=== PATIENT | male | born 1965 | race Hispanic/Latino ===

== ENCOUNTER 2018-01-09 11:21 | Outpatient (CLI) | payer MEDICARE ==
--- NOTE | 2018-01-09 15:15 | RAD ---
3 VIEWS RIGHT SHOULDER: Date: 01/09/18 COMPARISON: None. HISTORY: Right anterior shoulder pain. FINDINGS: Three views of the right shoulder show no evidence of acute fracture or dislocation. No degenerative changes are seen. The visualized right thorax is unremarkable. IMPRESSION: Unremarkable exam. POS: CET
== END 2018-01-09 11:22 | disposition home or self-care (01) ==
LOC: BICRAD 11:21
PROVIDERS: ATTEND Internal Medicine
DX: M25.511 Pain in right shoulder (principal)

== ENCOUNTER 2018-01-28 23:58 | Inpatient (IN) | payer MEDICARE ==
[2018-01-29 01:11] LABS: Band 9 % (5-11); Hemoglobin 8.2 g/dL (14.0-18.0); Lymphocytes 10 % (21-51); MDiff Complete? YES; Mean Corpuscular HGB CONC 32.9 g/dL (32.0-36.0); Mean Corpuscular Hemoglobin 33.2 pg (27.0-31.0); Mean Platelet Volume 8.8 fL (7.4-10.4); Monocytes 10 % (0-10); Neutrophil 71 % (42-75); Nucleated RBC 7 % (0); Platelet Count 275 thou/uL (130-400); RBC Distribution Width 14.5 % (11.5-14.5); Red Blood Cell (RBC) Count 2.48 mill/uL (4.70-6.10); White Blood Cell (WBC) Count 10.7 thou/uL (4.8-10.8)
[2018-01-29 01:14] LABS: ALT (SGPT) 373 U/L (8-55); AST (SGOT) 422 U/L (5-34); Albumin 3.4 g/dL (3.5-5.0); Alkaline Phosphatase 78 U/L (40-150); Anion Gap 27 mmol/L (10-20); BUN (Urea Nitrogen) 64 mg/dL (8.4-25.7); Calc. Creatinine Clearance 0 mL/min (70-130); Carbon Dioxide 25 mmol/L (22-29); Chloride 93 mmol/L (98-107); Estimated GFR-MDRD 6; Glucose 227 mg/dL (70-105); Protein, Total 6.4 g/dL (6.0-8.3); Sodium 138 mmol/L (136-145)
[2018-01-29 01:16] LABS: CKMB 0.5 ng/mL (0-6.6); Troponin I 0.113 ng/mL (< 0.028)
[2018-01-29 01:18] LABS: Potassium 7.3 mmol/L (3.5-5.1)
[2018-01-29 02:25] LABS: HBSAB Concentration 2.78 mIU/mL; Hep B Core Total Ab Non-Reactive (NonReactive); Hep B Core Total Index 0.07 S/CO (0-0.79); Hep B Surf AB Non-Reactive (NonReactive); Hep B Surf Ag Non-Reactive S/CO (NonReactive); Hep C IgG Ab Non-Reactive (NonReactive); Hep C Index 0.08 S/CO (0-0.79)
[2018-01-29 04:33] LABS: Troponin I 0.128 ng/mL (< 0.028)
--- NOTE | 2018-01-29 07:59 | RAD ---
PORTABLE CHEST: DATE: 01/29/2018. PROVIDED CLINICAL HISTORY: Dyspnea. FINDINGS: Comparison 03/30/2015. The cardiac silhouette is enlarged. The lungs are hypoinflated. There is pro minence of the pulmonary vasculature and pulmonary interstitium. No definite focal consolidation, pl eural fluid, or pneumothorax with evaluation of the left lung base limited due to cardiomegaly. IMPRESSION: Hypoinflated exam with cardiomegaly and suggestion of pulmonary vascular congestion. Correlate with concerns for congestive failure. POS: OFF
[2018-01-29] MEDS ORDERED: Bisacodyl 10 MG SUPP PR PRN (08:01)
[2018-01-29] MEDS ORDERED: Acetaminophen 325 MG TAB PO PRN (08:01)
[2018-01-29] MEDS ORDERED: Zolpidem Tartrate 5 MG TAB PO PRN (08:01)
[2018-01-29] MEDS ORDERED: Bisacodyl 5 MG TAB PO PRN (08:01)
[2018-01-29] MEDS ORDERED: Loperamide HCl 2 MG CAP PO PRN (08:01)
[2018-01-29] MEDS ORDERED: HYDROcodone/Acetaminophen 5/325 mg Tablet PO PRN (08:01)
[2018-01-29] MEDS ORDERED: Ondansetron PF 4 MG/2 ML Vial IVP PRN (08:01)
[2018-01-29] MEDS ORDERED: Senokot S 8.6-50 MG TAB PO PRN (08:01)
[2018-01-29] MEDS ORDERED: Calcium Carbonate 500 MG ChewTAB PO PRN (08:01)
[2018-01-29] MEDS ORDERED: Ondansetron ODT 4 MG TAB PO PRN (08:01)
[2018-01-29] MEDS ORDERED: Dextrose 50% Abboject 50 ML SYRINGE SLOW IVP PRN (08:16)
[2018-01-29] MEDS ORDERED: Dextrose 5% in Water 1,000 ML IV PRN (08:16)
[2018-01-29 08:17] LABS: Troponin I 0.109 ng/mL (< 0.028)
--- NOTE | 2018-01-29 08:23 | ULT ---
PRELIMINARY REPORT/[facility]/EMERGENTY AFTER-HOURS PROCEDURE US Abdomen Limited, Right Upper Quadrant EXAM DATE/TIME: 01/29/2018 1:47 AM CLINICAL HISTORY: 52 years old, male; Pain and signs and symptoms; Nausea and vomiting; Abdominal pain; Localized; Righ t upper quadrant (ruq) TECHNIQUE: Real-time ultrasound of the abdomen with image documentation. Examination was focused on the right up per quadrant. COMPARISON: No relevant prior studies available. FINDINGS: Liver: Mildly enlarged liver. No mass. Gallbladder: Gallbladder is contracted and the gallbladder lumen is not very well visualized. However there appears to be gallstones with gallbladder wall thickening. Positive Bueno's sign. Common bile duct: Unremarkable. Pancreas: Limited visualization. Right kidney: No acute findings. No mass. No hydronephrosis. Other findings: Right pleural effusion. IMPRESSION: Contracted gallbladder. There appears to be gallstones with gallbladder wall thickening and positive Bueno's sign concerning for cholecystitis. Recommend further evaluation with CT. Right pleural effus ion. Mild hepatomegaly. Thank you for allowing us to participate in the care of your patient. Dictated and Authenticated by: Mandeep Campos MD 01/29/2018 2:45 AM Central Time ([place] & [place]) EMERGENT AFTER HOURS GALLBLADDER ULTRASOUND: History: Right upper quadrant pain. FINDINGS: Real-time imaging of the right upper quadrant shows a contracted gallbladder. Gallstones are noted. T here is gallbladder wall thickening present and technologist reports a positive ultrasound Bueno's s ign. Visualized liver parenchyma shows no focal abnormalities. The common bile duct is difficult to v isualized but does not appear dilated. Right kidney is normal in size and not obstructed. The pancrea s is obscured. There is reportedly no history of cholecystectomy, therefore, this appears to be relat ed to a contracted gallbladder with gallstones and what appears to be a markedly thickened gallbladde r wall. It would be less likely to be related to colon in the gallbladder fossa. Clinical correlation as to whether there has been a cholecystectomy, but I suspect that this is related to a contracted g allbladder. No ductal dilatation is visualized. IMPRESSION: The report is in agreement with the temporary report issued by [facility]. POS: [facility]
[2018-01-29] MEDS ORDERED: Famotidine/PF 20 mg/2ml Vial SLOW IVP SCH (09:00)
[2018-01-29] MEDS ORDERED: Piperacillin/Tazobactam 2.25 GM VIAL ONE (10:14)
--- NOTE | 2018-01-29 14:52 | HP ---
PRIMARY CARE PHYSICIAN: Joe Pacheco MD PRIMARY HAT AND CAP SEWER: Yanet Schaefer MD REASON FOR ADMISSION: Generalized weakness, hyperkalemia, abnormal LFT. HISTORY OF PRESENT ILLNESS: A 52-year-old male, who was brought to emergency room by family member for generalized weakness. The patient was requiring assistance to get around. He was having fever and cough. He was also feeling shortness of breath for last couple of days. One week ago, he visited [place]. He denies any muscle pain. He denies any urinary tract infection symptoms. He denies any vomiting, diarrhea. He denies any abdominal pain. He denies any dyspepsia. He denies any rash. He denies any flu-like symptoms, sore throat. He denies any pleuritic chest pain. He denies any body ache. He denies any sick exposure, other than he was in [place] one week ago. He denies any lower extremity edema, calf tenderness. He denies any dizziness or syncope. The patient is on hemodialysis Saturday, Saturday, Saturday. When he came to emergency room, his routine blood test showed hyperkalemia, elevated troponin, elevated BNP, and abnormal LFT. Ultrasound of the abdomen was done, which reported as contracted gallbladder. When I saw this patient, at that time, he was not having any upper abdominal pain. He was very weak enough to stand up from his bed. He was only having cough. He was afebrile and he was hemodynamically stable. His family member was present who provided most of the history and helped me to get history from the patient to interpret for me. REVIEW OF SYSTEMS: The following complete review of systems was negative, unless otherwise mentioned in the HPI or below: Constitutional: Weight loss or gain, ability to conduct usual activities. Skin: Rash, itching. Eyes: Double vision, pain. ENT/Mouth: Nose bleeding, neck stiffness, pain, tenderness. Cardiovascular: Palpitations, dyspnea on exertion, orthopnea. Respiratory: Shortness of breath, wheezing, cough, hemoptysis, fever or night sweats. Gastrointestinal: Poor appetite, abdominal pain, heartburn, nausea, vomiting, constipation, or diarrhea. Genitourinary: Urgency, frequency, dysuria, nocturia. Musculoskeletal: Pain, swelling. Neurologic/Psychiatric: Anxiety, depression. Allergy/Immunologic: Skin rash, bleeding tendency. All review of systems reviewed and negative except as mentioned in HPI. PAST MEDICAL HISTORY: ESRD, on hemodialysis Saturday, Saturday, Saturday, hypertension, secondary hyperparathyroidism of renal origin, dyslipidemia, diabetes type 2, gastroesophageal reflux disease. PAST SURGICAL HISTORY: Dialysis catheter placement in 2014. PAST PSYCHIATRIC HISTORY: Reviewed and negative. SOCIAL HISTORY: The patient is , lives at home with family. No history of tobacco, alcohol, or illicit drug abuse. FAMILY HISTORY: No strong family history of premature coronary artery disease, stroke, or cancer. ALLERGIES: NO KNOWN DRUG ALLERGIES. CURRENT HOME MEDICATIONS: Amlodipine 10 mg daily, coreg 25 mg twice daily, pravastatin 40 mg p.o. at bedtime, Renvela 800 mg t.i.d., Nexium 40 mg p.o. daily, Novolin insulin as per sliding scale. EMERGENCY ROOM COURSE: The patient is given Zosyn, aspirin. PHYSICAL EXAMINATION: VITAL SIGNS: On arrival, blood pressure 98/44, pulse 61, respiratory rate 20, temperature 98.4, saturation 98% on room air. Weight 78 kilogram. GENERAL: The patient is currently weak-appearing, chronically ill, no obvious acute distress. HEAD: Normocephalic, atraumatic. EYES: Pupils are round and reactive to light. Extraocular muscles are intact. No icterus. ENT: Oropharynx within normal limits. Moist mucous membranes. No oral lesions. NECK: Supple. No JVD. No thyromegaly. No lymphadenopathy. No meningeal signs of irritation. LUNGS: Clear to auscultation without any rhonchi or rales. CARDIAC: S1, S2 regular. No murmur elicited. No gallop. No rub. ABDOMEN: Soft. Bowel sounds present. Nontender, nondistended. No organomegaly, no mass. No Bueno's sign. No peritoneal sign. BACK: Unremarkable. No CVA tenderness. EXTREMITIES: Upper extremities, passive movement of all limbs are normal. Lower extremities, no edema. Good distal pulsation. No calf tenderness. SKIN: No skin rash. HEMATOLOGIC: No lymphadenopathy. PSYCHIATRIC: Normal affect. SIGNIFICANT LABORATORY DATA: EKG showing incomplete right bundle-branch block pattern, nonspecific ST-T changes, low voltage QRS complex. Abdominal ultrasound showing contracted gallbladder, gallbladder wall thickening present. CBC: WBC 10.7, hemoglobin 8.2, MCV 101, platelets 275. Sodium 138, potassium 7.3, chloride 93, carbon dioxide 25, anion gap 27, BUN 64, creatinine 9.62, glucose 227, calcium 9.0, phosphorus 3.0. LFT: AST 422, ALT 373, alkaline phosphatase 78, albumin 3.4, PTH 440, BNP 13,407.8, troponin 0.128, 0.109. Hepatitis profile negative. ASSESSMENT AND PLAN: 1. Generalized weakness, multifactorial etiology. The patient will need evaluation with PT. 2. Hyperkalemia. The patient had dialysis today and will repeat CMP tomorrow since right after dialysis, his hyperkalemia most likely resolved. 3. End-stage renal disease, on hemodialysis. Dr. Schaefer is consulted and he is going to do maintenance hemodialysis while in the hospital. He had dialysis today. 4. Abnormal liver function test. Etiology uncertain. He does not have any abdominal pain. I spoke with Dr. Armstrong, and he does not think that the patient has any cholecystitis. His alkaline phosphatase is normal. He does not have any jaundice. I am suspecting viral etiology versus passive congestion. We will repeat CMP tomorrow. 5. Suspected infection. Source of infection is not clear at this point, but based on his presentation, he might have underlying bronchitis. His chest x-ray showing pulmonary vascular congestion. He does have cough and shortness of breath. At this point, we will treat with Zosyn empirically. 6. Elevated troponin, likely due to renal disease and dialysis. We will do serial cardiac enzymes. 7. Elevated BNP, likely due to end-stage renal disease, but we will obtain echocardiography to assess EF and other structural abnormality. 8. Microcytic anemia. Continue Nephro-Jose tablet daily. 9. Secondary hyperparathyroidism of renal origin. Continue Renvela 800 mg p.o. t.i.d. 10. Hypertension. Continue amlodipine 5 mg p.o. daily, coreg 6.25 mg p.o. b.i.d. 11. Dyslipidemia. Continue Zocor 10 mg p.o. at bedtime. 12. Diabetes type 2. Continue insulin as per sliding scale protocol. 13. Deep vein thrombosis prophylaxis, heparin 5000 units subcu twice daily. 14. Gastrointestinal prophylaxis, Pepcid 20 mg IV daily. CODE STATUS: The patient is full code. The patient's daughter is surrogate decision maker. DISPOSITION PLAN: Based on clinical course. PLAN OF CARE: Discussed with the patient and family member at bedside in the emergency room. Job ID: [id number]
[2018-01-29] MEDS ORDERED: Amlodipine 5 MG TAB ONE (16:47)
[2018-01-29] MEDS ORDERED: Famotidine/PF 20 mg/2ml Vial ONE (16:48)
[2018-01-29] MEDS ORDERED: Sevelamer Carbonate 800 MG TAB PO SCH (17:15)
[2018-01-29 20:22] VITALS: BMI 26.4
[2018-01-29] MEDS: Heparin 5,000 UNITS/ML VIAL SC SCH ×2 (20:38→21:52)
[2018-01-29] MEDS: Albumin 25% 25 GM/100 ML BOT IVPB SCH (20:38)
[2018-01-29] MEDS: Amlodipine 5 MG TAB PO SCH (20:38)
[2018-01-29] MEDS: Folic Acid/Vit B Comp W-C PO SCH (20:38)
[2018-01-29] MEDS: Sevelamer Carbonate 800 MG TAB PO SCH (20:39)
[2018-01-29] MEDS: Saccharomyces boulardii 250 MG CAP PO SCH (20:39)
[2018-01-29] MEDS: Piperacillin/Tazobactam 2.25 GM in Sodium Chloride 0.9% 100 ML IVPB SCH ×2 (20:39→21:52)
[2018-01-29] MEDS: Carvedilol 6.25 MG TAB PO SCH (20:39)
[2018-01-29] MEDS: Simvastatin 5 MG TAB PO SCH (21:52)
--- NOTE | 2018-01-30 01:09 | CON ---
DATE OF CONSULTATION: 01/29/2018 REQUESTING PHYSICIAN: Abdias Graf MD. HISTORY OF PRESENT ILLNESS: Mr. Tellez is a 52-year-old man with history of end-stage renal disease, on hemodialysis. The patient was brought to the emergency department by his family reporting progressive generalized weakness. The patient recently travelled to [place]. He denies any abdominal pain. He, however, complains of progressive nonproductive cough over the last 1 week. He has had no fevers or chills. He has had no diarrhea or hematochezia. PAST MEDICAL HISTORY: Significant for hemodialysis-dependent end-stage renal disease, hyperlipidemia, type 2 diabetes mellitus, essential hypertension, and gastroesophageal reflux disease. PAST SURGICAL HISTORY: Pertinent for hemodialysis catheter placement 3 years ago. SOCIAL HISTORY: The patient is , lives at home with his . He denies any severe smoking, ethanol, or illicit drug abuse. FAMILY HISTORY: Significant for coronary artery disease; cancer, type unknown; and diabetes mellitus. MEDICATIONS: Patient's outpatient medications include 1. Coreg 25 mg p.o. b.i.d. 2. Pravastatin 40 mg p.o. at bedtime. 3. Amlodipine 10 mg p.o. daily. 4. Novolin insulin sliding scale. 5. Nexium 40 mg p.o. daily. 6. Renvela 800 mg p.o. t.i.d. ALLERGIES: THE PATIENT DENIES ANY KNOWN DRUG ALLERGIES. REVIEW OF SYSTEMS: A 10-point review of systems essentially unremarkable except as stated in the past medical history and chief complaint. PHYSICAL EXAMINATION: GENERAL: This reveals a 52-year-old normally developed man who is otherwise coherent, interactive, and appears stated age. The patient is alert and oriented x3, appears to be in no acute distress at the time of my evaluation. HEENT: Appears normocephalic and atraumatic. Pupils are equally round and reactive to light and accommodation. Extraocular movements are intact bilaterally. No scleral icterus present. HEART: Regular rate and rhythm. He has a 2/6 systolic murmur auscultated in the left sternal border. LUNGS: Scattered bibasilar rhonchi. Breathing is regular and nonlabored. ABDOMEN: Soft and obese but nontender to palpation. Liver is palpated 1 to 2 cm below the right costal margin. The spleen is non-palpable below the costal margin. Clearly, he has no peritoneal signs on examination. NEUROLOGICAL: No focal deficits present. LABORATORY DATA: Laboratory findings today include a CBC with 10,700 white blood cells. Hemoglobin and hematocrit of 8.2 and 25.0 respectively. Platelet count is 275,000. Differential count is as follows: 71 neutrophils, 9 bands, 10 lymphocytes, and 10 monocytes. Metabolic Profile: Sodium is 138, potassium is 7.3, chloride is 93, bicarb is 25, BUN is 64, creatinine is 9.62, glucose is 227, phosphorus is 3.0, total bilirubin is 1.0. AST and ALT are 422 and 373 respectively. BNP is markedly elevated at 13,407.8. I have personally reviewed the radiographic studies including a chest x-ray with significant cardiomegaly and increased perihilar markings. I have also reviewed the limited abdominal ultrasound which is pertinent for a contracted gallbladder with intraluminal gallstones and sludge. The common bile duct is normal in diameter for this patient's age at 3.7 mm in diameter. Incidentally, a right pleural effusion is noted. IMPRESSION: 1. Asymptomatic cholelithiasis. I suspect that the transaminitis is likely secondary to acute liver congestion from decompensated acute congestive cardiomyopathy. 2. Acute hyperkalemia, history of chronic renal failure, dialysis dependent. 3. Right pleural effusion secondary to acute congestive heart failure. RECOMMENDATIONS: 1. There is no acute surgical indication for this patient at this time for this asymptomatic cholelithiasis. 2. Recommend further evaluation with regards to patient's acute decompensated congestive cardiomyopathy. 3. Once the patient is hemodynamically stable from a cardiovascular standpoint, he may follow up with General Surgery in their clinic eventually for an elective cholecystectomy if warranted. 4. A cholecystectomy could be undertaken here in this hospitalization if he becomes symptomatic especially after hemodynamic stability has been achieved. 5. The above findings and recommendations were discussed with the patient and his daughter at the bedside through a card maker. The patient and his daughter indicated understanding of the information given. We answered their questions. Thank you again, Dr. Graf, for allowing me the opportunity to participate in the care of this patient. Job ID: [id number] MTDD
[2018-01-30] MEDS: Piperacillin/Tazobactam 2.25 GM in Sodium Chloride 0.9% 100 ML IVPB SCH ×3 (02:12→18:13)
[2018-01-30 06:41] LABS: ALT (SGPT) 589 U/L (8-55); AST (SGOT) 810 U/L (5-34); Albumin 3.3 g/dL (3.5-5.0); Alkaline Phosphatase 75 U/L (40-150); Anion Gap 25 mmol/L (10-20); BUN (Urea Nitrogen) 48 mg/dL (8.4-25.7); Bilirubin, Total 1.2 mg/dL (0.2-1.2); Calc. Creatinine Clearance 13 mL/min (70-130); Calcium 8.7 mg/dL (7.8-10.44); Carbon Dioxide 20 mmol/L (22-29); Chloride 95 mmol/L (98-107); Estimated GFR-MDRD 8; Globulin 3.4 g/dL (2.4-3.5); Glucose 297 mg/dL (70-105); Potassium 5.6 mmol/L (3.5-5.1); Protein, Total 6.7 g/dL (6.0-8.3); Sodium 134 mmol/L (136-145)
[2018-01-30 06:46] LABS: Band 1 % (5-11); Eosinophils 1 % (0-10); Hemoglobin 9.2 g/dL (14.0-18.0); Lymphocytes 18 % (21-51); MDiff Complete? YES; Mean Corpuscular HGB CONC 30.6 g/dL (32.0-36.0); Mean Corpuscular Hemoglobin 30.7 pg (27.0-31.0); Mean Platelet Volume 9.2 fL (7.4-10.4); Monocytes 6 % (0-10); Neutrophil 74 % (42-75); PLT Morphology Comment Appears Adequate; Platelet Count 215 thou/uL (130-400); RBC Distribution Width 14.4 % (11.5-14.5); Red Blood Cell (RBC) Count 2.99 mill/uL (4.70-6.10); White Blood Cell (WBC) Count 8.9 thou/uL (4.8-10.8)
[2018-01-30] MEDS ORDERED: Prevnar 13-Val Conj/PF 0.5 ML SYRINGE IM ONE ×2 (09:00→15:00)
--- NOTE | 2018-01-30 09:51 | PDOC.PN ---
- Subjective Encounter Start Date: 01/30/18 Encounter Start Time: 07:00 -: old records requested/rev Patient seen and examined. No new complaints. No overnight events pt seen in dialysis room, he denies chest pain, his breathing is OK, - Objective Resuscitation Status - Order Detail: 01/29/18 08:01 Resuscitation Status Routine Resuscitation Status: FULL: Full Resuscitation MAR Reviewed: Yes Vital Signs & Weight: Vital Signs (12 hours) Temp Pulse Resp BP Pulse Ox 01/30/18 08:00 99.5 F 75 18 122/60 95 01/30/18 04:00 98.8 F 65 18 112/54 L 94 L Weight Weight 163 lb 11.2 oz Result Diagrams: 01/30/18 05:51 01/30/18 05:51 Additional Labs: Accuchecks 01/30/18 01/29/18 05:34 21:01 POC Glucose 293 H 174 H Radiology Reviewed by me: Yes (echo noted for low EF) EKG Reviewed by me: Yes (nsr) Phys Exam - Physical Examination Constitutional: NAD HEENT: PERRLA, moist MMs, sclera anicteric Neck: no JVD, supple Respiratory: no wheezing, no rales, no rhonchi reduced air entry at base Cardiovascular: RRR, no significant murmur, no rub Gastrointestinal: soft, non-tender, no distention, positive bowel sounds Musculoskeletal: no edema, pulses present Neurological: non-focal, normal sensation Lymphatic: no nodes Psychiatric: normal affect, A&O x 3 Skin: no rash, normal turgor Dx/Plan (1) Acute on chronic combined systolic and diastolic ACC/AHA stage C congestive heart failure Code(s): I50.43 - ACUTE ON CHRONIC COMBINED SYSTOLIC AND DIASTOLIC HRT FAIL Status: Acute Comment: pt seems euvolemic, on HD, not on ACEI or ARB due to ESRD and hyperkalemia (2) Abnormal LFTs Code(s): R94.5 - ABNORMAL RESULTS OF LIVER FUNCTION STUDIES Status: Acute Comment: suspecting from passive congestion (3) Bandemia Code(s): D72.825 - BANDEMIA Status: Acute Comment: source unclear, on empiric zosyn (4) Hyperkalemia Code(s): E87.5 - HYPERKALEMIA Status: Acute (5) Weakness generalized Code(s): R53.1 - WEAKNESS Status: Acute (6) Anemia of renal disease Code(s): N18.9 - CHRONIC KIDNEY DISEASE, UNSPECIFIED; D63.1 - ANEMIA IN CHRONIC KIDNEY DISEASE Status: Chronic (7) Diabetes type 2, controlled Code(s): E11.9 - TYPE 2 DIABETES MELLITUS WITHOUT COMPLICATIONS Status: Chronic (8) Dyslipidemia Code(s): E78.5 - HYPERLIPIDEMIA, UNSPECIFIED Status: Chronic (9) ESRD on hemodialysis Code(s): N18.6 - END STAGE RENAL DISEASE; Z99.2 - DEPENDENCE ON RENAL DIALYSIS Status: Chronic (10) Elevated troponin Code(s): R74.8 - ABNORMAL LEVELS OF OTHER SERUM ENZYMES Status: Chronic (11) Hypertension Code(s): I10 - ESSENTIAL (PRIMARY) HYPERTENSION Status: Chronic (12) Secondary hyperparathyroidism of renal origin Code(s): N25.81 - SECONDARY HYPERPARATHYROIDISM OF RENAL ORIGIN Status: Chronic - Plan cont current plan of care, continue antibiotics, PT/OT, respiratory therapy * medication reviewed as below * symptomatic treatment. * will consult cardiology for his new low EF for further evaluation * continue zosyn empirically * continue PT * will monitor today on Tele, * further plan will decide based on cardiology recommendation Review of Systems - Review of Systems Constitutional: weakness. negative: fever, chills, sweats, malaise, other ENT: negative: Ear Pain, Ear Discharge, Nose Pain, Nose Discharge, Nose Congestion, Mouth Pain, Mouth Swelling, Throat Pain, Throat Swelling, Other Respiratory: negative: Cough, Dry, Shortness of Breath, Hemoptysis, SOB with Excertion, Pleuritic Pain, Sputum, Wheezing Cardiovascular: negative: chest pain, palpitations, orthopnea, paroxysmal nocturnal dyspnea, edema, light headedness, other Gastrointestinal: negative: Nausea, Vomiting, Abdominal Pain, Diarrhea, Constipation, Melena, Hematochezia, Other Genitourinary: negative: Dysuria, Frequency, Incontinence, Hematuria, Retention , Other Musculoskeletal: negative: Neck Pain, Shoulder Pain, Arm Pain, Back Pain, Hand Pain, Leg Pain, Foot Pain, Other Skin: negative: Rash, Lesions, Griffin, Bruising, Other - Medications/Allergies Allergies/Adverse Reactions: Allergies Allergy/AdvReac Type Severity Reaction Status Date / Time No Known Allergies Allergy Verified 01/30/18 06:46 Medications: Current Medications Acetaminophen (Tylenol) 650 mg PO Q4H PRN PRN Reason: Headache/Fever/Mild Pain (1-3) Hydrocodone Bitart/Acetaminophen (Rockwell 5/325) 1 tab PO Q4H PRN PRN Reason: Moderate Pain (4-6) Albuterol/Ipratropium (Duoneb) 3 ml NEB [id number] PRN PRN Reason: SOB &/or Wheezing Amlodipine Besylate (Norvasc) 5 mg PO DAILY [facility] Last Admin: 01/29/18 20:38 Dose: Not Given Bisacodyl (Dulcolax) 10 mg PO DAILYPRN PRN PRN Reason: Constipation Bisacodyl (Dulcolax) 10 mg AL DAILYPRN PRN PRN Reason: Constipation Calcium Carbonate (Tums) 1,000 mg PO Q4H PRN PRN Reason: Heartburn or Indigestion Carvedilol (Coreg) 6.25 mg PO BID-[facility] Last Admin: 01/29/18 20:39 Dose: Not Given Dextrose/Water (Dextrose 50%) 25 gm SLOW IVP PRN PRN PRN Reason: Hypoglycemia Epoetin Bruce (Procrit) 10,000 units IVP [id number]@[id number] [facility] Famotidine (Pepcid) 20 mg PO DAILY [facility] Glucagon (Glucagon) 1 mg IM PRN PRN PRN Reason: Hypoglycemia Heparin Sodium (Porcine) (Heparin) 5,000 units SC BID [facility] Last Admin: 01/29/18 21:52 Dose: 5,000 units Piperacillin Sod/Tazobactam (Sod 2.25 gm/ Sodium Chloride) 100 mls @ 200 mls/ hr IVPB 0200,1000,1800 [facility] Last Admin: 01/30/18 02:12 Dose: 100 mls Dextrose/Water (D5w) 1,000 mls @ 0 mls/hr IV .Q0M PRN PRN Reason: Hypoglycemia Insulin Human Lispro (Humalog) 0 units SC .MODERATE SLIDING SC PRN PRN Reason: Moderate Correctional Scale Insulin Human Lispro (Humalog) 0 units SC .BEDTIME SLIDING SC PRN PRN Reason: Bedtime Correctional Scale Loperamide HCl (Imodium) 2 mg PO PRN PRN PRN Reason: Diarrhea/Loose Stools Ondansetron HCl (Zofran Odt) 4 mg PO Q6H PRN PRN Reason: Nausea/Vomiting Ondansetron HCl (Zofran) 4 mg IVP Q6H PRN PRN Reason: Nausea/Vomiting Saccharomyces Boulardii (Florastor) 250 mg PO DAILY [facility] Last Admin: 01/29/18 20:39 Dose: Not Given Senna/Docusate Sodium (Senokot S) 2 tab PO BID PRN PRN Reason: Constipation Sevelamer Carbonate (Renvela) 800 mg PO TID-[facility] Last Admin: 01/29/18 20:39 Dose: Not Given Simvastatin (Zocor) 10 mg PO HS [facility] Last Admin: 01/29/18 21:52 Dose: 10 mg Vitamin B Complex/Vit C/Folic Acid (Nephro-Jose Tablet) 1 tab PO DAILY [facility] Last Admin: 01/29/18 20:38 Dose: Not Given Zolpidem Tartrate (Ambien) 5 mg PO HSPRN PRN PRN Reason: Insomnia
[2018-01-30] MEDS: Folic Acid/Vit B Comp W-C PO SCH (11:59)
[2018-01-30] MEDS: Carvedilol 6.25 MG TAB PO SCH ×2 (12:00→16:53)
[2018-01-30] MEDS: Amlodipine 5 MG TAB PO SCH (12:00)
[2018-01-30] MEDS: Saccharomyces boulardii 250 MG CAP PO SCH (12:00)
[2018-01-30] MEDS: Heparin 5,000 UNITS/ML VIAL SC SCH ×2 (12:00→20:55)
[2018-01-30] MEDS: Sevelamer Carbonate 800 MG TAB PO SCH ×3 (12:00→16:53)
[2018-01-30] MEDS: Famotidine 20 MG TAB PO SCH (12:07)
--- NOTE | 2018-01-30 12:55 | CON ---
DATE OF CONSULTATION: 01/29/2018 TYPE OF CONSULTATION: Nephrology CONSULTING PHYSICIAN: Dr. Graf. REASON FOR CONSULTATION: End-stage renal disease evaluation and care. REASON FOR ADMISSION: Weakness. HISTORY OF PRESENT ILLNESS: This 52-year-old male with history of end-stage renal disease, type 2 diabetes, hypertension, came to the hospital with weakness. He gets dialysis on Saturday, Saturday, and Saturday. Nephrology is consulted. No fevers or chills. No nausea or vomiting. No diarrhea reported. PAST MEDICAL HISTORY: Positive for end-stage renal disease, on hemodialysis on Saturday, Saturday, and Saturday; hypertension, hyperlipidemia, type 2 diabetes, and gastroesophageal reflux disease. PAST SURGICAL HISTORY: Dialysis access placement. HOME MEDICATIONS: 1. Amlodipine. 2. Coreg. 3. Pravastatin. 4. Renvela. 5. Nexium. 6. Novolin. ALLERGIES: NO KNOWN DRUG ALLERGIES SOCIAL HISTORY: No smoking, alcohol, or illicit drug abuse. FAMILY HISTORY: No history of kidney disease. REVIEW OF SYSTEMS: REVIEW OF SYSTEMS: The following complete review of systems was negative, unless otherwise mentioned in the HPI or below: Constitutional: Weight loss or gain, ability to conduct usual activities. Skin: Rash, itching. Eyes: Double vision, pain. ENT/Mouth: Nose bleeding, neck stiffness, pain, tenderness. Cardiovascular: Palpitations, dyspnea on exertion, orthopnea. Respiratory: Shortness of breath, wheezing, cough, hemoptysis,fever or night sweats. Gastrointestinal: Poor appetite, abdominal pain, heartburn, nausea, vomiting, constipation, or diarrhea. Genitourinary: Urgency, frequency, dysuria, nocturia. Musculoskeletal: Pain, swelling. Neurologic/Psychiatric: Anxiety, depression. Allergy/Immunologic: Skin rash, bleeding tendency. PHYSICAL EXAMINATION GENERAL: Reveals a well-built male, in no apparent distress. VITAL SIGNS: Temperature 98.4, pulse 61, respirations 20, blood pressure 98/44. HEENT: Atraumatic, normocephalic. Oral mucosa moist. NECK: Supple. CARDIOVASCULAR: S1 and S2. Heart rate and rhythm are regular. RESPIRATORY: Clear. GASTROINTESTINAL: Abdomen is soft. MUSCULOSKELETAL: 1+ edema. DERMATOLOGIC: No rash. NEUROLOGIC: Alert and awake. PSYCHIATRIC: Mood and affect normal. LABORATORY DATA: Potassium is 7.3, BUN is 64, creatinine is 9.6. ASSESSMENT AND PLAN: 1. End-stage renal disease, currently on hemodialysis. 2. Hyperkalemia, we will have him on urgent dialysis. 3. Anemia. Start on Epogen with dialysis. 4. . 5. Fluid overload. Remove fluid with dialysis as tolerated. 6. Continue dialysis Saturday, Saturday, Saturday. Job ID: [id number]
--- NOTE | 2018-01-30 13:11 | PRG ---
DATE OF SERVICE: 01/30/2018 SUBJECTIVE: The patient reports good rest overnight and reports that he continues to have no abdominal pain since last exam. The patient has no complaints for us at this time and at the time of exam. Denies fevers or chills. OBJECTIVE: VITAL SIGNS: Blood pressure 122/60, pulse 75, respirations 18, O2 sat 95% on room air, temperature 99.5. GENERAL: Alert and aware. HEENT: Normocephalic, atraumatic. EOMI. Moist mucosal membranes. HEART: Regular rate and rhythm. Pulses equal bilaterally. LUNGS: No apparent respiratory distress. Equal rise of chest. ABDOMEN: Soft and nontender. Normal bowel sounds. NEUROLOGIC: No focal deficits present. LABORATORY DATA: White blood cell count 8.9, hemoglobin 9.2, hematocrit 30, platelet count 215. Sodium 134, potassium 5.6, BUN 48, creatinine 6.92, glucose 297, ALT 589, and AST 810. IMPRESSION: 1. Asymptomatic cholelithiasis transaminitis secondary to hepatic congestion in the setting of congestive cardiomyopathy. 2. Hyperkalemia, in the setting of chronic renal failure, dialysis dependent. RECOMMENDATIONS: There continues to be no acute surgical indication for this patient's asymptomatic cholelithiasis. Recommend continued evaluation of congestive cardiomyopathy and treatment for other chronic health issues. Recommend this patient for outpatient followup for cholecystectomy. Please refer patient to our clinic on discharge for cholecystectomy. This patient was seen and evaluated by Dr. Cervantes on morning rounds. The patient verbalized understanding and was in agreement with plan. Job ID: [id number]
[2018-01-30] MEDS: HumaLOG 300 UNITS/3 ML VIAL SC PRN ×2 (18:13→21:02)
[2018-01-30] MEDS: Simvastatin 5 MG TAB PO SCH (20:55)
--- NOTE | 2018-01-30 23:43 | CON ---
DATE OF CONSULTATION: 01/30/2018 CARDIOLOGY CONSULTATION: REASON FOR CONSULTATION: Dilated cardiomyopathy. HISTORY OF PRESENT ILLNESS: Mr. Tellez is a pleasant 52-year-old gentleman who comes to the hospital for being weak and having epigastric pain. He was brought in, found to have elevated LFTs, but he only has cholelithiasis, not cholecystitis, so an echocardiogram was done that revealed a reduced ejection fraction probably about 30%. So it was thought that his epigastric pain is from passive congestion of liver due to his Afib. He also has end-stage renal disease and is on hemodialysis Saturday, Saturday, Saturday. Echocardiogram showed an EF which was 20%, which was thought to be new, so Cardiology was consulted for this. I talked with Mr. Tellez, he tells me that back in 2014 when he was first diagnosed with end-stage renal disease, he was also told that he had a weak heart. He tells me that he had a heart catheterization at that time and he was told there was an artery that was completely blocked and they could not do much about it. So this is unclear at this time, but this all happened at [facility]. PAST MEDICAL HISTORY: 1. End-stage renal disease, on hemodialysis Saturday, Saturday, Saturday with Dr. Schaefer. 2. Hypertension. 3. Hyperparathyroidism. 4. Hyperlipidemia. 5. Type 2 diabetes. 6. Gastroesophageal reflux disease. PAST SURGICAL HISTORY: 1. Dialysis catheter placement in 2014. 2. Possible heart catheterization per his review, but we do not have records of this. SOCIAL HISTORY: No alcohol, tobacco, or drugs. FAMILY HISTORY: Noncontributory. REVIEW OF SYSTEMS: A 12-point review of systems was negative unless stated in the history of present illness. OUTPATIENT MEDICATIONS: 1. Amlodipine 10 mg a day. 2. Coreg 25 mg twice a day. 3. Pravastatin 40 mg at bedtime. 4. Renvela 800 mg t.i.d. 5. Nexium 40 mg daily. 6. Novolin insulin per sliding scale. ALLERGIES: NO KNOWN DRUG ALLERGIES. PHYSICAL EXAMINATION: VITAL SIGNS: Temperature 98.3, pulse 68, respiratory rate 17, saturating 96% on room air, and blood pressure 116/56. GENERAL: Awake, alert, and oriented x3, in no distress. HEENT: Normocephalic, atraumatic. NECK: Supple. LUNGS: Clear. CARDIOVASCULAR: S1 and S2. No S3 or S4. No murmurs. ABDOMEN: Soft. Positive bowel sounds. EXTREMITIES: No edema. SKIN: Warm and dry. LABORATORY WORK: Reviewed. CBC with a white count of 10.7, hemoglobin of 8.2 up to 9.2, hematocrit of 30, and platelet count of 215. Chemistries with sodium of 134, potassium is 5.6, chloride anion gap of 25, BUN of 48, and creatinine 6.9. AST was 810 and ALT was 589. Troponin was 0.1 , then 0.1, and 0.1. BNP was 13,407. Albumin was 3.3. Hepatitis B and C were nonreactive. Echocardiogram was reviewed which showed an EF of about 20% to 30%; however, technically difficult study. Impaired relaxation with grade 1 diastolic dysfunction, [id number] TR, and mild AI. ASSESSMENT AND PLAN: 1. Cardiomyopathy: Thought to be new onset initially; however, he tells me he has been told this was very weak in the past. He does not have any automatic implantable cardioverter-defibrillator, so this has either been not followed or he was just confused with some other diagnoses. We will ask for records from the [facility]. Hopefully, this will have them from 2015, and we will see what has been done for him already, and we will decide if there is any further risk stratification that needs to be done. If this is all new, he will need a heart catheterization; otherwise, we may just need to make sure he is in optimal medical therapy. 2. End-stage renal disease, on hemodialysis per Dr. Schaefer. 3. Further recommendations per record reviews. 4. Currently stable. We will follow. Continue current meds. Job ID: [id number] [facility]
[2018-01-31] MEDS: Piperacillin/Tazobactam 2.25 GM in Sodium Chloride 0.9% 100 ML IVPB SCH ×3 (01:46→17:30)
[2018-01-31 07:25] LABS: ALT (SGPT) 466 U/L (8-55); AST (SGOT) 390 U/L (5-34); Albumin 3.4 g/dL (3.5-5.0); Alkaline Phosphatase 74 U/L (40-150); Anion Gap 19 mmol/L (10-20); BUN (Urea Nitrogen) 39 mg/dL (8.4-25.7); Bilirubin, Total 1.3 mg/dL (0.2-1.2); Calc. Creatinine Clearance 14 mL/min (70-130); Carbon Dioxide 23 mmol/L (22-29); Chloride 96 mmol/L (98-107); Estimated GFR-MDRD 10; Glucose 182 mg/dL (70-105); Potassium 4.4 mmol/L (3.5-5.1); Protein, Total 6.4 g/dL (6.0-8.3); Sodium 134 mmol/L (136-145)
[2018-01-31 07:26] LABS: #Eosinphils 0.5 thou/uL (0.0-0.7); #Lymphocytes 2.2 thou/uL (1.20-3.40); #Monocytes 1.2 thou/uL (0.11-0.59); #Neutrophils 6.6 thou/uL (1.40-6.50); Hemoglobin 8.6 g/dL (14.0-18.0); Mean Corpuscular HGB CONC 33.2 g/dL (32.0-36.0); Mean Corpuscular Hemoglobin 33.2 pg (27.0-31.0); Mean Platelet Volume 8.5 fL (7.4-10.4); Platelet Count 340 thou/uL (130-400); RBC Distribution Width 14.3 % (11.5-14.5); White Blood Cell (WBC) Count 10.5 thou/uL (4.8-10.8)
[2018-01-31] MEDS ORDERED: Epoetin (ESRD) 10,000 UNITS/ML VIAL IVP SCH (09:00)
--- NOTE | 2018-01-31 09:30 | PDOC.PN ---
- Subjective Encounter Start Date: 01/31/18 Encounter Start Time: 08:45 Patient seen and examined. No new complaints. No overnight events this morning pt has low grade fever, no abdominal pain, no cough - Objective Resuscitation Status - Order Detail: 01/29/18 08:01 Resuscitation Status Routine Resuscitation Status: FULL: Full Resuscitation MAR Reviewed: Yes Vital Signs & Weight: Vital Signs (12 hours) Temp Pulse Resp BP Pulse Ox 01/31/18 07:46 93 L 01/31/18 07:00 99.2 F 64 17 114/54 L 93 L 01/31/18 03:34 100.1 F H 67 14 117/57 L 100 Weight Weight 162 lb 3 oz I&O: 01/30/18 01/31/18 02/01/18 06:59 06:59 06:59 Intake Total 840 Output Total 1600 Balance -760 Result Diagrams: 01/31/18 06:54 01/31/18 06:54 Additional Labs: Accuchecks 01/31/18 01/30/18 01/30/18 05:38 20:55 17:40 POC Glucose 174 H 251 H 398 H EKG Reviewed by me: Yes (nsr) Phys Exam - Physical Examination Constitutional: NAD HEENT: PERRLA, moist MMs, sclera anicteric Neck: no JVD, supple Respiratory: no wheezing, no rales, no rhonchi Cardiovascular: RRR, no significant murmur, no rub Gastrointestinal: soft, non-tender, no distention, positive bowel sounds Musculoskeletal: no edema, pulses present Neurological: non-focal, normal sensation Lymphatic: no nodes Psychiatric: normal affect, A&O x 3 Skin: no rash, normal turgor Dx/Plan (1) Acute on chronic combined systolic and diastolic ACC/AHA stage C congestive heart failure Code(s): I50.43 - ACUTE ON CHRONIC COMBINED SYSTOLIC AND DIASTOLIC HRT FAIL Status: Acute Comment: pt seems euvolemic, on HD, not on ACEI or ARB due to ESRD and hyperkalemia (2) Abnormal LFTs Code(s): R94.5 - ABNORMAL RESULTS OF LIVER FUNCTION STUDIES Status: Acute Comment: suspecting from passive congestion (3) Bandemia Code(s): D72.825 - BANDEMIA Status: Acute Comment: source unclear, on empiric zosyn (4) Hyperkalemia Code(s): E87.5 - HYPERKALEMIA Status: Acute (5) Weakness generalized Code(s): R53.1 - WEAKNESS Status: Acute (6) Anemia of renal disease Code(s): N18.9 - CHRONIC KIDNEY DISEASE, UNSPECIFIED; D63.1 - ANEMIA IN CHRONIC KIDNEY DISEASE Status: Chronic (7) Diabetes type 2, controlled Code(s): E11.9 - TYPE 2 DIABETES MELLITUS WITHOUT COMPLICATIONS Status: Chronic (8) Dyslipidemia Code(s): E78.5 - HYPERLIPIDEMIA, UNSPECIFIED Status: Chronic (9) ESRD on hemodialysis Code(s): N18.6 - END STAGE RENAL DISEASE; Z99.2 - DEPENDENCE ON RENAL DIALYSIS Status: Chronic (10) Elevated troponin Code(s): R74.8 - ABNORMAL LEVELS OF OTHER SERUM ENZYMES Status: Chronic (11) Hypertension Code(s): I10 - ESSENTIAL (PRIMARY) HYPERTENSION Status: Chronic (12) Secondary hyperparathyroidism of renal origin Code(s): N25.81 - SECONDARY HYPERPARATHYROIDISM OF RENAL ORIGIN Status: Chronic - Plan cont current plan of care, plan discussed w/ family, continue antibiotics * LFT is now improving, suspected form passive congestion * will get medical record from [facility], to see if this low EF is new or old and if he had any investigation done or not, based on that will decide if he needs any more testing this admission * discussed with daughter and updated jordan * continue zosyn * repeat labs tomorrow * overall stable and improving * HD as per nephrology * medication reviewed as below * symptomatic treatment. Review of Systems - Review of Systems Constitutional: fever. negative: chills, sweats, weakness, malaise, other ENT: negative: Ear Pain, Ear Discharge, Nose Pain, Nose Discharge, Nose Congestion, Mouth Pain, Mouth Swelling, Throat Pain, Throat Swelling, Other Respiratory: negative: Cough, Dry, Shortness of Breath, Hemoptysis, SOB with Excertion, Pleuritic Pain, Sputum, Wheezing Cardiovascular: negative: chest pain, palpitations, orthopnea, paroxysmal nocturnal dyspnea, edema, light headedness, other Gastrointestinal: negative: Nausea, Vomiting, Abdominal Pain, Diarrhea, Constipation, Melena, Hematochezia, Other Genitourinary: negative: Dysuria, Frequency, Incontinence, Hematuria, Retention , Other Musculoskeletal: negative: Neck Pain, Shoulder Pain, Arm Pain, Back Pain, Hand Pain, Leg Pain, Foot Pain, Other Skin: negative: Rash, Lesions, Griffin, Bruising, Other - Medications/Allergies Allergies/Adverse Reactions: Allergies Allergy/AdvReac Type Severity Reaction Status Date / Time No Known Allergies Allergy Verified 01/30/18 06:46 Medications: Current Medications Acetaminophen (Tylenol) 650 mg PO Q4H PRN PRN Reason: Headache/Fever/Mild Pain (1-3) Hydrocodone Bitart/Acetaminophen (Salineno 5/325) 1 tab PO Q4H PRN PRN Reason: Moderate Pain (4-6) Albuterol/Ipratropium (Duoneb) 3 ml NEB [id number] PRN PRN Reason: SOB &/or Wheezing Amlodipine Besylate (Norvasc) 5 mg PO DAILY [facility] Last Admin: 01/30/18 12:00 Dose: 5 mg Bisacodyl (Dulcolax) 10 mg PO DAILYPRN PRN PRN Reason: Constipation Bisacodyl (Dulcolax) 10 mg MI DAILYPRN PRN PRN Reason: Constipation Calcium Carbonate (Tums) 1,000 mg PO Q4H PRN PRN Reason: Heartburn or Indigestion Carvedilol (Coreg) 6.25 mg PO BID-[facility] Last Admin: 01/30/18 16:53 Dose: 6.25 mg Dextrose/Water (Dextrose 50%) 25 gm SLOW IVP PRN PRN PRN Reason: Hypoglycemia Epoetin Bruce (Procrit) 10,000 units IVP MoWeFr@0900 [facility] Famotidine (Pepcid) 20 mg PO DAILY [facility] Last Admin: 01/30/18 12:07 Dose: 20 mg Glucagon (Glucagon) 1 mg IM PRN PRN PRN Reason: Hypoglycemia Heparin Sodium (Porcine) (Heparin) 5,000 units SC BID [facility] Last Admin: 01/30/18 20:55 Dose: 5,000 units Piperacillin Sod/Tazobactam (Sod 2.25 gm/ Sodium Chloride) 100 mls @ 200 mls/ hr IVPB 0200,1000,1800 [facility] Last Admin: 01/31/18 01:46 Dose: 100 mls Dextrose/Water (D5w) 1,000 mls @ 0 mls/hr IV .Q0M PRN PRN Reason: Hypoglycemia Insulin Human Lispro (Humalog) 0 units SC .MODERATE SLIDING SC PRN PRN Reason: Moderate Correctional Scale Last Admin: 01/30/18 18:13 Dose: 10 unit Insulin Human Lispro (Humalog) 0 units SC .BEDTIME SLIDING SC PRN PRN Reason: Bedtime Correctional Scale Last Admin: 01/30/18 21:02 Dose: 3 unit Loperamide HCl (Imodium) 2 mg PO PRN PRN PRN Reason: Diarrhea/Loose Stools Last Admin: 01/30/18 17:07 Dose: 2 mg Ondansetron HCl (Zofran Odt) 4 mg PO Q6H PRN PRN Reason: Nausea/Vomiting Ondansetron HCl (Zofran) 4 mg IVP Q6H PRN PRN Reason: Nausea/Vomiting Saccharomyces Boulardii (Florastor) 250 mg PO DAILY [facility] Last Admin: 01/30/18 12:00 Dose: 250 mg Senna/Docusate Sodium (Senokot S) 2 tab PO BID PRN PRN Reason: Constipation Sevelamer Carbonate (Renvela) 800 mg PO TID-WM [facility] Last Admin: 01/30/18 16:53 Dose: 800 mg Simvastatin (Zocor) 10 mg PO HS [facility] Last Admin: 01/30/18 20:55 Dose: 10 mg Vitamin B Complex/Vit C/Folic Acid (Nephro-Jose Tablet) 1 tab PO DAILY [facility] Last Admin: 01/30/18 11:59 Dose: 1 tab Zolpidem Tartrate (Ambien) 5 mg PO HSPRN PRN PRN Reason: Insomnia
--- NOTE | 2018-01-31 10:13 | PRG ---
DATE OF SERVICE: 01/30/2018 SUBJECTIVE: Patient was seen and examined at bedside and overnight events noted. Patient denies any shortness of breath or chest pain or palpitation. No history of nausea or vomiting or diarrhea or fever or chills or cramps. OBJECTIVE: GENERAL: This is a well-built man in no acute distress. VITAL SIGNS: Temperature 99.5. Heart rate 84. Respiratory rate . Blood pressure 122/60. HEENT: Atraumatic, normocephalic. Oral mucosa is moist NECK: Supple. CARDIOVASCULAR: S1, S2 heard. Rate and rhythm regular. RESPIRATORY: Clear to auscultation. GASTROINTESTINAL: Abdomen is soft. MUSCULOSKELETAL: No tenderness. No edema. DERMATOLOGIC: No skin rash. NEUROLOGIC: Alert and awake and oriented X3. No focal neurologic deficits. Moving all the extremities. PSYCHIATRIC: Mood and affect normal. LABORATORY DATA: Potassium is 5.6, BUN is 48, creatinine is 6.9. ASSESSMENT: 1. End-stage renal disease, on hemodialysis on Saturday, Saturday, and Saturday. We will have dialysis for two hours today. 2. Hyperkalemia. We will have dialysis for 2 hours. 3. Metabolic acidosis. 4. Edema, controlled. 5. Hypertension, stable. PLAN: Two hours of dialysis today, then continue dialysis on Saturday, Saturday, and Saturday. Job ID: [id number]
[2018-01-31] MEDS: Sevelamer Carbonate 800 MG TAB PO SCH ×3 (10:56→17:31)
[2018-01-31] MEDS: Amlodipine 5 MG TAB PO SCH (10:57)
[2018-01-31] MEDS: Famotidine 20 MG TAB PO SCH (11:57)
[2018-01-31] MEDS: Carvedilol 6.25 MG TAB PO SCH ×2 (11:57→17:31)
[2018-01-31] MEDS: Heparin 5,000 UNITS/ML VIAL SC SCH ×2 (11:58→20:56)
[2018-01-31] MEDS: Folic Acid/Vit B Comp W-C PO SCH (11:58)
[2018-01-31] MEDS: Saccharomyces boulardii 250 MG CAP PO SCH (11:58)
--- NOTE | 2018-01-31 16:10 | PDOC.CTH ---
Cardiology Progress Note - Subjective I reviewed his records from the [facility]. He has no new complaints. - Objective Vital Signs Temp Pulse Resp BP Pulse Ox 01/31/18 11:40 98.2 F 66 18 121/51 L 98 01/31/18 10:57 64 01/31/18 07:46 93 L 01/31/18 07:00 99.2 F 64 17 114/54 L 93 L Weight 162 lb 3 oz 01/30/18 01/31/18 02/01/18 06:59 06:59 06:59 Intake Total 840 Output Total 1600 Balance -760 - Physical Examination General/Neuro: alert & oriented x3, NAD Neck: no JVD present Lungs: CTA, unlabored respirations Heart: RRR Abdomen: NT/ND Extremities: other: (no edema.) - Labs Result Diagrams: 01/31/18 06:54 01/31/18 06:54 Troponin/CKMB CK-MB (CK-2) 0.5 ng/mL (0-6.6) 01/29/18 00:35 Troponin I 0.109 ng/mL (< 0.028) H 01/29/18 07:42 - Assessment/Plan 1. Ischemic CM. 2. Chronic systolic dysfunction. EF qat 25% since 2014 3. Multivessel CAD, s/p stent to LAD in 2014 4. Non compliance 5. ESRD 6. HTN 7. T2DM PLAN: - HD for fluid control - We spoke about possible ICD placement and he is not sure that he wants this at the moment. - He tells me he will talk it over with his family and will let up know on his follow up visit. - He tells me he will follow up with us as before he did not as he was not covered but he now has coverage so he will follow up. - Will stop amlodipine and will start low dose ACEI. - Continue coreg. - May discharge any time from cardiac perspective. - Follow up in the office in 1 month.
--- NOTE | 2018-01-31 16:32 | PRG ---
DATE OF SERVICE: 01/31/2018 SUBJECTIVE: Patient was seen and examined at bedside and overnight events noted. Patient denies any shortness of breath or chest pain or palpitation. No history of nausea or vomiting or diarrhea or fever or chills or cramps. OBJECTIVE: GENERAL: This is a well-built man, in no acute distress. VITAL SIGNS: Temperature 98.2, heart rate , respiratory rate 18, and blood pressure . HEENT: Atraumatic, normocephalic. Oral mucosa is moist NECK: Supple. CARDIOVASCULAR: S1, S2 heard. Rate and rhythm regular. RESPIRATORY: Clear to auscultation. GASTROINTESTINAL: Abdomen is soft. MUSCULOSKELETAL: No tenderness. No edema. DERMATOLOGIC: No skin rash. NEUROLOGIC: Alert and awake and oriented X3. No focal neurologic deficits. Moving all the extremities. PSYCHIATRIC: Mood and affect normal. LABORATORY DATA: Potassium is 4.4, BUN is 39, creatinine is 6.1. ASSESSMENT: 1. End-stage renal disease, continue. 2. hemodialysis on Saturday, Saturday, and Saturday. 3. Hyperkalemia, better. 4. Metabolic acidosis. 5. Edema. 6. Hypertension, stable. PLAN: Plan is to continue on dialysis Saturday, Saturday, and Saturday as tolerated. Job ID: [id number]
[2018-01-31] MEDS: HumaLOG 300 UNITS/3 ML VIAL SC PRN ×2 (17:31→20:56)
[2018-01-31] MEDS: Simvastatin 5 MG TAB PO SCH (20:56)
[2018-02-01] MEDS: Piperacillin/Tazobactam 2.25 GM in Sodium Chloride 0.9% 100 ML IVPB SCH ×2 (02:14→11:03)
[2018-02-01 06:31] LABS: ALT (SGPT) 342 U/L (8-55); AST (SGOT) 172 U/L (5-34); Albumin 3.5 g/dL (3.5-5.0); Alkaline Phosphatase 88 U/L (40-150); Anion Gap 20 mmol/L (10-20); BUN (Urea Nitrogen) 28 mg/dL (8.4-25.7); Bilirubin, Total 1.3 mg/dL (0.2-1.2); Calc. Creatinine Clearance 17 mL/min (70-130); Calcium 8.7 mg/dL (7.8-10.44); Carbon Dioxide 25 mmol/L (22-29); Chloride 96 mmol/L (98-107); Estimated GFR-MDRD 12; Globulin 2.5 g/dL (2.4-3.5); Glucose 200 mg/dL (70-105); Potassium 3.9 mmol/L (3.5-5.1); Sodium 137 mmol/L (136-145)
[2018-02-01 06:37] LABS: Eosinophils 7 % (0-10); Hemoglobin 9.6 g/dL (14.0-18.0); Lymphocytes 25 % (21-51); MDiff Complete? YES; Mean Corpuscular HGB CONC 32.1 g/dL (32.0-36.0); Mean Corpuscular Hemoglobin 32.2 pg (27.0-31.0); Mean Platelet Volume 8.1 fL (7.4-10.4); Metamyelocyte 2 % (0-0); Monocytes 8 % (0-10); Neutrophil 58 % (42-75); PLT Morphology Comment Appears Increased; Platelet Count 406 thou/uL (130-400); RBC Distribution Width 14.4 % (11.5-14.5); Red Blood Cell (RBC) Count 2.99 mill/uL (4.70-6.10); White Blood Cell (WBC) Count 10.3 thou/uL (4.8-10.8)
[2018-02-01] MEDS ORDERED: Lisinopril 2.5 MG TAB PO SCH (09:00)
[2018-02-01] MEDS: Carvedilol 6.25 MG TAB PO SCH (09:01)
[2018-02-01] MEDS: Folic Acid/Vit B Comp W-C PO SCH (09:02)
[2018-02-01] MEDS: Famotidine 20 MG TAB PO SCH (09:02)
[2018-02-01] MEDS: Sevelamer Carbonate 800 MG TAB PO SCH (09:02)
[2018-02-01] MEDS: Saccharomyces boulardii 250 MG CAP PO SCH (09:03)
[2018-02-01] MEDS: Heparin 5,000 UNITS/ML VIAL SC SCH (09:04)
--- NOTE | 2018-02-01 09:15 | PDOC.PN ---
- Subjective Encounter Start Date: 02/01/18 Encounter Start Time: 07:05 Patient seen and examined. No new complaints. No overnight events - Objective Resuscitation Status - Order Detail: 01/29/18 08:01 Resuscitation Status Routine Resuscitation Status: FULL: Full Resuscitation MAR Reviewed: Yes Vital Signs & Weight: Vital Signs (12 hours) Temp Pulse Resp BP BP Pulse Ox 02/01/18 09:02 74 02/01/18 09:01 128/60 02/01/18 08:54 74 18 128/60 98 02/01/18 04:00 98.2 F 72 18 126/67 93 L Weight Weight 160 lb 4 oz I&O: 01/31/18 02/01/18 02/02/18 06:59 06:59 06:59 Intake Total 840 1200 Output Total 1600 2000 Balance -760 -800 Result Diagrams: 02/01/18 05:43 02/01/18 05:43 Additional Labs: Accuchecks 02/01/18 01/31/18 01/31/18 05:48 20:08 16:50 POC Glucose 216 H 264 H 336 H Phys Exam - Physical Examination Constitutional: NAD HEENT: PERRLA, moist MMs, sclera anicteric Neck: no JVD, supple Respiratory: no wheezing, no rales, no rhonchi Cardiovascular: RRR, no significant murmur, no rub Gastrointestinal: soft, non-tender, no distention, positive bowel sounds Musculoskeletal: no edema, pulses present Neurological: non-focal, normal sensation, moves all 4 limbs Psychiatric: normal affect, A&O x 3 Skin: no rash, normal turgor Dx/Plan (1) Acute on chronic combined systolic and diastolic ACC/AHA stage C congestive heart failure Code(s): I50.43 - ACUTE ON CHRONIC COMBINED SYSTOLIC AND DIASTOLIC HRT FAIL Status: Acute Comment: pt seems euvolemic, on HD, not on ACEI or ARB due to ESRD and hyperkalemia (2) Abnormal LFTs Code(s): R94.5 - ABNORMAL RESULTS OF LIVER FUNCTION STUDIES Status: Acute Comment: suspecting from passive congestion (3) Bandemia Code(s): D72.825 - BANDEMIA Status: Acute Comment: source unclear, on empiric zosyn (4) Hyperkalemia Code(s): E87.5 - HYPERKALEMIA Status: Acute (5) Weakness generalized Code(s): R53.1 - WEAKNESS Status: Acute (6) Anemia of renal disease Code(s): N18.9 - CHRONIC KIDNEY DISEASE, UNSPECIFIED; D63.1 - ANEMIA IN CHRONIC KIDNEY DISEASE Status: Chronic (7) Diabetes type 2, controlled Code(s): E11.9 - TYPE 2 DIABETES MELLITUS WITHOUT COMPLICATIONS Status: Chronic (8) Dyslipidemia Code(s): E78.5 - HYPERLIPIDEMIA, UNSPECIFIED Status: Chronic (9) ESRD on hemodialysis Code(s): N18.6 - END STAGE RENAL DISEASE; Z99.2 - DEPENDENCE ON RENAL DIALYSIS Status: Chronic (10) Elevated troponin Code(s): R74.8 - ABNORMAL LEVELS OF OTHER SERUM ENZYMES Status: Chronic (11) Hypertension Code(s): I10 - ESSENTIAL (PRIMARY) HYPERTENSION Status: Chronic (12) Secondary hyperparathyroidism of renal origin Code(s): N25.81 - SECONDARY HYPERPARATHYROIDISM OF RENAL ORIGIN Status: Chronic - Plan cont current plan of care, plan discussed w/ family * medication reviewed as below * symptomatic treatment * see my discharge baldo. Review of Systems - Review of Systems ENT: negative: Ear Pain, Ear Discharge, Nose Pain, Nose Discharge, Nose Congestion, Mouth Pain, Mouth Swelling, Throat Pain, Throat Swelling, Other Respiratory: negative: Cough, Dry, Shortness of Breath, Hemoptysis, SOB with Excertion, Pleuritic Pain, Sputum, Wheezing Cardiovascular: negative: chest pain, palpitations, orthopnea, paroxysmal nocturnal dyspnea, edema, light headedness, other Gastrointestinal: negative: Nausea, Vomiting, Abdominal Pain, Diarrhea, Constipation, Melena, Hematochezia, Other Genitourinary: negative: Dysuria, Frequency, Incontinence, Hematuria, Retention , Other Musculoskeletal: negative: Neck Pain, Shoulder Pain, Arm Pain, Back Pain, Hand Pain, Leg Pain, Foot Pain, Other Skin: negative: Rash, Lesions, Griffin, Bruising, Other - Medications/Allergies Allergies/Adverse Reactions: Allergies Allergy/AdvReac Type Severity Reaction Status Date / Time No Known Allergies Allergy Verified 01/30/18 06:46 Medications: Current Medications Acetaminophen (Tylenol) 650 mg PO Q4H PRN PRN Reason: Headache/Fever/Mild Pain (1-3) Hydrocodone Bitart/Acetaminophen (Macfarlan 5/325) 1 tab PO Q4H PRN PRN Reason: Moderate Pain (4-6) Albuterol/Ipratropium (Duoneb) 3 ml NEB [id number] PRN PRN Reason: SOB &/or Wheezing Bisacodyl (Dulcolax) 10 mg PO DAILYPRN PRN PRN Reason: Constipation Bisacodyl (Dulcolax) 10 mg IA DAILYPRN PRN PRN Reason: Constipation Calcium Carbonate (Tums) 1,000 mg PO Q4H PRN PRN Reason: Heartburn or Indigestion Carvedilol (Coreg) 6.25 mg PO BID-[facility] Last Admin: 02/01/18 09:01 Dose: 6.25 mg Dextrose/Water (Dextrose 50%) 25 gm SLOW IVP PRN PRN PRN Reason: Hypoglycemia Epoetin Bruce (Procrit) 10,000 units IVP MoWeFr@0900 [facility] Last Admin: 01/31/18 09:58 Dose: 10,000 units Famotidine (Pepcid) 20 mg PO DAILY [facility] Last Admin: 02/01/18 09:02 Dose: 20 mg Glucagon (Glucagon) 1 mg IM PRN PRN PRN Reason: Hypoglycemia Heparin Sodium (Porcine) (Heparin) 5,000 units SC BID [facility] Last Admin: 02/01/18 09:04 Dose: 5,000 units Piperacillin Sod/Tazobactam (Sod 2.25 gm/ Sodium Chloride) 100 mls @ 200 mls/ hr IVPB 0200,1000,1800 [facility] Last Admin: 02/01/18 02:14 Dose: 100 mls Dextrose/Water (D5w) 1,000 mls @ 0 mls/hr IV .Q0M PRN PRN Reason: Hypoglycemia Insulin Human Lispro (Humalog) 0 units SC .MODERATE SLIDING SC PRN PRN Reason: Moderate Correctional Scale Last Admin: 01/31/18 17:31 Dose: 8 unit Insulin Human Lispro (Humalog) 0 units SC .BEDTIME SLIDING SC PRN PRN Reason: Bedtime Correctional Scale Last Admin: 01/31/18 20:56 Dose: 3 unit Lisinopril (Zestril) 2.5 mg PO DAILY [facility] Last Admin: 02/01/18 09:02 Dose: 2.5 mg Loperamide HCl (Imodium) 2 mg PO PRN PRN PRN Reason: Diarrhea/Loose Stools Last Admin: 01/30/18 17:07 Dose: 2 mg Ondansetron HCl (Zofran Odt) 4 mg PO Q6H PRN PRN Reason: Nausea/Vomiting Ondansetron HCl (Zofran) 4 mg IVP Q6H PRN PRN Reason: Nausea/Vomiting Saccharomyces Boulardii (Florastor) 250 mg PO DAILY [facility] Last Admin: 02/01/18 09:03 Dose: 250 mg Senna/Docusate Sodium (Senokot S) 2 tab PO BID PRN PRN Reason: Constipation Sevelamer Carbonate (Renvela) 800 mg PO TID-[facility] Last Admin: 02/01/18 09:02 Dose: 800 mg Simvastatin (Zocor) 10 mg PO HS [facility] Last Admin: 01/31/18 20:56 Dose: 10 mg Vitamin B Complex/Vit C/Folic Acid (Nephro-Jose Tablet) 1 tab PO DAILY [facility] Last Admin: 02/01/18 09:02 Dose: 1 tab Zolpidem Tartrate (Ambien) 5 mg PO HSPRN PRN PRN Reason: Insomnia
--- NOTE | 2018-02-01 09:41 | DIS ---
DATE OF ADMISSION: 01/29/2018 DATE OF DISCHARGE: 02/01/2018 PRIMARY CARE PHYSICIAN: Kameron Haynes. DISCHARGE DISPOSITION: Home. PRIMARY DISCHARGE DIAGNOSES: 1. Acute on chronic combined systolic and diastolic heart failure. 2. Abnormal LFT due to passive congestion. 3. Bandemia of unclear etiology, resolved. 4. Hyperkalemia, resolved. 5. Generalized weakness, resolved. SECONDARY DISCHARGE DIAGNOSES: 1. Chronic systolic and diastolic heart failure. 2. Secondary hyperparathyroidism of renal origin. 3. Hypertension. 4. End-stage renal disease, on hemodialysis. 5. Chronically elevated troponin. 6. Dyslipidemia. 7. Diabetes, type 2. 8. Anemia of renal disease. PRIMARY PROCEDURE/OPERATION: Maintenance hemodialysis while in the hospital. RADIOLOGIST INVESTIGATION: Chest x-ray showed congestion. Abdomen ultrasound was unremarkable. Echocardiography showed EF 20% to 30%. LABORATORY DATA: Significant labs; WBC 10.3, hemoglobin 9.6, and platelets 406. Sodium 137, potassium 3.9, BUN 28, and creatinine 5.03. AST 172, ALT 342, alkaline phosphatase 88, and albumin 3.5. Hepatitis profile negative. Stool for guaiac negative. DISCHARGE MEDICATION: 1. Nexium 40 mg daily. 2. Tricor 145 mg p.o. at bedtime. 3. NovoLog 9 units subcu at bedtime. 4. NovoLog 70/30 26 units subcu in the morning. 5. Pravastatin 40 mg p.o. at bedtime. 6. Renvela 800 mg p.o. t.i.d. 7. Aspirin 81 mg p.o. daily. 8. Coreg 6.25 mg p.o. b.i.d. 9. Nephro-Jose one tablet p.o. daily. 10. Lisinopril 2.5 mg p.o. daily. 11. Florastor 250 mg p.o. daily. 12. Levaquin 250 mg p.o. daily for 5 days. CONTRAINDICATION: None. CODE STATUS: Full code. INPATIENT FIRER LOCOMOTIVE CRANE: Dr. Rahman was consulted for new-onset cardiomyopathy. Dr. Schaefer was following for ESRD, on hemodialysis. Dr. Armstrong was consulted for abnormal LFT. TEST RESULTS PENDING ON DISCHARGE: None. ALLERGIES: NO KNOWN DRUG ALLERGIES. DISCHARGE PLAN: Post hospital, the patient will follow up with Dr. Rahman on 03/06/2018. The patient has an appointment with [facility] on 02/06/2018 at 10:15 a.m. The patient will follow up with Dr. Cervantes as instructed. HOSPITAL COURSE: This a 52-year-old male, who was admitted by me on 01/29/2018. Please see my HPI for further details. The patient was having subjective low-grade fever, and he was experiencing generalized weakness. On admission, we found him with hyperkalemia and significantly abnormal LFT. Ultrasound of right upper quadrant was done in the hospital, and initially, ER physician suspected gallbladder problem, but the patient was not having any right upper quadrant pain. Dr. Armstrong was not thinking that this patient needs any surgery. This patient was admitted to telemetry floor. We did echocardiography for his elevated BNP and found with systolic and diastolic heart failure. He had volume overload status and his abnormal LFT be suspected from passive congestion from cardiomyopathy, and after dialysis, his LFT is improving. While in the hospital, we treated him with Zosyn for his bandemia from unclear etiology. We changed to Levaquin upon discharge. Cardiology was consulted for new-onset cardiomyopathy and they recommended to do follow up as an outpatient basis for AICD evaluation. We started lisinopril this admission. His hyperkalemia resolved with dialysis. The patient will need a followup with primary care physician within a week. At that time, the patient's primary care physician should recheck his BMP to see any hyperkalemia. This patient was given necessary education about low-potassium diet, maintenance of dialysis, and medication compliance education. Plan of care discussed with the family member today. I have seen and examined the patient at bedside today. REVIEW OF SYSTEMS: Reviewed with him and negative. PHYSICAL EXAMINATION: His physical examination is completely essentially unremarkable and his vitals are stable. Job ID: [id number]
[2018-02-01] MEDS: HumaLOG 300 UNITS/3 ML VIAL SC PRN (11:06)
[2018-02-01 12:40] VITALS: BP 143/66; TEMP 98.9
--- NOTE | 2018-02-01 21:10 | PRG ---
DATE OF SERVICE: 02/01/2018 SUBJECTIVE: Patient was seen and examined at bedside and overnight events noted. Patient denies any shortness of breath or chest pain or palpitation. No history of nausea or vomiting or diarrhea or fever or chills or cramps. OBJECTIVE: GENERAL: This is a well-built male, in no apparent distress. VITAL SIGNS: Temperature 99, pulse 73, respirations 18, blood pressure 143/66. HEENT: Atraumatic, normocephalic. Oral mucosa is moist. NECK: Supple. CARDIOVASCULAR: S1, S2 heard. Rate and rhythm regular. RESPIRATORY: Clear to auscultation. GASTROINTESTINAL: Abdomen is soft. MUSCULOSKELETAL: No tenderness. No edema. DERMATOLOGIC: No skin rash. NEUROLOGIC: Alert and awake and oriented X3. No focal neurologic deficits. Moving all the extremities. PSYCHIATRIC: Mood and affect normal. LABORATORY DATA: Potassium is 3.9, BUN is 28, creatinine is 5.03. ASSESSMENT AND PLAN: 1. End-stage renal disease. Continue hemodialysis on Saturday, Saturday, and Saturday. 2. Hyperkalemia. Limit potassium. 3. Metabolic acidosis and edema. 4. Hypertension. Continue dialysis on Saturday, Saturday, and Saturday. Job ID: [id number]
== END 2018-02-01 13:06 | disposition home or self-care (01) | DRG 291 ==
LOC: ERS 23:58 → ERHOLD 01-29 02:00 → 2NO 01-29 19:43
PROVIDERS: ADMIT Internal Medicine; ATTEND Internal Medicine
PROC: 5A1D70Z Performance of Urinary Filtration, Intermittent, Less than 6 Hours Per Day (ICD-10-PCS; principal; 2018-01-29)
PROC: B246ZZZ Ultrasonography of Right and Left Heart (ICD-10-PCS; 2018-01-29)
PROC: 5A1D70Z Performance of Urinary Filtration, Intermittent, Less than 6 Hours Per Day (ICD-10-PCS; 2018-01-30)
PROC: 5A1D70Z Performance of Urinary Filtration, Intermittent, Less than 6 Hours Per Day (ICD-10-PCS; 2018-01-31)
DX: I13.2 Hypertensive heart and chronic kidney disease with heart failure and with stage 5 chronic kidney disease, or end stage renal disease (principal); I50.43 Acute on chronic combined systolic (congestive) and diastolic (congestive) heart failure; N18.6 End stage renal disease; N25.81 Secondary hyperparathyroidism of renal origin; E11.22 Type 2 diabetes mellitus with diabetic chronic kidney disease; Z99.2 Dependence on renal dialysis; Z79.4 Long term (current) use of insulin; D72.825 Bandemia; E87.5 Hyperkalemia; E78.5 Hyperlipidemia, unspecified; D63.1 Anemia in chronic kidney disease; K21.9 Gastro-esophageal reflux disease without esophagitis; Z79.01 Long term (current) use of anticoagulants; Z79.899 Other long term (current) drug therapy; I25.5 Ischemic cardiomyopathy; I25.10 Atherosclerotic heart disease of native coronary artery without angina pectoris; Z95.5 Presence of coronary angioplasty implant and graft; Z91.19 Patient's noncompliance with other medical treatment and regimen; K80.20 Calculus of gallbladder without cholecystitis without obstruction
CPT/HCPCS: 36415; 36416; 71045; 76705; 80053; 82274; 82553; 83880; 83970; 84100; 84484; 85025; 86704; 86706; 86803; 86850; 86900; 86901; 87340; 90471; 90670; 90935; 93005; 93306; 96365; 96375; G0009; G0257; G8978-GP-CJ; G8979-GP-CJ; G8980-GP-CJ; J1644; J2543; J7050; P9047; Q4081; S0028

== ENCOUNTER 2018-04-24 07:43 | Outpatient (CLI) | payer MEDICARE ==
--- NOTE | 2018-04-24 08:46 | CT ---
CT ARTERIOGRAM CHEST WITH IV CONTRAST AND 3D MIP IMAGING: Date: 04/24/18 HISTORY: Chest pain. FINDINGS: There is good contrast opacification of the pulmonary arteries and thoracic aorta with bovine origin of the great vessels at the aortic arch. Calcification is more prominent in the coronary arteries noelle n the aortic arch. No mediastinal adenopathy, pleural fluid, or pneumothorax. Calcified granulomata a re consistent with healed granulomatous disease. IMPRESSION: 1. No CT evidence of pulmonary embolus or other acute abnormalities. 2. Atherosclerosis. POS: CINTHYAH
== END 2018-04-24 07:44 | disposition home or self-care (01) ==
LOC: CT 07:43
PROVIDERS: ATTEND Internal Medicine Cardiovascular Disease
DX: I25.5 Ischemic cardiomyopathy (principal); I70.0 Atherosclerosis of aorta; I25.10 Atherosclerotic heart disease of native coronary artery without angina pectoris
CPT/HCPCS: 71275

== ENCOUNTER 2018-05-12 10:38 | Emergency (ER) | payer MEDICARE ==
[2018-05-12 11:31] LABS: #Basophils 0.1 thou/uL (0.0-0.2); #Eosinphils 0.2 thou/uL (0.0-0.7); #Lymphocytes 1.5 thou/uL (1.20-3.40); #Monocytes 0.7 thou/uL (0.11-0.59); #Neutrophils 10.5 thou/uL (1.40-6.50); %Basophils 0.4 % (0.0-1.0); %Eosinophils 1.5 % (0.0-10.0); %Lymphocytes 11.3 % (21.0-51.0); %Monocytes 5.7 % (0.0-10.0); %Neutrophils 81.1 % (42.0-75.0); Hemoglobin 11.8 g/dL (14.0-18.0); Mean Corpuscular HGB CONC 32.5 g/dL (32.0-36.0); Mean Corpuscular Hemoglobin 31.2 pg (27.0-31.0); Mean Corpuscular Volume 96.1 fL (78.0-98.0); Mean Platelet Volume 7.9 fL (7.4-10.4); Platelet Count 324 thou/uL (130-400); RBC Distribution Width 16.5 % (11.5-14.5); Red Blood Cell (RBC) Count 3.77 mill/uL (4.70-6.10); White Blood Cell (WBC) Count 12.9 thou/uL (4.8-10.8)
[2018-05-12 11:49] LABS: ALT (SGPT) 11 U/L (8-55); AST (SGOT) 18 U/L (5-34); Albumin 4.3 g/dL (3.5-5.0); Alkaline Phosphatase 99 U/L (40-150); Anion Gap 18 mmol/L (10-20); BUN (Urea Nitrogen) 36 mg/dL (8.4-25.7); Bilirubin, Total 0.7 mg/dL (0.2-1.2); Calc. Creatinine Clearance 0 mL/min (70-130); Calcium 9.9 mg/dL (7.8-10.44); Carbon Dioxide 29 mmol/L (22-29); Chloride 87 mmol/L (98-107); Estimated GFR-MDRD 10; Globulin 3.5 g/dL (2.4-3.5); Glucose 190 mg/dL (70-105); Potassium 4.3 mmol/L (3.5-5.1); Protein, Total 7.8 g/dL (6.0-8.3); Sodium 130 mmol/L (136-145)
--- NOTE | 2018-05-17 17:12 | EKG ---
Test Reason : Blood Pressure : / mmHG Vent. Rate : 069 BPM Atrial Rate : 069 BPM P-R Int : 152 ms QRS Dur : 092 ms QT Int : 424 ms P-R-T Axes : 034 -20 119 degrees QTc Int : 454 ms Normal sinus rhythm Possible Left atrial enlargement Cannot rule out Anterior infarct , age undetermined Abnormal ECG Confirmed by MADHAV ANDERSON, AZALEA ([id number]), content editor DANYA LEA ([id number]) on 05/17/2018 5:12:38 PM Referred By: Confirmed By:AZALEA COREY MD
== END 2018-05-12 11:50 | disposition home or self-care (01) ==
LOC: ERS 10:38
DX: E11.621 Type 2 diabetes mellitus with foot ulcer (principal); I12.0 Hypertensive chronic kidney disease with stage 5 chronic kidney disease or end stage renal disease; N18.6 End stage renal disease; E11.22 Type 2 diabetes mellitus with diabetic chronic kidney disease; Z99.2 Dependence on renal dialysis; Z79.899 Other long term (current) drug therapy; Z79.82 Long term (current) use of aspirin
CPT/HCPCS: 36415; 80053; 85025; 93005

== ENCOUNTER 2018-05-16 02:27 | Emergency (ER) | payer MEDICARE | END 2018-05-16 03:12 | disposition home or self-care (01) | LOC: ERS 02:27 | DX: G57.91 Unspecified mononeuropathy of right lower limb (principal); B35.3 Tinea pedis; I12.0 Hypertensive chronic kidney disease with stage 5 chronic kidney disease or end stage renal disease; N18.6 End stage renal disease; Z99.2 Dependence on renal dialysis; Z87.891 Personal history of nicotine dependence; Z79.899 Other long term (current) drug therapy; Z79.82 Long term (current) use of aspirin | CPT/HCPCS: 36416; 99283 ==

== ENCOUNTER 2018-05-23 09:27 | Inpatient (IN) | payer MEDICARE ==
--- NOTE | 2018-05-23 10:48 | RAD ---
RIGHT FOOT THREE VIEWS: HISTORY: Diabetic ulcer. COMPARISON: None. FINDINGS: There is moderate arterial medial sclerosis. Evidence of an old injury at the posterior malleolus of the tibia with some heterotopic bone formation and incomplete healing. No erosions or periostitis. Mild plantar soft tissue swelling of the forefoot. IMPRESSION: 1. No radiographic evidence for osteomyelitis. If there is clinical concern, MRI is recommended. 2. Likely an old fracture of the posterior malleolus with incomplete healing and heterotopic ossific ation. 3. Moderate arterial medial sclerosis. POS: CLAUS
[2018-05-23 11:55] LABS: #Basophils 0.1 thou/uL (0.0-0.2); #Eosinphils 0.2 thou/uL (0.0-0.7); #Lymphocytes 1.1 thou/uL (1.20-3.40); #Monocytes 0.9 thou/uL (0.11-0.59); #Neutrophils 13.8 thou/uL (1.40-6.50); %Basophils 0.4 % (0.0-1.0); %Monocytes 5.8 % (0.0-10.0); %Neutrophils 85.8 % (42.0-75.0); Mean Corpuscular HGB CONC 31.6 g/dL (32.0-36.0); Mean Corpuscular Hemoglobin 29.9 pg (27.0-31.0); Mean Corpuscular Volume 94.5 fL (78.0-98.0); Platelet Count 522 thou/uL (130-400); RBC Distribution Width 15.7 % (11.5-14.5); Red Blood Cell (RBC) Count 3.68 mill/uL (4.70-6.10); White Blood Cell (WBC) Count 16.1 thou/uL (4.8-10.8)
[2018-05-23 12:29] LABS: ALT (SGPT) 11 U/L (8-55); AST (SGOT) 17 U/L (5-34); Albumin 4.2 g/dL (3.5-5.0); Alkaline Phosphatase 104 U/L (40-150); Anion Gap 15 mmol/L (10-20); BUN (Urea Nitrogen) 25 mg/dL (8.4-25.7); Bilirubin, Total 0.7 mg/dL (0.2-1.2); Calc. Creatinine Clearance 0 mL/min (70-130); Calcium 10.2 mg/dL (7.8-10.44); Carbon Dioxide 32 mmol/L (22-29); Chloride 88 mmol/L (98-107); Estimated GFR-MDRD 13; Globulin 3.9 g/dL (2.4-3.5); Glucose 246 mg/dL (70-105); Potassium 3.7 mmol/L (3.5-5.1); Protein, Total 8.1 g/dL (6.0-8.3); Sodium 131 mmol/L (136-145)
[2018-05-23] MEDS ORDERED: Ondansetron ODT 4 MG TAB PO PRN (13:04)
[2018-05-23] MEDS ORDERED: Acetaminophen 325 MG TAB PO PRN ×2 (13:04)
[2018-05-23] MEDS ORDERED: HYDROcodone/Acetaminophen 5/325 mg Tablet PO PRN ×2 (13:04→13:05)
[2018-05-23] MEDS ORDERED: Ondansetron PF 4 MG/2 ML Vial IVP PRN (13:04)
[2018-05-23] MEDS ORDERED: Dextrose 5% in Water 1,000 ML IV PRN (13:23)
[2018-05-23] MEDS ORDERED: Dextrose 50% Abboject 50 ML SYRINGE SLOW IVP PRN (13:23)
[2018-05-23] MEDS: Piperacillin/Tazobactam 2.25 GM in Sodium Chloride 0.9% 100 ML IVPB SCH (13:25)
[2018-05-23] MEDS: Sodium Chloride 0.9% 1,000 ML IV SCH ×2 (13:25→22:41)
[2018-05-23 13:37] VITALS: BMI 29.2
[2018-05-23] MEDS ORDERED: ISOVUE-370 76%-LOCM 1 ML ONE (13:39)
--- NOTE | 2018-05-23 14:48 | HP ---
CHIEF COMPLAINT: Foot ulcers. HISTORY OF PRESENT ILLNESS: This patient is a 53-year-old male with end-stage renal disease, diabetes, hypertension, who presented via the emergency department. The patient was sent from dialysis. He was actually seen in the emergency department about a week ago with a concern for possible infection of his toes on his right foot. He was treated with Keflex and Augmentin and has had failed to have significant response. Therefore, when seen in dialysis today and appeared to have no improvement and possibly some progression, he was sent to the emergency department. The patient reports he has minimal pain associated with that foot. He has had some yellowish discharge. He has had no associated fevers or chills. The patient has some chronic pain in the foot. He uses a walker to ambulate and has some diminished sensation in the right foot as well. REVIEW OF SYSTEMS: All systems reviewed, all pertinent positives and negatives noted in the history of present illness. PAST MEDICAL HISTORY: Notable for end-stage renal disease on dialysis. He has a secondary hyperparathyroidism of renal origin, diabetes mellitus, dyslipidemia, gastroesophageal reflux. PAST SURGICAL HISTORY: Dialysis catheter placement in 2014. FAMILY HISTORY: No history of significant coronary artery disease, stroke, or cancer. SOCIAL HISTORY: The patient does not work. Lives with his and 3 kids. Denies alcohol, tobacco, or drugs. He is a full code. ALLERGIES: NONE. CURRENT MEDICATIONS: 1. Amlodipine 10 mg daily. 2. Coreg 12.5 p.o. b.i.d. 3. Pravastatin 40 mg daily. 4. Sevelamer 800 mg daily. 5. Tricor 145 mg daily. 6. Nexium 40 mg daily. 7. Lisinopril 5 mg daily. 8. Aspirin 81 mg daily. 9. Augmentin 875 one p.o. b.i.d. 10. Keflex 500 mg one p.o. q.i.d. 11. Clotrimazole foot cream. 12. Tramadol 50 mg q.6 hours p.r.n. pain. PHYSICAL EXAMINATION: VITAL SIGNS: BP 134/61, pulse 81, respirations 16, temperature 97.7, O2 saturation 95% on room air. GENERAL APPEARANCE: Age-appropriate male, in no distress. He is awake, alert, oriented, pleasant, cooperative. HEENT: PERRL, no acute lesions. NECK: Supple and symmetric. HEART: Regular rate and rhythm without murmurs, gallops, or rubs. LUNGS: Clear to auscultation bilaterally with good chest wall expansion and air exchange. ABDOMEN: Soft, nontender, and nondistended. Positive bowel sounds. No masses. No organ organomegaly. EXTREMITIES: Has no cyanosis, clubbing, or edema except within the right foot 3rd toe, which is essentially turning black. Left 2nd toe is similar, but not as bad, has some erythema of the 4th and 5th toes. The foot itself has some induration of the skin. No palpable pulses either dorsalis pedis or posterior tibial. He has decreased sensation, but does report some tenderness when I am examining the foot. LABORATORY DATA: White count 16.1, hemoglobin 11.0, platelets 522. Sodium 131, potassium 3.7, chloride 88, CO2 is 32, BUN 25, creatinine 4.80, glucose 246, lactic acid is 1.2. LFTs normal. IMAGING: Foot x-ray shows no evidence of osteo, likely old fracture in the posterior malleolus with incomplete healing and heterotrophic ossification, moderate arteriomedial sclerosis. IMPRESSION AND PLAN: 1. Ischemia of the right lower extremity primarily affecting the third toe and to some degree the 2nd toe. It may have some infectious component with some evidence of cellulitis with elevated white count and platelet count. He is covered with vancomycin and Zosyn. He has a CT angiogram pending. We will consult surgery. Pending the results, may need CV surgery intervention as well. 2. End-stage renal disease, on dialysis. We will consult Nephrology to continue his nephrology care. 3. Diabetes mellitus. Continue Accu-Cheks, sliding scale. 4. Chronic anemia associated with chronic renal disease. 5. Hyperlipidemia continue with pravastatin and Tricor. 6. History of gastroesophageal reflux disease, continue with proton pump inhibitor. 7. Deep venous thrombosis prophylaxis with heparin given the underlying renal disease. Job ID: [id number]
--- NOTE | 2018-05-23 14:57 | CT ---
CT ANGIOGRAM ABDOMEN AND PELVIS WITH RUNOFF TO THE FEET: HISTORY: Foot wound. COMPARISON: None. TECHNIQUE: CT angiogram of the abdomen and pelvis with run-off to the feet was performed after the intravenous a dministration of contrast, with 3D rendering provided. FINDINGS: Mild scarring in the lung bases. Increased pericardial fat. The liver is unremarkable. There is cholelithiasis. The spleen is unremarkable. The adrenal glands are unremarkable. Post surgical versus embolization changes of the left superior kidney, with cortical atrophy. The co rtices of both kidneys are atrophied. There is some mild left-sided perinephric stranding, which is asymmetric, to the right. Acuity is unknown. There are no dilated loops of large or small bowel. VESSELS: The celiac trunk is patent, as well as the splenic artery, hepatic artery, and gastroduoden al artery. The superior mesenteric artery is patent, although there is approximately 50% stenosis of the superior mesenteric artery, 5 cm from its origin, due to soft plaque. Branches to the right col on also have extensive plaque. There is occlusion of the inferior mesenteric artery for a length of 3 to 4 cm, before reconstituting . There is extensive atherosclerotic plaque of the aorta without dissection. There is 50% narrowing of the origin of the left renal artery. Both common iliac arteries are patent, although the left co mmon iliac artery, approximately 6 cm after its origin with the bifurcation, has a focal area of 30% to 40% plaque. There is complete occlusion of both internal iliac arteries with distal reconstitution. RIGHT SIDE: The common femoral artery is patent. The femoral artery is patent. The deep femoral ar alyssa is occluded. There is arterial medial sclerosis with approximately 3% narrowing of the poplitea l artery, at the level of the popliteal hiatus, for a length of 3 to 4 cm. There is occlusion of the distal popliteal artery, the anterior tibial artery, and the posterior tibial artery. There is some reconstitution of the posterior tibial artery due to collaterals from the geniculate vessels. LEFT SIDE: The common femoral artery is patent. The deep femoral artery is occluded. There is mult ifocal high-grade stenosis of the left femoral artery, greater than 50%, at multiple levels. High-gr lois narrowing of the popliteal artery at multiple levels. There is occlusion of the left anterior ti bial artery. IMPRESSION: 1. Severe lower extremity vascular disease with multifocal high-grade stenosis and occlusion. A con ventional angiogram may be beneficial in this patient. 2. Some stranding around the left kidney with what appears to be embolization of coils along the sup erior pole, left kidney. 3. Multifocal stenosis of the superior mesenteric artery and renal arteries. 4. Complete occlusion, inferior mesenteric artery, with distal reconstitution. POS: CINTHYA
[2018-05-23] MEDS: Heparin 5,000 UNITS/ML VIAL SC SCH ×2 (15:23→21:50)
[2018-05-23] MEDS: Carvedilol 6.25 MG TAB PO SCH (16:46)
[2018-05-23] MEDS: traMADol HCl 50 MG TAB PO PRN (17:47)
[2018-05-23] MEDS ORDERED: Piperacillin/Tazobactam 3.375 GM in Sodium Chloride 0.9% 100 ML IVPB SCH (18:00)
--- NOTE | 2018-05-23 20:22 | CON ---
DATE OF CONSULTATION: 05/23/2018 CONSULTING PHYSICIAN: Dr. Murillo. REASON FOR CONSULTATION: End-stage renal disease evaluation and care. REASON FOR ADMISSION: Foot ulcer. HISTORY OF PRESENT ILLNESS: A 53-year-old male with history of end-stage renal disease, type-2 diabetes, hypertension, came to the hospital with foot ulcer, that was getting worse and was found to have severe ischemia and is being admitted. Nephrology is consulted for maintenance hemodialysis. He got dialysis today Saturday, Saturday, Saturday. PAST MEDICAL HISTORY: Positive for; 1. End-stage renal disease. 2. Type-2 diabetes. 3. Hypertension. 4. Hyperlipidemia. PAST SURGICAL HISTORY: Dialysis catheter placement. HOME MEDICATIONS: Reviewed. ALLERGIES: NONE. SOCIAL HISTORY: No smoking, alcohol, or illicit drug use. FAMILY HISTORY: No history of any kidney disease. REVIEW OF SYSTEMS: CONSTITUTIONAL: Negative for weight loss or gain, ability to conduct usual activities. SKIN: Negative for rash, itching. EYES: Negative for double vision, pain. ENT/MOUTH: Negative for nose bleeding, neck stiffness, pain, tenderness. CARDIOVASCULAR: Negative for palpitations, dyspnea on exertion, orthopnea. RESPIRATORY: Negative for shortness of breath, wheezing, cough, hemoptysis, fever or night sweats. GASTROINTESTINAL: Negative for poor appetite, abdominal pain, heartburn, nausea, vomiting, constipation, or diarrhea. GENITOURINARY: Negative for urgency, frequency, dysuria, nocturia. MUSCULOSKELETAL: Negative for pain, swelling. NEUROLOGIC/PSYCHIATRIC: Negative for anxiety, depression. ALLERGY/IMMUNOLOGIC: Negative for skin rash, bleeding tendency. PHYSICAL EXAMINATION: GENERAL: This is a well-built male, in no apparent distress. VITAL SIGNS: Temperature 97.9, pulse 70, respiratory rate 18, blood pressure . HEENT: Atraumatic and normocephalic. Oral mucosa is moist. NECK: Supple. CVS: S1 and S2 heard. Regular rate and rhythm. RESPIRATORY: Clear. GI: Abdomen is soft. MUSCULOSKELETAL: 1+ edema. DERMATOLOGIC: No skin rash. NEUROLOGIC: Alert and awake. PSYCHIATRIC: Normal mood and affect. LABORATORY DATA: Hemoglobin is 11.0. Potassium is 3.7, BUN is 25, creatinine is 4.8. ASSESSMENT AND PLAN: 1. End-stage renal disease. Continue hemodialysis on Saturday, Saturday, and Saturday. 2. Edema, controlled. 3. Hypertension, stable. 4. Anemia. 5. Severe peripheral vascular disease, follow up with CT surgeon, we will follow. Job ID: [id number]
[2018-05-23] MEDS: Atorvastatin Calcium 10 MG TAB PO SCH (21:50)
[2018-05-24] MEDS: Piperacillin/Tazobactam 2.25 GM in Sodium Chloride 0.9% 100 ML IVPB SCH ×2 (02:21→13:52)
[2018-05-24 05:01] LABS: #Basophils 0.1 thou/uL (0.0-0.2); #Eosinphils 0.3 thou/uL (0.0-0.7); #Lymphocytes 1.9 thou/uL (1.20-3.40); #Monocytes 1.2 thou/uL (0.11-0.59); #Neutrophils 9.6 thou/uL (1.40-6.50); %Basophils 0.4 % (0.0-1.0); %Eosinophils 2.1 % (0.0-10.0); %Lymphocytes 14.5 % (21.0-51.0); %Monocytes 9.5 % (0.0-10.0); %Neutrophils 73.6 % (42.0-75.0); Hemoglobin 9.3 g/dL (14.0-18.0); Mean Corpuscular HGB CONC 32.4 g/dL (32.0-36.0); Mean Corpuscular Hemoglobin 30.8 pg (27.0-31.0); Mean Platelet Volume 7.1 fL (7.4-10.4); Platelet Count 457 thou/uL (130-400); RBC Distribution Width 15.5 % (11.5-14.5); White Blood Cell (WBC) Count 13.1 thou/uL (4.8-10.8)
[2018-05-24] MEDS: traMADol HCl 50 MG TAB PO PRN ×2 (05:04→21:06)
[2018-05-24] MEDS ORDERED: Ondansetron PF 4 MG/2 ML Vial IVP PRN (05:05)
[2018-05-24] MEDS ORDERED: cloNIDine 0.1 MG TAB PO PRN (05:06)
[2018-05-24 05:15] LABS: Anion Gap 21 mmol/L (10-20); BUN (Urea Nitrogen) 36 mg/dL (8.4-25.7); Calc. Creatinine Clearance 16 mL/min (70-130); Calcium 8.9 mg/dL (7.8-10.44); Carbon Dioxide 21 mmol/L (22-29); Chloride 93 mmol/L (98-107); Estimated GFR-MDRD 10; Glucose 68 mg/dL (70-105); Potassium 3.9 mmol/L (3.5-5.1); Sodium 131 mmol/L (136-145)
[2018-05-24] MEDS: HYDROcodone/Acetaminophen 5/325 mg Tablet PO PRN ×2 (06:21→13:51)
[2018-05-24] MEDS: Carvedilol 6.25 MG TAB PO SCH ×2 (06:25→16:43)
[2018-05-24] MEDS: Lisinopril 5 MG TAB PO SCH (09:45)
[2018-05-24] MEDS: Fenofibrate Nanocrystallized 145 MG TAB PO SCH (09:46)
[2018-05-24] MEDS: Sevelamer Carbonate 800 MG TAB PO SCH (09:46)
[2018-05-24] MEDS: Amlodipine 10 MG TAB PO SCH (09:46)
[2018-05-24] MEDS: Heparin 5,000 UNITS/ML VIAL SC SCH ×3 (09:47→21:10)
[2018-05-24] MEDS: Aspirin 81 mg Enteric Coated Tablet PO SCH ×2 (09:47→11:18)
[2018-05-24] MEDS: Midodrine HCl 5 MG TAB PO SCH ×4 (11:18→21:09)
--- NOTE | 2018-05-24 12:37 | CON ---
DATE OF CONSULTATION: HISTORY OF PRESENT ILLNESS: This is a 53-year-old gentleman who has chronic end-stage renal disease, on dialysis. He was transferred here from the dialysis center with his right 2nd and 3rd toes with gangrene. He was in the emergency room about a week ago, was treated with Keflex and Augmentin, which have not improved his situation. He does not have claudication or rest pain. According to the patient, he has no previous peripheral vascular history. He does ambulate at home with a walker. I initially asked about a history of heart disease, but he said he did not have any heart disease, but he also then told me that he sees Dr. Rahman and has had a catheterization of some sort in the past. None of these records are available here. PAST MEDICAL HISTORY: 1. End-stage renal disease, on hemodialysis. 2. Diabetes mellitus. 3. Dyslipidemia. 4. Secondary hyperparathyroidism. 5. End-stage renal disease. 6. GERD. PAST SURGICAL HISTORY: Dialysis catheter placement. SOCIAL HISTORY: He does not work. He is and has 3 children. He does not use alcohol, tobacco, or other drugs. ALLERGIES: NONE. CURRENT MEDICATIONS: 1. Aspirin 81 mg daily. 2. Lisinopril 5 mg daily. 3. Coreg 12.5 mg b.i.d. 4. Amlodipine 10 mg daily. 5. Tricor 145 mg daily. 6. Pravastatin 40 mg daily. 7. Sevelamer 800 mg daily. 8. Nexium 40 mg daily. REVIEW OF SYSTEMS: Was not performed due to language barrier. PHYSICAL EXAMINATION: GENERAL: This is a well-developed diminutive gentleman, resting comfortably in bed. VITAL SIGNS: Temperature is 97.9, pulse is 82 and regular, blood pressure is 115/68. HEENT: Sclerae nonicteric. Pupils are equal and round bilaterally. NECK: Supple. He has no carotid bruits. CHEST: Clear bilaterally. HEART: Rhythm is regular without murmur. ABDOMEN: Soft and nontender. EXTREMITIES: There is no edema in either extremity. On his right foot, the 2nd and 3rd toes have an area at the metatarsal phalangeal joint with a blister, which is popped. Both toes are dark in color. Temperature is equal bilaterally. VASCULAR: He has palpable carotid, radial and femoral pulses bilaterally. On Doppler examination on the left, dorsalis pedis is absent. Posterior tibial is triphasic with good flow. On the right, dorsalis pedis is absent. Posterior tibial is monophasic with poor flow. IMAGING: CT angiogram has been performed, there is bilateral peripheral vascular disease noted. On the right, the distal popliteal artery is occluded with collateral reconstitution of the posterior tibial artery on the left. There is multifocal disease of the superficial femoral artery and popliteal artery. The left anterior tibial was occluded with a patent posterior tibial. ASSESSMENT AND PLAN: Bilateral severe peripheral vascular disease. I have recommended arteriograms and we will get him on the schedule. Job ID: [id number]
--- NOTE | 2018-05-24 14:31 | PRG ---
DATE OF SERVICE: 05/24/2018 SUBJECTIVE: The patient still has a little bit of pain in his foot. He has no other specific complaints. PHYSICAL EXAMINATION: VITAL SIGNS: Temperature 97.9, pulse 87, respirations 18, O2 saturation 94% on room air, and blood pressure 116/68. GENERAL APPEARANCE: Age-appropriate male, in no distress. Awake, alert, oriented, pleasant, cooperative. HEART: Regular rate and rhythm without murmurs, gallops, or rubs LUNGS: Clear to auscultation bilaterally. ABDOMEN: Soft, nontender, and nondistended. Positive bowel sounds. EXTREMITIES: The pulses are not palpable on either lower extremity at the foot and ankle. Right foot has ischemic right 2nd and 3rd toes, coming back on the dorsum of the foot with some vesicular skin separation at the base of the toes. LABORATORY DATA: White count 13.1, hemoglobin 9.3. Sodium 131, potassium 3.9, chloride 93, CO2 is 21, BUN is 36, creatinine is 6.0, and glucose 68. IMPRESSION AND PLAN: 1. Ischemic necrosis of the right 2nd and 3rd toes, working up his vascular issues and continuing with antibiotics as he has leukocytosis. 2. Severe peripheral vascular disease. The patient's CTA showed multiple areas of significant stenosis. CV Surgery has been consulted. Anticipate an arteriogram tomorrow. 3. End-stage renal disease, on dialysis. Dr. Schaefer following. Continue dialysis as routine. 4. Diabetes mellitus. Blood sugars have been exceptionally well controlled. 5. Chronic anemia, associated with chronic renal disease, stable. 6. Hyperlipidemia, continue statin and Tricor. 7. History of gastroesophageal reflux disease. Continue PPI. Job ID: [id number] [facility]
--- NOTE | 2018-05-24 14:50 | PRG ---
DATE OF SERVICE: 05/24/2018 SUBJECTIVE: Patient was seen and examined at bedside and overnight events noted. Patient denies any shortness of breath or chest pain or palpitation. No history of nausea or vomiting or diarrhea or fever or chills or cramps. OBJECTIVE: GENERAL: This is a well-built male in no acute distress. VITAL SIGNS: Temperature 97.9. Heart rate 87. Respiratory rate . Blood pressure 169/60. HEENT: Atraumatic, normocephalic. Oral mucosa is moist NECK: Supple. CARDIOVASCULAR: S1, S2 heard. Rate and rhythm regular. RESPIRATORY: Clear to auscultation. GASTROINTESTINAL: Abdomen is soft. MUSCULOSKELETAL: No tenderness. No edema. DERMATOLOGIC: No skin rash. NEUROLOGIC: Alert and awake and oriented X3. No focal neurologic deficits. Moving all the extremities. PSYCHIATRIC: Mood and affect normal. LABORATORY DATA: Potassium is 3.9, BUN is 36, creatinine is 6.0. ASSESSMENT AND PLAN: 1. End-stage renal disease. We will continue on hemodialysis as tolerated. 2. Edema, controlled. 3. Hypertension. 4. Anemia. 5. Severe peripheral vascular disease. Follow up with Cardiology and Cardiovascular Surgery. Job ID: [id number]
[2018-05-24] MEDS: HumaLOG 300 UNITS/3 ML VIAL SC PRN ×2 (16:44→23:25)
[2018-05-24] MEDS: Atorvastatin Calcium 10 MG TAB PO SCH (21:06)
[2018-05-25] MEDS: Piperacillin/Tazobactam 2.25 GM in Sodium Chloride 0.9% 100 ML IVPB SCH ×2 (01:32→13:39)
[2018-05-25] MEDS: HumaLOG 300 UNITS/3 ML VIAL SC PRN ×3 (06:30→16:42)
[2018-05-25] MEDS: HYDROcodone/Acetaminophen 5/325 mg Tablet PO PRN ×2 (07:09→13:39)
[2018-05-25 08:22] LABS: #Basophils 0.1 thou/uL (0.0-0.2); #Eosinphils 0.2 thou/uL (0.0-0.7); #Lymphocytes 1.6 thou/uL (1.20-3.40); #Monocytes 1.2 thou/uL (0.11-0.59); %Basophils 0.6 % (0.0-1.0); %Eosinophils 1.9 % (0.0-10.0); %Lymphocytes 12.1 % (21.0-51.0); %Neutrophils 76.4 % (42.0-75.0); Mean Corpuscular HGB CONC 32.2 g/dL (32.0-36.0); Mean Corpuscular Hemoglobin 30.9 pg (27.0-31.0); Mean Corpuscular Volume 96.2 fL (78.0-98.0); Mean Platelet Volume 7.2 fL (7.4-10.4); Platelet Count 407 thou/uL (130-400); RBC Distribution Width 15.5 % (11.5-14.5)
[2018-05-25 08:40] LABS: Anion Gap 19 mmol/L (10-20); BUN (Urea Nitrogen) 59 mg/dL (8.4-25.7); Calc. Creatinine Clearance 11 mL/min (70-130); Carbon Dioxide 22 mmol/L (22-29); Chloride 93 mmol/L (98-107); Estimated GFR-MDRD 6; Glucose 170 mg/dL (70-105); Potassium 4.4 mmol/L (3.5-5.1); Sodium 130 mmol/L (136-145)
[2018-05-25] MEDS: Lisinopril 5 MG TAB PO SCH (09:02)
[2018-05-25] MEDS: Midodrine HCl 5 MG TAB PO SCH ×2 (09:02→14:32)
[2018-05-25] MEDS: Heparin 5,000 UNITS/ML VIAL SC SCH ×3 (09:02→21:55)
[2018-05-25] MEDS: Aspirin 81 mg Enteric Coated Tablet PO SCH (09:03)
[2018-05-25] MEDS: Sevelamer Carbonate 800 MG TAB PO SCH ×2 (09:03→17:16)
[2018-05-25] MEDS: Amlodipine 10 MG TAB PO SCH (09:03)
[2018-05-25] MEDS: Carvedilol 6.25 MG TAB PO SCH ×3 (09:03→17:17)
[2018-05-25] MEDS: Fenofibrate Nanocrystallized 145 MG TAB PO SCH (09:03)
[2018-05-25] MEDS: traMADol HCl 50 MG TAB PO PRN ×2 (09:10→22:04)
[2018-05-25] MEDS ORDERED: NPH, Human Insulin Isophane 300 UNIT/3 ML VIAL SC SCH (16:45)
--- NOTE | 2018-05-25 16:50 | PDOC.PN ---
- Subjective Encounter Start Date: 05/25/18 Encounter Start Time: 12:00 Patient seen and examined for gangrene of 2nd and 3rd toes of Rt foot. No new complaints. No overnight events - Objective Resuscitation Status - Order Detail: 05/23/18 13:04 Resuscitation Status Routine Resuscitation Status: FULL: Full Resuscitation Discussed with: patient MAR Reviewed: Yes Vital Signs & Weight: Vital Signs (12 hours) Temp Pulse Resp BP BP Pulse Ox 05/25/18 15:17 97.5 F L 70 18 105/63 94 L 05/25/18 11:08 97.5 F L 76 18 105/63 91 L 05/25/18 09:03 82 117/65 05/25/18 09:02 82 117/65 05/25/18 09:00 94 L 05/25/18 08:01 97.5 F L 82 18 117/65 94 L Weight Admit Weight 175 lb 14.862 oz Weight 175 lb 14.862 oz I&O: 05/24/18 05/25/18 05/26/18 06:59 06:59 06:59 Intake Total 1750 1090 Balance 1750 1090 Result Diagrams: 05/25/18 07:49 05/25/18 07:49 Additional Labs: Accuchecks 05/25/18 05/25/18 05/25/18 15:18 11:53 05:35 POC Glucose 291 H 323 H 215 H 05/24/18 21:21 POC Glucose 218 H Phys Exam - Physical Examination Constitutional: NAD Respiratory: no wheezing, no rhonchi Cardiovascular: RRR, no rub Gastrointestinal: soft, non-tender, positive bowel sounds Musculoskeletal: no edema no new toe discoloration Neurological: non-focal, moves all 4 limbs Dx/Plan - Plan DVT proph w/heparin 1. 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 Severe PAD 3. ESRD on HD 4. Anemia due to CKD 5. HTN 6. Other issues per previous notes PLAN: Reduce Coreg and Lisinopril dose DC Amlodipine (Patient does not take at home) DC Midodrine AM labs Angio in AM Cont other meds as below Review of Systems - Review of Systems Respiratory: negative: Cough, Dry, Shortness of Breath, Hemoptysis, SOB with Excertion, Pleuritic Pain, Sputum, Wheezing Cardiovascular: negative: chest pain, palpitations, orthopnea, paroxysmal nocturnal dyspnea, edema, light headedness, other Gastrointestinal: negative: Nausea, Vomiting, Abdominal Pain, Diarrhea, Constipation, Melena, Hematochezia, Other - Medications/Allergies Allergies/Adverse Reactions: Allergies Allergy/AdvReac Type Severity Reaction Status Date / Time No Known Allergies Allergy Verified 01/30/18 06:46 Medications: Current Medications Acetaminophen (Tylenol) 650 mg PO Q4H PRN PRN Reason: Headache/Fever/Mild Pain (1-3) Hydrocodone Bitart/Acetaminophen ([place] 5/325) 1 tab PO Q6H PRN PRN Reason: Pain Last Admin: 05/25/18 13:39 Dose: 1 tab Aspirin (Ecotrin) 81 mg PO DAILY [facility] Last Admin: 05/25/18 09:03 Dose: 81 mg Atorvastatin Calcium (Lipitor) 10 mg PO HS [facility] Last Admin: 05/24/18 21:06 Dose: 10 mg Carvedilol (Coreg) 6.25 mg PO BID-[facility] Clonidine (Catapres) 0.1 mg PO TIDPRN PRN PRN Reason: SBP Greater Than 170 Dextrose/Water (Dextrose 50%) 25 gm SLOW IVP PRN PRN PRN Reason: Hypoglycemia Fenofibrate (Tricor) 145 mg PO DAILY [facility] Last Admin: 05/25/18 09:03 Dose: 145 mg Glucagon (Glucagon) 1 mg IM PRN PRN PRN Reason: Hypoglycemia Heparin Sodium (Porcine) (Heparin) 5,000 units SC BID [facility] Piperacillin Sod/Tazobactam (Sod 2.25 gm/ Sodium Chloride) 100 mls @ 200 mls/ hr IVPB 0200,1400 [facility] Last Admin: 05/25/18 13:39 Dose: 100 mls Dextrose/Water (D5w) 1,000 mls @ 0 mls/hr IV .Q0M PRN PRN Reason: Hypoglycemia Insulin Human Lispro (Humalog) 0 units SC .MILD SLIDING SCALE PRN PRN Reason: Mild Correctional Scale Last Admin: 05/25/18 16:42 Dose: 4 unit Insulin Human Lispro (Humalog) 0 units SC .BEDTIME SLIDING SC PRN PRN Reason: Bedtime Correctional Scale Insulin Human NPH (Humulin N) 10 unit SC BID [facility] Insulin Human NPH (Humulin N) 10 unit SC ONE [facility] Lisinopril (Zestril) 2.5 mg PO DAILY [facility] Ondansetron HCl (Zofran) 4 mg IVP Q6H PRN PRN Reason: Nausea/Vomiting Pantoprazole Sodium (Protonix) 40 mg PO DAILY [facility] Last Admin: 05/25/18 09:03 Dose: 40 mg Saccharomyces Boulardii (Florastor) 250 mg PO DAILY [facility] Sevelamer Carbonate (Renvela) 800 mg PO DAILY [facility] Last Admin: 05/25/18 09:03 Dose: 800 mg Sevelamer Carbonate (Renvela) 800 mg PO TID-[facility] Sodium Chloride (Flush - Normal Saline) 10 ml IVF Q12HR [facility] Last Admin: 05/25/18 09:13 Dose: 10 ml Sodium Chloride (Flush - Normal Saline) 10 ml IVF PRN PRN PRN Reason: Saline Flush Last Admin: 05/24/18 13:52 Dose: 10 ml Tramadol HCl (Ultram) 50 mg PO Q6H PRN PRN Reason: Pain Last Admin: 05/25/18 09:10 Dose: 50 mg
[2018-05-25] MEDS ORDERED: Loperamide HCl 2 MG CAP PO PRN (18:23)
[2018-05-25] MEDS ORDERED: Saccharomyces boulardii 250 MG CAP PO SCH (19:30)
--- NOTE | 2018-05-25 20:41 | PRG ---
DATE OF SERVICE: 05/25/2018 SUBJECTIVE: The patient was seen and examined at bedside and overnight events noted. The patient denies any shortness of breath or chest pain or palpitation. No history of nausea or vomiting or diarrhea or fever or chills or cramps. OBJECTIVE: GENERAL: This is a well-built male, in no apparent distress. VITAL SIGNS: Temperature 97.5. Heart rate 70. Respiratory rate 18. Blood pressure 105/63. HEENT: Atraumatic, normocephalic. Oral mucosa is moist NECK: Supple. CARDIOVASCULAR: S1, S2 heard. Rate and rhythm regular. RESPIRATORY: Clear to auscultation. GASTROINTESTINAL: Abdomen is soft. MUSCULOSKELETAL: No tenderness. No edema. DERMATOLOGIC: No skin rash. NEUROLOGIC: Alert and awake and oriented X3. No focal neurologic deficits. Moving all the extremities. PSYCHIATRIC: Mood and affect normal. LABORATORY DATA: Potassium is 4.4, BUN is 59, creatinine is 8.8. ASSESSMENT AND PLAN: 1. End-stage renal disease. Continue on hemodialysis. 2. Edema, controlled. 3. Hypertension. 4. Anemia. 5. Severe peripheral vascular disease. Follow with Cardiology. Continue dialysis Saturday, Saturday, and Saturday. Job ID: [id number]
[2018-05-25] MEDS: Atorvastatin Calcium 10 MG TAB PO SCH (21:53)
[2018-05-26] MEDS: Piperacillin/Tazobactam 2.25 GM in Sodium Chloride 0.9% 100 ML IVPB SCH ×2 (02:13→17:02)
[2018-05-26] MEDS: Carvedilol 6.25 MG TAB PO SCH ×2 (05:52→17:02)
[2018-05-26] MEDS: traMADol HCl 50 MG TAB PO PRN (05:57)
[2018-05-26] MEDS: Heparin 5,000 UNITS/ML VIAL SC SCH ×2 (08:01→21:00)
[2018-05-26] MEDS: HYDROcodone/Acetaminophen 5/325 mg Tablet PO PRN ×2 (08:01→23:41)
[2018-05-26 09:16] LABS: #Basophils 0.1 thou/uL (0.0-0.2); #Eosinphils 0.3 thou/uL (0.0-0.7); #Lymphocytes 1.6 thou/uL (1.20-3.40); #Monocytes 1.2 thou/uL (0.11-0.59); #Neutrophils 8.5 thou/uL (1.40-6.50); %Basophils 0.7 % (0.0-1.0); %Eosinophils 2.3 % (0.0-10.0); %Monocytes 10.2 % (0.0-10.0); %Neutrophils 72.7 % (42.0-75.0); Hemoglobin 8.2 g/dL (14.0-18.0); Mean Corpuscular HGB CONC 31.5 g/dL (32.0-36.0); Mean Corpuscular Hemoglobin 30.8 pg (27.0-31.0); Mean Corpuscular Volume 97.9 fL (78.0-98.0); Mean Platelet Volume 7.6 fL (7.4-10.4); Platelet Count 412 thou/uL (130-400); RBC Distribution Width 15.7 % (11.5-14.5); Red Blood Cell (RBC) Count 2.66 mill/uL (4.70-6.10); White Blood Cell (WBC) Count 11.6 thou/uL (4.8-10.8)
[2018-05-26] MEDS ORDERED: Iopamidol 370 76% 50 ML VIAL FS ONE (09:23)
[2018-05-26 09:37] LABS: Anion Gap 30 mmol/L (10-20); BUN (Urea Nitrogen) 75 mg/dL (8.4-25.7); Calc. Creatinine Clearance 9 mL/min (70-130); Calcium 9.2 mg/dL (7.8-10.44); Carbon Dioxide 14 mmol/L (22-29); Chloride 94 mmol/L (98-107); Estimated GFR-MDRD 5; Glucose 114 mg/dL (70-105); Potassium 5.3 mmol/L (3.5-5.1); Sodium 133 mmol/L (136-145)
[2018-05-26 09:58] LABS: HBSAg Index 0.24 S/CO (0-0.99); Hep B Surf Ag Non-Reactive S/CO (NonReactive)
--- NOTE | 2018-05-26 11:48 | HP ---
HISTORY OF PRESENT ILLNESS: A 53-year-old male patient, dialyzes Saturday, Saturday, and Saturday at [facility]. He has a left arm Kajal fistula. He is referred by [facility] in [facility] for that fistula. He has been admitted for gangrenous right second and third toes. He has mild blistering on his foot. He had aortogram runoff CT scan revealing distal disease. He has been seen by Dr. Ferdinand Lazo, and arteriograms are planned today in hopes interventionally he can have some procedure to improve his circulation. Apparently, he is in the emergency room about a week prior, started on Keflex and Augmentin. He denies claudication. He denies rest pain. The patient has diabetes mellitus, end-stage renal disease, GERD. On exam, right second and third toes are gangrenous. There is blistering over the dorsum of the foot, but there is no evidence of cellulitis. He has palpable femoral pulses bilaterally. I cannot feel a right popliteal pulse even though on CT angio, both internal iliac arteries are occluded and there is occlusion of the HERNA[place]. Extensive arteriosclerotic plaque aorta, 50% left renal, 30% to 40% stenosis of the left distal external iliac artery. There is reported occlusion of the distal popliteal artery, right occlusion of the anterior tibial artery and the posterior tibial artery with some reconstitution of the posterior tibial from collaterals from geniculates. On the left side, the femoral artery is occluded. Superficial femoral multiple level high-grade stenosis, left popliteal artery at multiple levels, occlusion of the left anterior tibial artery. ALLERGIES: NONE. SOCIAL HISTORY: Tobacco none. Alcohol, none. The patient is not employed. PAST SURGICAL HISTORY: Left Kajal fistula placed in [place], referred by [facility]. PAST MEDICAL HISTORY: End-stage renal disease with dialysis Saturday, Saturday, and Saturday at [facility]; secondary hyperparathyroidism; diabetes mellitus; dyslipidemia; GERD. There is some history of coronary artery disease, followed by Dr. Rahman, where apparently he has had some tests performed at Dr. Rahman's office. The patient ambulates with a walker due to neuropathy. MEDICATIONS: Amlodipine, Coreg, pravastatin, sevelamer, TriCor, Nexium, lisinopril, aspirin, Augmentin, Keflex, clotrimazole, tramadol at home. In the hospital, vancomycin and Zosyn ordered. PHYSICAL EXAMINATION: VITAL SIGNS: Height 5 feet 5 inches, weight 175 pounds. HEAD, EYES, EARS, NOSE, AND THROAT: Unremarkable. LUNGS: Clear to auscultation. CARDIAC: Regular rate and rhythm without murmur or gallop. ABDOMEN: Soft and nontender. SKIN: Kajal fistula, left good thrill and bruit, antecubital IV removed. EXTREMITIES: Palpable femoral pulse right and popliteal pulse weak. Questionable left femoral pulse. ASSESSMENT AND PLAN: 1. End-stage renal disease, on maintenance dialysis for the past 3 years. 2. Peripheral arterial disease with dry gangrene, right second and third toes. This is dry gangrene. I do not think he needs any further antibiotics long-term. Dr. Ferdinand Lazo is performing interventional arteriography. At this point, I do not think surgical intervention is warranted. He can wash the foot daily with soap and water. Follow up in my office in 2 to 3 weeks. Antibiotics can be discontinued. 3. Diabetes mellitus. 4. Gastroesophageal reflux disease. 5. Seen by Dr. Rahman in the past without the knowledge of prior cardiac evaluation or workup. Job ID: [id number]
[2018-05-26] MEDS: Sevelamer Carbonate 800 MG TAB PO SCH ×2 (12:02→17:02)
[2018-05-26] MEDS: NPH, Human Insulin Isophane 300 UNIT/3 ML VIAL SC SCH ×2 (12:03→20:59)
--- NOTE | 2018-05-26 12:58 | PRG ---
DATE OF SERVICE: 05/26/2018 SUBJECTIVE: A 53-year-old gentleman, being seen for end-stage renal disease. The patient denies nausea, vomiting, or chest pain. OBJECTIVE: CONSTITUTIONAL: Awake, alert, in no acute distress. GENERAL APPEARANCE AND MENTAL STATUS: Fair. VITAL SIGNS: Pulse 80, breathing 16, blood pressure . HEAD/NECK: Normocephalic. Atraumatic. EYES: EOMI. No deformity. EARS: Clear. No ulcers. NOSE: Intact. No lesions. MOUTH: Clear. No discharge. THROAT: Clear. No exudate. LUNGS: Clear. No crackles. CARDIAC: S1, S2. No rub. ABDOMEN: Benign. Bowel sounds positive. GENITALIA/RECTUM: Saez absent. BACK/EXTREMITIES: Edema 0+. NEUROLOGICAL: Alert and motor intact. SKIN: LYMPHATICS: LABORATORY DATA: Reviewed. ASSESSMENT AND PLAN: 1. Stage 6 chronic kidney disease. Continue hemodialysis. 2. Hypertension, stable. 3. Anemia, stable. 4. Hyperkalemia, plan dialysis. Job ID: [id number]
[2018-05-26] MEDS ORDERED: Heparin 10,000 UNITS/1 ML VIAL ONE (13:51)
[2018-05-26] MEDS: Aspirin 81 mg Enteric Coated Tablet PO SCH (16:01)
[2018-05-26] MEDS: Fenofibrate Nanocrystallized 145 MG TAB PO SCH (16:01)
[2018-05-26] MEDS: Lisinopril 2.5 MG TAB PO SCH (16:01)
--- NOTE | 2018-05-26 16:58 | OP ---
DATE OF PROCEDURE: 05/26/2018 PREOPERATIVE DIAGNOSIS: Peripheral vascular disease with ischemic right 2nd and 3rd toe. POSTOPERATIVE DIAGNOSES: 1. Occluded popliteal artery at the level of knee joint. 2. Near occlusion of the posterior tibial artery at its bifurcation. 3. Near occlusion of the peroneal artery at its bifurcation. PROCEDURES PERFORMED: 1. Ultrasound-guided vascular access of the left common femoral artery. 2. Abdominal aortogram. 3. Right common femoral, superficial femoral, popliteal, and peroneal artery angiograms. 4. Percutaneous transluminal angioplasty of the right popliteal artery with a 4 x 80 Luton[place] balloon, taken to 6 mmHg for 3 minutes. 5. Percutaneous transluminal angioplasty of the right peroneal artery with a 3 x 100 [place] balloon, taken to 10 mmHg for 10 minutes. 6. Percutaneous transluminal angioplasty of the right posterior tibial artery with a 3 x 100 [place] balloon, taken to 10 mmHg for 10 minutes. TOTAL CONTRAST: 40 mL. TOTAL FLUORO TIME: 15.9 minutes. DESCRIPTION OF PROCEDURE: After consent was obtained, the patient was brought to the labor relations analyst, placed in supine position on labor relations analyst table. Appropriate central line was placed. Groins were prepped and draped in usual sterile fashion. Using ultrasound guidance, the left groin was anesthetized with 1% lidocaine. Percutaneous access to common femoral artery was obtained using ultrasound guidance and a micropuncture sheath. Micropuncture sheath was exchanged for a 5-Bengali sheath. A Contra catheter was passed in the abdominal aorta. Abdominal aortogram was performed with a hand-injected technique. The aorta was small in caliber. There was atherosclerosis throughout its length. There was no obstructive disease. Common iliac and external iliac arteries were patent bilaterally. A RIM catheter was used to cross the aortic bifurcation and this was positioned down in the common femoral artery. Digital angiography was used to rolo contrast from groin to the knee. The superficial femoral artery was widely patent. The deep femoral artery was occluded. At the level of the knee joint, the popliteal artery was occluded. The patient was given 5000 units of heparin. A 5-Bengali Destination sheath was placed with its tip in the superficial femoral artery. The angled glide catheter and angled Glidewire were used to cross the area of occlusion. Hand-injected arteriogram was performed. Tip of catheter in the distal popliteal artery, showing intraluminal location. The [place] catheter was used to guide the Glidewire down into the peroneal artery. A 0.035 [place] was used to pass down into the peroneal artery. Hand-injected arteriogram was performed, showing intraluminal location. The 0.014 guidewire was then placed into the peroneal artery. A 3 x 100 balloon was used to angioplasty the origin of the peroneal artery. This was held for 3 minutes at 10 mmHg. Followup angiogram showed an excellent result. The 0.014 [place] wire was then guided down into the posterior tibial artery and angioplasty performed in a similar fashion. Followup angiogram showed an excellent result. The popliteal artery was predilated with a 3 x 100 balloon. This was followed up with a 4 x 80 Lutonix balloon, held up for 3 minutes. Followup angiogram showed an excellent result. Following contrast down towards the foot, the posterior tibial artery ran all the way to the foot. The peroneal artery terminated at the ankle and had collateral flow into the anterior tibial artery. Attempted ProGlide closure was unsuccessful, and therefore, manual pressure was held for hemostasis. The patient tolerated the procedure well and was transferred to the recovery area inside. Job ID: [id number]
[2018-05-26] MEDS: Sodium Bicarbonate Tab 325 MG TAB PO SCH ×2 (17:02→20:59)
[2018-05-26] MEDS: Saccharomyces boulardii 250 MG CAP PO SCH (17:03)
[2018-05-26] MEDS: Fentanyl 100 MCG/2 ML VIAL SLOW IVP PRN (17:16)
[2018-05-26] MEDS: Vancomycin HCl 25 MG/ML Oral PO SCH ×2 (17:17→21:00)
--- NOTE | 2018-05-26 17:33 | PDOC.PN ---
- Subjective Encounter Start Date: 05/26/18 Encounter Start Time: 15:30 Patient seen and examined for foot ischemia. s/p Angio. No new episode of diarrhea today. No new complaints. No overnight events - Objective Resuscitation Status - Order Detail: 05/23/18 13:04 Resuscitation Status Routine Resuscitation Status: FULL: Full Resuscitation Discussed with: patient ELIN Reviewed: Yes Vital Signs & Weight: Vital Signs (12 hours) Temp Pulse Resp BP BP Pulse Ox 05/26/18 17:02 112/72 05/26/18 16:01 80 05/26/18 15:55 98.4 F 80 18 118/58 L 96 05/26/18 08:01 80 L 05/26/18 07:26 98.4 F 80 20 103/62 92 L 05/26/18 05:52 112/66 Weight Admit Weight 175 lb 14.862 oz Weight 175 lb 14.862 oz I&O: 05/25/18 05/26/18 05/27/18 06:59 06:59 06:59 Intake Total 1090 550 100 Balance 1090 550 100 Result Diagrams: 05/26/18 08:55 05/26/18 08:55 Additional Labs: Accuchecks 05/26/18 05/26/18 05/26/18 15:51 05:44 02:14 POC Glucose 158 H 134 H 139 H 05/25/18 20:46 POC Glucose 142 H Phys Exam - Physical Examination Constitutional: NAD Respiratory: no wheezing, no rhonchi Cardiovascular: RRR, no rub Gastrointestinal: soft, non-tender, positive bowel sounds Musculoskeletal: no edema gangrene of R 2nd and 3rd toe Neurological: non-focal, moves all 4 limbs Psychiatric: normal affect, A&O x 3 Dx/Plan - Plan DVT proph w/SCDs 1. 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 Severe PAD s/p Angio 3. C difficile infection 4. ESRD on HD 5. HTN 6. Anemia due to CKD/Hyperkalemia/Metabolic acidosis/Other issues per previous notes PLAN: Start PO Vancomycin with Probiotics DC IV Atbx per Dr Ojeda Cont ASA Cont NPH with sliding scale AM labs Cont other meds as below Review of Systems - Review of Systems Respiratory: negative: Cough, Dry, Shortness of Breath, Hemoptysis, SOB with Excertion, Pleuritic Pain, Sputum, Wheezing Cardiovascular: negative: chest pain, palpitations, orthopnea, paroxysmal nocturnal dyspnea, edema, light headedness, other Gastrointestinal: negative: Nausea, Vomiting, Abdominal Pain, Diarrhea, Constipation, Melena, Hematochezia, Other - Medications/Allergies Allergies/Adverse Reactions: Allergies Allergy/AdvReac Type Severity Reaction Status Date / Time No Known Allergies Allergy Verified 01/30/18 06:46 Medications: Current Medications Acetaminophen (Tylenol) 650 mg PO Q4H PRN PRN Reason: Headache/Fever/Mild Pain (1-3) Hydrocodone Bitart/Acetaminophen ([place] 5/325) 1 tab PO Q6H PRN PRN Reason: Pain Last Admin: 05/26/18 08:01 Dose: 1 tab Aspirin (Ecotrin) 81 mg PO DAILY [facility] Last Admin: 05/26/18 16:01 Dose: Not Given Atorvastatin Calcium (Lipitor) 10 mg PO HS [facility] Last Admin: 05/25/18 21:53 Dose: 10 mg Carvedilol (Coreg) 6.25 mg PO BID-WM [facility] Last Admin: 05/26/18 17:02 Dose: 6.25 mg Clonidine (Catapres) 0.1 mg PO TIDPRN PRN PRN Reason: SBP Greater Than 170 Dextrose/Water (Dextrose 50%) 25 gm SLOW IVP PRN PRN PRN Reason: Hypoglycemia Fenofibrate (Tricor) 145 mg PO DAILY [facility] Last Admin: 05/26/18 16:01 Dose: Not Given Fentanyl (Sublimaze) 25 mcg SLOW IVP Q2H PRN PRN Reason: Pain Last Admin: 05/26/18 17:16 Dose: 25 mcg Glucagon (Glucagon) 1 mg IM PRN PRN PRN Reason: Hypoglycemia Heparin Sodium (Porcine) (Heparin) 5,000 units SC BID [facility] Last Admin: 05/26/18 08:01 Dose: 5,000 units Piperacillin Sod/Tazobactam (Sod 2.25 gm/ Sodium Chloride) 100 mls @ 200 mls/ hr IVPB 0200,1400 [facility] Last Admin: 05/26/18 17:02 Dose: 100 mls Dextrose/Water (D5w) 1,000 mls @ 0 mls/hr IV .Q0M PRN PRN Reason: Hypoglycemia Insulin Human Lispro (Humalog) 0 units SC .MILD SLIDING SCALE PRN PRN Reason: Mild Correctional Scale Last Admin: 05/25/18 16:42 Dose: 4 unit Insulin Human Lispro (Humalog) 0 units SC .BEDTIME SLIDING SC PRN PRN Reason: Bedtime Correctional Scale Insulin Human NPH (Humulin N) 10 unit SC BID [facility] Last Admin: 05/26/18 12:03 Dose: Not Given Lisinopril (Zestril) 2.5 mg PO DAILY [facility] Last Admin: 05/26/18 16:01 Dose: Not Given Ondansetron HCl (Zofran) 4 mg IVP Q6H PRN PRN Reason: Nausea/Vomiting Pantoprazole Sodium (Protonix) 40 mg PO DAILY [facility] Last Admin: 05/26/18 16:02 Dose: Not Given Saccharomyces Boulardii (Florastor) 250 mg PO DAILY [facility] Last Admin: 05/26/18 17:03 Dose: 250 mg Sevelamer Carbonate (Renvela) 800 mg PO TID-[facility] Last Admin: 05/26/18 17:02 Dose: 800 mg Sodium Bicarbonate (Bicarbonate, Sodium) 650 mg PO TID [facility] Last Admin: 05/26/18 17:02 Dose: 650 mg Sodium Chloride (Flush - Normal Saline) 10 ml IVF Q12HR [facility] Last Admin: 05/26/18 12:03 Dose: Not Given Sodium Chloride (Flush - Normal Saline) 10 ml IVF PRN PRN PRN Reason: Saline Flush Last Admin: 05/24/18 13:52 Dose: 10 ml Tramadol HCl (Ultram) 50 mg PO Q6H PRN PRN Reason: Pain Last Admin: 05/26/18 05:57 Dose: 50 mg Vancomycin HCl (First Vancomycin) 125 mg PO QID [facility] Last Admin: 05/26/18 17:17 Dose: 125 mg
[2018-05-26] MEDS ORDERED: Loperamide HCl 2 MG CAP PO PRN (19:38)
[2018-05-26] MEDS: Atorvastatin Calcium 10 MG TAB PO SCH (20:59)
[2018-05-26] MEDS: HumaLOG 300 UNITS/3 ML VIAL SC PRN (21:05)
[2018-05-27] MEDS: traMADol HCl 50 MG TAB PO PRN (01:54)
[2018-05-27 05:21] LABS: #Basophils 0.1 thou/uL (0.0-0.2); #Eosinphils 0.2 thou/uL (0.0-0.7); #Lymphocytes 1.6 thou/uL (1.20-3.40); #Monocytes 1.3 thou/uL (0.11-0.59); #Neutrophils 8.8 thou/uL (1.40-6.50); %Basophils 0.6 % (0.0-1.0); %Eosinophils 1.9 % (0.0-10.0); %Lymphocytes 13.2 % (21.0-51.0); %Monocytes 10.7 % (0.0-10.0); %Neutrophils 73.7 % (42.0-75.0); Hemoglobin 7.5 g/dL (14.0-18.0); Mean Corpuscular Hemoglobin 31.2 pg (27.0-31.0); Mean Corpuscular Volume 94.6 fL (78.0-98.0); Mean Platelet Volume 7.3 fL (7.4-10.4); Platelet Count 388 thou/uL (130-400); RBC Distribution Width 15.8 % (11.5-14.5); Red Blood Cell (RBC) Count 2.39 mill/uL (4.70-6.10); White Blood Cell (WBC) Count 11.9 thou/uL (4.8-10.8)
[2018-05-27 05:40] LABS: Albumin 3.4 g/dL (3.5-5.0); Anion Gap 28 mmol/L (10-20); BUN (Urea Nitrogen) 93 mg/dL (8.4-25.7); BUN/Creatinine Ratio 7.11; Calc. Creatinine Clearance 7 mL/min (70-130); Calcium 9.2 mg/dL (7.8-10.44); Carbon Dioxide 19 mmol/L (22-29); Chloride 93 mmol/L (98-107); Estimated GFR-MDRD 4; Glucose 116 mg/dL (70-105); Potassium 5.6 mmol/L (3.5-5.1); Sodium 134 mmol/L (136-145)
[2018-05-27 05:44] LABS: Phosphorus 9.9 mg/dL (2.3-4.7)
[2018-05-27] MEDS: Heparin 5,000 UNITS/ML VIAL SC SCH (12:30)
[2018-05-27] MEDS: Lisinopril 2.5 MG TAB PO SCH (12:30)
[2018-05-27] MEDS: Sevelamer Carbonate 800 MG TAB PO SCH ×3 (12:30→16:43)
[2018-05-27] MEDS: Vancomycin HCl 25 MG/ML Oral PO SCH ×4 (12:30→20:41)
--- NOTE | 2018-05-27 12:49 | PRG ---
DATE OF SERVICE: 05/27/2018 SUBJECTIVE: A 53-year-old gentleman, being seen for end-stage renal disease. The patient denies nausea, vomiting, or chest pain. OBJECTIVE: See above. Awake, alert, in no acute distress. GENERAL APPEARANCE AND MENTAL STATUS: Fair. VITAL SIGNS: Afebrile, pulse 72, breathing is 16, blood pressure 113/74. HEAD/NECK: Normocephalic. Atraumatic. EYES: EOMI. No deformity. EARS: Clear. No ulcers. NOSE: Intact. No lesions. MOUTH: Clear. No discharge. THROAT: Clear. No exudate. LUNGS: Clear. No crackles. CARDIAC: S1, S2. No rub. ABDOMEN: Benign. Bowel sounds positive. GENITALIA/RECTUM: Saez absent. BACK/EXTREMITIES: Edema 0+. NEUROLOGICAL: Alert and motor intact. SKIN: LYMPHATICS: LABORATORY DATA: Reviewed. ASSESSMENT AND PLAN: 1. Stage 6 chronic kidney disease. Continue hemodialysis. 2. Hypertension, stable. 3. Anemia, stable. Would recommend transfusion. 4. Medications based on GFR appropriate. Job ID: [id number]
[2018-05-27] MEDS: Carvedilol 6.25 MG TAB PO SCH ×2 (13:14→16:43)
[2018-05-27] MEDS: Clopidogrel Bisulfate 75 MG TAB PO SCH (13:14)
[2018-05-27] MEDS: Fenofibrate Nanocrystallized 145 MG TAB PO SCH (13:14)
[2018-05-27] MEDS: Sodium Bicarbonate Tab 325 MG TAB PO SCH ×3 (13:14→20:41)
[2018-05-27] MEDS: Saccharomyces boulardii 250 MG CAP PO SCH (13:15)
[2018-05-27] MEDS: Aspirin 81 mg Enteric Coated Tablet PO SCH (13:15)
[2018-05-27] MEDS: Fentanyl 100 MCG/2 ML VIAL SLOW IVP PRN ×3 (13:15→20:51)
[2018-05-27] MEDS: NPH, Human Insulin Isophane 300 UNIT/3 ML VIAL SC SCH ×2 (15:48→20:43)
--- NOTE | 2018-05-27 16:11 | PRG ---
DATE OF SERVICE: 05/27/2018 SUBJECTIVE: Mr. Dow is doing well today. He has undergone interventional radiology by Dr. Ferdinand Lazo with reconstitution of his popliteal artery [employer]. He has 2-vessel runoff to the foot. The patient states his foot feels better. The patient has dry gangrene of toes, right foot. Antibiotics not indicated. There is no evidence of infection at this point. He should continue antiplatelets per Dr. Ferdinand Lazo. He should follow up with Dr. Ferdinand Lazo. He can see me in my office in 3 to 4 weeks. At this point, amputation surgery is not indicated, and I will see him as needed in this hospitalization. Please call if necessary. Antibiotics can be discontinued. The patient should watch his foot with soap and water every day and report of cellulitis evolves, but currently this is not present. Antibiotics are not necessary. Job ID: [id number]
[2018-05-27] MEDS: HumaLOG 300 UNITS/3 ML VIAL SC PRN (16:45)
--- NOTE | 2018-05-27 19:00 | PDOC.PN ---
- Subjective Encounter Start Date: 05/27/18 Encounter Start Time: 09:30 Patient seen and examined for gangrene and C diff colitis. Diarrhea improving. No new complaints. No overnight events - Objective Resuscitation Status - Order Detail: 05/23/18 13:04 Resuscitation Status Routine Resuscitation Status: FULL: Full Resuscitation Discussed with: patient MAR Reviewed: Yes Vital Signs & Weight: Vital Signs (12 hours) Temp Pulse Resp BP BP Pulse Ox 05/27/18 16:43 121/74 05/27/18 16:03 98.2 F 84 18 121/74 93 L 05/27/18 13:14 112/58 L 05/27/18 12:30 80 112/58 L 05/27/18 12:25 98 05/27/18 12:00 98.3 F 80 20 112/58 L 98 Weight Admit Weight 175 lb 14.862 oz Weight 175 lb 14.862 oz I&O: 05/26/18 05/27/18 05/28/18 06:59 06:59 06:59 Intake Total 550 1660 1450 Output Total 0 Balance 550 1660 1450 Result Diagrams: 05/27/18 04:58 05/27/18 04:58 Additional Labs: Accuchecks 05/27/18 05/27/18 05/27/18 16:07 12:52 05:33 POC Glucose 191 H 112 H 145 H 05/27/18 05/26/18 01:51 21:03 POC Glucose 213 H 324 H Phys Exam - Physical Examination Constitutional: NAD Respiratory: no wheezing, no rhonchi Cardiovascular: RRR, no rub Gastrointestinal: soft, non-tender, positive bowel sounds Musculoskeletal: no edema Dx/Plan - Plan 1. 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 Severe PAD s/p Angio 3. C difficile colitis 4. ESRD on HD 5. HTN 6. Anemia due to CKD/Hyperkalemia/Metabolic acidosis/Other issues per previous notes PLAN: Cont PO Vancomycin with Probiotics IV Atbx dced per Dr Ojeda Cont ASA DC SQ Heparing Type and screen in AM Cont NPH with sliding scale Cont other meds as below Review of Systems - Review of Systems Respiratory: negative: Cough, Dry, Shortness of Breath, Hemoptysis, SOB with Excertion, Pleuritic Pain, Sputum, Wheezing Cardiovascular: negative: chest pain, palpitations, orthopnea, paroxysmal nocturnal dyspnea, edema, light headedness, other - Medications/Allergies Allergies/Adverse Reactions: Allergies Allergy/AdvReac Type Severity Reaction Status Date / Time No Known Allergies Allergy Verified 01/30/18 06:46 Medications: Current Medications Acetaminophen (Tylenol) 650 mg PO Q4H PRN PRN Reason: Headache/Fever/Mild Pain (1-3) Hydrocodone Bitart/Acetaminophen ([place] 5/325) 1 tab PO Q6H PRN PRN Reason: Pain Last Admin: 05/26/18 23:41 Dose: 1 tab Aspirin (Ecotrin) 81 mg PO DAILY [facility] Last Admin: 05/27/18 13:15 Dose: 81 mg Atorvastatin Calcium (Lipitor) 10 mg PO HS [facility] Last Admin: 05/26/18 20:59 Dose: 10 mg Carvedilol (Coreg) 6.25 mg PO BID[facility] Last Admin: 05/27/18 16:43 Dose: 6.25 mg Clonidine (Catapres) 0.1 mg PO TIDPRN PRN PRN Reason: SBP Greater Than 170 Clopidogrel Bisulfate (Plavix) 75 mg PO DAILY [facility] Last Admin: 05/27/18 13:14 Dose: 75 mg Dextrose/Water (Dextrose 50%) 25 gm SLOW IVP PRN PRN PRN Reason: Hypoglycemia Epoetin Bruce (Procrit) 10,000 units IVP MoWeFr [facility] Fenofibrate (Tricor) 145 mg PO DAILY [facility] Last Admin: 05/27/18 13:14 Dose: 145 mg Fentanyl (Sublimaze) 25 mcg SLOW IVP Q2H PRN PRN Reason: Pain Last Admin: 05/27/18 16:52 Dose: 25 mcg Glucagon (Glucagon) 1 mg IM PRN PRN PRN Reason: Hypoglycemia Dextrose/Water (D5w) 1,000 mls @ 0 mls/hr IV .Q0M PRN PRN Reason: Hypoglycemia Insulin Human Lispro (Humalog) 0 units SC .MILD SLIDING SCALE PRN PRN Reason: Mild Correctional Scale Last Admin: 05/27/18 16:45 Dose: 2 unit Insulin Human Lispro (Humalog) 0 units SC .BEDTIME SLIDING SC PRN PRN Reason: Bedtime Correctional Scale Last Admin: 05/26/18 21:05 Dose: 4 unit Insulin Human NPH (Humulin N) 10 unit SC BID [facility] Last Admin: 05/27/18 15:48 Dose: Not Given Lisinopril (Zestril) 2.5 mg PO DAILY [facility] Last Admin: 05/27/18 12:30 Dose: Not Given Loperamide HCl (Imodium) 2 mg PO PRN PRN PRN Reason: Diarrhea/Loose Stools Last Admin: 05/26/18 20:59 Dose: 2 mg Ondansetron HCl (Zofran) 4 mg IVP Q6H PRN PRN Reason: Nausea/Vomiting Pantoprazole Sodium (Protonix) 40 mg PO DAILY [facility] Last Admin: 05/27/18 13:15 Dose: 40 mg Saccharomyces Boulardii (Florastor) 250 mg PO DAILY [facility] Last Admin: 05/27/18 13:15 Dose: 250 mg Sevelamer Carbonate (Renvela) 800 mg PO TID-[facility] Last Admin: 05/27/18 16:43 Dose: 800 mg Sodium Bicarbonate (Bicarbonate, Sodium) 650 mg PO TID [facility] Last Admin: 05/27/18 16:43 Dose: 650 mg Sodium Chloride (Flush - Normal Saline) 10 ml IVF Q12HR [facility] Last Admin: 05/27/18 13:16 Dose: 10 ml Sodium Chloride (Flush - Normal Saline) 10 ml IVF PRN PRN PRN Reason: Saline Flush Last Admin: 05/24/18 13:52 Dose: 10 ml Tramadol HCl (Ultram) 50 mg PO Q6H PRN PRN Reason: Pain Last Admin: 05/27/18 01:54 Dose: 50 mg Vancomycin HCl (First Vancomycin) 125 mg PO QID [facility] Last Admin: 05/27/18 16:44 Dose: 125 mg
[2018-05-27] MEDS: Atorvastatin Calcium 10 MG TAB PO SCH (20:41)
[2018-05-28] MEDS: HumaLOG 300 UNITS/3 ML VIAL SC PRN ×3 (03:05→17:41)
[2018-05-28 06:47] LABS: Hemoglobin 7.6 g/dL (14.0-18.0); Platelet Count 443 thou/uL (130-400)
[2018-05-28 07:06] LABS: Anion Gap 19 mmol/L (10-20); BUN (Urea Nitrogen) 43 mg/dL (8.4-25.7); Calc. Creatinine Clearance 12 mL/min (70-130); Calcium 9.4 mg/dL (7.8-10.44); Carbon Dioxide 29 mmol/L (22-29); Chloride 92 mmol/L (98-107); Estimated GFR-MDRD 7; Glucose 155 mg/dL (70-105); Phosphorus 5.5 mg/dL (2.3-4.7); Potassium 3.8 mmol/L (3.5-5.1); Sodium 136 mmol/L (136-145)
[2018-05-28] MEDS: Aspirin 81 mg Enteric Coated Tablet PO SCH (08:55)
[2018-05-28] MEDS: Fenofibrate Nanocrystallized 145 MG TAB PO SCH (08:55)
[2018-05-28] MEDS: Sodium Bicarbonate Tab 325 MG TAB PO SCH ×3 (08:55→20:00)
[2018-05-28] MEDS: Saccharomyces boulardii 250 MG CAP PO SCH (08:55)
[2018-05-28] MEDS: Clopidogrel Bisulfate 75 MG TAB PO SCH (08:55)
[2018-05-28] MEDS: Carvedilol 6.25 MG TAB PO SCH ×2 (08:56→17:42)
[2018-05-28] MEDS: Sevelamer Carbonate 800 MG TAB PO SCH ×3 (08:56→17:42)
[2018-05-28] MEDS: NPH, Human Insulin Isophane 300 UNIT/3 ML VIAL SC SCH ×2 (08:56→20:01)
[2018-05-28] MEDS: Lisinopril 2.5 MG TAB PO SCH (08:56)
[2018-05-28] MEDS: Vancomycin HCl 25 MG/ML Oral PO SCH ×4 (08:56→20:01)
[2018-05-28] MEDS: HYDROcodone/Acetaminophen 5/325 mg Tablet PO PRN ×2 (09:04→14:53)
--- NOTE | 2018-05-28 12:18 | PRG ---
DATE OF SERVICE: 05/28/2018 SUBJECTIVE: A 53-year-old gentleman being seen for end-stage kidney disease. The patient denied nausea, vomiting, or chest pain. OBJECTIVE: CONSTITUTIONAL: The patient is awake and alert. VITAL SIGNS: Afebrile. Pulse 75, breathing 16, blood pressure 104/56. GENERAL APPEARANCE AND MENTAL STATUS: Fair. HEAD/NECK: Normocephalic. Atraumatic. EYES: EOMI. No deformity. EARS: Clear. No ulcers. NOSE: Intact. No lesions. MOUTH: Clear. No discharge. THROAT: Clear. No exudate. LUNGS: Clear. No crackles. CARDIAC: S1, S2. No rub. ABDOMEN: Benign. Bowel sounds positive. GENITALIA/RECTUM: Saez absent. BACK/EXTREMITIES: Edema 0+. NEUROLOGICAL: Alert and motor intact. SKIN: LYMPHATICS: LABORATORY DATA: Reviewed. ASSESSMENT AND PLAN: 1. Stage 6 chronic kidney disease. Continue hemodialysis. 2. Anemia. Plan and recommend transfusion. 3. Hypertension, stable. 4. Medications based on GFR appropriate. Job ID: [id number]
[2018-05-28] MEDS ORDERED: Epoetin (ESRD) 10,000 UNITS/ML VIAL IVP SCH (14:19)
[2018-05-28] MEDS: traMADol HCl 50 MG TAB PO PRN (20:00)
[2018-05-28] MEDS: Atorvastatin Calcium 10 MG TAB PO SCH (20:00)
--- NOTE | 2018-05-28 21:21 | PDOC.PN ---
- Subjective Encounter Start Date: 05/28/18 Encounter Start Time: 10:45 Patient seen and examined for gangrene. Undergoing dialysis. No new complaints. Overnight events noted. - Objective Resuscitation Status - Order Detail: 05/23/18 13:04 Resuscitation Status Routine Resuscitation Status: FULL: Full Resuscitation Discussed with: patient ELIN Reviewed: Yes Vital Signs & Weight: Vital Signs (12 hours) Temp Pulse Resp BP BP Pulse Ox 05/28/18 20:27 98.0 F 79 18 102/67 93 L 05/28/18 17:42 129/76 05/28/18 15:00 98.9 F 81 18 117/73 95 05/28/18 12:30 98.3 F 05/28/18 11:49 98.4 F 05/28/18 11:31 97.7 F Weight Admit Weight 175 lb 14.862 oz Weight 175 lb 14.862 oz Most Recent Monitor Data Heart Rate from ECG 81 NIBP 115/58 Respiration from ECG 16 I&O: 05/27/18 05/28/18 05/29/18 06:59 06:59 06:59 Intake Total 1660 1750 1500 Output Total 0 0 Balance 1660 1750 1500 Result Diagrams: 05/28/18 06:20 05/28/18 06:19 Additional Labs: Accuchecks 05/28/18 05/28/18 05/28/18 20:00 16:08 06:05 POC Glucose 198 H 172 H 196 H 05/28/18 02:06 POC Glucose 265 H Phys Exam - Physical Examination Constitutional: NAD Respiratory: no wheezing, no rhonchi Cardiovascular: RRR, no rub Gastrointestinal: soft, non-tender, positive bowel sounds Musculoskeletal: no edema Neurological: moves all 4 limbs Dx/Plan - Plan DVT proph w/SCDs 1. 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 Severe PAD s/p Angio 3. C difficile colitis 4. ESRD on HD 5. HTN 6. Anemia due to CKD/Hyperkalemia/Metabolic acidosis/Other issues per previous notes PLAN: Receiving 1 unit PRBC Cont PO Vancomycin with Probiotics No need for Atbx per Dr Ojeda Cont ASA/Plavix for PVD Cont NPH with sliding scale Cont other meds as below Review of Systems - Review of Systems Respiratory: negative: Cough, Dry, Shortness of Breath, Hemoptysis, SOB with Excertion, Pleuritic Pain, Sputum, Wheezing Cardiovascular: negative: chest pain, palpitations, orthopnea, paroxysmal nocturnal dyspnea, edema, light headedness, other - Medications/Allergies Allergies/Adverse Reactions: Allergies Allergy/AdvReac Type Severity Reaction Status Date / Time No Known Allergies Allergy Verified 01/30/18 06:46 Medications: Current Medications Acetaminophen (Tylenol) 650 mg PO Q4H PRN PRN Reason: Headache/Fever/Mild Pain (1-3) Hydrocodone Bitart/Acetaminophen ([place] 5/325) 1 tab PO Q6H PRN PRN Reason: Pain Last Admin: 05/28/18 14:53 Dose: 1 tab Aspirin (Ecotrin) 81 mg PO DAILY [facility] Last Admin: 05/28/18 08:55 Dose: 81 mg Atorvastatin Calcium (Lipitor) 10 mg PO HS [facility] Last Admin: 05/28/18 20:00 Dose: 10 mg Carvedilol (Coreg) 6.25 mg PO BID-WM [facility] Last Admin: 05/28/18 17:42 Dose: 6.25 mg Clonidine (Catapres) 0.1 mg PO TIDPRN PRN PRN Reason: SBP Greater Than 170 Clopidogrel Bisulfate (Plavix) 75 mg PO DAILY [facility] Last Admin: 05/28/18 08:55 Dose: 75 mg Dextrose/Water (Dextrose 50%) 25 gm SLOW IVP PRN PRN PRN Reason: Hypoglycemia Epoetin Bruce (Procrit) 10,000 units IVP MoWeFr [facility] Last Admin: 05/28/18 15:03 Dose: 10,000 units Fenofibrate (Tricor) 145 mg PO DAILY [facility] Last Admin: 05/28/18 08:55 Dose: 145 mg Fentanyl (Sublimaze) 25 mcg SLOW IVP Q2H PRN PRN Reason: Pain Last Admin: 05/27/18 20:51 Dose: 25 mcg Glucagon (Glucagon) 1 mg IM PRN PRN PRN Reason: Hypoglycemia Dextrose/Water (D5w) 1,000 mls @ 0 mls/hr IV .Q0M PRN PRN Reason: Hypoglycemia Insulin Human Lispro (Humalog) 0 units SC .MILD SLIDING SCALE PRN PRN Reason: Mild Correctional Scale Last Admin: 05/28/18 17:41 Dose: 2 unit Insulin Human Lispro (Humalog) 0 units SC .BEDTIME SLIDING SC PRN PRN Reason: Bedtime Correctional Scale Last Admin: 05/28/18 03:05 Dose: 3 unit Insulin Human NPH (Humulin N) 10 unit SC BID [facility] Last Admin: 05/28/18 20:01 Dose: 10 unit Lisinopril (Zestril) 2.5 mg PO DAILY [facility] Last Admin: 05/28/18 08:56 Dose: Not Given Loperamide HCl (Imodium) 2 mg PO PRN PRN PRN Reason: Diarrhea/Loose Stools Last Admin: 05/26/18 20:59 Dose: 2 mg Ondansetron HCl (Zofran) 4 mg IVP Q6H PRN PRN Reason: Nausea/Vomiting Pantoprazole Sodium (Protonix) 40 mg PO DAILY [facility] Last Admin: 05/28/18 08:55 Dose: 40 mg Saccharomyces Boulardii (Florastor) 250 mg PO DAILY [facility] Last Admin: 05/28/18 08:55 Dose: 250 mg Sevelamer Carbonate (Renvela) 800 mg PO TID-[facility] Last Admin: 05/28/18 17:42 Dose: 800 mg Sodium Bicarbonate (Bicarbonate, Sodium) 650 mg PO TID [facility] Last Admin: 05/28/18 20:00 Dose: 650 mg Sodium Chloride (Flush - Normal Saline) 10 ml IVF Q12HR [facility] Last Admin: 05/28/18 20:15 Dose: 10 ml Sodium Chloride (Flush - Normal Saline) 10 ml IVF PRN PRN PRN Reason: Saline Flush Last Admin: 05/24/18 13:52 Dose: 10 ml Tramadol HCl (Ultram) 50 mg PO Q6H PRN PRN Reason: Pain Last Admin: 05/28/18 20:00 Dose: 50 mg Vancomycin HCl (First Vancomycin) 125 mg PO QID [facility] Last Admin: 05/28/18 20:01 Dose: 125 mg
[2018-05-29] MEDS: HumaLOG 300 UNITS/3 ML VIAL SC PRN ×2 (02:04→12:22)
[2018-05-29 05:34] LABS: Hemoglobin 8.5 g/dL (14.0-18.0); Platelet Count 444 thou/uL (130-400)
[2018-05-29] MEDS: Sodium Bicarbonate Tab 325 MG TAB PO SCH (08:09)
[2018-05-29] MEDS: Lisinopril 2.5 MG TAB PO SCH (08:09)
[2018-05-29] MEDS: Saccharomyces boulardii 250 MG CAP PO SCH (08:09)
[2018-05-29] MEDS: Sevelamer Carbonate 800 MG TAB PO SCH ×2 (08:09→12:22)
[2018-05-29] MEDS: Carvedilol 6.25 MG TAB PO SCH (08:10)
[2018-05-29] MEDS: Vancomycin HCl 25 MG/ML Oral PO SCH ×2 (08:10→12:22)
[2018-05-29] MEDS: Aspirin 81 mg Enteric Coated Tablet PO SCH (08:10)
[2018-05-29] MEDS: Clopidogrel Bisulfate 75 MG TAB PO SCH (08:10)
[2018-05-29] MEDS: Fenofibrate Nanocrystallized 145 MG TAB PO SCH (08:10)
[2018-05-29] MEDS: NPH, Human Insulin Isophane 300 UNIT/3 ML VIAL SC SCH (08:10)
--- NOTE | 2018-05-29 10:56 | PRG ---
DATE OF SERVICE: 05/29/2018 SUBJECTIVE: A 53-year-old gentleman being seen for end-stage renal disease. The patient denies any nausea, vomiting, or chest pain. OBJECTIVE: CONSTITUTIONAL: The patient is awake and alert. VITAL SIGNS: Pulse 89, breathing 16, and blood pressure 122/77. GENERAL APPEARANCE AND MENTAL STATUS: Fair. HEAD/NECK: Normocephalic. Atraumatic. EYES: EOMI. No deformity. EARS: Clear. No ulcers. NOSE: Intact. No lesions. MOUTH: Clear. No discharge. THROAT: Clear. No exudate. LUNGS: Clear. No crackles. CARDIAC: S1, S2. No rub. ABDOMEN: Benign. Bowel sounds positive. GENITALIA/RECTUM: Saez absent. BACK/EXTREMITIES: Edema 0+. NEUROLOGICAL: Alert and motor intact. LABORATORY DATA: Labs reviewed. ASSESSMENT AND PLAN: 1. Chronic kidney disease stage 6, stable. 2. Hypertension, stable. 3. Anemia, stable. 4. Medications based on GFR appropriate. Job ID: [id number]
[2018-05-29 11:51] VITALS: BP 110/68; TEMP 98.5
--- NOTE | 2018-05-29 18:02 | DIS ---
DATE OF ADMISSION: 05/23/2018 DATE OF DISCHARGE: 05/29/2018 DISCHARGE DISPOSITION: Home. FOLLOWUP: 1. Follow up with primary care physician, Dr. Pacheco in 1 week. 2. Follow up with Dr. Ferdinand Lazo next week. 3. Follow up with Dr. Ojeda in 2 to 3 weeks. 4. Follow up with Nephrology as scheduled for maintenance hemodialysis. 5. CBC after 1 week is recommended. Primary care physician advised to follow. 6. The patient was advised to seek medical attention if he notices further worsening of lower extremity lesion. ALLERGIES: NO KNOWN DRUG ALLERGIES. DISCHARGE MEDICATION: 1. Vancomycin 125 mg 4 times daily for next 10 days. 2. Florastor one tablet daily. 3. Plavix 75 mg daily. All other home medications were left unchanged. BRIEF HOSPITAL COURSE: The patient is a 53-year-old male with diabetes mellitus type 2, end-stage renal disease on hemodialysis, presented to the hospital with right 2nd and 3rd toe discoloration. Please refer to the history and physical for further details. The patient was admitted to the hospital with a diagnosis of ischemic necrosis of the right 2nd and 3rd toe/diabetic foot infection. He was placed on broad-spectrum antibiotic. The patient was evaluated by General Surgery as well as Cardiovascular. He underwent CTA of the aorta with runoff that showed severe lower extremity vascular disease with multifocal high-grade stenosis and occlusion. On 26 May 2018, the patient underwent lower extremity angiogram that showed occluded popliteal artery at the level of the knee joint along with near occlusion of the posterior tibial artery at its bifurcation and near occlusion of the perineal artery at its bifurcation. Plavix has been initiated. On the second day of the hospitalization, he started developing diarrhea. The stool workup was positive for C diff. Please note that the patient was recently on Keflex as outpatient prior to this hospitalization. He showed good response to oral vancomycin. He received 1 unit of PRBC during this hospital stay due to hemoglobin of 7.5. At discharge, his hemoglobin is 8.5. Repeat CBC after 1 week is recommended, primary care physician advised to follow up. He has been cleared by consultants for discharge. FINAL DIAGNOSES: 1. Ischemic necrosis of the right 2nd and 3rd toe of the right foot/diabetic foot infection. 2. Severe peripheral arterial disease requiring intervention. 3. Clostridium difficile colitis. 4. End-stage renal disease on hemodialysis with hyperkalemia and metabolic acidosis. 5. Anemia secondary to chronic kidney disease. 6. Hypertension. 7. Secondary hyperparathyroidism. 8. Hyponatremia. 9. Gastroesophageal reflux disease. PLAN: Plan of care was discussed with the patient in detail and he stated understanding. Job ID: [id number]
== END 2018-05-29 13:20 | disposition home or self-care (01) | DRG 299 ==
LOC: ERS 09:27 → SURG A 12:58
PROVIDERS: ADMIT Internal Medicine; ATTEND Internal Medicine
PROC: B41G1ZZ Fluoroscopy of Left Lower Extremity Arteries using Low Osmolar Contrast (ICD-10-PCS; principal; 2018-05-26)
PROC: B4161ZZ Fluoroscopy of Right Renal Artery using Low Osmolar Contrast (ICD-10-PCS; 2018-05-26)
PROC: B41F1ZZ Fluoroscopy of Right Lower Extremity Arteries using Low Osmolar Contrast (ICD-10-PCS; 2018-05-26)
PROC: B4101ZZ Fluoroscopy of Abdominal Aorta using Low Osmolar Contrast (ICD-10-PCS; 2018-05-26)
DX: E11.52 Type 2 diabetes mellitus with diabetic peripheral angiopathy with gangrene (principal); N18.6 End stage renal disease; I96 Gangrene, not elsewhere classified; I12.0 Hypertensive chronic kidney disease with stage 5 chronic kidney disease or end stage renal disease; N25.81 Secondary hyperparathyroidism of renal origin; A04.72 Enterocolitis due to Clostridium difficile, not specified as recurrent; E87.2 Acidosis; E11.22 Type 2 diabetes mellitus with diabetic chronic kidney disease; Z99.2 Dependence on renal dialysis; E78.5 Hyperlipidemia, unspecified; D63.1 Anemia in chronic kidney disease; K21.9 Gastro-esophageal reflux disease without esophagitis; I25.10 Atherosclerotic heart disease of native coronary artery without angina pectoris; E11.40 Type 2 diabetes mellitus with diabetic neuropathy, unspecified; E87.5 Hyperkalemia
CPT/HCPCS: 36415; 36416; 36430; 37224; 37228; 75635; 76942; 80048; 80053; 80069; 82947; 83605; 84100; 85014; 85018; 85025; 85049; 85347; 86850; 86900; 86901; 87040; 87324; 87340; 87449; 87493; 96365; C1725; C1760; C1769; C1887; J1644; J1815; J2543; J3010; J3370; J7050; P9016; Q4081; Q9966; Q9967

== ENCOUNTER 2018-05-31 11:07 | Emergency (ER) | payer MEDICARE ==
[2018-05-31 12:14] LABS: #Basophils 0.1 thou/uL (0.0-0.2); #Eosinphils 0.4 thou/uL (0.0-0.7); #Lymphocytes 1.7 thou/uL (1.20-3.40); #Monocytes 1.1 thou/uL (0.11-0.59); #Neutrophils 9.4 thou/uL (1.40-6.50); %Basophils 0.7 % (0.0-1.0); %Eosinophils 3.4 % (0.0-10.0); %Lymphocytes 13.2 % (21.0-51.0); %Neutrophils 73.7 % (42.0-75.0); Hemoglobin 9.3 g/dL (14.0-18.0); Mean Corpuscular HGB CONC 32.2 g/dL (32.0-36.0); Mean Corpuscular Hemoglobin 31.2 pg (27.0-31.0); Mean Corpuscular Volume 96.8 fL (78.0-98.0); Mean Platelet Volume 7.3 fL (7.4-10.4); Platelet Count 495 thou/uL (130-400); Red Blood Cell (RBC) Count 2.97 mill/uL (4.70-6.10); White Blood Cell (WBC) Count 12.8 thou/uL (4.8-10.8)
--- NOTE | 2018-05-31 12:37 | RAD ---
RIGHT FOOT 3 VIEWS: Date: 05/31/18 HISTORY: Bleeding from toes following surgery 2 days ago. COMPARISON: 05/23/18. FINDINGS: Vascular calcifications are noted. There are no signs of fracture. Calcaneal spurs are noted. IMPRESSION: No acute findings. POS: CINTHYA
[2018-05-31 12:40] LABS: ALT (SGPT) 50 U/L (8-55); AST (SGOT) 31 U/L (5-34); Albumin 3.7 g/dL (3.5-5.0); Alkaline Phosphatase 96 U/L (40-150); Anion Gap 20 mmol/L (10-20); BUN (Urea Nitrogen) 45 mg/dL (8.4-25.7); Bilirubin, Total 0.9 mg/dL (0.2-1.2); CRP (Inflammatory) 20.46 mg/dL (= or < 0.5); Calc. Creatinine Clearance 0 mL/min (70-130); Calcium 9.7 mg/dL (7.8-10.44); Carbon Dioxide 27 mmol/L (22-29); Chloride 91 mmol/L (98-107); Estimated GFR-MDRD 8; Globulin 3.6 g/dL (2.4-3.5); Glucose 255 mg/dL (70-105); Potassium 4.2 mmol/L (3.5-5.1); Protein, Total 7.3 g/dL (6.0-8.3); Sodium 134 mmol/L (136-145)
== END 2018-05-31 13:05 | disposition home or self-care (01) ==
LOC: ERS 11:07
DX: I96 Gangrene, not elsewhere classified (principal); I12.0 Hypertensive chronic kidney disease with stage 5 chronic kidney disease or end stage renal disease; N18.6 End stage renal disease; Z99.2 Dependence on renal dialysis; E11.22 Type 2 diabetes mellitus with diabetic chronic kidney disease; Z87.891 Personal history of nicotine dependence; Z79.899 Other long term (current) drug therapy
CPT/HCPCS: 80053; 85025; 85652; 86140

== ENCOUNTER 2018-06-08 21:58 | Inpatient (IN) | payer MEDICARE ==
[2018-06-08 23:48] LABS: #Basophils 0.1 thou/uL (0.0-0.2); #Eosinphils 0.4 thou/uL (0.0-0.7); #Lymphocytes 1.5 thou/uL (1.20-3.40); #Monocytes 0.8 thou/uL (0.11-0.59); #Neutrophils 6.7 thou/uL (1.40-6.50); %Basophils 1.2 % (0.0-1.0); %Eosinophils 4.5 % (0.0-10.0); %Lymphocytes 15.8 % (21.0-51.0); %Monocytes 8.2 % (0.0-10.0); %Neutrophils 70.3 % (42.0-75.0); Mean Corpuscular HGB CONC 31.6 g/dL (32.0-36.0); Mean Corpuscular Hemoglobin 30.4 pg (27.0-31.0); Mean Corpuscular Volume 96.2 fL (78.0-98.0); Mean Platelet Volume 7.6 fL (7.4-10.4); Platelet Count 500 thou/uL (130-400); RBC Distribution Width 15.1 % (11.5-14.5); White Blood Cell (WBC) Count 9.6 thou/uL (4.8-10.8)
[2018-06-09 00:10] LABS: ALT (SGPT) 14 U/L (8-55); AST (SGOT) 17 U/L (5-34); Albumin 3.9 g/dL (3.5-5.0); Alkaline Phosphatase 91 U/L (40-150); Anion Gap 23 mmol/L (10-20); BUN (Urea Nitrogen) 69 mg/dL (8.4-25.7); Bilirubin, Total 0.8 mg/dL (0.2-1.2); Calc. Creatinine Clearance 0 mL/min (70-130); Calcium 9.6 mg/dL (7.8-10.44); Carbon Dioxide 27 mmol/L (22-29); Chloride 91 mmol/L (98-107); Estimated GFR-MDRD 6; Globulin 3.8 g/dL (2.4-3.5); Glucose 115 mg/dL (70-105); Potassium 5.5 mmol/L (3.5-5.1); Protein, Total 7.7 g/dL (6.0-8.3); Sodium 135 mmol/L (136-145)
[2018-06-09] MEDS ORDERED: Vancomycin HCl 1.5 GM in Sodium Chloride 0.9% 250 ML 300 ML IVPB SCH (02:15)
[2018-06-09] MEDS ORDERED: Piperacillin/Tazobactam 4.5 GM VIAL ONE (02:41)
[2018-06-09] MEDS ORDERED: Sodium Chloride 0.9% 100 ML ONE (02:41)
[2018-06-09] MEDS ORDERED: Calcium Gluc 4.6 MEQ/10 ML (100 MG/ML) ONE (02:41)
--- NOTE | 2018-06-09 07:16 | RAD ---
3 VIEWS RIGHT FOOT: Date: 06/08/18 Reference made to 05/31/18 exam. INDICATION: Infection, pain, edema. FINDINGS: There is soft tissue prominence and vascular calcification. Enthesophytes of the calcaneus are presen t. No fracture or focal osseous destruction is confirmed. IMPRESSION: Soft tissue prominence of the right foot. No destructive osseous lesion is identified. If there is pe rsistent concern or high level of clinical suspicion, follow-up may be obtained with three phase bone scan or MRI. POS: GAGANDEEP
[2018-06-09] MEDS ORDERED: Vancomycin HCl 25 MG/ML Oral PO SCH (09:00)
--- NOTE | 2018-06-09 09:35 | HP ---
HISTORY OF PRESENT ILLNESS: A 53-year-old male patient dialyzes Saturday, Saturday, and Saturday [address] 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 The patient was just discharged from the hospital recently, hospitalized 05/23 to 05/29/2018. During that hospitalization, I saw him and Dr. Ferdinand Lazo saw him as well as Dr. Schaefer saw him for his dialysis needs. He had dry gangrene of his right second and third toes. He underwent CT angiogram and arteriography by Dr. Ferdinand Lazo. The patient's aortoiliac vessels were patent. Internal iliacs occluded, HERNAN occluded. He underwent STABLEHAND of the right popliteal artery and right peroneal artery and the posterior tibial artery with fairly good results. The patient was discharged home on Plavix and aspirin. He reports to the emergency room today because of progressive gangrenous changes in his right great toe. He has not been able to ambulate in the last 2 months, although does transfer and ambulate short distance with a walker, but he does not have any feeling in the foot. The patient has never smoked tobacco. He worked at [employer] prior, but has not worked in 6 to 7 years. His hemoglobin is 10. MEDICATIONS: 1. Vancocin 125 q.i.d. 2. Renvela 800 t.i.d. 3. Florastor 250 daily. 4. Pravachol 40 at bedtime. 5. Zestril 2.5 daily. 6. Insulin 90 units subcu at bedtime, 26 units a.m. 7. Folic acid. 8. Tricor 145 mg at bedtime. 9. Nexium daily. 10. Plavix 75 daily. 11. Carvedilol 6.25 mg b.i.d. 12. Aspirin 81 mg p.o. daily. PAST MEDICAL HISTORY: End-stage renal disease on maintenance dialysis utilizing left Kajal fistula placed in [place], referred there for that. On 05/25/2018, antigen positive, toxin positive, and treated with Vancocin. SOCIAL HISTORY: Tobacco, none. Alcohol none. PAST SURGICAL HISTORY: PAD; STABLEHAND right leg; end-stage renal disease, on maintenance dialysis Saturday, Saturday, and Saturday, followed by Dr. Schaefer, dialyzes at 5 a.m.; insulin-dependent diabetes mellitus; GERD; ambulates with a walker; non-independent last 2 months due to right foot problems with long-standing neuropathy, both feet. PHYSICAL EXAMINATION: VITAL SIGNS: Blood pressure 140/74, heart rate 80, respiratory rate 18. HEAD, EYES, EARS, NOSE, AND THROAT: Unremarkable. LUNGS: Clear to auscultation. CARDIAC: Regular rate and rhythm. No murmur or gallop. ABDOMEN: Soft and nontender. EXTREMITIES: Palpable femoral pulses bilaterally. I cannot palpate a popliteal pulse, although I can Doppler one on the right. He has a dopplerable right posterior tibial. He has a nondopplerable right dorsalis pedis. He has gangrenous right second and third toes with gangrenous dry process extending over the proximal dorsum foot to the midportion of the foot. He has early gangrenous changes on the plantar medial aspect of the right great toe. There is no evidence of cellulitis. No evidence of infection. He has dark in coloration to his right foot to the ankle indicative of severe PAD. LABORATORY DATA: Sodium 135, potassium 5.5, chloride 91, BUN 69, and creatinine 9.1, GFR 6. Basic metabolic profile normal. ASSESSMENT AND PLAN: 1. History of Clostridium diff positive, on Vancocin p.o. Avoid IV antibiotics. He does not need IV antibiotics for the current situation. 2. Peripheral arterial disease with severe dry gangrene right foot, progressive next into the right great toe. I have recommended right below-knee amputation with postoperative recovery and eventual transfer to rehab and eventual progression to a right BKA prosthesis. He understands risks and benefits and consents and currently talking to his family about this. 3. Insulin-dependent diabetes mellitus. 4. Hypertension. 5. End-stage renal disease, on maintenance dialysis. 6. Clostridium difficile colitis history, on Vancocin p.o. Avoid IV antibiotics, except for Vancocin IV. Job ID: [id number]
[2018-06-09] MEDS ORDERED: Ondansetron ODT 4 MG TAB SL PRN (10:37)
[2018-06-09] MEDS ORDERED: hydrALAZINE 20 MG/ML VIAL SLOW IVP PRN (10:37)
[2018-06-09] MEDS ORDERED: HumaLOG 300 UNITS/3 ML VIAL SC PRN (10:37)
[2018-06-09] MEDS ORDERED: Ondansetron PF 4 MG/2 ML Vial IVP PRN (10:37)
[2018-06-09] MEDS ORDERED: Dextrose 50% Abboject 50 ML SYRINGE SLOW IVP PRN (10:37)
[2018-06-09] MEDS ORDERED: HYDROcodone/Acetaminophen 5/325 mg Tablet PO PRN (10:37)
[2018-06-09] MEDS ORDERED: Dextrose 5% in Water 1,000 ML IV PRN (10:37)
[2018-06-09 10:42] LABS: #Basophils 0.1 thou/uL (0.0-0.2); #Eosinphils 0.4 thou/uL (0.0-0.7); #Lymphocytes 1.1 thou/uL (1.20-3.40); #Monocytes 0.7 thou/uL (0.11-0.59); #Neutrophils 6.3 thou/uL (1.40-6.50); %Basophils 0.9 % (0.0-1.0); %Eosinophils 4.6 % (0.0-10.0); %Monocytes 8.6 % (0.0-10.0); Hemoglobin 9.5 g/dL (14.0-18.0); Mean Corpuscular HGB CONC 31.8 g/dL (32.0-36.0); Mean Corpuscular Hemoglobin 30.4 pg (27.0-31.0); Mean Corpuscular Volume 95.7 fL (78.0-98.0); Mean Platelet Volume 7.9 fL (7.4-10.4); Platelet Count 438 thou/uL (130-400); RBC Distribution Width 15.3 % (11.5-14.5); Red Blood Cell (RBC) Count 3.13 mill/uL (4.70-6.10); White Blood Cell (WBC) Count 8.7 thou/uL (4.8-10.8)
[2018-06-09 11:09] LABS: Anion Gap 24 mmol/L (10-20); BUN (Urea Nitrogen) 75 mg/dL (8.4-25.7); Calc. Creatinine Clearance 0 mL/min (70-130); Calcium 9.5 mg/dL (7.8-10.44); Carbon Dioxide 22 mmol/L (22-29); Chloride 93 mmol/L (98-107); Estimated GFR-MDRD 6; Glucose 197 mg/dL (70-105); Potassium 5.1 mmol/L (3.5-5.1); Sodium 134 mmol/L (136-145)
[2018-06-09] MEDS ORDERED: HYDROcodone/Acetaminophen 5/325 mg Tablet ONE (14:02)
[2018-06-09] MEDS: HYDROcodone/Acetaminophen 5/325 mg Tablet PO PRN (14:06)
[2018-06-09] MEDS: Vancomycin HCl 25 MG/ML Oral PO SCH ×3 (14:07→20:56)
[2018-06-09] MEDS ORDERED: Insulin Regular 300 UNITS/3 ML VIAL ONE (17:14)
[2018-06-09] MEDS: Carvedilol 6.25 MG TAB PO SCH (17:17)
[2018-06-09] MEDS: HumaLOG 300 UNITS/3 ML VIAL SC PRN (17:18)
[2018-06-09] MEDS: Sevelamer Carbonate 800 MG TAB PO SCH ×2 (17:52→18:20)
[2018-06-09] MEDS: Heparin 5,000 UNITS/ML VIAL SC SCH (20:57)
[2018-06-09] MEDS: Atorvastatin Calcium 10 MG TAB PO SCH (20:57)
[2018-06-09] MEDS: Fenofibrate Nanocrystallized 145 MG TAB PO SCH (20:57)
[2018-06-09] MEDS: Famotidine 20 MG TAB PO SCH (20:57)
[2018-06-09] MEDS ORDERED: Pravastatin Sodium 40 MG TAB PO SCH (21:00)
[2018-06-09 23:13] VITALS: BMI 26.9
--- NOTE | 2018-06-10 00:39 | HP ---
PRIMARY CARE PROVIDER: Joe Pacheco MD. PRIMARY GASATERIA ATTENDANT: Dr. Brady. CHIEF COMPLAINT: Right foot pain. HISTORY OF PRESENT ILLNESS: This is a 53-year-old male, who presents to [facility] Emergency Department complaining of drainage from the right foot wound in conjunction with increasing pain of the right foot. The patient's history is significant for severe peripheral vascular disease with ischemic necrosis of the right foot with early gangrene. The patient was recently admitted and evaluated, undergoing angioplasty to the right lower extremity on 05/26/2018, in attempts to salvage the right lower extremity and the ischemia of the right second and third toes. The patient has noted increasing pain of the right foot with blackened areas of the right second and third toe. The patient is also noted increased drainage from his foot in the last 24 to 48 hours. The patient was treated initially with antibiotic therapy, completing the course of antibiotics. The patient has taken tramadol for mild relief of his symptoms. The patient was evaluated by General Surgery Service in the emergency room with recommendations to proceed with right [id number] amputation. However, the patient has been contemplating with this course of action. In the emergency room, the patient underwent plain radiographic imaging of the right foot without destructive osseous lesions noted. The patient received IV vancomycin and Zosyn and referred to the hospitalist service for admission. PAST MEDICAL HISTORY: 1. Severe peripheral vascular disease of the right lower extremity. 2. Ischemic necrosis of the right second and third toe with gangrene. 3. Diabetic foot ulceration. 4. Clostridium difficile colitis, resolving. 5. End-stage renal disease, on current hemodialysis. 6. Anemia of chronic kidney disease. 7. Hypertension. 8. Secondary hyperparathyroidism. 9. Gastroesophageal reflux disease. 10. Diabetes mellitus, type 2. PAST SURGICAL HISTORY: Status post hemodialysis catheter placement in 2014. CURRENT MEDICATIONS: 1. Nexium 40 mg p.o. daily. 2. Fenofibrate 145 mg p.o. at bedtime. 3. NovoLog 9 units subcutaneously at bedtime. 4. NovoLog 70/30, 26 units subcutaneously q.a.m. 5. Pravachol 40 mg p.o. at bedtime. 6. Renvela 800 mg p.o. t.i.d. with meals. 7. Enteric-coated aspirin 81 mg p.o. daily. 8. Coreg 6.25 mg p.o. b.i.d. 9. Plavix 75 mg p.o. daily. 10. Folic acid with vitamin B one tablet p.o. daily. 11. Lisinopril 2.5 mg p.o. daily. 12. Florastor 250 mg p.o. daily. 13. Vancomycin 125 mg p.o. q.i.d. ALLERGIES: NO KNOWN DRUG ALLERGIES. FAMILY HISTORY: Positive for diabetes and hypertension. SOCIAL HISTORY: Resides in the [facility]. Accompanied by his . No alcohol, tobacco, or illicit drug use. REVIEW OF SYSTEMS: CONSTITUTIONAL: Negative for weight loss or gain, ability to conduct usual activities. SKIN: Negative for rash, itching. EYES: Negative for double vision, pain. ENT/MOUTH: Negative for nose bleeding, neck stiffness, pain, tenderness. CARDIOVASCULAR: Negative for palpitations, dyspnea on exertion, orthopnea. RESPIRATORY: Negative for shortness of breath, wheezing, cough, hemoptysis, fever or night sweats. GASTROINTESTINAL: Negative for poor appetite, abdominal pain, heartburn, nausea, vomiting, constipation, or diarrhea. GENITOURINARY: Negative for urgency, frequency, dysuria, nocturia. MUSCULOSKELETAL: Negative for pain, swelling. NEUROLOGIC/PSYCHIATRIC: Negative for anxiety, depression. ALLERGY/IMMUNOLOGIC: Negative for skin rash, bleeding tendency. Otherwise negative except as stated per HPI. PHYSICAL EXAMINATION: VITAL SIGNS: On admission, blood pressure 95/60, pulse 71, respiratory rate 18, temperature 98.7 degrees Fahrenheit, and O2 saturation 97% on room air. GENERAL APPEARANCE: This is a 53-year-old male, alert and oriented x3, pleasant, conversant, responsive, in no acute distress. HEENT: Pupils are equal, round, and reactive to light and accommodation. Extraocular muscles are intact. No scleral icterus. No conjunctival injection. Nares patent. OP is clear. Teeth in fair repair. NECK: Supple. No cervical adenopathy. No thyromegaly. No carotid bruits. No JVD appreciated. SPINE: Cervical spine with full active and passive range of motion. No meningeal signs noted. CHEST: Lungs are clear to auscultation bilaterally. CARDIOVASCULAR: S1 and S2 without noted murmur, rub, or gallop. ABDOMEN: Rounded, soft, nontender, and nondistended. Bowel sounds are positive in all 4 quadrants. There is no hepatosplenomegaly. No abdominal bruits. No rebound or guarding appreciated. EXTREMITIES: Right lower extremity with a right second and third toe dry gangrene extending to the mid foot. Dusky appearance of the foot diffusely. Pulses not palpated at the dorsalis pedis or posterior tibial arteries. SKIN: Warm to touch. The patient moves all toes on command. Left foot without lesions or ulceration present but diminished pulses at the dorsalis pedis and posterior tibial arteries. No asymmetric edema appreciated. NEUROLOGIC: Cranial nerves 2 through 12 are grossly intact. No focal or lateralizing signs appreciated. PERTINENT LAB AND X-RAY FINDINGS: Sodium 135, potassium 5.5, chloride 91, CO2 of 27, BUN 69, creatinine 9.11, estimated GFR of 6, lactic acid level 1.0, and calcium 9.6. LFTs within normal limits. CBC showed a white blood cell count of 9.6, hemoglobin 10, hematocrit 32, and platelet count 500, with 70% neutrophils. Three views of the right foot dated 06/08/2018, showed soft tissue prominence of the right foot without osseous destructive lesions. EKG dated 06/09/2018, by my interpretation shows sinus mechanism with heart rates in the 60s to 70s. Normal R-wave progression noted in the precordial leads. Questionable lateral T-wave flattening. ASSESSMENT AND PLAN: 1. Right foot ischemic necrosis and gangrene in the context of diabetes mellitus and severe peripheral vascular disease. The patient will be admitted to the surgical mir. Consult General Surgery for evaluation and likely [id number] amputation. The patient is status post angioplasty to the right lower extremity in May 2018 without successful healing. Discussed risks and benefits without pursuing surgical intervention including progression of the gangrene and likely infectious process. 2. Severe peripheral vascular disease, status post angioplasty of right lower extremity. See above. Continue aspirin 81 mg daily with additional Plavix 75 mg daily. 3. End-stage renal disease with hemodialysis. Maintenance hemodialysis completed today. Consult Nephrology Service for timing of next session. No current evidence to suggest acute volume overload. 4. Hyperkalemia, mild. Status post hemodialysis. Serial potassium monitoring. 5. Diabetes mellitus, type 2, insulin requiring. Resume home insulin regimen. Insulin sliding scale for reflexive coverage. Accu-Cheks a.c. and at bedtime. ADA diet. 6. Prophylaxis. Heparin 5000 units subcutaneously b.i.d. Protonix 40 mg p.o. daily. CODE STATUS: Full. Surrogate medical decision maker is the patient's . Job ID: [id number]
[2018-06-10] MEDS: HYDROcodone/Acetaminophen 5/325 mg Tablet PO PRN ×2 (01:34→08:11)
[2018-06-10] MEDS ORDERED: Non-Formulary Item 1 EACH (Esomeprazole Magnesium [Nexium] 40 MG) PO SCH (08:00)
[2018-06-10] MEDS: Sevelamer Carbonate 800 MG TAB PO SCH ×3 (08:12→17:10)
[2018-06-10] MEDS: Carvedilol 6.25 MG TAB PO SCH ×2 (08:12→17:10)
--- NOTE | 2018-06-10 08:49 | CON ---
DATE OF CONSULTATION: 06/09/2018 CONSULTING PHYSICIAN: Dr. Ojeda. REASON FOR CONSULTATION: End-stage renal disease evaluation. REASON FOR ADMISSION: Leg pain. HISTORY OF PRESENT ILLNESS: A 53-year-old male with a history of end-stage renal disease, peripheral vascular disease, type 2 diabetes, came to the hospital with above complaints. Nephrology was consulted for maintenance of hemodialysis. He gets dialysis on Saturday, Saturday and Saturday, and is due for dialysis today. The patient denies any pain, nausea, or vomiting. No chest pain or palpitation. PAST MEDICAL HISTORY: Positive for end-stage renal disease, peripheral vascular disease, hypertension, hyperlipidemia, and type 2 diabetes. PAST SURGICAL HISTORY: Dialysis catheter and access placement. HOME MEDICATIONS: 1. Amlodipine. 2. Coreg. 3. Pravastatin. 4. Sevelamer. 5. TriCor. 6. Nexium. 7. Lisinopril. 8. Aspirin. 9. Augmentin. 10. Keflex. 11. Clotrimazole. 12. Tramadol. ALLERGIES: NO KNOWN DRUG ALLERGIES. SOCIAL HISTORY: No smoking, alcohol, or illicit drug use. FAMILY HISTORY: No history of any kidney disease. REVIEW OF SYSTEMS: CONSTITUTIONAL: Negative for weight loss or gain, ability to conduct usual activities. SKIN: Negative for rash, itching. EYES: Negative for double vision, pain. ENT/MOUTH: Negative for nose bleeding, neck stiffness, pain, tenderness. CARDIOVASCULAR: Negative for palpitations, dyspnea on exertion, orthopnea. RESPIRATORY: Negative for shortness of breath, wheezing, cough, hemoptysis, fever or night sweats. GASTROINTESTINAL: Negative for poor appetite, abdominal pain, heartburn, nausea, vomiting, constipation, or diarrhea. GENITOURINARY: Negative for urgency, frequency, dysuria, nocturia. MUSCULOSKELETAL: Negative for pain, swelling. NEUROLOGIC/PSYCHIATRIC: Negative for anxiety, depression. ALLERGY/IMMUNOLOGIC: Negative for skin rash, bleeding tendency. PHYSICAL EXAMINATION: GENERAL: This is a well-built male, in no apparent distress. VITAL SIGNS: Temperature 98.5, 95/60. HEENT: Atraumatic and normocephalic. Oral mucosa is moist. NECK: Supple. CVS: S1 and S2 heard. Regular rate and rhythm. RESPIRATORY: Clear. GI: Abdomen is soft. MUSCULOSKELETAL: 1+ edema. DERMATOLOGIC: No skin rash. NEUROLOGIC: Alert and awake. PSYCHIATRIC: Mood and affect normal. LABORATORY DATA: Potassium is 5.1, BUN is 75, creatinine is 9.7. ASSESSMENT AND PLAN: 1. End-stage renal disease, continue on hemodialysis as tolerated. 2. Edema. Remove fluid. 3. Hypertension. 4. Anemia . 5. Hyperkalemia, limit potassium. 6. Hyponatremia, limit fluid intake. Plan is to continue on dialysis as tolerated. Job ID: [id number]
[2018-06-10] MEDS ORDERED: Prevnar 13-Val Conj/PF 0.5 ML SYRINGE IM ONE (09:00)
[2018-06-10] MEDS: Vancomycin HCl 25 MG/ML Oral PO SCH ×4 (09:41→21:01)
[2018-06-10] MEDS ORDERED: PROPOFOL 200 MG/20 ML VIAL ONE (12:20)
[2018-06-10] MEDS ORDERED: ePHEDrine 50 MG/ML VIAL ONE (12:20)
[2018-06-10] MEDS ORDERED: Lidocaine 1% PF 5 ML VIAL ONE (12:20)
[2018-06-10] MEDS ORDERED: Ondansetron PF 4 MG/2 ML Vial ONE (12:20)
[2018-06-10] MEDS ORDERED: PHENYLEPHRINE-NS 100 MCG/ML 10 ML SYRINGE ONE (12:20)
[2018-06-10] MEDS ORDERED: Fentanyl 250 MCG/5 ML VIAL ONE (13:28)
[2018-06-10] MEDS ORDERED: Fentanyl 100 MCG/2 ML VIAL ONE ×2 (13:37→15:01)
[2018-06-10] MEDS ORDERED: traMADol HCl 50 MG TAB PO PRN (13:42)
[2018-06-10] MEDS ORDERED: Promethazine HCl 25 MG/ML VIAL SLOW IVP PRN (14:40)
[2018-06-10] MEDS ORDERED: Ondansetron HCl/PF 4 MG/2 ML Vial IVP PRN (14:40)
[2018-06-10] MEDS ORDERED: Promethazine HCl 25 MG/ML VIAL IM PRN ×2 (14:40→14:54)
[2018-06-10] MEDS ORDERED: Naloxone HCl 0.4 mg/ml Vial IV PRN (14:54)
[2018-06-10] MEDS ORDERED: diphenhydrAMINE 50 MG/ML VIAL IVP PRN (14:54)
[2018-06-10] MEDS ORDERED: Ondansetron PF 4 MG/2 ML Vial IVP PRN (14:54)
[2018-06-10] MEDS ORDERED: diphenhydrAMINE 50 MG/ML VIAL IM PRN (14:54)
[2018-06-10] MEDS ORDERED: Zolpidem Tartrate 5 MG TAB PO PRN (14:54)
[2018-06-10] MEDS ORDERED: diphenhydrAMINE 25 MG CAP PO PRN (14:54)
[2018-06-10] MEDS: Heparin 5,000 UNITS/ML VIAL SC SCH ×2 (14:59→21:01)
[2018-06-10] MEDS ORDERED: Communication Order-Pharmacy FS SCH (15:00)
[2018-06-10] MEDS: Aspirin 81 mg Enteric Coated Tablet PO SCH (15:01)
--- NOTE | 2018-06-10 15:41 | PDOC.PN ---
- Subjective Encounter Start Date: 06/10/18 Encounter Start Time: 15:39 Subjective: feels better. stil on and off pain in R foot -: care discussed w family at bedside. all Qs answered - Objective Resuscitation Status - Order Detail: 06/09/18 10:26 Resuscitation Status Routine Resuscitation Status: FULL: Full Resuscitation MAR Reviewed: Yes Vital Signs & Weight: Vital Signs (12 hours) Temp Pulse Resp BP BP Pulse Ox 06/10/18 11:11 98.1 F 78 16 118/70 95 06/10/18 08:12 118/74 06/10/18 08:11 95 06/10/18 07:56 97.8 F 86 16 118/74 95 06/10/18 04:00 98.9 F 78 18 127/74 92 L Weight Admit Weight 166 lb 8 oz Weight 166 lb 8 oz I&O: 06/09/18 06/10/18 06/11/18 06:59 06:59 06:59 Intake Total 100 Output Total 0 Balance 100 Result Diagrams: 06/09/18 09:54 06/09/18 09:54 Additional Labs: Accuchecks 06/10/18 06/10/18 06/09/18 11:15 06:11 21:18 POC Glucose 137 H 143 H 180 H 06/09/18 17:13 POC Glucose 224 H Microbiology 06/09/18 00:00 Venous blood - Right Arm Blood Culture - Preliminary Specimen has been received and culture in progress. No Growth to date. 06/08/18 23:39 Venous blood - Right Arm Blood Culture - Preliminary Specimen has been received and culture in progress. No Growth to date. Phys Exam - Physical Examination Constitutional: NAD HEENT: PERRLA, moist MMs, sclera anicteric, oral pharynx no lesions Neck: no nodes, no JVD, supple, full ROM Respiratory: no wheezing, no rales, no rhonchi, clear to auscultation bilateral Cardiovascular: RRR, no significant murmur Gastrointestinal: soft, non-tender, no distention, positive bowel sounds Musculoskeletal: no edema, pulses present Extensive dry gangrene R foot w 2&3rd toe extending to dorsum of foot Neurological: non-focal, normal sensation, moves all 4 limbs Psychiatric: normal affect, A&O x 3 Skin: no rash Dx/Plan (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, NOT ELSEWHERE CLASSIFIED Status: Acute (2) C. difficile colitis Status: Acute (3) Chronic combined systolic and diastolic CHF, NYHA class 2 Code(s): I50.42 - CHRONIC COMBINED SYSTOLIC AND DIASTOLIC HRT FAIL Status: Chronic (4) Anemia of renal disease Code(s): N18.9 - CHRONIC KIDNEY DISEASE, UNSPECIFIED; D63.1 - ANEMIA IN CHRONIC KIDNEY DISEASE Status: Chronic (5) Diabetes type 2, controlled Code(s): E11.9 - TYPE 2 DIABETES MELLITUS WITHOUT COMPLICATIONS Status: Chronic (6) Dyslipidemia Code(s): E78.5 - HYPERLIPIDEMIA, UNSPECIFIED Status: Chronic (7) ESRD on hemodialysis Code(s): N18.6 - END STAGE RENAL DISEASE; Z99.2 - DEPENDENCE ON RENAL DIALYSIS Status: Chronic (8) Hypertension Code(s): I10 - ESSENTIAL (PRIMARY) HYPERTENSION Status: Chronic (9) Secondary hyperparathyroidism of renal origin Code(s): N25.81 - SECONDARY HYPERPARATHYROIDISM OF RENAL ORIGIN Status: Chronic (10) PAD (peripheral artery disease) Code(s): I73.9 - PERIPHERAL VASCULAR DISEASE, UNSPECIFIED Status: Chronic Comment: Severe.Bilateral Lower extremity as well as 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 -: may need STUNNER AND SHACKLER ;eft leg also.small spot of gangrene oin 2nd toe.monitor -: home meds as belowl -: rehab assesment post amputation * .on PO vancomycin for recent C.Diff 05/25/2018 Review of Systems - Review of Systems Constitutional: negative: fever, chills, sweats, weakness, malaise, other Respiratory: negative: Cough, Dry, Shortness of Breath, Hemoptysis, SOB with Excertion, Pleuritic Pain, Sputum, Wheezing Cardiovascular: negative: chest pain, palpitations, orthopnea, paroxysmal nocturnal dyspnea, edema, light headedness, other Gastrointestinal: negative: Nausea, Vomiting, Abdominal Pain, Diarrhea, Constipation, Melena, Hematochezia, Other Genitourinary: negative: Dysuria, Frequency, Incontinence, Hematuria, Retention , Other Musculoskeletal: Foot Pain. negative: Neck Pain, Shoulder Pain, Arm Pain, Back Pain, Hand Pain, Leg Pain, Other Skin: negative: Rash, Lesions, Griffin, Bruising, Other - Medications/Allergies Allergies/Adverse Reactions: Allergies Allergy/AdvReac Type Severity Reaction Status Date / Time No Known Allergies Allergy Verified 01/30/18 06:46 Medications: Current Medications Acetaminophen (Tylenol) 1,000 mg PO Q6H PRN PRN Reason: Mild Pain (1-3) Aspirin (Ecotrin) 81 mg PO DAILY [facility] Last Admin: 06/10/18 15:01 Dose: Not Given Atorvastatin Calcium (Lipitor) 10 mg PO [facility] Last Admin: 06/09/18 20:57 Dose: 10 mg Carvedilol (Coreg) 6.25 mg PO BID-[facility] Last Admin: 06/10/18 08:12 Dose: 6.25 mg Clopidogrel Bisulfate (Plavix) 75 mg PO DAILY [facility] Dextrose/Water (Dextrose 50%) 25 gm SLOW IVP PRN PRN PRN Reason: Hypoglycemia Diphenhydramine HCl (Benadryl) 25 mg IVP Q3H PRN PRN Reason: Itching Diphenhydramine HCl (Benadryl) 25 mg PO Q3H PRN PRN Reason: Itching Diphenhydramine HCl (Benadryl) 25 mg IM Q3H PRN PRN Reason: Itching Famotidine (Pepcid) 20 mg PO Q24HR [facility] Last Admin: 06/09/18 20:57 Dose: 20 mg Fenofibrate (Tricor) 145 mg PO [facility] Last Admin: 06/09/18 20:57 Dose: 145 mg Fentanyl (Pacu-Sublimaze) 50 mcg SLOW IVP Q10MIN PRN PRN Reason: Moderate to Severe Pain (6-10) Stop: 06/10/18 17:40 Glucagon (Glucagon) 1 mg IM PRN PRN PRN Reason: Hypoglycemia Heparin Sodium (Porcine) (Heparin) 5,000 units SC BID [facility] Last Admin: 06/10/18 14:59 Dose: Not Given Hydralazine HCl (Apresoline) 10 mg SLOW IVP Q4H PRN PRN Reason: SBP > 180 and HR < 70 Dextrose/Water (D5w) 1,000 mls @ 0 mls/hr IV .Q0M PRN PRN Reason: Hypoglycemia Sodium Chloride (Normal Saline 0.9%) 1,000 mls @ 25 mls/hr IV .Q24H [facility] Fentanyl Citrate 2,000 mcg/ (Sodium Chloride) 100 mls @ 0 mls/hr IV INF PRN PRN Reason: Pain Insulin Human Lispro (Humalog) 0 units SC .MILD SLIDING SCALE PRN PRN Reason: Mild Correctional Scale Last Admin: 06/09/18 17:18 Dose: 3 unit Insulin Human Lispro (Humalog) 0 units SC .BEDTIME SLIDING SC PRN PRN Reason: Bedtime Correctional Scale Lisinopril (Zestril) 2.5 mg PO DAILY [facility] Naloxone HCl (Narcan) 0.2 mg IV Q5MIN PRN PRN Reason: Opiate Reversal Ondansetron HCl (Zofran Odt) 4 mg SL Q6H PRN PRN Reason: Nausea/Vomiting Ondansetron HCl (Zofran) 4 mg IVP Q6H PRN PRN Reason: Nausea/Vomiting Ondansetron HCl (Pacu-Zofran) 4 mg IVP ONE PRN PRN Reason: Nausea/Vomiting Stop: 06/10/18 17:40 Ondansetron HCl (Zofran) 4 mg IVP Q6H PRN PRN Reason: Nausea/Vomiting Pantoprazole Sodium (Protonix) 40 mg PO QAM-WM [facility] Promethazine HCl (Pacu-Phenergan) 6.25 mg SLOW IVP ONE PRN PRN Reason: Nausea/Vomiting Stop: 06/10/18 17:40 Promethazine HCl (Pacu-Phenergan) 6.25 mg IM ONE PRN PRN Reason: Nausea/Vomiting Stop: 06/10/18 17:40 Promethazine HCl (Phenergan) 12.5 mg IM Q4H PRN PRN Reason: Nausea/Vomiting Saccharomyces Boulardii (Florastor) 250 mg PO DAILY [facility] Sevelamer Carbonate (Renvela) 800 mg PO TID-WM [facility] Last Admin: 06/10/18 14:59 Dose: Not Given Sodium Chloride (Flush - Normal Saline) 10 ml IVF Q12HR [facility] Sodium Chloride (Flush - Normal Saline) 10 ml IVF PRN PRN PRN Reason: Saline Flush Vancomycin HCl (First Vancomycin) 125 mg PO QID [facility] Last Admin: 06/10/18 14:59 Dose: Not Given Vitamin B Complex/Vit C/Folic Acid (Nephro-Jose Tablet) 1 tab PO DAILY [facility] Zolpidem Tartrate (Ambien) 5 mg PO HSPRN PRN PRN Reason: Insomnia
[2018-06-10] MEDS: Clopidogrel Bisulfate 75 MG TAB PO SCH (16:44)
[2018-06-10] MEDS: Lisinopril 2.5 MG TAB PO SCH (16:44)
[2018-06-10] MEDS: Folic Acid/Vit B Comp W-C PO SCH (16:44)
[2018-06-10] MEDS: Saccharomyces boulardii 250 MG CAP PO SCH (16:44)
--- NOTE | 2018-06-10 18:19 | PRG ---
DATE OF SERVICE: 06/10/2018 SUBJECTIVE: Patient was seen and examined at bedside and overnight events noted. Patient denies any shortness of breath or chest pain or palpitation. No history of nausea or vomiting or diarrhea or fever or chills or cramps. OBJECTIVE: GENERAL: This is a well-built male, in no apparent distress. VITAL SIGNS: Temperature 98.5. Heart rate 83. Respiratory rate 16. Blood pressure 120/72. HEENT: Atraumatic, normocephalic. Oral mucosa is moist NECK: Supple. CARDIOVASCULAR: S1, S2 heard. Rate and rhythm regular. RESPIRATORY: Clear to auscultation. GASTROINTESTINAL: Abdomen is soft. MUSCULOSKELETAL: No tenderness. No edema. DERMATOLOGIC: No skin rash. NEUROLOGIC: Alert and awake and oriented X3. No focal neurologic deficits. Moving all the extremities. PSYCHIATRIC: Mood and affect normal. LABORATORY DATA: Not done today. ASSESSMENT AND PLAN: 1. End-stage renal disease. Continue on hemodialysis as tolerated. 2. Edema. Remove fluid with dialysis. 3. Hypertension. 4. Anemia. 5. Hyperkalemia, better. Plan is to continue on dialysis as tolerated. Job ID: [id number]
--- NOTE | 2018-06-10 20:39 | OP ---
DATE OF PROCEDURE: 06/10/2018 PREOPERATIVE DIAGNOSES: End-stage renal disease, PAD status post MOLD FILLER AND DRAINER popliteal artery right and tibial arteries with progressive gangrene in the right foot, diabetic. POSTOPERATIVE DIAGNOSES: End-stage renal disease, PAD status post MOLD FILLER AND DRAINER popliteal artery right and tibial arteries with progressive gangrene in the right foot, diabetic. PROCEDURE PERFORMED: Right below-knee amputation. ANESTHESIA: General, DESCRIPTION OF PROCEDURE: The patient was taken to the operating room, where under general anesthesia, right lower extremity was prepared with ChloraPrep and draped in routine fashion. Incision was made for a long posterior flap, carried down to skin and subcutaneous tissue. Periosteum raised proximally. Tibia transected with a Gigli saw, beveling the anterior edge cephalad, smoothened the edges with a rasp. The vascular pedicles were divided between clamps. Muscular layers were divided with cautery. Fibula cut 1 inch above the cut edge of the tibia. Hemostasis gained with cautery and 2-0 silk ties. Wound was irrigated. Fascia was approximated with 2-0 silk [id number] and skin with jonnathan. Sterile dressing applied. Job ID: [id number]
[2018-06-10] MEDS: Atorvastatin Calcium 10 MG TAB PO SCH (21:01)
[2018-06-10] MEDS: Fenofibrate Nanocrystallized 145 MG TAB PO SCH (21:01)
[2018-06-10] MEDS: Famotidine 20 MG TAB PO SCH (21:01)
[2018-06-10] MEDS: Acetaminophen 500 MG TAB PO PRN (21:06)
[2018-06-10] MEDS: Sodium Chloride 0.9% 1,000 ML IV SCH (21:37)
[2018-06-11] MEDS: Acetaminophen 500 MG TAB PO PRN ×2 (03:50→21:04)
[2018-06-11 05:24] LABS: #Basophils 0.1 thou/uL (0.0-0.2); #Eosinphils 0.2 thou/uL (0.0-0.7); #Lymphocytes 1.1 thou/uL (1.20-3.40); #Monocytes 1.1 thou/uL (0.11-0.59); #Neutrophils 9.4 thou/uL (1.40-6.50); %Basophils 0.6 % (0.0-1.0); %Eosinophils 1.9 % (0.0-10.0); %Lymphocytes 9.1 % (21.0-51.0); %Neutrophils 79.3 % (42.0-75.0); Hemoglobin 9.2 g/dL (14.0-18.0); Mean Corpuscular HGB CONC 31.7 g/dL (32.0-36.0); Mean Corpuscular Hemoglobin 30.7 pg (27.0-31.0); Mean Corpuscular Volume 96.8 fL (78.0-98.0); Mean Platelet Volume 7.6 fL (7.4-10.4); Platelet Count 455 thou/uL (130-400); Red Blood Cell (RBC) Count 2.98 mill/uL (4.70-6.10); White Blood Cell (WBC) Count 11.8 thou/uL (4.8-10.8)
[2018-06-11] MEDS: HumaLOG 300 UNITS/3 ML VIAL SC PRN (05:28)
[2018-06-11] MEDS: fentaNYL Citrate/PF 2,000 MCG in Sodium Chloride 0.9% 60 ML IV PRN (05:37)
[2018-06-11] MEDS: Carvedilol 6.25 MG TAB PO SCH ×2 (09:46→17:42)
[2018-06-11] MEDS: Saccharomyces boulardii 250 MG CAP PO SCH (09:47)
[2018-06-11] MEDS: Vancomycin HCl 25 MG/ML Oral PO SCH ×4 (09:47→21:05)
[2018-06-11] MEDS: Heparin 5,000 UNITS/ML VIAL SC SCH ×2 (09:47→21:01)
[2018-06-11] MEDS: Aspirin 81 mg Enteric Coated Tablet PO SCH (09:47)
[2018-06-11] MEDS: Folic Acid/Vit B Comp W-C PO SCH (09:47)
[2018-06-11] MEDS: Sevelamer Carbonate 800 MG TAB PO SCH ×3 (09:47→17:42)
[2018-06-11] MEDS: Clopidogrel Bisulfate 75 MG TAB PO SCH (09:47)
[2018-06-11] MEDS: Lisinopril 2.5 MG TAB PO SCH (10:00)
--- NOTE | 2018-06-11 12:03 | PRG ---
DATE OF SERVICE: 06/11/2018 SUBJECTIVE: He is doing well today. He underwent BKA yesterday. His dressings are dry. His blood counts are normal. At this point, [facility] would be consulted to provide the stump international specialist tomorrow. We will remove his dressing tomorrow. We will begin washing the stump with soap and water in the bath or shower daily and apply antibiotic ointment, Telfa, and the stump international specialist. Wellington will be removed in my office in 2 to 3 weeks. At this point, I will view his wound tomorrow. The patient can be transferred to rehab tomorrow. Job ID: [id number]
[2018-06-11] MEDS: Sodium Chloride 0.9% 1,000 ML IV SCH (13:44)
--- NOTE | 2018-06-11 16:06 | PDOC.PN ---
- Subjective Encounter Start Date: 06/11/18 Encounter Start Time: 16:04 Subjective: feels OK. some pain at operated leg stump -: seen and examined in dialysis. -: denies any CP/SOB/N/V/abd pain - Objective Resuscitation Status - Order Detail: 06/09/18 10:26 Resuscitation Status Routine Resuscitation Status: FULL: Full Resuscitation MAR Reviewed: Yes Vital Signs & Weight: Vital Signs (12 hours) Temp Pulse Resp BP Pulse Ox 06/11/18 07:45 97.7 F 81 18 126/73 97 Weight Admit Weight 166 lb 8 oz Weight 166 lb 8 oz I&O: 06/10/18 06/11/18 06/12/18 06:59 06:59 06:59 Intake Total 875 Output Total 0 Balance 875 Result Diagrams: 06/11/18 04:53 06/09/18 09:54 Additional Labs: Accuchecks 06/11/18 06/10/18 06/10/18 05:27 21:00 16:37 POC Glucose 160 H 157 H 154 H 06/10/18 15:48 POC Glucose 156 H Phys Exam - Physical Examination Constitutional: NAD HEENT: PERRLA, moist MMs, sclera anicteric, oral pharynx no lesions Neck: no nodes, no JVD, supple, full ROM Respiratory: no wheezing, no rales, no rhonchi, clear to auscultation bilateral Cardiovascular: RRR, no significant murmur Gastrointestinal: soft, non-tender, no distention, positive bowel sounds Musculoskeletal: no edema, pulses present Neurological: non-focal, normal sensation, moves all 4 limbs Psychiatric: normal affect, A&O x 3 Skin: no rash Dx/Plan (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, NOT ELSEWHERE CLASSIFIED Status: Acute Comment: 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 difficile colitis Status: Acute Comment: on PO Vanco (3) Chronic combined systolic and diastolic CHF, NYHA class 2 Code(s): I50.42 - CHRONIC COMBINED SYSTOLIC AND DIASTOLIC HRT FAIL Status: Chronic Comment: compensated (4) Anemia of renal disease Code(s): N18.9 - CHRONIC KIDNEY DISEASE, UNSPECIFIED; D63.1 - ANEMIA IN CHRONIC KIDNEY DISEASE Status: Chronic (5) Diabetes type 2, controlled Code(s): E11.9 - TYPE 2 DIABETES MELLITUS WITHOUT COMPLICATIONS Status: Chronic (6) Dyslipidemia Code(s): E78.5 - HYPERLIPIDEMIA, UNSPECIFIED Status: Chronic (7) ESRD on hemodialysis Code(s): N18.6 - END STAGE RENAL DISEASE; Z99.2 - DEPENDENCE ON RENAL DIALYSIS Status: Chronic (8) Hypertension Code(s): I10 - ESSENTIAL (PRIMARY) HYPERTENSION Status: Chronic (9) Secondary hyperparathyroidism of renal origin Code(s): N25.81 - SECONDARY HYPERPARATHYROIDISM OF RENAL ORIGIN Status: Chronic (10) PAD (peripheral artery disease) Code(s): I73.9 - PERIPHERAL VASCULAR DISEASE, UNSPECIFIED Status: Chronic Comment: Severe.Bilateral Lower extremity as well as celiac and SMA/HERNAN in colon per CTA 05/2018 - Plan continue antibiotics, PT/OT, out of bed/ambulate, DVT proph w/SCDs DC planning. -: will need angioplasty for left leg eventually as has severe PAD there -: Hd stable -: Hemodialysis per schedule.AM labs -: Rehab Vs HH -will defer to GS. * . Review of Systems - Review of Systems Constitutional: weakness, malaise. negative: fever, chills, sweats, other ENT: negative: Ear Pain, Ear Discharge, Nose Pain, Nose Discharge, Nose Congestion, Mouth Pain, Mouth Swelling, Throat Pain, Throat Swelling, Other Respiratory: negative: Cough, Dry, Shortness of Breath, Hemoptysis, SOB with Excertion, Pleuritic Pain, Sputum, Wheezing Cardiovascular: negative: chest pain, palpitations, orthopnea, paroxysmal nocturnal dyspnea, edema, light headedness, other Gastrointestinal: negative: Nausea, Vomiting, Abdominal Pain, Diarrhea, Constipation, Melena, Hematochezia, Other Genitourinary: negative: Dysuria, Frequency, Incontinence, Hematuria, Retention , Other Musculoskeletal: negative: Neck Pain, Shoulder Pain, Arm Pain, Back Pain, Hand Pain, Leg Pain, Foot Pain, Other Neurological: negative: Weakness, Numbness, Incoordination, Change in Speech, Confusion, Seizures, Other - Medications/Allergies Allergies/Adverse Reactions: Allergies Allergy/AdvReac Type Severity Reaction Status Date / Time No Known Allergies Allergy Verified 01/30/18 06:46 Medications: Current Medications Acetaminophen (Tylenol) 1,000 mg PO Q6H PRN PRN Reason: Mild Pain (1-3) Last Admin: 06/11/18 03:50 Dose: 1,000 mg Aspirin (Ecotrin) 81 mg PO DAILY [facility] Last Admin: 06/11/18 09:47 Dose: 81 mg Atorvastatin Calcium (Lipitor) 10 mg PO HS [facility] Last Admin: 06/10/18 21:01 Dose: 10 mg Carvedilol (Coreg) 6.25 mg PO BID-[facility] Last Admin: 06/11/18 09:46 Dose: Not Given Clopidogrel Bisulfate (Plavix) 75 mg PO DAILY [facility] Last Admin: 06/11/18 09:47 Dose: 75 mg Dextrose/Water (Dextrose 50%) 25 gm SLOW IVP PRN PRN PRN Reason: Hypoglycemia Diphenhydramine HCl (Benadryl) 25 mg IVP Q3H PRN PRN Reason: Itching Diphenhydramine HCl (Benadryl) 25 mg PO Q3H PRN PRN Reason: Itching Diphenhydramine HCl (Benadryl) 25 mg IM Q3H PRN PRN Reason: Itching Famotidine (Pepcid) 20 mg PO Q24HR [facility] Last Admin: 06/10/18 21:01 Dose: 20 mg Fenofibrate (Tricor) 145 mg PO HS [facility] Last Admin: 06/10/18 21:01 Dose: 145 mg Glucagon (Glucagon) 1 mg IM PRN PRN PRN Reason: Hypoglycemia Heparin Sodium (Porcine) (Heparin) 5,000 units SC BID [facility] Last Admin: 06/11/18 09:47 Dose: 5,000 units Hydralazine HCl (Apresoline) 10 mg SLOW IVP Q4H PRN PRN Reason: SBP > 180 and HR < 70 Dextrose/Water (D5w) 1,000 mls @ 0 mls/hr IV .Q0M PRN PRN Reason: Hypoglycemia Sodium Chloride (Normal Saline 0.9%) 1,000 mls @ 25 mls/hr IV .Q24H [facility] Last Admin: 06/11/18 13:44 Dose: Not Given Fentanyl Citrate 2,000 mcg/ (Sodium Chloride) 100 mls @ 0 mls/hr IV INF PRN PRN Reason: Pain Last Admin: 06/11/18 05:37 Dose: 100 mls Insulin Human Lispro (Humalog) 0 units SC .MILD SLIDING SCALE PRN PRN Reason: Mild Correctional Scale Last Admin: 06/11/18 05:28 Dose: 2 unit Insulin Human Lispro (Humalog) 0 units SC .BEDTIME SLIDING SC PRN PRN Reason: Bedtime Correctional Scale Lisinopril (Zestril) 2.5 mg PO DAILY [facility] Last Admin: 06/11/18 10:00 Dose: Not Given Naloxone HCl (Narcan) 0.2 mg IV Q5MIN PRN PRN Reason: Opiate Reversal Ondansetron HCl (Zofran Odt) 4 mg SL Q6H PRN PRN Reason: Nausea/Vomiting Ondansetron HCl (Zofran) 4 mg IVP Q6H PRN PRN Reason: Nausea/Vomiting Last Admin: 06/10/18 18:30 Dose: 4 mg Ondansetron HCl (Zofran) 4 mg IVP Q6H PRN PRN Reason: Nausea/Vomiting Pantoprazole Sodium (Protonix) 40 mg PO QAM-[facility] Last Admin: 06/11/18 09:47 Dose: 40 mg Promethazine HCl (Phenergan) 12.5 mg IM Q4H PRN PRN Reason: Nausea/Vomiting Saccharomyces Boulardii (Florastor) 250 mg PO DAILY [facility] Last Admin: 06/11/18 09:47 Dose: 250 mg Sevelamer Carbonate (Renvela) 800 mg PO TID-[facility] Last Admin: 06/11/18 11:53 Dose: Not Given Sodium Chloride (Flush - Normal Saline) 10 ml IVF Q12HR [facility] Last Admin: 06/11/18 10:00 Dose: Not Given Sodium Chloride (Flush - Normal Saline) 10 ml IVF PRN PRN PRN Reason: Saline Flush Vancomycin HCl (First Vancomycin) 125 mg PO QID [facility] Last Admin: 06/11/18 12:23 Dose: Not Given Vitamin B Complex/Vit C/Folic Acid (Nephro-Jose Tablet) 1 tab PO DAILY [facility] Last Admin: 06/11/18 09:47 Dose: 1 tab Zolpidem Tartrate (Ambien) 5 mg PO HSPRN PRN PRN Reason: Insomnia
--- NOTE | 2018-06-11 17:43 | PRG ---
DATE OF SERVICE: 06/11/2018 SUBJECTIVE: Patient was seen and examined at bedside and overnight events noted. Patient denies any shortness of breath or chest pain or palpitation. No history of nausea or vomiting or diarrhea or fever or chills or cramps. OBJECTIVE: GENERAL: This is a well-built male, in no apparent distress. VITAL SIGNS: Temperature 98.9. Heart rate 80. Respiratory rate 16. Blood pressure 126/70. HEENT: Atraumatic, normocephalic. Oral mucosa is moist NECK: Supple. CARDIOVASCULAR: S1, S2 heard. Rate and rhythm regular. RESPIRATORY: Clear to auscultation. GASTROINTESTINAL: Abdomen is soft. MUSCULOSKELETAL: No tenderness. No edema. DERMATOLOGIC: No skin rash. NEUROLOGIC: Alert and awake and oriented X3. No focal neurologic deficits. Moving all the extremities. PSYCHIATRIC: Mood and affect normal. LABORATORY DATA: Not done today. ASSESSMENT AND PLAN: 1. End-stage renal disease. Continue on hemodialysis as tolerated. 2. Edema. 3. Hypertension. 4. Anemia. 5. Hyperkalemia. Plan is to continue dialysis as tolerated. Job ID: [id number]
[2018-06-11] MEDS: Atorvastatin Calcium 10 MG TAB PO SCH (20:59)
[2018-06-11] MEDS: Fenofibrate Nanocrystallized 145 MG TAB PO SCH (21:00)
[2018-06-11] MEDS: Famotidine 20 MG TAB PO SCH (21:00)
[2018-06-12] MEDS: fentaNYL Citrate/PF 2,000 MCG in Sodium Chloride 0.9% 60 ML IV PRN (03:31)
[2018-06-12 06:02] LABS: Anion Gap 19 mmol/L (10-20); BUN (Urea Nitrogen) 26 mg/dL (8.4-25.7); Calc. Creatinine Clearance 15 mL/min (70-130); Calcium 9.2 mg/dL (7.8-10.44); Carbon Dioxide 26 mmol/L (22-29); Chloride 97 mmol/L (98-107); Estimated GFR-MDRD 10; Glucose 186 mg/dL (70-105); Potassium 4.3 mmol/L (3.5-5.1); Sodium 138 mmol/L (136-145)
[2018-06-12] MEDS: HumaLOG 300 UNITS/3 ML VIAL SC PRN ×2 (06:04→12:51)
[2018-06-12] MEDS ORDERED: Triple Antibiotic Ointment 30 GM TUBE TOP SCH (09:00)
[2018-06-12] MEDS: Vancomycin HCl 25 MG/ML Oral PO SCH ×4 (10:40→20:04)
[2018-06-12] MEDS: Sevelamer Carbonate 800 MG TAB PO SCH ×3 (10:41→16:52)
[2018-06-12] MEDS: Aspirin 81 mg Enteric Coated Tablet PO SCH (10:41)
[2018-06-12] MEDS: Saccharomyces boulardii 250 MG CAP PO SCH (10:41)
[2018-06-12] MEDS: Lisinopril 2.5 MG TAB PO SCH (10:41)
[2018-06-12] MEDS: Carvedilol 6.25 MG TAB PO SCH ×2 (10:41→16:52)
[2018-06-12] MEDS: Clopidogrel Bisulfate 75 MG TAB PO SCH (10:41)
[2018-06-12] MEDS: Folic Acid/Vit B Comp W-C PO SCH (10:41)
[2018-06-12] MEDS: Heparin 5,000 UNITS/ML VIAL SC SCH ×2 (10:44→20:04)
[2018-06-12] MEDS: Sodium Chloride 0.9% 1,000 ML IV SCH (12:51)
--- NOTE | 2018-06-12 14:54 | PRG ---
DATE OF SERVICE: 06/12/2018 SUBJECTIVE: Patient was seen and examined at bedside and overnight events noted. Patient denies any shortness of breath or chest pain or palpitation. No history of nausea or vomiting or diarrhea or fever or chills or cramps. OBJECTIVE: GENERAL: This is a well-built male, in no apparent distress. VITAL SIGNS: Temperature 98. Heart rate 87. Respiratory rate 18. Blood pressure 131/76. HEENT: Atraumatic, normocephalic. Oral mucosa is moist NECK: Supple. CARDIOVASCULAR: S1, S2 heard. Rate and rhythm regular. RESPIRATORY: Clear to auscultation. GASTROINTESTINAL: Abdomen is soft. MUSCULOSKELETAL: No tenderness. No edema. DERMATOLOGIC: No skin rash. NEUROLOGIC: Alert and awake and oriented X3. No focal neurologic deficits. Moving all the extremities. PSYCHIATRIC: Mood and affect normal. LABORATORY DATA: Potassium is 4.3, BUN is 26, creatinine is 5.9. ASSESSMENT AND PLAN: 1. End-stage renal disease, continue on hemodialysis as tolerated. 2. Edema, controlled. 3. Hypertension. 4. Anemia. 5. Hyperkalemia. Plan is to continue hemodialysis as tolerated. Job ID: [id number]
--- NOTE | 2018-06-12 15:05 | PDOC.PN ---
- Subjective Encounter Start Date: 06/12/18 Encounter Start Time: 15:03 Subjective: feels well. no new complaints -: pain well controlled -: daughter at bedside - Objective Resuscitation Status - Order Detail: 06/09/18 10:26 Resuscitation Status Routine Resuscitation Status: FULL: Full Resuscitation MAR Reviewed: Yes Vital Signs & Weight: Vital Signs (12 hours) Temp Pulse Resp BP Pulse Ox Pulse Ox Pulse Ox 06/12/18 12:00 98.8 F 87 18 131/76 97 06/12/18 10:41 80 06/12/18 09:13 97 99 06/12/18 08:00 98.2 F 83 18 124/72 98 06/12/18 04:17 98.6 F 80 20 131/74 97 Weight Admit Weight 166 lb 8 oz Weight 166 lb 8 oz I&O: 06/11/18 06/12/18 06/13/18 06:59 06:59 06:59 Intake Total 875 700 980 Output Total 0 Balance 875 700 980 Result Diagrams: 06/11/18 04:53 06/12/18 05:00 Additional Labs: Accuchecks 06/12/18 06/12/18 06/11/18 11:34 05:51 21:15 POC Glucose 262 H 186 H 197 H 06/11/18 18:11 POC Glucose 157 H Phys Exam - Physical Examination Constitutional: NAD HEENT: PERRLA, moist MMs, sclera anicteric, TM's clear, oral pharynx no lesions , 2+ tonsils Neck: no nodes, no JVD, supple, full ROM Respiratory: no wheezing, no rales, no rhonchi, clear to auscultation bilateral Cardiovascular: RRR, no significant murmur Gastrointestinal: soft, non-tender, no distention, positive bowel sounds Musculoskeletal: no edema, pulses present Neurological: non-focal, normal sensation, moves all 4 limbs Psychiatric: normal affect, A&O x 3 Skin: no rash Dx/Plan (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, NOT ELSEWHERE CLASSIFIED Status: Acute Comment: 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 difficile colitis Status: Acute Comment: on PO Vanco (3) Chronic combined systolic and diastolic CHF, NYHA class 2 Code(s): I50.42 - CHRONIC COMBINED SYSTOLIC AND DIASTOLIC HRT FAIL Status: Chronic Comment: compensated (4) Anemia of renal disease Code(s): N18.9 - CHRONIC KIDNEY DISEASE, UNSPECIFIED; D63.1 - ANEMIA IN CHRONIC KIDNEY DISEASE Status: Chronic (5) Diabetes type 2, controlled Code(s): E11.9 - TYPE 2 DIABETES MELLITUS WITHOUT COMPLICATIONS Status: Chronic (6) Dyslipidemia Code(s): E78.5 - HYPERLIPIDEMIA, UNSPECIFIED Status: Chronic (7) ESRD on hemodialysis Code(s): N18.6 - END STAGE RENAL DISEASE; Z99.2 - DEPENDENCE ON RENAL DIALYSIS Status: Chronic (8) Hypertension Code(s): I10 - ESSENTIAL (PRIMARY) HYPERTENSION Status: Chronic (9) Secondary hyperparathyroidism of renal origin Code(s): N25.81 - SECONDARY HYPERPARATHYROIDISM OF RENAL ORIGIN Status: Chronic (10) PAD (peripheral artery disease) Code(s): I73.9 - PERIPHERAL VASCULAR DISEASE, UNSPECIFIED Status: Chronic Comment: Severe.Bilateral Lower extremity as well as celiac and SMA/HERNAN in colon per CTA 05/2018 - Plan plan discussed w/ family, PT/OT, DVT proph w/SCDs OK to DC when rehab accpeted -: Orthotics team to meet w Pt today for prosthesis -: HD stable -: dialysis per schedule. monitor renal Fx,lytes etc * . Review of Systems - Review of Systems Constitutional: negative: fever, chills, sweats, weakness, malaise, other ENT: negative: Ear Pain, Ear Discharge, Nose Pain, Nose Discharge, Nose Congestion, Mouth Pain, Mouth Swelling, Throat Pain, Throat Swelling, Other Respiratory: negative: Cough, Dry, Shortness of Breath, Hemoptysis, SOB with Excertion, Pleuritic Pain, Sputum, Wheezing Cardiovascular: negative: chest pain, palpitations, orthopnea, paroxysmal nocturnal dyspnea, edema, light headedness, other Gastrointestinal: negative: Nausea, Vomiting, Abdominal Pain, Diarrhea, Constipation, Melena, Hematochezia, Other Genitourinary: negative: Dysuria, Frequency, Incontinence, Hematuria, Retention , Other Musculoskeletal: negative: Neck Pain, Shoulder Pain, Arm Pain, Back Pain, Hand Pain, Leg Pain, Foot Pain, Other Skin: negative: Rash, Lesions, Griffin, Bruising, Other Neurological: negative: Weakness, Numbness, Incoordination, Change in Speech, Confusion, Seizures, Other - Medications/Allergies Allergies/Adverse Reactions: Allergies Allergy/AdvReac Type Severity Reaction Status Date / Time No Known Allergies Allergy Verified 01/30/18 06:46 Medications: Current Medications Acetaminophen (Tylenol) 1,000 mg PO Q6H PRN PRN Reason: Mild Pain (1-3) Last Admin: 06/11/18 21:04 Dose: 1,000 mg Aspirin (Ecotrin) 81 mg PO DAILY [facility] Last Admin: 06/12/18 10:41 Dose: 81 mg Atorvastatin Calcium (Lipitor) 10 mg PO HS [facility] Last Admin: 06/11/18 20:59 Dose: 10 mg Carvedilol (Coreg) 6.25 mg PO BID-[facility] Last Admin: 06/12/18 10:41 Dose: 6.25 mg Clopidogrel Bisulfate (Plavix) 75 mg PO DAILY [facility] Last Admin: 06/12/18 10:41 Dose: 75 mg Dextrose/Water (Dextrose 50%) 25 gm SLOW IVP PRN PRN PRN Reason: Hypoglycemia Diphenhydramine HCl (Benadryl) 25 mg IVP Q3H PRN PRN Reason: Itching Diphenhydramine HCl (Benadryl) 25 mg PO Q3H PRN PRN Reason: Itching Diphenhydramine HCl (Benadryl) 25 mg IM Q3H PRN PRN Reason: Itching Famotidine (Pepcid) 20 mg PO Q24HR [facility] Last Admin: 06/11/18 21:00 Dose: 20 mg Fenofibrate (Tricor) 145 mg PO [facility] Last Admin: 06/11/18 21:00 Dose: 145 mg Glucagon (Glucagon) 1 mg IM PRN PRN PRN Reason: Hypoglycemia Heparin Sodium (Porcine) (Heparin) 5,000 units SC BID [facility] Last Admin: 06/12/18 10:44 Dose: 5,000 units Hydralazine HCl (Apresoline) 10 mg SLOW IVP Q4H PRN PRN Reason: SBP > 180 and HR < 70 Dextrose/Water (D5w) 1,000 mls @ 0 mls/hr IV .Q0M PRN PRN Reason: Hypoglycemia Sodium Chloride (Normal Saline 0.9%) 1,000 mls @ 25 mls/hr IV .Q24H [facility] Last Admin: 06/12/18 12:51 Dose: 1,000 mls Fentanyl Citrate 2,000 mcg/ (Sodium Chloride) 100 mls @ 0 mls/hr IV INF PRN PRN Reason: Pain Last Admin: 06/12/18 03:31 Dose: 100 mls Insulin Human Lispro (Humalog) 0 units SC .MILD SLIDING SCALE PRN PRN Reason: Mild Correctional Scale Last Admin: 06/12/18 12:51 Dose: 4 unit Insulin Human Lispro (Humalog) 0 units SC .BEDTIME SLIDING SC PRN PRN Reason: Bedtime Correctional Scale Lisinopril (Zestril) 2.5 mg PO DAILY [facility] Last Admin: 06/12/18 10:41 Dose: 2.5 mg Naloxone HCl (Narcan) 0.2 mg IV Q5MIN PRN PRN Reason: Opiate Reversal Neomycin/Polymyxin/Bacitracin (Triple Antibiotic Ointment) 0 gm TOP DAILY [facility] Ondansetron HCl (Zofran Odt) 4 mg SL Q6H PRN PRN Reason: Nausea/Vomiting Ondansetron HCl (Zofran) 4 mg IVP Q6H PRN PRN Reason: Nausea/Vomiting Last Admin: 06/10/18 18:30 Dose: 4 mg Ondansetron HCl (Zofran) 4 mg IVP Q6H PRN PRN Reason: Nausea/Vomiting Pantoprazole Sodium (Protonix) 40 mg PO QAM-[facility] Last Admin: 06/12/18 10:41 Dose: 40 mg Promethazine HCl (Phenergan) 12.5 mg IM Q4H PRN PRN Reason: Nausea/Vomiting Saccharomyces Boulardii (Florastor) 250 mg PO DAILY [facility] Last Admin: 06/12/18 10:41 Dose: 250 mg Sevelamer Carbonate (Renvela) 800 mg PO TID-[facility] Last Admin: 06/12/18 10:42 Dose: Not Given Sodium Chloride (Flush - Normal Saline) 10 ml IVF Q12HR [facility] Last Admin: 06/12/18 10:43 Dose: Not Given Sodium Chloride (Flush - Normal Saline) 10 ml IVF PRN PRN PRN Reason: Saline Flush Vancomycin HCl (First Vancomycin) 125 mg PO QID [facility] Last Admin: 06/12/18 12:50 Dose: 125 mg Vitamin B Complex/Vit C/Folic Acid (Nephro-Jose Tablet) 1 tab PO DAILY [facility] Last Admin: 06/12/18 10:41 Dose: 1 tab Zolpidem Tartrate (Ambien) 5 mg PO HSPRN PRN PRN Reason: Insomnia
[2018-06-12] MEDS ORDERED: traMADol HCl 50 MG TAB PO PRN (17:10)
--- NOTE | 2018-06-12 17:36 | PRG ---
DATE OF SERVICE: 06/12/2018 The patient is doing well after right BKA. His wound looks good. Wound is healthy. He was instructed to keep his right knee extended by placing pillows or blankets beneath his BKA stump below his knee to prevent contracture. The patient is due for dialysis tomorrow. The patient should follow up in my office in 2 to 3 weeks for staple removal. He will be transferred to rehab. Job ID: [id number]
[2018-06-12 18:10] VITALS: BP 112/67; TEMP 98.1
[2018-06-12] MEDS: Acetaminophen 500 MG TAB PO PRN (20:03)
[2018-06-12] MEDS: Famotidine 20 MG TAB PO SCH (20:04)
[2018-06-12] MEDS: Fenofibrate Nanocrystallized 145 MG TAB PO SCH (20:04)
[2018-06-12] MEDS: Atorvastatin Calcium 10 MG TAB PO SCH (20:04)
[2018-06-12] MEDS ORDERED: Gabapentin 300 MG CAP PO SCH (21:00)
--- NOTE | 2018-06-13 11:12 | DIS ---
DATE OF ADMISSION: 06/09/2018 DATE OF DISCHARGE: 06/12/2018 DISCHARGE DISPOSITION: Inpatient rehab at [facility]. PRIMARY CARE PHYSICIAN: Joe Pacheco M.D. IN-HOUSE CONSULTATION: 1. General Surgery, Dr. Indio Ojeda. 2. Nephrology, Dr. Yanet Schaefer. PROCEDURES DONE IN THE HOSPITAL: 1. X-ray of the right foot which showed soft tissue prominence without any osseous lesion. 2. Right BKA by Dr. Ojeda on 06/10/2018. His pathology specimen showed gangrene and viable skin soft tissue and bone margin. 3. Maintenance hemodialysis. HISTORY OF PRESENTING ILLNESS: Mr. Tellez is a 53-year-old male with known history of severe peripheral vascular disease as well as end-stage renal disease, on dialysis, who presented to the hospital with complaints of worsening gangrene of his right foot. He was recently admitted to the facility under Vascular Surgery, Dr. Lazo, and underwent angioplasty of the right popliteal, peroneal and posterior tibial artery with fairly good results. He was discharged home on aspirin and Plavix, but came back to the ER when the gangrenous changes in the right foot extended dorsally from the toe. He was admitted for further evaluation and General Surgery was consulted. He was recently diagnosed with C. diff during last hospitalization and was continued on oral vancomycin as well. Nephrology was consulted for maintenance hemodialysis. Please see admission history and physical dictated by Dr. Moran on 06/09/2018, for full details. HOSPITAL COURSE: Mr. Tellez was evaluated by Dr. Ojeda and underwent a right BKA for worsening gangrene. It was an uncomplicated surgery and he was doing fairly well after the surgery and was referred to rehab. He was accepted and discharged by Dr. Ojeda yesterday. Please see hospitalist progress note from the date of discharge for full detail including [id number] interaction. I have discussed the discharge plan with the patient and his family, and they verbalized understanding. I have alerted them that he also has significant amount of peripheral arterial disease in his left leg. He has a very tiny spot of gangrene developing in his third toe on the left leg. The family is aware and will follow up with Dr. Lazo in the outpatient setting. Otherwise, he was hemodynamically stable and was discharged when cleared by Surgery. DISCHARGE MEDICATIONS: Resume home medications. No changes were made. Please see H and P dictated by Dr. Moran on 06/10/2018, for full list of home medications. TIME SPENT: Total time spent in the discharge, 35 minutes. Job ID: [id number]
== END 2018-06-12 20:41 | DRG 239 ==
LOC: ERS 21:58 → ERHOLD 06-09 02:27 → OBSVTOIN 06-09 10:37 → SURG A 06-09 19:18
PROVIDERS: ADMIT Internal Medicine; ATTEND Internal Medicine
PROC: 0Y6H0Z1 Detachment at Right Lower Leg, High, Open Approach (ICD-10-PCS; principal; 2018-06-10)
DX: E11.52 Type 2 diabetes mellitus with diabetic peripheral angiopathy with gangrene (principal); N18.6 End stage renal disease; N25.81 Secondary hyperparathyroidism of renal origin; E87.1 Hypo-osmolality and hyponatremia; I13.2 Hypertensive heart and chronic kidney disease with heart failure and with stage 5 chronic kidney disease, or end stage renal disease; I50.42 Chronic combined systolic (congestive) and diastolic (congestive) heart failure; A04.72 Enterocolitis due to Clostridium difficile, not specified as recurrent; I96 Gangrene, not elsewhere classified; E11.22 Type 2 diabetes mellitus with diabetic chronic kidney disease; D63.1 Anemia in chronic kidney disease; K21.9 Gastro-esophageal reflux disease without esophagitis; E87.5 Hyperkalemia; E78.5 Hyperlipidemia, unspecified; Z99.2 Dependence on renal dialysis; Z79.899 Other long term (current) drug therapy; Z79.4 Long term (current) use of insulin; Z79.82 Long term (current) use of aspirin; Z79.02 Long term (current) use of antithrombotics/antiplatelets; E11.40 Type 2 diabetes mellitus with diabetic neuropathy, unspecified
CPT/HCPCS: 36415; 36416; 80048; 80053; 83605; 85025; 86850; 86900; 86901; 87040; 88307; 88311; 90935; 93005; 94760; 96365; 96366; 96367; 96375; G0257; J0131; J1644; J1815; J2001; J2405; J2543; J2704; J3010; J3370; J3490; J7050

== ENCOUNTER 2018-07-08 16:22 | Inpatient (IN) | payer MEDICARE ==
[~2018-07-08 16:22] MED LIST: ISOVUE-370 76%-LOCM 1 ML ONE
[2018-07-08 17:18] LABS: #Eosinphils 0.1 thou/uL (0.0-0.7); #Lymphocytes 1.4 thou/uL (1.20-3.40); #Monocytes 0.9 thou/uL (0.11-0.59); #Neutrophils 8.8 thou/uL (1.40-6.50); %Basophils 0.4 % (0.0-1.0); %Eosinophils 0.9 % (0.0-10.0); %Lymphocytes 12.8 % (21.0-51.0); %Monocytes 8.2 % (0.0-10.0); %Neutrophils 77.8 % (42.0-75.0); Mean Corpuscular HGB CONC 30.5 g/dL (32.0-36.0); Mean Corpuscular Hemoglobin 30.2 pg (27.0-31.0); Mean Platelet Volume 7.7 fL (7.4-10.4); Platelet Count 494 thou/uL (130-400); RBC Distribution Width 17.9 % (11.5-14.5); Red Blood Cell (RBC) Count 3.64 mill/uL (4.70-6.10); White Blood Cell (WBC) Count 11.3 thou/uL (4.8-10.8)
--- NOTE | 2018-07-08 17:36 | RAD ---
XR Chest 1 View Portable History: [Chest pain] Comparison: Radiograph 2018 Findings: Heart size is enlarged. Moderate layering right pleural effusion. Small left pleural effusi on. No pneumothorax. No acute osseous abnormality. Impression: Cardiomegaly with enlarging bilateral pleural effusions and mild pulmonary venous congest ion.
[2018-07-08 18:00] LABS: CKMB 1.3 ng/mL (0-6.6)
[2018-07-08 18:44] LABS: Albumin 3.9 g/dL (3.5-5.0)
[2018-07-08 18:46] LABS: Calcium 9.7 mg/dL (7.8-10.44); Chloride 94 mmol/L (98-107); Potassium 5.2 mmol/L (3.5-5.1); Sodium 133 mmol/L (136-145)
[2018-07-08 18:47] LABS: Globulin 3.5 g/dL (2.4-3.5); Glucose 130 mg/dL (70-105); Protein, Total 7.4 g/dL (6.0-8.3)
[2018-07-08 18:48] LABS: Anion Gap 24 mmol/L (10-20); Carbon Dioxide 20 mmol/L (22-29)
[2018-07-08 18:49] LABS: Bilirubin, Total 1.1 mg/dL (0.2-1.2)
[2018-07-08 18:50] LABS: Alkaline Phosphatase 94 U/L (40-150); Calc. Creatinine Clearance 0 mL/min (70-130); Estimated GFR-MDRD 8
[2018-07-08 18:51] LABS: BUN (Urea Nitrogen) 47 mg/dL (8.4-25.7)
[2018-07-08 18:52] LABS: AST (SGOT) 32 U/L (5-34)
[2018-07-08 18:53] LABS: ALT (SGPT) 11 U/L (8-55); CK (CPK) 28 U/L (30-200); Lipase 14 U/L (8-78)
--- NOTE | 2018-07-08 19:31 | CT ---
CTA Angio Chest W WO Con History: [Intermittent chest pain. Shortness of breath.] Comparison: Chest radiograph same day. CT angiogram of the chest April 24, 2018 Findings: CT angiogram of the chest performed after the intravenous ministration of contrast. 3-D angélica dering provided. Pulmonary trunk is dilated. Heart size is enlarged. There is reflux contrast into the hepatic veins a nd suprahepatic IVC. No proximal segmental pulmonary arterial filling defect. Mild aortic valve calcifications and mitral annular calcifications. Large right and small left pleura l effusion. Small prevascular lymph nodes. Moderate pulmonary edema. No pneumothorax. No thoracic spine compression fracture. No displaced rib f racture. Impression: 1. Congestive heart failure with cardiomegaly, bilateral effusions, larger on the right, and moderate pulmonary edema. 2. Dilated pulmonary trunk suggesting pulmonary arterial hypertension. 3. Reflux of contrast within the suprahepatic IVC and hepatic veins from diastolic dysfunction. 4. No pulmonary arterial intraluminal filling defect.
[2018-07-08] MEDS ORDERED: Aspirin Chewable 81 MG TAB ONE (20:38)
[2018-07-08 20:46] LABS: Troponin I 0.095 ng/mL (< 0.028)
[2018-07-08] MEDS ORDERED: Ondansetron PF 4 MG/2 ML Vial IVP PRN (21:57)
[2018-07-08] MEDS ORDERED: Ondansetron ODT 4 MG TAB SL PRN (21:57)
[2018-07-08] MEDS: traMADol HCl 50 MG TAB PO PRN (23:30)
[2018-07-08] MEDS: Acetaminophen 500 MG TAB PO PRN (23:30)
[2018-07-09] MEDS ORDERED: Nitroglycerin 0.4 MG TAB (25 Tab Bottle) PO PRN (00:52)
[2018-07-09 02:28] LABS: Anion Gap 28 mmol/L (10-20); BUN (Urea Nitrogen) 54 mg/dL (8.4-25.7); Calc. Creatinine Clearance 12 mL/min (70-130); Calcium 9.6 mg/dL (7.8-10.44); Carbon Dioxide 19 mmol/L (22-29); Chloride 92 mmol/L (98-107); Estimated GFR-MDRD 8; Glucose 148 mg/dL (70-105); Potassium 4.7 mmol/L (3.5-5.1); Sodium 134 mmol/L (136-145); Troponin I 0.103 ng/mL (< 0.028)
[2018-07-09] MEDS ORDERED: Dextrose 5% in Water 1,000 ML IV PRN (02:28)
[2018-07-09] MEDS ORDERED: Dextrose 50% Abboject 50 ML SYRINGE SLOW IVP PRN (02:28)
--- NOTE | 2018-07-09 03:03 | HP ---
CHIEF COMPLAINT: Chest pain. HISTORY OF PRESENT ILLNESS: The patient is a pleasant [place] speaking only male with past medical history significant for known coronary artery disease status post stent to the LAD in 2014, ischemic cardiomyopathy with last EF estimated at 25% to 30% per echocardiogram in January 2018; end-stage renal disease, on dialysis, followed by Dr. Schaefer, and severe peripheral vascular disease resulting in right [id number] amputation recently on 06/09/2018. He was discharged from this facility on 06/13/2018. His daughter is at the bedside and provides history as well as interpretive service. The patient was apparently doing quite well post discharge, and was participating in outpatient rehab without any difficulties. He denies any fevers or chills. Has been compliant with dialysis as scheduled. Over the past 4 days, however, the patient has developed some intermittent chest discomfort which he describes as pressure. It is nonradiating. Associated symptoms include shortness of breath. He denies any associated nausea, diaphoresis, dizziness, or palpitations. Today, the chest pain intensified to a level of 9/ 10, and so the patient presented to the ER for further workup and treatment. Upon arrival, the patient's EKG does show some inferolateral ischemia, however, this is consistent with prior EKG from his last hospitalization. His troponin has been indeterminate, which is also a chronic finding for him. He is currently chest pain free at this time. Prior cardiac workup has included an echocardiogram performed in January 2018 which showed an EF 25% to 30%. The patient is followed by Dr. Rahman. Per review of records, he has had a left heart catheterization in 2014, performed over at [facility] where he had a stent to the LAD placed. Records are currently unobtainable. Defibrillator has also been mentioned to the patient in the past, which he has apparently declined. It appears that cardiac linn, the patient has been fairly stable up until the past 4 days. The patient believes that he has not had any recent stress test, and the daughter believes this to be true as well. ALLERGIES: NO KNOWN DRUG ALLERGIES. REVIEW OF SYSTEMS: A 12-point review of systems performed and is largely negative except that stated above. The patient does continue to have some postoperative pain secondary to his right [id number] amputation, but this has been well controlled with tramadol. He denies any recent illnesses, fever, chills, nausea, or vomiting. HOME MEDICATIONS: 1. Esomeprazole 40 mg capsule one tablet daily. 2. Fenofibrate 145 mg tablet one tablet p.o. at bedtime. 3. Insulin subcu at bedtime. 4. Pravastatin 40 mg at bedtime. 5. Aspirin 81 mg daily. 6. Carvedilol 6.25 mg tablet one tablet p.o. b.i.d. 7. Plavix 75 mg one tablet daily. 8. Vitamin B supplement one tablet daily. 9. Florastor supplement one tablet daily. 10. Tramadol 50 mg tablet one tablet p.o. q.6h p.r.n. PAST MEDICAL HISTORY: Significant for end-stage renal disease, on dialysis for the past 3 years. Coronary artery disease, status post stenting in the past. Ischemic cardiomyopathy, severe peripheral vascular disease as outlined above. Type 2 diabetes mellitus. PAST SURGICAL HISTORY: Tunneled dialysis catheter and subsequent AV fistula placement, status post right BKA as described previously. FAMILY HISTORY: Noncontributory. SOCIAL HISTORY: No history of alcohol, tobacco, or illicit drug use. PHYSICAL EXAMINATION: VITAL SIGNS: Blood pressure 143/68, pulse is 92, O2 saturation is 96% on room air, temperature 97.8. GENERAL: The patient is a male, who appears his stated age. Resting comfortably in bed, in no acute distress. HEENT: Head is atraumatic and normocephalic. Mucous membranes are moist. Extraocular movements intact. NECK: Supple. Trachea is midline. No JVD. CV: S1 and S2. Regular rate and rhythm. No appreciable murmurs, rubs, or gallops. LUNGS: Regular respiratory rate and pattern. Clear to auscultation bilaterally. ABDOMEN: Soft. Positive bowel sounds. Nontender. EXTREMITIES: The patient is status post right BKA. Does have some known gangrenous changes to left lower extremity, which are chronic and being treated in outpatient setting. LABORATORY DATA: White blood cell count 11.3, hemoglobin 11, hematocrit 36, platelets 494. D-dimer was 0.9. Sodium is 133, potassium 5.2, anion gap 24, creatinine 7.01. AST, ALT, and alkaline phosphatase all within normal limits. Troponin 0.095 and 0.080. Lipase is 14. IMAGING STUDIES: EKG shows sinus rhythm. There is inferolateral ischemia noted , which is consistent when compared to previous EKG. CTA was negative for pulmonary embolism, but did show evidence of CHF and moderate pulmonary edema. ASSESSMENT: 1. Chest pain, questionable angina in a patient with known disease. 2. Ischemic cardiomyopathy with last EF estimated at 20% to 30%. 3. End-stage renal disease, on dialysis, scheduled for dialysis session tomorrow , followed by Dr. Schaefer. 4. Indeterminate troponin, chronic and consistent with previous visits in a patient with known end-stage renal disease and cardiomyopathy. 5. Severe peripheral vascular disease, status post recent right BKA. 6. Mild hyperkalemia. 7. Type 2 diabetes mellitus. PLAN: Given the patient's presenting complaints, we will move forward with Cardiolite stress test tomorrow. Dr. Schaefer has been consulted as well as the patient will need dialysis session tomorrow, especially given his mild hyperkalemia and pulmonary edema on CT; however, the patient has no crackles or orthopnea or other evidence of overt heart failure at this time. We will continue the patient's home medications of aspirin, Plavix, and beta victor manuel. We will add sliding scale insulin. Further recommendations will be based on findings of stress test, we will consider consulting Dr. Rahman depending on the results. This patient has been discussed with Dr. Swanson who agrees with the above. Job ID: [id number] [facility]
[2018-07-09] MEDS: traMADol HCl 50 MG TAB PO PRN ×2 (03:51→19:13)
[2018-07-09] MEDS: Acetaminophen 500 MG TAB PO PRN ×2 (03:51→21:16)
--- NOTE | 2018-07-09 11:23 | NM ---
REST ONLY MYOCARDIAL PERFUSION EVALUATION: INDICATION: Chest pain with history of coronary artery disease. COMPARISON: None. RADIOPHARMACEUTICAL: 9 mCi of technetium 99m sestamibi IV with rest only. FINDINGS: There is a prominent region of prominent reduced activity involving the basal to apical anterior wall and lateral wall suspicious for either infarct or prominent ischemia. The stress portion of the examination was canceled by Dr. Severino. IMPRESSION: Abnormal rest only myocardial perfusion evaluation. Prominent region of reduced radiotracer accumulat ion involving the anterior wall, apex and lateral wall suspicious for infarct or prominent ischemia. Transcribed Date/Time: 07/09/2018 11:28 AM
[2018-07-09] MEDS: Carvedilol 6.25 MG TAB PO SCH ×2 (12:10→19:13)
--- NOTE | 2018-07-09 12:10 | PDOC.PN ---
- Subjective Encounter Start Date: 07/09/18 Encounter Start Time: 11:45 Subjective: patient examined today -: Has returned from stress lab after test was cancelled -: Reports feeling more tired than normal, no other complaints - Objective Vital Signs & Weight: Vital Signs (12 hours) Temp Pulse Resp BP Pulse Ox 07/09/18 07:30 97.9 F 82 16 153/71 H 92 L 07/09/18 03:42 98.0 F 87 16 157/73 H 91 L 07/09/18 00:53 96 Weight Weight 73.663 kg Result Diagrams: 07/08/18 17:09 07/09/18 01:58 Additional Labs: Accuchecks 07/09/18 04:07 POC Glucose 139 H Phys Exam - Physical Examination HEENT: PERRLA, moist MMs Respiratory: clear to auscultation bilateral Cardiovascular: RRR Gastrointestinal: soft Right BKA, left gangrenous changes to foot Neurological: non-focal Lymphatic: no nodes Psychiatric: normal affect, A&O x 3 Skin: cap refill <2 seconds Dx/Plan (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, NOT ELSEWHERE CLASSIFIED Status: Chronic Comment: s /p R BKA 06/10/2018 (2) Weakness generalized Code(s): R53.1 - WEAKNESS Status: Acute (3) Chronic combined systolic and diastolic CHF, NYHA class 2 Code(s): I50.42 - CHRONIC COMBINED SYSTOLIC AND DIASTOLIC HRT FAIL Status: Chronic Comment: compensated (4) Diabetes type 2, controlled Code(s): E11.9 - TYPE 2 DIABETES MELLITUS WITHOUT COMPLICATIONS Status: Chronic (5) Dyslipidemia Code(s): E78.5 - HYPERLIPIDEMIA, UNSPECIFIED Status: Chronic (6) ESRD on hemodialysis Code(s): N18.6 - END STAGE RENAL DISEASE; Z99.2 - DEPENDENCE ON RENAL DIALYSIS Status: Chronic (7) PAD (peripheral artery disease) Code(s): I73.9 - PERIPHERAL VASCULAR DISEASE, UNSPECIFIED Status: Chronic Comment: Severe.Bilateral Lower extremity as well as celiac and SMA/HERNAN in colon per CTA 05/2018 - Plan cont current plan of care Stress test cancelled due to trending trops, EKG changes -: Dr. Rahman will see patient -: Dr. Schaefer will arrange hemodialysis -: Will continue to monitor * .
[2018-07-09] MEDS: Aspirin 81 mg Enteric Coated Tablet PO SCH (12:11)
[2018-07-09] MEDS: Saccharomyces boulardii 250 MG CAP PO SCH (12:11)
[2018-07-09] MEDS: Clopidogrel Bisulfate 75 MG TAB PO SCH (12:11)
[2018-07-09] MEDS: Folic Acid/Vit B Comp W-C PO SCH (12:11)
--- NOTE | 2018-07-09 13:47 | CON ---
DATE OF CONSULTATION: REASON FOR CONSULTATION: Stage chronic kidney disease, for maintenance hemodialysis. HISTORY: A 53-year-old gentleman on dialysis Saturday, Saturday, and Saturday, presented to the hospital yesterday with chest pain. The patient had no EKG changes. The patient denied any nausea, vomiting, or chest pain. PAST MEDICAL HISTORY: Significant for end-stage renal disease, hypertension, coronary artery disease, history of low ejection fraction, cardiomyopathy, severe peripheral vascular disease, diabetes mellitus, history of tunneled dialysis catheter, AV fistula, right BKA. SOCIAL HISTORY: No alcohol or drug use. FAMILY HISTORY: Negative for ESRD. ALLERGIES: REVIEWED. HOME MEDICATION: List reviewed. REVIEW OF SYSTEMS: A 15-point review of systems was performed and was negative except for positives noted above. GENERAL: HEAD: NECK: No swelling or lumps. NOSE: No epistaxis or discharge. EYES: No diplopia or pain. RESPIRATORY: CARDIOVASCULAR: GASTROINTESTINAL: /CIVIL TRANSPORTATION ENGINEER: MUSCULOSKELETAL: No joint pain. NEUROPSYCHIATRIC SYSTEMS: No suicidal ideation. No ideation. SKIN: Denies any rash or ulcer. CONSTITUTIONAL: No fever or chills. PHYSICAL EXAMINATION: See above. CONSTITUTIONAL: Awake, alert, in no acute distress. VITAL SIGNS: Afebrile. Pulse 82, breathing 16, blood pressure 153/71. GENERAL APPEARANCE AND MENTAL STATUS: Fair. HEAD/NECK: Normocephalic. Atraumatic. EYES: EOMI. No deformity. EARS: Clear. No ulcers. NOSE: Intact. No lesions. MOUTH: Clear. No discharge. THROAT: Clear. No exudate. LUNGS: Clear. No crackles. CARDIAC: S1, S2. No rub. ABDOMEN: Benign. Bowel sounds positive. GENITALIA/RECTUM: Saez absent. BACK/EXTREMITIES: Edema 0+. NEUROLOGICAL: Alert and motor intact. SKIN: LYMPHATICS: LABORATORY DATA: Labs reviewed. ASSESSMENT AND PLAN: 1. Stage chronic kidney disease, plan dialysis. 2. Hypertension, stable. 3. Anemia, stable. 4. Medication based on GFR appropriate. Job ID: [id number]
[2018-07-09] MEDS ORDERED: Diazepam 5 MG TAB PO SCH (14:00)
[2018-07-09] MEDS ORDERED: Communication Order-Pharmacy FS SCH (14:00)
[2018-07-09] MEDS ORDERED: Nitroglycerin 2% Ointment 1 INCH/1 GM Packet TOP SCH (14:30)
[2018-07-09] MEDS: Atorvastatin Calcium 10 MG TAB PO SCH (19:13)
[2018-07-09] MEDS: Nitroglycerin 2% Ointment 1 INCH/1 GM Packet TOP SCH (21:19)
--- NOTE | 2018-07-09 21:20 | CON ---
DATE OF CONSULTATION: 07/09/2018 PRIMARY ASPARAGUS BUNCHER: Dr. Reji Rahman. REASON FOR CONSULTATION: Chest pain, abnormal EKG. HISTORY OF PRESENT ILLNESS: Mr. Geoff Reid is a very pleasant 53-year- old gentleman with history of end-stage renal disease and coronary artery disease, who has been having increasing amounts of anginal chest pain recently. The patient recently underwent surgery for peripheral vascular disease resulting in right below-knee amputation on 06/09/2018 and was discharged on 06/13/2018. The patient was doing well up until the last few days. He has been having increasing amounts of pressure in his chest, which comes on with a very low level of activity. He can only walk short distances due to the below-knee amputation and pressure in the middle of his chest, nonradiating. Short of breath when it occurs, it happens some at rest. He has had up to 9/10. The patient has an abnormal EKG at rest, this will be outlined below. On previous cardiac evaluation, ejection fraction is known to be 25%. The patient was seen at this institution by Dr. Rahman. He apparently had a left heart catheterization in 2014. The note indicates there was a stent in his LAD, but it is not clear to me that the results were ever obtained. ALLERGIES: NONE KNOWN. REVIEW OF SYSTEMS: CONSTITUTIONAL: No significant weight gain or loss. VISION: No changes. HEARING: No changes. PULMONARY: No cough or wheezing. CARDIAC: As outlined above. GASTROINTESTINAL: No nausea, vomiting, or diarrhea. SKIN: No rashes. HOME MEDICATIONS: 1. Aspirin. 2. Plavix. 3. Pravastatin. 4. Carvedilol. 5. Vitamin D. 6. Tramadol. PAST MEDICAL HISTORY: 1. Coronary artery disease. 2. End-stage renal disease, on dialysis for 3 years. 3. Peripheral vascular disease, previous below-knee amputation. PAST SURGICAL HISTORY: 1. Previous dialysis catheter. 2. Subsequent AV fistula. 3. Status post right BKA. FAMILY HISTORY: Noncontributory. SOCIAL HISTORY: No alcohol or tobacco. PHYSICAL EXAMINATION: GENERAL: This is a pleasant middle-aged man, resting comfortably, in no distress. VITAL SIGNS: Blood pressure 148/68, pulse 80 and it is regular. LUNGS: Clear. CARDIAC: Normal S1 and normal S2. ABDOMEN: Soft and nontender. EXTREMITIES: No clubbing or cyanosis. There is no edema. He has good femoral pulses on both sides. There is a right below-knee amputation on the right. On the left side, the femoral pulse is strong. The pedal pulses are palpable, but somewhat diminished. PERTINENT LABORATORY DATA: Creatinine 7.48, sodium 134. Troponin indeterminate at 0.1 definitely in the indeterminate age for dialysis patient. EKG, however, was abnormal. Previously had some resting ST depression, but the EKG at the time of stress test showed really severe ST depression in leads 2, 3, aVF, V4, V5, and V6. EKG changes are mild yesterday early afternoon, but worse later in the day. ASSESSMENT: 1. Coronary artery disease in addition to the above. The other information is that the resting nuclear medicine stress test revealed decreased perfusion in the anterior wall, apex, and lateral wall. 2. End-stage renal disease. 3. Peripheral vascular disease. PLAN: 1. Stress test was initially ordered, then canceled after they found to have this resting EKG changes. 2. Would recommend he proceed to cardiac catheterization. Discussed risk of stroke, heart attack, iodine allergy, loss of blood supply to leg or kidney, stent thrombosis, stent restenosis. He understands and wished to proceed. 3. Dr. Rahman will proceed tomorrow. Job ID: [id number] [facility]
[2018-07-10] MEDS ORDERED: Sodium Chloride 0.9% 1,000 ML IV SCH (06:00)
[2018-07-10] MEDS: Nitroglycerin 2% Ointment 1 INCH/1 GM Packet TOP SCH ×3 (06:04→20:56)
[2018-07-10] MEDS: Carvedilol 6.25 MG TAB PO SCH ×2 (06:04→17:51)
[2018-07-10] MEDS: Clopidogrel Bisulfate 75 MG TAB PO SCH (06:06)
[2018-07-10] MEDS: Aspirin 81 mg Enteric Coated Tablet PO SCH (06:06)
[2018-07-10] MEDS: Saccharomyces boulardii 250 MG CAP PO SCH (06:06)
[2018-07-10] MEDS: Folic Acid/Vit B Comp W-C PO SCH (06:07)
[2018-07-10 09:33] LABS: Hemoglobin 9.4 g/dL (14.0-18.0); Mean Corpuscular HGB CONC 29.8 g/dL (32.0-36.0); Mean Platelet Volume 7.4 fL (7.4-10.4); Platelet Count 376 thou/uL (130-400); RBC Distribution Width 17.5 % (11.5-14.5); Red Blood Cell (RBC) Count 3.12 mill/uL (4.70-6.10); White Blood Cell (WBC) Count 6.3 thou/uL (4.8-10.8)
[2018-07-10 09:43] LABS: ALT (SGPT) 8 U/L (8-55); AST (SGOT) 19 U/L (5-34); Albumin 3.4 g/dL (3.5-5.0); Alkaline Phosphatase 83 U/L (40-150); Anion Gap 25 mmol/L (10-20); BUN (Urea Nitrogen) 35 mg/dL (8.4-25.7); Bilirubin, Total 0.9 mg/dL (0.2-1.2); Calc. Creatinine Clearance 15 mL/min (70-130); Calcium 9.3 mg/dL (7.8-10.44); Carbon Dioxide 18 mmol/L (22-29); Chloride 96 mmol/L (98-107); Estimated GFR-MDRD 10; Globulin 2.9 g/dL (2.4-3.5); Glucose 151 mg/dL (70-105); Potassium 3.9 mmol/L (3.5-5.1); Protein, Total 6.3 g/dL (6.0-8.3); Sodium 135 mmol/L (136-145)
--- NOTE | 2018-07-10 10:14 | PDOC.PN ---
- Subjective Encounter Start Date: 07/10/18 Encounter Start Time: 09:00 Subjective: Mild epigastric pain this am, is currently NPO -: Plan for heart cath today -: Examined, family at bedside - Objective Vital Signs & Weight: Vital Signs (12 hours) Temp Pulse Resp BP BP Pulse Ox 07/10/18 07:41 97.5 F L 85 18 135/66 92 L 07/10/18 06:04 132/64 07/10/18 03:31 98.1 F 82 24 H 131/62 92 L 07/09/18 23:17 98.1 F 83 16 121/57 L 92 L Weight Weight 70.9 kg I&O: 07/09/18 07/10/18 07/11/18 06:59 06:59 06:59 Intake Total 240 Output Total 1999 Balance -1760 Result Diagrams: 07/10/18 09:07 07/10/18 09:07 Additional Labs: Accuchecks 07/10/18 07/09/18 07/09/18 05:20 21:07 16:36 POC Glucose 173 H 135 H 102 07/09/18 12:05 POC Glucose 141 H Phys Exam - Physical Examination Constitutional: NAD HEENT: PERRLA, moist MMs Neck: no JVD, supple Respiratory: clear to auscultation bilateral Cardiovascular: RRR Gastrointestinal: soft Neurological: non-focal Psychiatric: normal affect, A&O x 3 Skin: cap refill <2 seconds Deviation from normal: right BKA, left foot gangrenous changes Dx/Plan (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, NOT ELSEWHERE CLASSIFIED Status: Chronic Comment: s /p R BKA 06/10/2018 (2) Weakness generalized Code(s): R53.1 - WEAKNESS Status: Acute (3) Chronic combined systolic and diastolic CHF, NYHA class 2 Code(s): I50.42 - CHRONIC COMBINED SYSTOLIC AND DIASTOLIC HRT FAIL Status: Chronic Comment: compensated (4) Diabetes type 2, controlled Code(s): E11.9 - TYPE 2 DIABETES MELLITUS WITHOUT COMPLICATIONS Status: Chronic (5) Dyslipidemia Code(s): E78.5 - HYPERLIPIDEMIA, UNSPECIFIED Status: Chronic (6) ESRD on hemodialysis Code(s): N18.6 - END STAGE RENAL DISEASE; Z99.2 - DEPENDENCE ON RENAL DIALYSIS Status: Chronic (7) PAD (peripheral artery disease) Code(s): I73.9 - PERIPHERAL VASCULAR DISEASE, UNSPECIFIED Status: Chronic Comment: Severe.Bilateral Lower extremity as well as celiac and SMA/HERNAN in colon per CTA 05/2018 - Plan * .
[2018-07-10 11:03] LABS: Band 3 % (5-11); Eosinophils 2 % (0-10); Hypochromia SLIGHT = 6-15 cells (100X) (0-5/hpf); Lymphocytes 23 % (21-51); MDiff Complete? YES; Monocytes 8 % (0-10); Neutrophil 64 % (42-75); Platelet Morphology Comment Appears Adequate; Polychromasia SLIGHT = 2-3 cells (100X) (0-2/hpf)
[2018-07-10] MEDS ORDERED: Iopamidol 370 76% 100 ML VIAL ONE (11:28)
--- NOTE | 2018-07-10 12:16 | PRG ---
DATE OF SERVICE: 07/10/2018 SUBJECTIVE: A 53-year-old gentleman being seen for end-stage renal disease. The patient denied any nausea, vomiting, or chest pain. OBJECTIVE: See above. CONSTITUTIONAL: Awake, alert, in no acute distress. VITAL SIGNS: Afebrile. Pulse 75, breathing 16, and blood pressure was 135/66. GENERAL APPEARANCE AND MENTAL STATUS: Fair. HEAD/NECK: Normocephalic. Atraumatic. EYES: EOMI. No deformity. EARS: Clear. No ulcers. NOSE: Intact. No lesions. MOUTH: Clear. No discharge. THROAT: Clear. No exudate. LUNGS: Clear. No crackles. CARDIAC: S1, S2. No rub. ABDOMEN: Benign. Bowel sounds positive. GENITALIA/RECTUM: Saez absent. BACK/EXTREMITIES: Edema 0+. NEUROLOGICAL: Alert and motor intact. SKIN: LYMPHATICS: LABORATORY DATA: Reviewed. ASSESSMENT AND PLAN: 1. Stage chronic, plan dialysis tomorrow. 2. Hypertension, stable. 3. Anemia, stable. 4. Medication based on GFR, appropriate. Job ID: [id number]
[2018-07-10] MEDS ORDERED: Midazolam HCl 2 mg/2 ml Vial ONE (12:32)
[2018-07-10] MEDS ORDERED: Fentanyl 100 MCG/2 ML VIAL ONE (12:32)
[2018-07-10] MEDS ORDERED: Acetaminophen/Codeine 30-300mg Tablet PO PRN (13:00)
[2018-07-10] MEDS ORDERED: Sodium Chloride 0.9% 200 ML IV PRN (13:00)
[2018-07-10] MEDS: HumaLOG 300 UNITS/3 ML VIAL SC PRN (18:10)
[2018-07-10] MEDS: Atorvastatin Calcium 10 MG TAB PO SCH (20:41)
[2018-07-10] MEDS: traMADol HCl 50 MG TAB PO PRN (20:43)
[2018-07-11] MEDS: Nitroglycerin 2% Ointment 1 INCH/1 GM Packet TOP SCH ×3 (05:30→21:17)
[2018-07-11 06:00] LABS: ALT (SGPT) 9 U/L (8-55); AST (SGOT) 20 U/L (5-34); Albumin 3.4 g/dL (3.5-5.0); Alkaline Phosphatase 85 U/L (40-150); Anion Gap 22 mmol/L (10-20); BUN (Urea Nitrogen) 50 mg/dL (8.4-25.7); Bilirubin, Total 0.8 mg/dL (0.2-1.2); Calc. Creatinine Clearance 12 mL/min (70-130); Calcium 9.1 mg/dL (7.8-10.44); Carbon Dioxide 21 mmol/L (22-29); Chloride 96 mmol/L (98-107); Estimated GFR-MDRD 8; Globulin 2.7 g/dL (2.4-3.5); Glucose 222 mg/dL (70-105); Potassium 4.2 mmol/L (3.5-5.1); Protein, Total 6.1 g/dL (6.0-8.3); Sodium 135 mmol/L (136-145)
[2018-07-11] MEDS: HumaLOG 300 UNITS/3 ML VIAL SC PRN (06:09)
[2018-07-11] MEDS: traMADol HCl 50 MG TAB PO PRN (06:11)
[2018-07-11 09:20] LABS: #Eosinphils 0.1 thou/uL (0.0-0.7); #Monocytes 0.2 thou/uL (0.11-0.59); #Neutrophils 1.2 thou/uL (1.40-6.50); %Basophils 1.4 % (0.0-1.0); %Eosinophils 5.2 % (0.0-10.0); %Lymphocytes 40.9 % (21.0-51.0); %Monocytes 6.3 % (0.0-10.0); %Neutrophils 46.2 % (42.0-75.0); Hemoglobin 8.8 g/dL (14.0-18.0); Mean Corpuscular HGB CONC 31.5 g/dL (32.0-36.0); Mean Corpuscular Hemoglobin 30.3 pg (27.0-31.0); Mean Corpuscular Volume 96.4 fL (78.0-98.0); Mean Platelet Volume 7.2 fL (7.4-10.4); Platelet Count 328 thou/uL (130-400); RBC Distribution Width 17.3 % (11.5-14.5); Red Blood Cell (RBC) Count 2.89 mill/uL (4.70-6.10); White Blood Cell (WBC) Count 2.6 thou/uL (4.8-10.8)
[2018-07-11 09:41] LABS: Anion Gap 19 mmol/L (10-20); BUN (Urea Nitrogen) 43 mg/dL (8.4-25.7); Calc. Creatinine Clearance 14 mL/min (70-130); Calcium 9.2 mg/dL (7.8-10.44); Carbon Dioxide 24 mmol/L (22-29); Chloride 99 mmol/L (98-107); Estimated GFR-MDRD 10; Glucose 176 mg/dL (70-105); Potassium 3.7 mmol/L (3.5-5.1); Sodium 138 mmol/L (136-145)
--- NOTE | 2018-07-11 10:16 | PRG ---
DATE OF SERVICE: 07/11/2018 SUBJECTIVE: This is a 53-year-old gentleman, being seen for end-stage kidney disease . The patient denies any nausea, vomiting, or chest pain. OBJECTIVE: GENERAL: The patient is awake and alert. VITAL SIGNS: Afebrile, pulse 69, breathing 16, blood pressure 125/59. GENERAL APPEARANCE AND MENTAL STATUS: Fair. HEAD/NECK: Normocephalic. Atraumatic. EYES: EOMI. No deformity. EARS: Clear. No ulcers. NOSE: Intact. No lesions. MOUTH: Clear. No discharge. THROAT: Clear. No exudate. LUNGS: Clear. No crackles. CARDIAC: S1, S2. No rub. ABDOMEN: Benign. Bowel sounds positive. GENITALIA/RECTUM: Saez absent. BACK/EXTREMITIES: Edema 0+. NEUROLOGICAL: Alert and motor intact. SKIN: LYMPHATICS: LABORATORY DATA: Reviewed. ASSESSMENT AND RECOMMENDATIONS: 1. Stage 6 chronic kidney disease, stable. 2. Hypertension, stable. 3. Anemia, stable. 4. Medications based on GFR, appropriate. Job ID: [id number]
[2018-07-11 10:47] LABS: Hypochromia SLIGHT = 6-15 cells (100X) (0-5/hpf); MDiff Complete? YES; Platelet Morphology Comment Appears Adequate; Polychromasia MODERATE = 3-4 cells (100X) (0-2/hpf)
[2018-07-11] MEDS: Carvedilol 6.25 MG TAB PO SCH ×3 (13:35→21:29)
[2018-07-11] MEDS: Clopidogrel Bisulfate 75 MG TAB PO SCH (13:35)
[2018-07-11] MEDS: Aspirin 81 mg Enteric Coated Tablet PO SCH (13:35)
[2018-07-11] MEDS: Folic Acid/Vit B Comp W-C PO SCH (13:35)
[2018-07-11] MEDS: Saccharomyces boulardii 250 MG CAP PO SCH (13:36)
[2018-07-11 14:10] VITALS: BMI 25.9
--- NOTE | 2018-07-11 16:11 | PDOC.CTH ---
Cardiology Progress Note - Subjective He is doing well. No chest pain. - Objective Vital Signs Temp Pulse Resp BP BP Pulse Ox 07/11/18 15:20 98.3 F 78 20 142/65 H 90 L 07/11/18 13:53 140/67 07/11/18 13:35 140/67 07/11/18 13:34 97.7 F 84 16 170/73 H 92 L 07/11/18 07:30 97.4 F L 69 20 125/59 L 93 L 07/11/18 04:30 97.6 F 71 20 132/63 93 L Admit Weight 162 lb 6.4 oz Weight 160 lb 11.2 oz 07/10/18 07/11/18 07/12/18 06:59 06:59 06:59 Intake Total 240 630 360 Output Total 2000 3000 Balance -1760 630 -2640 - Physical Examination General/Neuro: alert & oriented x3, NAD Neck: no JVD present Lungs: CTA, unlabored respirations Heart: RRR Abdomen: NT/ND Extremities: + edema B (1+) - Telemetry Telemetry Rhythm: NSR - Labs Result Diagrams: 07/11/18 08:45 07/11/18 08:45 Troponin/CKMB CK-MB (CK-2) 1.3 ng/mL (0-6.6) 07/08/18 17:09 Troponin I 0.103 ng/mL (< 0.028) H 07/09/18 01:58 - Assessment/Plan 1. Multivessel CAD. 2. ESRD on HD 3. Ischemic CM EF at 20-25% 4. PVD s/p recent BKA. PLAN: - Continue medical management. - May discharge home from cardiac perspective. - Will have him follow up with Dr Garcia for an AICD as outpatient. - Will sign off. Please call with any questions.
--- NOTE | 2018-07-11 17:09 | PRG ---
DATE OF SERVICE: 07/11/2018 SUBJECTIVE: Fazal Reid is a 53-year-old male admitted to the hospital for chest pain. He has had a stent in his LAD, Dr. Carlo Zhang placed several years ago. He has diffuse disease beyond this, they cannot be bypassed or stented. Ejection fraction cardiac 15% to 20%. Dr. Rahman was following him. I have been asked to see him regarding his below-knee amputation stump, right. I had seen in my office and jonnathan removed. He does have some necrotic skin edges, but overall today, view of the wound revealed there is no infection. There is no sinuses or drainage. I would recommend nurses daily wash this with soap and water and apply antibiotic ointment, Telfa, and a stump direct service professional. I will see in my office in approximately 2 weeks. I will see him as needed this hospitalization please call if necessary. Currently, there is no indication for surgical intervention. He can work with physical therapy as far as mobility transfers and ambulation. Job ID: [id number]
--- NOTE | 2018-07-11 17:26 | PDOC.PN ---
- Subjective Encounter Start Date: 07/11/18 Encounter Start Time: 16:00 Subjective: Denies c/o today, no overnight events -: Wound care consulted for right BKA stump concerns - Objective Vital Signs & Weight: Vital Signs (12 hours) Temp Pulse Resp BP BP Pulse Ox 07/11/18 15:20 98.3 F 78 20 142/65 H 90 L 07/11/18 13:53 140/67 07/11/18 13:35 140/67 07/11/18 13:34 97.7 F 84 16 170/73 H 92 L 07/11/18 07:30 97.4 F L 69 20 125/59 L 93 L Weight Admit Weight 73.663 kg Weight 72.892 kg I&O: 07/10/18 07/11/18 07/12/18 06:59 06:59 06:59 Intake Total 240 630 360 Output Total 2000 3000 Balance -0634 302 -1487 Result Diagrams: 07/11/18 08:45 07/11/18 08:45 Additional Labs: Accuchecks 07/11/18 07/11/18 07/10/18 16:36 06:08 20:37 POC Glucose 192 H 229 H 232 H 07/10/18 17:01 POC Glucose 281 H Phys Exam - Physical Examination HEENT: PERRLA, moist MMs Neck: no nodes Respiratory: clear to auscultation bilateral Cardiovascular: RRR Gastrointestinal: soft right BKA, left foot gangrenous changes Neurological: non-focal, normal sensation Psychiatric: normal affect Deviation from normal: skin changes around right BKA stump, draining serous fluid Dx/Plan (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, NOT ELSEWHERE CLASSIFIED Status: Chronic Comment: s /p R BKA 06/10/2018 (2) Weakness generalized Code(s): R53.1 - WEAKNESS Status: Acute (3) Chronic combined systolic and diastolic CHF, NYHA class 2 Code(s): I50.42 - CHRONIC COMBINED SYSTOLIC AND DIASTOLIC HRT FAIL Status: Chronic Comment: compensated (4) Diabetes type 2, controlled Code(s): E11.9 - TYPE 2 DIABETES MELLITUS WITHOUT COMPLICATIONS Status: Chronic (5) Dyslipidemia Code(s): E78.5 - HYPERLIPIDEMIA, UNSPECIFIED Status: Chronic (6) ESRD on hemodialysis Code(s): N18.6 - END STAGE RENAL DISEASE; Z99.2 - DEPENDENCE ON RENAL DIALYSIS Status: Chronic (7) PAD (peripheral artery disease) Code(s): I73.9 - PERIPHERAL VASCULAR DISEASE, UNSPECIFIED Status: Chronic Comment: Severe.Bilateral Lower extremity as well as celiac and SMA/HERNAN in colon per CTA 05/2018 - Plan Wound care of BLE by nursing, wound care and Dr. Ojeda consulted -: Dr. Rahman and Dr. Brady have been following -: Will continue to monitor, check labs, if ageeable to Dr. Brady, cristhian dc in AM -: Patient will need to follow with cardiology as outpt. * .
[2018-07-11] MEDS: Atorvastatin Calcium 10 MG TAB PO SCH (21:17)
[2018-07-11] MEDS: Acetaminophen 500 MG TAB PO PRN (21:19)
[2018-07-12 05:44] LABS: #Eosinphils 0.2 thou/uL (0.0-0.7); #Lymphocytes 1.2 thou/uL (1.20-3.40); #Monocytes 0.8 thou/uL (0.11-0.59); #Neutrophils 3.7 thou/uL (1.40-6.50); %Basophils 0.7 % (0.0-1.0); %Lymphocytes 20.8 % (21.0-51.0); %Monocytes 13.5 % (0.0-10.0); Hemoglobin 9.6 g/dL (14.0-18.0); Mean Corpuscular HGB CONC 31.8 g/dL (32.0-36.0); Mean Corpuscular Hemoglobin 30.8 pg (27.0-31.0); Mean Corpuscular Volume 97.1 fL (78.0-98.0); Mean Platelet Volume 7.3 fL (7.4-10.4); Platelet Count 350 thou/uL (130-400); RBC Distribution Width 17.5 % (11.5-14.5); Red Blood Cell (RBC) Count 3.12 mill/uL (4.70-6.10); White Blood Cell (WBC) Count 5.9 thou/uL (4.8-10.8)
[2018-07-12 06:11] LABS: ALT (SGPT) Less than 7 U/L (8-55); AST (SGOT) 21 U/L (5-34); Albumin 3.6 g/dL (3.5-5.0); Alkaline Phosphatase 92 U/L (40-150); Anion Gap 21 mmol/L (10-20); BUN (Urea Nitrogen) 32 mg/dL (8.4-25.7); Calc. Creatinine Clearance 16 mL/min (70-130); Calcium 9.5 mg/dL (7.8-10.44); Carbon Dioxide 24 mmol/L (22-29); Chloride 97 mmol/L (98-107); Estimated GFR-MDRD 12; Glucose 170 mg/dL (70-105); Potassium 3.7 mmol/L (3.5-5.1); Protein, Total 6.6 g/dL (6.0-8.3); Sodium 138 mmol/L (136-145)
[2018-07-12] MEDS: HumaLOG 300 UNITS/3 ML VIAL SC PRN (06:30)
[2018-07-12] MEDS: Nitroglycerin 2% Ointment 1 INCH/1 GM Packet TOP SCH ×2 (06:32→14:25)
[2018-07-12] MEDS ORDERED: Triple Antibiotic Ointment 30 GM TUBE TOP SCH (09:00)
[2018-07-12] MEDS: Folic Acid/Vit B Comp W-C PO SCH (10:12)
[2018-07-12] MEDS: Aspirin 81 mg Enteric Coated Tablet PO SCH (10:12)
[2018-07-12] MEDS: Clopidogrel Bisulfate 75 MG TAB PO SCH (10:12)
[2018-07-12] MEDS: Carvedilol 6.25 MG TAB PO SCH (10:12)
[2018-07-12] MEDS: Saccharomyces boulardii 250 MG CAP PO SCH (10:13)
--- NOTE | 2018-07-12 11:24 | PRG ---
DATE OF SERVICE: 07/12/2018 SUBJECTIVE: Patient was seen and examined at bedside and overnight events noted. Patient denies any shortness of breath or chest pain or palpitation. No history of nausea or vomiting or diarrhea or fever or chills or cramps. OBJECTIVE: GENERAL: This is a well built male, in no apparent distress. VITAL SIGNS: Temperature 97.9. Heart rate 73. Respiratory rate . Blood pressure 141/58. HEENT: Atraumatic, normocephalic. Oral mucosa is moist NECK: Supple. CARDIOVASCULAR: S1, S2 heard. Rate and rhythm regular. RESPIRATORY: Clear to auscultation. GASTROINTESTINAL: Abdomen is soft. MUSCULOSKELETAL: No tenderness. No edema. DERMATOLOGIC: No skin rash. NEUROLOGIC: Alert and awake and oriented X3. No focal neurologic deficits. Moving all the extremities. PSYCHIATRIC: Mood and affect normal. LABORATORY DATA: Potassium 3.7, BUN is 36, creatinine is 5.1. ASSESSMENT AND PLAN: 1. End-stage renal disease, continue on dialysis as tolerated. plan to continue dialysis as tolerated. Job ID: [id number]
[2018-07-12 12:49] VITALS: TEMP 97.6
[2018-07-12 13:28] VITALS: BP 148/65
--- NOTE | 2018-07-12 19:39 | EKG ---
Test Reason : ER INDICATION Blood Pressure : / mmHG Vent. Rate : 086 BPM Atrial Rate : 086 BPM P-R Int : 184 ms QRS Dur : 100 ms QT Int : 408 ms P-R-T Axes : 063 104 -39 degrees QTc Int : 488 ms Normal sinus rhythm Rightward axis Incomplete right bundle branch block Possible Inferior infarct , age undetermined Abnormal ECG Confirmed by CHAZ WARREN DO ([id number]), editor magazine CHERRI TREVINO ([id number]) on 07/12/2018 7:37:24 PM Referred By: Confirmed By:CHAZ WARREN DO
== END 2018-07-12 15:20 | disposition home or self-care (01) | DRG 286 ==
LOC: ERS 16:22 → 2SW 21:47 → OBSVTOIN 07-09 14:12
PROVIDERS: ADMIT Hospitalist; ATTEND Hospitalist
PROC: 5A1D70Z Performance of Urinary Filtration, Intermittent, Less than 6 Hours Per Day (ICD-10-PCS; 2018-07-09)
PROC: 4A023N7 Measurement of Cardiac Sampling and Pressure, Left Heart, Percutaneous Approach (ICD-10-PCS; principal; 2018-07-10)
PROC: B2151ZZ Fluoroscopy of Left Heart using Low Osmolar Contrast (ICD-10-PCS; 2018-07-10)
PROC: B2111ZZ Fluoroscopy of Multiple Coronary Arteries using Low Osmolar Contrast (ICD-10-PCS; 2018-07-10)
DX: R07.9 Chest pain, unspecified (principal); N18.6 End stage renal disease; E11.52 Type 2 diabetes mellitus with diabetic peripheral angiopathy with gangrene; I96 Gangrene, not elsewhere classified; I13.2 Hypertensive heart and chronic kidney disease with heart failure and with stage 5 chronic kidney disease, or end stage renal disease; I50.42 Chronic combined systolic (congestive) and diastolic (congestive) heart failure; I25.10 Atherosclerotic heart disease of native coronary artery without angina pectoris; E11.22 Type 2 diabetes mellitus with diabetic chronic kidney disease; I25.5 Ischemic cardiomyopathy; E78.5 Hyperlipidemia, unspecified; D63.1 Anemia in chronic kidney disease; E87.5 Hyperkalemia; Z99.2 Dependence on renal dialysis; Z89.511 Acquired absence of right leg below knee; Z95.5 Presence of coronary angioplasty implant and graft; Z79.4 Long term (current) use of insulin; Z79.82 Long term (current) use of aspirin; Z79.899 Other long term (current) drug therapy; Z87.891 Personal history of nicotine dependence
CPT/HCPCS: 36415; 36416; 71045; 71275; 78451; 80048; 80053; 82550; 82553; 83690; 84484; 85025; 85379; 93005; 93458; 94760; 99152; A9500; C1769; J1644; J2250; J3010; Q9966; Q9967

== ENCOUNTER 2018-07-14 09:50 | Emergency (ER) | payer MEDICARE ==
--- NOTE | 2018-07-14 10:45 | RAD ---
XR Tib Fib Rt Leg 2 View History: [Injury.] Comparison: None. Findings: There is subcutaneous emphysema of the soft tissues stump coverage site. Prior right below the knee amputation. Some heterotopic ossification along the distal medial femur. Impression: Cutaneous emphysema of the soft tissue stump may be sequelae of laceration given history.
[2018-07-14 11:13] LABS: #Basophils 0.1 thou/uL (0.0-0.2); #Eosinphils 0.2 thou/uL (0.0-0.7); #Lymphocytes 1.3 thou/uL (1.20-3.40); #Monocytes 0.5 thou/uL (0.11-0.59); #Neutrophils 4.1 thou/uL (1.40-6.50); %Basophils 1.1 % (0.0-1.0); %Eosinophils 3.2 % (0.0-10.0); %Lymphocytes 20.4 % (21.0-51.0); %Monocytes 8.9 % (0.0-10.0); %Neutrophils 66.5 % (42.0-75.0); Hemoglobin 9.9 g/dL (14.0-18.0); Mean Corpuscular HGB CONC 30.9 g/dL (32.0-36.0); Mean Corpuscular Volume 97.3 fL (78.0-98.0); Mean Platelet Volume 7.1 fL (7.4-10.4); Platelet Count 362 thou/uL (130-400); RBC Distribution Width 18.1 % (11.5-14.5); Red Blood Cell (RBC) Count 3.29 mill/uL (4.70-6.10); White Blood Cell (WBC) Count 6.1 thou/uL (4.8-10.8)
[2018-07-14 11:19] LABS: INR-International Normal Ratio 1.5; PTT 49.9 SEC (22.9-36.1); Prothrombin Time 17.8 SEC (12.0-14.7)
[2018-07-14 11:35] LABS: ALT (SGPT) 10 U/L (8-55); AST (SGOT) 21 U/L (5-34); Alkaline Phosphatase 88 U/L (40-150); Anion Gap 16 mmol/L (10-20); BUN (Urea Nitrogen) 23 mg/dL (8.4-25.7); Bilirubin, Total 1.3 mg/dL (0.2-1.2); Calc. Creatinine Clearance 0 mL/min (70-130); Calcium 9.5 mg/dL (7.8-10.44); Carbon Dioxide 32 mmol/L (22-29); Chloride 91 mmol/L (98-107); Estimated GFR-MDRD 15; Globulin 3.1 g/dL (2.4-3.5); Glucose 87 mg/dL (70-105); Potassium 3.7 mmol/L (3.5-5.1); Protein, Total 7.1 g/dL (6.0-8.3); Sodium 135 mmol/L (136-145)
== END 2018-07-14 13:41 | disposition home or self-care (01) ==
LOC: ERS 09:50
DX: T87.81 Dehiscence of amputation stump (principal); I12.0 Hypertensive chronic kidney disease with stage 5 chronic kidney disease or end stage renal disease; E11.22 Type 2 diabetes mellitus with diabetic chronic kidney disease; N18.6 End stage renal disease; Z89.512 Acquired absence of left leg below knee; Z99.2 Dependence on renal dialysis; Z87.891 Personal history of nicotine dependence; Z79.899 Other long term (current) drug therapy; Z79.82 Long term (current) use of aspirin; W19.XXXA Unspecified fall, initial encounter
CPT/HCPCS: 36415; 80053; 85025; 85610; 85730

== ENCOUNTER 2018-07-20 16:05 | Emergency (ER) | payer MEDICARE | END 2018-07-20 17:25 | disposition home or self-care (01) | LOC: ERS 16:05 | DX: T87.81 Dehiscence of amputation stump (principal); E11.9 Type 2 diabetes mellitus without complications; I10 Essential (primary) hypertension; Z87.891 Personal history of nicotine dependence; Z79.82 Long term (current) use of aspirin; Z79.891 Long term (current) use of opiate analgesic; Z79.899 Other long term (current) drug therapy | CPT/HCPCS: 99282 ==

== ENCOUNTER 2018-07-24 15:28 | Inpatient (IN) | payer MEDICARE ==
--- NOTE | 2018-07-24 18:33 | RAD ---
RADIOGRAPH CHEST 1 VIEW: DATE: 07/24/2018 TIME: 6:15 PM HISTORY: 53-year-old male with dyspnea COMPARISON: 07/08/2018 FINDINGS: Cardiomegaly. Bilateral pleural effusions, right greater than left have not significantly changed. Mi ld hazy region in the left midlung zone seen previously, has resolved. No other interval change. No pneumothorax. Pulmonary venous engorgement. IMPRESSION: 1. No major interval change in congestive heart failure, with cardiomegaly, bilateral pleural effusio ns, and pulmonary venous congestion.
[2018-07-24 18:55] LABS: #Basophils 0.1 thou/uL (0.0-0.2); #Eosinphils 0.1 thou/uL (0.0-0.7); #Lymphocytes 1.4 thou/uL (1.20-3.40); #Monocytes 1.1 thou/uL (0.11-0.59); #Neutrophils 7.5 thou/uL (1.40-6.50); %Basophils 0.5 % (0.0-1.0); %Eosinophils 0.8 % (0.0-10.0); %Lymphocytes 13.4 % (21.0-51.0); %Monocytes 11.3 % (0.0-10.0); Hemoglobin 10.8 g/dL (14.0-18.0); Mean Corpuscular HGB CONC 30.9 g/dL (32.0-36.0); Mean Corpuscular Volume 96.9 fL (78.0-98.0); Mean Platelet Volume 7.2 fL (7.4-10.4); Platelet Count 388 thou/uL (130-400); RBC Distribution Width 18.6 % (11.5-14.5); Red Blood Cell (RBC) Count 3.61 mill/uL (4.70-6.10); White Blood Cell (WBC) Count 10.1 thou/uL (4.8-10.8)
[2018-07-24 19:22] LABS: ALT (SGPT) 13 U/L (8-55); AST (SGOT) 21 U/L (5-34); Albumin 4.3 g/dL (3.5-5.0); Alkaline Phosphatase 98 U/L (40-150); Anion Gap 22 mmol/L (10-20); BUN (Urea Nitrogen) 51 mg/dL (8.4-25.7); Bilirubin, Total 1.8 mg/dL (0.2-1.2); Calc. Creatinine Clearance 0 mL/min (70-130); Calcium 9.7 mg/dL (7.8-10.44); Carbon Dioxide 28 mmol/L (22-29); Chloride 92 mmol/L (98-107); Estimated GFR-MDRD 10; Globulin 2.8 g/dL (2.4-3.5); Glucose 217 mg/dL (70-105); Potassium 5.6 mmol/L (3.5-5.1); Protein, Total 7.1 g/dL (6.0-8.3); Sodium 136 mmol/L (136-145)
[2018-07-24 19:38] LABS: CKMB 0.9 ng/mL (0-6.6)
[2018-07-24] MEDS ORDERED: Gentamicin 80 MG/2 ML VIAL ONE ×2 (19:53→20:05)
[2018-07-24] MEDS ORDERED: Vancomycin HCl 1 GM in Premix Bag 1 BAG IVPB SCH (21:15)
[2018-07-24] MEDS ORDERED: Ondansetron ODT 4 MG TAB PO PRN (21:29)
[2018-07-24] MEDS ORDERED: Ondansetron PF 4 MG/2 ML Vial IVP PRN (21:29)
[2018-07-24] MEDS ORDERED: Acetaminophen 650 MG Suppository PR PRN (21:29)
[2018-07-24] MEDS ORDERED: Dextrose 5% in Water 1,000 ML IV PRN (21:31)
[2018-07-24] MEDS ORDERED: Dextrose 50% Abboject 50 ML SYRINGE SLOW IVP PRN (21:31)
[2018-07-24 21:58] LABS: Troponin I 0.073 ng/mL (< 0.028)
[2018-07-24] MEDS ORDERED: Vancomycin HCl 1.25 GM in Sodium Chloride 0.9% 250 ML 250 ML IVPB SCH (22:15)
[2018-07-24] MEDS ORDERED: Vancomycin HCl 750 MG in Sodium Chloride 0.9% 250 ML 250 ML IVPB SCH (22:15)
[2018-07-24] MEDS ORDERED: [UNRECOGNIZED DRUG - REMARK] FS SCH (22:15)
[2018-07-24] MEDS ORDERED: Vancomycin HCl 500 MG in Sodium Chloride 0.9% 100 ML IVPB SCH (22:15)
[2018-07-24] MEDS ORDERED: Vancomycin HCl 1.5 GM in Sodium Chloride 0.9% 250 ML 300 ML IVPB SCH (22:15)
[2018-07-25] MEDS ORDERED: Gentamicin Sulfate 80 MG in Premix Bag 1 BAG IVPB SCH (00:30)
[2018-07-25 01:00] LABS: Troponin I 0.064 ng/mL (< 0.028)
--- NOTE | 2018-07-25 03:50 | HP ---
PRIMARY CARE PHYSICIAN: Dr. Joe Pacheco. CODE STATUS: Full code. TIME OF EVALUATION: 08:40 p.m. CHIEF COMPLAINT: Bleeding from the wound. HISTORY OF PRESENT ILLNESS: This is a 53-year-old male patient with past medical history of diabetes; hypertension; end-stage renal disease, on hemodialysis Saturday, Saturday, and Saturday. The patient had recently right rbifq-god-bkws amputation. He said it looks like he has a fall a couple of days ago and then damaged his wound, went to see Dr. Ojeda today and then had wound checked and after he went home, he developed some bleeding, called Dr. Mckeon and was requested to come to the ER. The patient has been seen at bedside. He is stable. Dr. Mckeon being consulted by the ER doctor and the patient has been started on antibiotics. He will see the patient in the morning. We will follow recommendation from his side. No clear triggers for symptoms. No alleviating factors. Patient also had associated shortness of breath and he presented. A CAT scan was done and pulmonary embolism was ruled out. The patient does have significant right-sided pleural effusion. REVIEW OF SYSTEMS: CONSTITUTIONAL: No fever, chills, or generalized weakness. RESPIRATORY: The patient has no cough. No sputum production. The patient does have shortness of breath. CARDIOVASCULAR: No chest pain or palpitation. GASTROINTESTINAL: No nausea. No vomiting, diarrhea, or abdominal pain. CENTRAL NERVOUS SYSTEM: No dizziness, headache, or feeling lightheaded. GENITOURINARY: No burning on urination. EXTREMITIES: The patient has right surjj-oim-pwnm amputation that has been bleeding after revision today. All other systems were reviewed and negative except for the findings mentioned above. PAST MEDICAL HISTORY: Positive for diabetes; hypertension; end-stage renal disease, on hemodialysis. PAST SURGICAL HISTORY: Right pbits-ioy-hktq amputation, dialysis fistula in the left lower arm, abdominal surgery. PSYCHIATRIC HISTORY: No previous psych history. SOCIAL HISTORY: The patient had no alcohol, no drugs. Lives at home with family. FAMILY HISTORY: Reviewed and noncontributory for current presentation. KNOWN ALLERGIES: No known drug allergies. REPORTED MEDICATIONS: 1. Amlodipine. 2. Carvedilol. 3. Pravastatin. 4. Sevelamer. 5. TriCor. 6. Nexium. 7. Aspirin 81. PHYSICAL EXAMINATION: VITAL SIGNS: On presentation, blood pressure 115/59 with heart rate 87, respiratory rate was 18, temperature 98.2. Pain 0/10. Oxygen saturation was 94% on room air. GENERAL APPEARANCE: The patient is alert, oriented, not in acute distress. HEENT: Eyes, normal conjunctivae. Moist oral mucosa. Anicteric. NECK: No JVD. RESPIRATORY: Bilateral air entry is decreased. The patient has rales in the left side. No wheezes. Symmetric expansion. CARDIOVASCULAR: Normal rate. Regular rhythm. No murmurs. No gallop. No edema. ABDOMEN: Soft, normal bowel sounds. MUSCULOSKELETAL: Baseline range of motion and strength. No tenderness. To the right knee, has lxjem-dsc-hfnw amputation. Has had some bleeding from the stump. Peripheral pulses are present. Capillary refill seems to be intact. NEUROLOGIC: No evidence of any new focal weakness. Baseline speech. Cranial nerves seem to be intact. PSYCHIATRIC: Patient is in good mood. No anxiety. Optimal judgment. IMAGING STUDIES: EKG was reviewed. The patient has sinus rhythm with first-degree AV block with a rate of 86 with incomplete RBBB, QRS 118, NE 236. Chest x-ray was reviewed. The patient had no major interval change in congestive heart failure, cardiomegaly, bilateral pleural effusion, and pulmonary venous congestion. Labs were reviewed. The patient has white count 10.1, hemoglobin 10.8, MCV 96.9, platelet count 388. Sodium 136, potassium 5.6, chloride 92, carbon dioxide 28, anion gap 22, BUN 51, creatinine 5.88, GFR 10, glucose 217, calcium 9.7, total bilirubin 1.8. LFTs were negative. Troponin; the first one 0.078, seconds one 0.073, third one 0.064. Beta natriuretic peptide 22,644. ASSESSMENT AND PLAN: The patient will be placed in the hospital with following medical problems: 1. Bleeding from the right gsqbh-vzy-xhuu surgical wound. Dr. Mckeon has been consulted and he will see the patient in the morning. We will follow recommendations. 2. End-stage renal disease. The patient will need hemodialysis as inpatient. Dr. Schaefer knows the patient, has been consulted. 3. Bilateral pleural effusion secondary to end-stage renal disease and fluid overload. The patient will have hemodialysis in the morning. Pulmonary could be consulted to do the therapeutic tap from the right pleural effusion. 4. Hyperkalemia. Potassium 5.6. This is mild, we will monitor the patient to go for dialysis in the morning. 5. Uncontrolled diabetes. We will place the patient on sliding scale for optimal control. 6. Glf-RZ-fyquhczlh myocardial infarction type 2. This is likely secondary to increase in troponin of 0.078 and 0.073. We will treat underlying condition. 7. Controlled hypertension, reconcile home medications. We will monitor. 8. Deep venous thrombosis prophylaxis. Job ID: [id number]
[2018-07-25 06:17] LABS: #Lymphocytes 1.6 thou/uL (1.20-3.40); #Monocytes 1.1 thou/uL (0.11-0.59); #Neutrophils 7.6 thou/uL (1.40-6.50); %Basophils 0.1 % (0.0-1.0); %Eosinophils 0.4 % (0.0-10.0); %Lymphocytes 15.1 % (21.0-51.0); %Neutrophils 73.3 % (42.0-75.0); Hemoglobin 9.9 g/dL (14.0-18.0); Mean Corpuscular HGB CONC 31.1 g/dL (32.0-36.0); Mean Corpuscular Hemoglobin 30.4 pg (27.0-31.0); Mean Corpuscular Volume 97.8 fL (78.0-98.0); Mean Platelet Volume 7.3 fL (7.4-10.4); Platelet Count 339 thou/uL (130-400); Red Blood Cell (RBC) Count 3.25 mill/uL (4.70-6.10); White Blood Cell (WBC) Count 10.4 thou/uL (4.8-10.8)
[2018-07-25 07:03] LABS: Anion Gap 21 mmol/L (10-20); BUN (Urea Nitrogen) 57 mg/dL (8.4-25.7); Calc. Creatinine Clearance 14 mL/min (70-130); Calcium 9.7 mg/dL (7.8-10.44); Carbon Dioxide 24 mmol/L (22-29); Chloride 94 mmol/L (98-107); Estimated GFR-MDRD 9; Glucose 202 mg/dL (70-105); Potassium 5.5 mmol/L (3.5-5.1); Sodium 133 mmol/L (136-145)
[2018-07-25] MEDS: Acetaminophen 325 MG TAB PO PRN (08:24)
--- NOTE | 2018-07-25 08:44 | CT ---
PRELIMINARY REPORT/[facility]/EMERGENCY AFTER HOURS PROCEDURE: EXAM: CT Angiography Chest With Contrast EXAM DATE/TIME: 07/25/2018 12:06 AM CLINICAL HISTORY: 53 years old, male; Signs and symptoms; Dyspnea; Patient HX: R/O pe. SOB. TECHNIQUE: Imaging protocol: Axial computed tomographic angiography images of the chest with intravenous contras t using CT angiography protocol. Coronal and sagittal reformatted images were created and reviewed. 3D rendering: MIP reconstructed images were created and reviewed. COMPARISON: No relevant prior studies available. FINDINGS: Pulmonary arteries: No pulmonary emboli. Aorta: Mild atherosclerosis of the aorta without aneurysm. Lungs: Bilateral septal thickening and groundglass opacities. Bibasilar atelectasis. Pleural space: Large right and small left pleural effusions. Heart: Cardiomegaly. Trace pericardial effusion. Lymph nodes: No lymphadenopathy. Bones/joints: No suspicious bone lesions or fracture. Soft tissues: No acute finding. IMPRESSION: 1. No evidence of a pulmonary embolism. 2. Cardiomegaly, pulmonary edema, large right and small left pleural effusions consistent with conges tive heart failure/fluid overload. Thank you for allowing us to participate in the care of your patient. Dictated and Authenticated by: Dulce Maria Garza MD 07/25/2018 12:49 AM Central Time ([place] & [place]) FINAL REPORT CT ANGIO OF CHEST PERFORMED WITH INTRAVENOUS CONTRAST ENHANCEMENT WITH 3D RECONSTRUCTIONS: HISTORY: Shortness of breath. COMPARISON: 07/08/2018 study. FINDINGS: There is a large right and a small left pleural effusion present. There are moderate bibasilar atele ctatic lung changes. There is no confluent infiltrative process or pulmonary nodules. The thoracic aorta is normal in caliber. There is good pulmonary artery opacification, no CT evidence for pulmonary embolus. Visualized liver parenchyma shows no focal findings. IMPRESSION: 1. Large right pleural effusion and small left pleural effusion with bibasilar atelectasis. 2. No CT evidence for a pulmonary embolus. This report is in agreement with the temporary report issued by [facility]. POS: [facility]
[2018-07-25] MEDS ORDERED: Enoxaparin Sodium 30 MG/0.3 ML SYRINGE SC SCH (09:00)
[2018-07-25 14:00] LABS: Vancomycin, Random 33.3 ug/mL (See Comment)
--- NOTE | 2018-07-25 15:07 | PRG ---
DATE OF SERVICE: 07/25/2018 SUBJECTIVE: The patient seen and examined during dialysis. Shortness of breath is gradually improving. He is currently on 4 L nasal cannula. Denies any chest pain or palpitations. Right stump bleeding is controlled at this time. REVIEW OF SYSTEMS: The patient denies any nausea, vomiting, or fever. All other review of systems was reviewed and was found negative. CURRENT MEDICATIONS: Reviewed. PHYSICAL EXAMINATION: VITAL SIGNS: Temperature 98, pulse 82, blood pressure 137/75, respirations of 20 to 24, and O2 saturation 94% on 4 L nasal cannula. GENERAL: A 53-year-old male, in no apparent distress. Mild accessory muscle use. NECK: Supple. No JVD appreciated. No carotid bruit. LUNGS: Showed diminished air entry over the left lower half of the lung. There was scattered rhonchi. No significant wheezing noted. Mild accessory muscle use. HEART: S1 and S2 present. Regular rate and rhythm. No heaves or pulsation. ABDOMEN: Soft. Bowel sounds present. EXTREMITIES: No edema or calf tenderness in left lower extremity. There is dressing over the stump in the right lower extremity. LABORATORY FINDINGS: WBC 10.4 with hemoglobin 9.9. Sodium 133, potassium 5.5, chloride 94, bicarb 24, BUN 57, creatinine 6.21. Troponin of 0.073. Chest x-ray by my review showed volume overload with bilateral pleural effusion. CT angiogram of the chest showed large right-sided pleural effusion. Telemetry monitoring by my review showed sinus rhythm. IMPRESSION: 1. Acute hypoxic respiratory failure secondary to large right-sided pleural effusion/Volume overload. 2. Bleeding from the right below-knee amputation site. Bleeding is controlled at this time. He is currently on vancomycin and gentamicin for 2 weeks starting yesterday per Dr. Ojeda. 3. End-stage renal disease, on hemodialysis Saturday, Saturday, and Saturday. The patient is currently undergoing hemodialysis. 4. Diabetes mellitus, type 2. 5. Severe peripheral vascular disease. 6. Chronic systolic HF EF 20-25% due to ischemic CM. Not on ACEI/ARB/Aldactone due to renal insufficiency. 7. Hyperkalemia. 8. Hyponatremia. 9. Type 2 myocardial infarction/demand ischemia from volume overload. 10. Hyperlipidemia. 11. Secondary hyperparathyroidism. 12. Hypertension. 13. Anemia secondary to chronic kidney disease. 14. GERD. PLAN: Home medications will be resumed. We will continue vancomycin and gentamicin per General surgery recommendation. We will consult Pulmonary for large right- sided pleural effusion. Dialysis per Nephrology. We will monitor vancomycin and gentamicin level. Recheck electrolytes in a.m. We will add fluid restriction. Resume NPH. Plan of care was discussed with the patient. He stated understanding. Job ID: [id number] MTDD
--- NOTE | 2018-07-25 16:24 | CON ---
DATE OF CONSULTATION: 07/25/2018 CONSULTING PHYSICIAN: Dr. Butler. REASON FOR CONSULT: End-stage renal disease evaluation and care. REASON FOR ADMISSION: Bleeding from the amputation wound. HISTORY OF PRESENT ILLNESS: This is a 53-year-old male with history of type 2 diabetes, hypertension, and end-stage renal disease, who came to the hospital with above complaints. Nephrology consulted for maintenance hemodialysis. The patient gets dialysis, Saturday, Saturday, and Saturday, due for dialysis today. The patient is short of breath. No nausea or vomiting. No chest pain or palpitation. No fever or chills. PAST MEDICAL HISTORY: Positive for diabetes, hypertension, end-stage renal disease. PAST SURGICAL HISTORY: Right below-knee amputation and dialysis abdominal surgery. HOME MEDICATIONS: 1. Amlodipine. 2. Carvedilol. 3. Pravastatin. 4. Sevelamer. 5. TriCor. 6. Nexium. 7. Aspirin. ALLERGIES: NO KNOWN DRUG ALLERGIES. SOCIAL HISTORY: No smoking, alcohol, or illicit drug abuse. FAMILY HISTORY: No history of kidney disease. REVIEW OF SYSTEMS: CONSTITUTIONAL: Negative for weight loss or gain, ability to conduct usual activities. SKIN: Negative for rash, itching. EYES: Negative for double vision, pain. ENT/MOUTH: Negative for nose bleeding, neck stiffness, pain, tenderness. CARDIOVASCULAR: Negative for palpitations, dyspnea on exertion, orthopnea. RESPIRATORY: Negative for shortness of breath, wheezing, cough, hemoptysis, fever or night sweats. GASTROINTESTINAL: Negative for poor appetite, abdominal pain, heartburn, nausea, vomiting, constipation, or diarrhea. GENITOURINARY: Negative for urgency, frequency, dysuria, nocturia. MUSCULOSKELETAL: Negative for pain, swelling. NEUROLOGIC/PSYCHIATRIC: Negative for anxiety, depression. ALLERGY/IMMUNOLOGIC: Negative for skin rash, bleeding tendency. PHYSICAL EXAMINATION: GENERAL: This is a well-built male, in no apparent distress. VITAL SIGNS: Temperature pulse 88, respiratory rate 18, blood pressure 134/72. HEENT: Head is atraumatic, normocephalic. Oral mucosa moist. NECK: Supple. CV: S1 and S2 heard. Rate and rhythm regular. RESPIRATORY: Clear. GI: Abdomen is soft. MUSCULOSKELETAL: 1+ edema. DERMATOLOGIC: No skin rash. NEUROLOGIC: Alert and awake. PSYCHIATRIC: Normal mood and affect. LABORATORY DATA: Hemoglobin is 9.9. Potassium is 5.5, BUN is 57, creatinine is 6.2. ASSESSMENT AND PLAN: 1. End-stage renal disease. Continue on dialysis. 2. Hyperkalemia. . 3. Metabolic acidosis. 4. Anemia, chronic. 5. Hypertension, stable. Plan is to have dialysis today, and Saturday, Saturday, Saturday as tolerated. Job ID: [id number]
[2018-07-25] MEDS: Sevelamer Carbonate 800 MG TAB PO SCH (17:49)
[2018-07-25] MEDS: Carvedilol 6.25 MG TAB PO SCH (17:49)
[2018-07-25] MEDS ORDERED: Gentamicin Sulfate 100 MG in Premix Bag 1 BAG IVPB SCH (18:00)
--- NOTE | 2018-07-25 20:07 | HP ---
Fazal Reid is a 53-year-old male patient, who underwent right below-knee amputation on 06/10/2018. After Dr. Ferdinand Lazo on 05/26/2018 performed intervention with aortogram runoff and CLINICAL EDUCATION ACADEMIC COORDINATOR of right popliteal artery, peroneal artery, and posterior tibial artery, the patient's pain continued and the wound was not healed. Thus, he required a BKA. The patient was discharged home. He at home had a fall, reported to the emergency room, was evaluated, and sent home. He was seen in my office periodically and I saw him in the office in fact yesterday. I debrided the wound off eschar. He had deep penetration to the fascia. [facility] was seeing him and they were contacted and wound VAC recommended, but we were informed that this has to be initiated through the hospital [facility]. Appointments were made. The patient reported to the emergency room with what they described as a bloody drainage. His hemoglobin was 10.8 and white count was 10. He last dialyzed the day before. The patient was admitted for wound care, receiving vancomycin and gentamicin. After discussed with Dr. Rouse, Wound Care team will place the wound VAC. The patient can be discharged home with wound VAC management as an outpatient, jail or home. He can receive intravenous antibiotics during dialysis. Vancomycin per sliding scale per Dr. Rouse at the Dialysis Center, and gentamicin with each dialysis for 2 to 3 weeks. I will need to see him in 2 to 3 weeks. I expect this wound will heal and hopefully we can salvage his kllul-iqa-asqh amputation and I will have to perform the amputation more proximal. Wound Care was seen in this hospitalization. The patient will be discharged to home or transferred to jail whenever arrangements were made. I will see him periodically in this hospitalization. No evidence of bleeding and no evidence of infection, but with exposed tibia with the open wound that has dehisced secondary to his fall, we should cover him with antibiotics until there is adequate granulation tissue and healing. Job ID: [id number]
[2018-07-25] MEDS: Atorvastatin Calcium 10 MG TAB PO SCH (22:37)
[2018-07-25] MEDS: Fenofibrate Nanocrystallized 145 MG TAB PO SCH (22:37)
[2018-07-25] MEDS: Amlodipine 5 MG TAB PO SCH (22:38)
[2018-07-26 05:03] LABS: #Basophils 0.1 thou/uL (0.0-0.2); #Eosinphils 0.2 thou/uL (0.0-0.7); #Lymphocytes 1.4 thou/uL (1.20-3.40); #Neutrophils 3.9 thou/uL (1.40-6.50); %Basophils 0.9 % (0.0-1.0); %Eosinophils 2.6 % (0.0-10.0); %Lymphocytes 21.2 % (21.0-51.0); %Monocytes 14.7 % (0.0-10.0); %Neutrophils 60.7 % (42.0-75.0); Mean Corpuscular HGB CONC 32.2 g/dL (32.0-36.0); Mean Corpuscular Hemoglobin 31.3 pg (27.0-31.0); Mean Corpuscular Volume 97.1 fL (78.0-98.0); Mean Platelet Volume 7.7 fL (7.4-10.4); Platelet Count 304 thou/uL (130-400); RBC Distribution Width 19.1 % (11.5-14.5); Red Blood Cell (RBC) Count 2.86 mill/uL (4.70-6.10); White Blood Cell (WBC) Count 6.5 thou/uL (4.8-10.8)
[2018-07-26 05:17] LABS: Anion Gap 14 mmol/L (10-20); BUN (Urea Nitrogen) 40 mg/dL (8.4-25.7); Calc. Creatinine Clearance 18 mL/min (70-130); Calcium 9.3 mg/dL (7.8-10.44); Carbon Dioxide 28 mmol/L (22-29); Chloride 95 mmol/L (98-107); Estimated GFR-MDRD 13; Glucose 244 mg/dL (70-105); Potassium 4.2 mmol/L (3.5-5.1); Sodium 133 mmol/L (136-145)
[2018-07-26] MEDS: Acetaminophen 325 MG TAB PO PRN (08:33)
[2018-07-26] MEDS: Heparin 5,000 UNITS/ML VIAL SC SCH ×2 (08:34→19:54)
[2018-07-26] MEDS: traMADol HCl 50 MG TAB PO PRN (09:12)
[2018-07-26] MEDS: Sevelamer Carbonate 800 MG TAB PO SCH ×3 (09:15→16:41)
[2018-07-26] MEDS: Saccharomyces boulardii 250 MG CAP PO SCH (09:15)
[2018-07-26] MEDS: Aspirin 81 mg Enteric Coated Tablet PO SCH (09:16)
[2018-07-26] MEDS: Clopidogrel Bisulfate 75 MG TAB PO SCH (09:16)
[2018-07-26] MEDS: Amlodipine 5 MG TAB PO SCH ×2 (09:16→19:52)
[2018-07-26] MEDS: Carvedilol 6.25 MG TAB PO SCH ×2 (09:16→19:53)
[2018-07-26] MEDS: NPH, Human Insulin Isophane 300 UNIT/3 ML VIAL SC SCH ×2 (09:17→20:28)
[2018-07-26] MEDS: HumaLOG 300 UNITS/3 ML VIAL SC PRN (12:04)
--- NOTE | 2018-07-26 13:16 | PRG ---
DATE OF SERVICE: 07/26/2018 SUBJECTIVE: Patient was seen and examined at bedside and overnight events noted. Patient denies any shortness of breath or chest pain or palpitation. No history of nausea or vomiting or diarrhea or fever or chills or cramps. OBJECTIVE: GENERAL: This is a well-built male, in no apparent distress. VITAL SIGNS: Temperature 98.2. Heart rate 80. Respiratory rate . Blood pressure 127/58. HEENT: Atraumatic, normocephalic. Oral mucosa is moist NECK: Supple. CARDIOVASCULAR: S1, S2 heard. Rate and rhythm regular. RESPIRATORY: Clear to auscultation. GASTROINTESTINAL: Abdomen is soft. MUSCULOSKELETAL: No tenderness. No edema. DERMATOLOGIC: No skin rash. NEUROLOGIC: Alert and awake and oriented X3. No focal neurologic deficits. Moving all the extremities. PSYCHIATRIC: Mood and affect normal. LABORATORY DATA: Potassium 4.2, BUN is 40, and creatinine 4.0. ASSESSMENT AND PLAN: 1. End-stage renal disease. Continue on dialysis as tolerated. 2. Hyperkalemia. 3. Metabolic acidosis. 4. Anemia. 5. Hypertension, stable. The patient is breathing better. Continue on dialysis as tolerated. Job ID: [id number] [facility]
[2018-07-26] MEDS ORDERED: Gentamicin Sulfate 100 MG in Premix Bag 1 BAG IVPB SCH (15:00)
--- NOTE | 2018-07-26 15:00 | PDOC.PN ---
- Subjective Encounter Start Date: 07/26/18 Encounter Start Time: 09:30 Patient seen and examined for Volume overload. SOB improving. No CP. No new complaints. No overnight events - Objective Resuscitation Status - Order Detail: 07/24/18 21:29 Resuscitation Status Routine Resuscitation Status: FULL: Full Resuscitation MAR Reviewed: Yes Vital Signs & Weight: Vital Signs (12 hours) Temp Pulse Resp BP BP Pulse Ox 07/26/18 12:00 97.5 F L 71 19 109/59 L 99 07/26/18 09:16 83 134/63 07/26/18 07:40 92 L 07/26/18 07:13 98.2 F 83 20 126/58 L 92 L 07/26/18 03:20 97.9 F 80 20 113/56 L 97 Weight Admit Weight 158 lb 4 oz Weight 154 lb I&O: 07/25/18 07/26/18 07/27/18 06:59 06:59 06:59 Intake Total 550 540 Output Total 3000 Balance 550 -2460 Result Diagrams: 07/26/18 04:11 07/26/18 04:11 Additional Labs: Accuchecks 07/26/18 07/26/18 07/25/18 10:56 05:13 20:13 POC Glucose 275 H 226 H 211 H 07/25/18 17:08 POC Glucose 186 H EKG Reviewed by me: Yes (Tele SR) Phys Exam - Physical Examination Constitutional: NAD Respiratory: no wheezing, no rhonchi Cardiovascular: RRR, no rub Gastrointestinal: soft, non-tender, positive bowel sounds Musculoskeletal: no edema Neurological: non-focal, moves all 4 limbs Dx/Plan - Plan IMPRESSION: 1. Acute hypoxic respiratory failure secondary to large right-sided pleural effusion/Volume overload. 2. Bleeding from the right below-knee amputation site -on Vancomycin and gentamicin for [address] Ojeda. 3. End-stage renal disease, on hemodialysis Saturday, Saturday, and Saturday. 4. Diabetes mellitus, type 2. 5. Severe peripheral vascular disease. 6. Chronic systolic HF EF 20-25% due to ischemic CM. Not on ACEI/ARB/Aldactone due to renal insufficiency. 7. Hyperkalemia. 8. Hyponatremia. 9. CAD with type 2 myocardial infarction/demand ischemia from volume overload. 10. Hyperlipidemia. 11. Secondary hyperparathyroidism. 12. Hypertension. 13. Anemia secondary to chronic kidney disease. 14. GERD. PLAN: Wean O2 Cont wound care Await home wound vac setup Cont Atbx per Dr Ojeda Increase NPH to BID Cont other meds as below Review of Systems - Review of Systems Respiratory: negative: Cough, Dry, Shortness of Breath, Hemoptysis, SOB with Excertion, Pleuritic Pain, Sputum, Wheezing Cardiovascular: negative: chest pain, palpitations, orthopnea, paroxysmal nocturnal dyspnea, edema, light headedness, other - Medications/Allergies Allergies/Adverse Reactions: Allergies Allergy/AdvReac Type Severity Reaction Status Date / Time No Known Allergies Allergy Verified 07/08/18 21:59 Medications: Current Medications Acetaminophen (Tylenol) 650 mg PO Q4H PRN PRN Reason: Headache/Fever/Mild Pain (1-3) Last Admin: 07/26/18 08:33 Dose: 650 mg Acetaminophen (Tylenol) 650 mg DE Q4H PRN PRN Reason: Headache/Fever/Mild Pain (1-3) Amlodipine Besylate (Norvasc) 5 mg PO BID [facility] Last Admin: 07/26/18 09:16 Dose: 5 mg Aspirin (Ecotrin) 81 mg PO DAILY [facility] Last Admin: 07/26/18 09:16 Dose: 81 mg Atorvastatin Calcium (Lipitor) 10 mg PO [facility] Last Admin: 07/25/18 22:37 Dose: 10 mg Carvedilol (Coreg) 12.5 mg PO BID-[facility] Last Admin: 07/26/18 09:16 Dose: 12.5 mg Clopidogrel Bisulfate (Plavix) 75 mg PO DAILY [facility] Last Admin: 07/26/18 09:16 Dose: 75 mg Dextrose/Water (Dextrose 50%) 25 gm SLOW IVP PRN PRN PRN Reason: Hypoglycemia Fenofibrate (Tricor) 145 mg PO [facility] Last Admin: 07/25/18 22:37 Dose: 145 mg Glucagon (Glucagon) 1 mg IM PRN PRN PRN Reason: Hypoglycemia Heparin Sodium (Porcine) (Heparin) 5,000 units SC BID [facility] Last Admin: 07/26/18 08:34 Dose: 5,000 units Dextrose/Water (D5w) 1,000 mls @ 0 mls/hr IV .Q0M PRN PRN Reason: Hypoglycemia Vancomycin HCl 1.25 gm/ Sodium (Chloride) 250 mls @ 166.667 mls/hr IVPB [facility] Vancomycin HCl 1 gm/ Device 200 mls @ 200 mls[facility] Vancomycin HCl 750 mg/ Sodium (Chloride) 250 mls @ 250 mls/hr IVPB [facility] Vancomycin HCl 500 mg/ Sodium (Chloride) 100 mls @ 100 mls/hr IVPB [facility] Gentamicin Sulfate 100 mg/ (Device) 100 mls @ 100 mls/hr IVPB [id number] [facility] Insulin Human Lispro (Humalog) 0 units SC .MILD SLIDING SCALE PRN PRN Reason: Mild Correctional Scale Last Admin: 07/26/18 12:04 Dose: 4 units Insulin Human Lispro (Humalog) 0 units SC .BEDTIME SLIDING SC PRN PRN Reason: Bedtime Correctional Scale Insulin Human NPH (Humulin N) 10 unit SC DAILY [facility] Last Admin: 07/26/18 09:17 Dose: 10 unit Miscellaneous Medication (Pharmacy To Dose) 1 each IVPB PRN PRN PRN Reason: SSSI Hold Vancomycin For (Level >20) 0 each FS .AT DIALYSIS [facility] Ondansetron HCl (Zofran Odt) 4 mg PO Q6H PRN PRN Reason: Nausea/Vomiting Ondansetron HCl (Zofran) 4 mg IVP Q6H PRN PRN Reason: Nausea/Vomiting Pantoprazole Sodium (Protonix) 40 mg PO QAM[facility] Last Admin: 07/26/18 09:16 Dose: 40 mg Ranolazine (Ranexa) 500 mg PO BID [facility] Last Admin: 07/26/18 09:16 Dose: 500 mg Saccharomyces Boulardii (Florastor) 250 mg PO DAILY [facility] Last Admin: 07/26/18 09:15 Dose: 250 mg Sevelamer Carbonate (Renvela) 1,600 mg PO TID-[facility] Last Admin: 07/26/18 12:03 Dose: 1,600 mg Tramadol HCl (Ultram) 50 mg PO Q6H PRN PRN Reason: Pain>4 Last Admin: 07/26/18 09:12 Dose: 50 mg
[2018-07-26] MEDS: Atorvastatin Calcium 10 MG TAB PO SCH (19:53)
[2018-07-26] MEDS: Fenofibrate Nanocrystallized 145 MG TAB PO SCH (19:54)
--- NOTE | 2018-07-26 22:08 | CON ---
DATE OF CONSULTATION: 07/26/2018 SERVICE: Pulmonary Medicine. REASON FOR CONSULTATION: Pleural effusion. HISTORY OF PRESENT ILLNESS: The patient is a 53-year-old male with past medical history significant for end-stage renal disease. He presented to the hospital, because he sustained a fall. His right leg stump closure dehisced. He was bleeding from that wound. During the course of the hospital stay, chest x- ray was performed demonstrating an effusion. This prompted a CT of the chest. I was called for the results of that. He denies having any shortness of breath. He has very little cough, but is not bringing up much sputum. He denies any fevers or chills, nausea, vomiting, or diarrhea. He underwent dialysis yesterday and a significant volume of fluid was removed. He typically dialyzes Mondays, Wednesdays, and Fridays. PAST MEDICAL HISTORY: 1. End-stage renal disease. 2. Hypertension. 3. Diabetes. 4. Peripheral vascular disease. PAST SURGICAL HISTORY: 1. Right below-knee amputation. 2. Left arm fistula. 3. Abdominal surgery. SOCIAL HISTORY: Negative for alcohol, tobacco, or illicit drug use. He lives with some family members. He has no exposure to chemicals, dust, or asbestos. FAMILY HISTORY: Noncontributory. ALLERGIES: NO KNOWN DRUG ALLERGIES. MEDICATIONS: List of his inpatient medications was reviewed. No specific updates were made at this time. REVIEW OF SYSTEMS: General, head, ears, eyes, nose, throat, cardiovascular, respiratory, GI, , musculoskeletal, neurologic, and skin are negative except as mentioned in HPI. PHYSICAL EXAMINATION: VITAL SIGNS: Afebrile, pulse 71, blood pressure 109/59, respirations 19, saturation 99% on 2 L nasal cannula. GENERAL: The patient is awake and alert, in no apparent distress. LUNGS: There is a right-sided pleural effusion. Adjacent to that, there is some atelectasis. It does not appear that there is any infiltrating disease. There is a significant amount of contrast refluxing into the inferior vena cava. The left atrium is massively dilated as his left ventricle, right ventricle, and right atrium. Interstitial edema is present. He also has subtle ground-glass changes that tend to layer consistent with volume overload. There is a left-sided pleural effusion as well, but it is much smaller than the right. LABORATORY DATA: WBC 6.5, hemoglobin 9.0, platelets 304,000. Creatinine 4.69 and downtrending, BUN 40. Basic metabolic profile is otherwise unremarkable. Troponin 0.064, BNP is elevated at 22,000, which is a historic high. Liver function studies are unremarkable except for a bilirubin of 1.8. ASSESSMENT: 1. Anasarca state secondary to end-stage renal disease. 2. End-stage renal disease. 3. Abnormal CT, including bilateral pleural effusions (right greater than left) and interstitial edema with subtle ground-glass changes. 4. [id number] systolic and diastolic heart failure. 5. Acute hypoxic respiratory failure, mild. DISCUSSION AND PLAN: At this point, the patient needs to be returned to euvolemia with aggressive dialysis. Once he is clearly euvolemic, we can repeat a chest x -ray to determine whether or not the fluid collection persists or is getting smaller. If it is getting smaller, we will simply repeat an x-ray in the outpatient setting. If it persists, a thoracentesis can be considered at that time. That being said, I have very low suspicion that we are dealing with a malignant process given the patient came in with an anasarca state, has end-stage renal disease, heart failure, and historically elevated BNP. Certainly, if we have increasing evidence of infection, empiric antibiotics can be considered for lung issues. Any antibiotics directed at lung pathology can be discontinued as there is no acute infectious process here. 70 minutes have been devoted to this patient in various activities. I personally reviewed all imaging studies and laboratory data noted within this document. For fifty percent of this time, I was interacting with the patient at the bedside or coordinating care with the care team. For the remainder of the time I was immediately available to the patient in the hospital unit. Job ID: [id number] MTDD
--- NOTE | 2018-07-26 22:53 | PDOC.PN ---
- Subjective Encounter Start Date: 07/26/18 Encounter Start Time: 09:30 Patient seen and examined for. No new complaints. No overnight events - Objective Resuscitation Status - Order Detail: 07/24/18 21:29 Resuscitation Status Routine Resuscitation Status: FULL: Full Resuscitation MAR Reviewed: Yes Vital Signs & Weight: Vital Signs (12 hours) Temp Pulse Resp BP BP Pulse Ox 07/26/18 20:00 97.5 F L 67 16 108/55 L 96 07/26/18 19:53 108/55 L 07/26/18 19:52 67 108/55 L 07/26/18 16:11 97.9 F 66 18 94/53 L 95 07/26/18 12:00 97.5 F L 71 19 109/59 L 99 Weight Admit Weight 158 lb 4 oz Weight 154 lb I&O: 07/25/18 07/26/18 07/27/18 06:59 06:59 06:59 Intake Total 550 540 700 Output Total 3000 0 Balance 550 -2460 700 Result Diagrams: 07/26/18 04:11 07/26/18 04:11 Additional Labs: Accuchecks 07/26/18 07/26/18 07/26/18 20:02 16:39 10:56 POC Glucose 197 H 169 H 275 H 07/26/18 05:13 POC Glucose 226 H EKG Reviewed by me: Yes (Tele SR) Dx/Plan - Plan * . Review of Systems - Review of Systems Respiratory: negative: Cough, Dry, Shortness of Breath, Hemoptysis, SOB with Excertion, Pleuritic Pain, Sputum, Wheezing Cardiovascular: negative: chest pain, palpitations, orthopnea, paroxysmal nocturnal dyspnea, edema, light headedness, other - Medications/Allergies Allergies/Adverse Reactions: Allergies Allergy/AdvReac Type Severity Reaction Status Date / Time No Known Allergies Allergy Verified 07/08/18 21:59 Medications: Current Medications Acetaminophen (Tylenol) 650 mg PO Q4H PRN PRN Reason: Headache/Fever/Mild Pain (1-3) Last Admin: 07/26/18 08:33 Dose: 650 mg Acetaminophen (Tylenol) 650 mg [place] Q4H PRN PRN Reason: Headache/Fever/Mild Pain (1-3) Amlodipine Besylate (Norvasc) 5 mg PO BID [facility] Last Admin: 05/25/19 19:52 Dose: Not Given Aspirin (Ecotrin) 81 mg PO DAILY [facility] Last Admin: 07/26/18 09:16 Dose: 81 mg Atorvastatin Calcium (Lipitor) 10 mg PO HS [facility] Last Admin: 07/26/18 19:53 Dose: 10 mg Carvedilol (Coreg) 6.25 mg PO BID [facility] Last Admin: 07/26/18 19:53 Dose: Not Given Clopidogrel Bisulfate (Plavix) 75 mg PO DAILY [facility] Last Admin: 07/26/18 09:16 Dose: 75 mg Dextrose/Water (Dextrose 50%) 25 gm SLOW IVP PRN PRN PRN Reason: Hypoglycemia Fenofibrate (Tricor) 145 mg PO HS [facility] Last Admin: 07/26/18 19:54 Dose: 145 mg Glucagon (Glucagon) 1 mg IM PRN PRN PRN Reason: Hypoglycemia Heparin Sodium (Porcine) (Heparin) 5,000 units SC BID [facility] Last Admin: 07/26/18 19:54 Dose: 5,000 units Dextrose/Water (D5w) 1,000 mls @ 0 mls/hr IV .Q0M PRN PRN Reason: Hypoglycemia Vancomycin HCl 1.25 gm/ Sodium (Chloride) 250 mls @ 166.667 mls/hr [facility] Vancomycin HCl 1 gm/ Device 200 mls @ 200 mls/hr [facility] Vancomycin HCl 750 mg/ Sodium (Chloride) 250 mls @ 250 mls/hr IVPB [facility] Vancomycin HCl 500 mg/ Sodium (Chloride) 100 mls @ 100 mls/hr IVPB [facility] Gentamicin Sulfate 100 mg/ (Device) 100 mls @ 100 mls/hr IVPB MWF@1800 [facility] Insulin Human Lispro (Humalog) 0 units SC .MILD SLIDING SCALE PRN PRN Reason: Mild Correctional Scale Last Admin: 07/26/18 12:04 Dose: 4 units Insulin Human Lispro (Humalog) 0 units SC .BEDTIME SLIDING SC PRN PRN Reason: Bedtime Correctional Scale Insulin Human NPH (Humulin N) 10 unit SC DAILY [facility] Last Admin: 07/26/18 09:17 Dose: 10 unit Insulin Human NPH (Humulin N) 10 unit SC QPM [facility] Last Admin: 07/26/18 20:28 Dose: 10 unit Miscellaneous Medication (Pharmacy To Dose) 1 each IVPB PRN PRN PRN Reason: SSSI Hold Vancomycin For (Level >20) 0 each FS .AT DIALYSIS [facility] Ondansetron HCl (Zofran Odt) 4 mg PO Q6H PRN PRN Reason: Nausea/Vomiting Ondansetron HCl (Zofran) 4 mg IVP Q6H PRN PRN Reason: Nausea/Vomiting Pantoprazole Sodium (Protonix) 40 mg PO QAM-[facility] Last Admin: 07/26/18 09:16 Dose: 40 mg Ranolazine (Ranexa) 500 mg PO BID [facility] Last Admin: 07/26/18 19:54 Dose: 500 mg Saccharomyces Boulardii (Florastor) 250 mg PO DAILY [facility] Last Admin: 07/26/18 09:15 Dose: 250 mg Sevelamer Carbonate (Renvela) 1,600 mg PO TID-[facility] Last Admin: 07/26/18 16:41 Dose: 1,600 mg Tramadol HCl (Ultram) 50 mg PO Q6H PRN PRN Reason: Pain>4 Last Admin: 07/26/18 09:12 Dose: 50 mg
[2018-07-27] MEDS: Amlodipine 5 MG TAB PO SCH ×2 (08:15→21:18)
[2018-07-27] MEDS: Carvedilol 6.25 MG TAB PO SCH ×2 (08:15→21:18)
[2018-07-27] MEDS: Clopidogrel Bisulfate 75 MG TAB PO SCH (08:54)
[2018-07-27] MEDS: Saccharomyces boulardii 250 MG CAP PO SCH (08:54)
[2018-07-27] MEDS: NPH, Human Insulin Isophane 300 UNIT/3 ML VIAL SC SCH ×2 (08:54→21:25)
[2018-07-27] MEDS: Sevelamer Carbonate 800 MG TAB PO SCH ×3 (08:54→17:55)
[2018-07-27] MEDS: Heparin 5,000 UNITS/ML VIAL SC SCH ×2 (08:54→21:19)
[2018-07-27] MEDS: Aspirin 81 mg Enteric Coated Tablet PO SCH (08:54)
--- NOTE | 2018-07-27 12:58 | PRG ---
DATE OF SERVICE: 07/27/2018 SUBJECTIVE: Patient was seen and examined at bedside and overnight events noted. Patient denies any shortness of breath or chest pain or palpitation. No history of nausea or vomiting or diarrhea or fever or chills or cramps. OBJECTIVE: GENERAL: This is a well-built male, in no apparent distress. VITAL SIGNS: Temperature 97.7. Heart rate 67. Respiratory rate 17. Blood pressure 106/53. HEENT: Atraumatic, normocephalic. Oral mucosa is moist NECK: Supple. CARDIOVASCULAR: S1, S2 heard. Rate and rhythm regular. RESPIRATORY: Clear to auscultation. GASTROINTESTINAL: Abdomen is soft. MUSCULOSKELETAL: No tenderness. No edema. DERMATOLOGIC: No skin rash. NEUROLOGIC: Alert and awake and oriented X3. No focal neurologic deficits. Moving all the extremities. PSYCHIATRIC: Mood and affect normal. LABORATORY DATA: No labs done today. ASSESSMENT AND PLAN: 1. End-stage renal disease. Continue on dialysis. 2. Fluid overload. We will have extra 2-hour session of dialysis with ultrafiltration. 3. Hyperkalemia, better. 4. Metabolic acidosis. 5. Hypertension. 6. Anemia of chronic disease. PLAN: To continue on dialysis as tolerated. We will have 2-hours of dialysis and will have ultrafiltration. Job ID: [id number]
--- NOTE | 2018-07-27 13:56 | PDOC.PN ---
- Subjective Encounter Start Date: 07/27/18 Encounter Start Time: 07:20 Pt seen for followup re: acute hypoxic respiratory failure. Feels better. - Objective Resuscitation Status - Order Detail: 07/24/18 21:29 Resuscitation Status Routine Resuscitation Status: FULL: Full Resuscitation MAR Reviewed: Yes Vital Signs & Weight: Vital Signs (12 hours) Temp Pulse Resp BP Pulse Ox 07/27/18 11:33 97.7 F 67 17 106/53 L 96 07/27/18 07:45 96 07/27/18 07:24 97.9 F 65 18 98/55 L 97 07/27/18 03:46 97.4 F L 64 18 108/57 L 92 L Weight Admit Weight 158 lb 4 oz Weight 154 lb I&O: 07/26/18 07/27/18 07/28/18 06:59 06:59 06:59 Intake Total 540 910 Output Total 3000 0 Balance -2460 910 Result Diagrams: 07/26/18 04:11 07/26/18 04:11 Additional Labs: Accuchecks 07/27/18 07/27/18 07/26/18 10:55 05:19 20:02 POC Glucose 148 H 145 H 197 H 07/26/18 16:39 POC Glucose 169 H EKG Reviewed by me: Yes (Tele: NSR) Phys Exam - Physical Examination Constitutional: NAD HEENT: moist MMs Neck: supple Respiratory: clear to auscultation bilateral Cardiovascular: RRR Gastrointestinal: soft RLE wound vac Neurological: moves all 4 limbs Psychiatric: normal affect Dx/Plan (1) Acute on chronic combined systolic and diastolic ACC/AHA stage C congestive heart failure Code(s): I50.43 - ACUTE ON CHRONIC COMBINED SYSTOLIC AND DIASTOLIC HRT FAIL Status: Acute Comment: Pt improving with dialysis (2) Diabetes type 2, controlled Code(s): E11.9 - TYPE 2 DIABETES MELLITUS WITHOUT COMPLICATIONS Status: Chronic Comment: continue accuchecks, insulin sliding scale (3) Dyslipidemia Code(s): E78.5 - HYPERLIPIDEMIA, UNSPECIFIED Status: Chronic Comment: continue statin (4) ESRD on hemodialysis Code(s): N18.6 - END STAGE RENAL DISEASE; Z99.2 - DEPENDENCE ON RENAL DIALYSIS Status: Chronic Comment: nephrology following (5) Hypertension Code(s): I10 - ESSENTIAL (PRIMARY) HYPERTENSION Status: Chronic Comment: controlled - Plan * . Review of Systems - Review of Systems Respiratory: negative: Cough, Shortness of Breath, SOB with Excertion, Pleuritic Pain, Wheezing Cardiovascular: negative: chest pain, palpitations, orthopnea, paroxysmal nocturnal dyspnea, edema, light headedness - Medications/Allergies Allergies/Adverse Reactions: Allergies Allergy/AdvReac Type Severity Reaction Status Date / Time No Known Allergies Allergy Verified 07/08/18 21:59 Medications: Current Medications Acetaminophen (Tylenol) 650 mg PO Q4H PRN PRN Reason: Headache/Fever/Mild Pain (1-3) Last Admin: 07/26/18 08:33 Dose: 650 mg Acetaminophen (Tylenol) 650 mg NV Q4H PRN PRN Reason: Headache/Fever/Mild Pain (1-3) Amlodipine Besylate (Norvasc) 5 mg PO BID [facility] Last Admin: 07/27/18 08:15 Dose: Not Given Aspirin (Ecotrin) 81 mg PO DAILY [facility] Last Admin: 07/27/18 08:54 Dose: 81 mg Atorvastatin Calcium (Lipitor) 10 mg PO [facility] Last Admin: 07/26/18 19:53 Dose: 10 mg Carvedilol (Coreg) 6.25 mg PO BID [facility] Last Admin: 07/27/18 08:15 Dose: Not Given Clopidogrel Bisulfate (Plavix) 75 mg PO DAILY [facility] Last Admin: 07/27/18 08:54 Dose: 75 mg Dextrose/Water (Dextrose 50%) 25 gm SLOW IVP PRN PRN PRN Reason: Hypoglycemia Fenofibrate (Tricor) 145 mg PO [facility] Last Admin: 07/26/18 19:54 Dose: 145 mg Glucagon (Glucagon) 1 mg IM PRN PRN PRN Reason: Hypoglycemia Heparin Sodium (Porcine) (Heparin) 5,000 units SC BID [facility] Last Admin: 07/27/18 08:54 Dose: 5,000 units Dextrose/Water (D5w) 1,000 mls @ 0 mls/hr IV .Q0M PRN PRN Reason: Hypoglycemia Vancomycin HCl 1.25 gm/ Sodium (Chloride) 250 mls @ 166.667 mls/hr IVPB [facility] Vancomycin HCl 1 gm/ Device 200 mls @ 200 mls/hr IVPB [facility] Vancomycin HCl 750 mg/ Sodium (Chloride) 250 mls @ 250 mls/hr IVPB [facility] Vancomycin HCl 500 mg/ Sodium (Chloride) 100 mls @ 100 mls/hr IVPB [facility] Gentamicin Sulfate 100 mg/ (Device) 100 mls @ 100 mls/hr IVPB MWF@1800 [facility] Insulin Human Lispro (Humalog) 0 units SC .MILD SLIDING SCALE PRN PRN Reason: Mild Correctional Scale Last Admin: 07/26/18 12:04 Dose: 4 units Insulin Human Lispro (Humalog) 0 units SC .BEDTIME SLIDING SC PRN PRN Reason: Bedtime Correctional Scale Insulin Human NPH (Humulin N) 10 unit SC DAILY [facility] Last Admin: 07/27/18 08:54 Dose: 10 unit Insulin Human NPH (Humulin N) 10 unit SC QPM [facility] Last Admin: 07/26/18 20:28 Dose: 10 unit Miscellaneous Medication (Pharmacy To Dose) 1 each IVPB PRN PRN PRN Reason: SSSI Hold Vancomycin For (Level >20) 0 each FS .AT DIALYSIS [facility] Ondansetron HCl (Zofran Odt) 4 mg PO Q6H PRN PRN Reason: Nausea/Vomiting Ondansetron HCl (Zofran) 4 mg IVP Q6H PRN PRN Reason: Nausea/Vomiting Pantoprazole Sodium (Protonix) 40 mg PO QAM[facility] Last Admin: 07/27/18 08:54 Dose: 40 mg Ranolazine (Ranexa) 500 mg PO BID [facility] Last Admin: 07/27/18 08:54 Dose: 500 mg Saccharomyces Boulardii (Florastor) 250 mg PO DAILY [facility] Last Admin: 07/27/18 08:54 Dose: 250 mg Sevelamer Carbonate (Renvela) 1,600 mg PO TID-[facility] Last Admin: 07/27/18 13:40 Dose: Not Given Tramadol HCl (Ultram) 50 mg PO Q6H PRN PRN Reason: Pain>4 Last Admin: 07/26/18 09:12 Dose: 50 mg
--- NOTE | 2018-07-27 15:46 | PRG ---
DATE OF SERVICE: 07/27/2018 SERVICE: Pulmonary Medicine. INTERVAL HISTORY: The patient continues to breathe comfortably. He denies any current shortness of breath or chest discomfort. He is on room air. Otherwise, there has been no interval change to his condition. PHYSICAL EXAMINATION: VITAL SIGNS: Afebrile. Pulse 67, blood pressure 106/53, respirations 17, saturation 96% on 2 L nasal cannula. GENERAL: The patient is awake and alert, in no apparent distress. LUNGS: Decent air entry on the left. There is slightly decreased air entry at the right base. Dependent crackles are minimal. No rhonchi or wheezing appreciated. HEART: Normal rate and regular. ABDOMEN: Soft, nontender, nondistended. Bowel sounds are positive. MUSCULOSKELETAL: No pitting in the bilateral lower extremities. NEUROLOGIC: Grossly nonfocal. LABORATORY DATA: WBC 6.5, hemoglobin 9.0, platelets 304,000. Blood sugar ranges from 145 to 275. ASSESSMENT: 1. Anasarca state secondary to end-stage renal disease. 2. End-stage renal disease. 3. Abnormal CT, including bilateral pleural effusions (right greater than left), interstitial edema, with subtle ground-glass changes. 4. Acute on chronic systolic and diastolic heart failure. DISCUSSION AND PLAN: I would like for the patient to be returned to euvolemia with more aggressive dialytic intervention. Once he is at euvolemia, we can repeat a chest x-ray. If the effusion persists, a thoracentesis will be considered. Currently, the patient is asymptomatic to his volume overload state. If the patient is ready for discharge, a chest x-ray can be pursued in the outpatient setting. Job ID: [id number]
[2018-07-27] MEDS: Atorvastatin Calcium 10 MG TAB PO SCH (21:18)
[2018-07-27] MEDS: Fenofibrate Nanocrystallized 145 MG TAB PO SCH (21:19)
[2018-07-27] MEDS: traMADol HCl 50 MG TAB PO PRN (21:22)
[2018-07-28] MEDS: Heparin 5,000 UNITS/ML VIAL SC SCH ×2 (09:11→20:12)
[2018-07-28] MEDS: NPH, Human Insulin Isophane 300 UNIT/3 ML VIAL SC SCH ×2 (09:11→20:15)
[2018-07-28] MEDS: Sevelamer Carbonate 800 MG TAB PO SCH ×3 (09:12→17:42)
[2018-07-28] MEDS: Saccharomyces boulardii 250 MG CAP PO SCH (09:12)
[2018-07-28] MEDS: Aspirin 81 mg Enteric Coated Tablet PO SCH (09:12)
[2018-07-28] MEDS: Clopidogrel Bisulfate 75 MG TAB PO SCH (09:12)
[2018-07-28] MEDS: Carvedilol 6.25 MG TAB PO SCH ×2 (09:12→20:10)
[2018-07-28] MEDS: Amlodipine 5 MG TAB PO SCH ×2 (09:12→20:11)
[2018-07-28] MEDS: traMADol HCl 50 MG TAB PO PRN (09:22)
--- NOTE | 2018-07-28 10:44 | PRG ---
DATE OF SERVICE: 07/28/2018 SUBJECTIVE: Patient was seen and examined at bedside and overnight events noted. Patient denies any shortness of breath or chest pain or palpitation. No history of nausea or vomiting or diarrhea or fever or chills or cramps. OBJECTIVE: GENERAL: This is a well built male in no acute distress. VITAL SIGNS: Temperature 97.7. Pulse 72. Respiratory rate 16. Blood pressure 199/68. HEENT: Atraumatic, normocephalic. Oral mucosa is moist NECK: Supple. CARDIOVASCULAR: S1, S2 heard. Rate and rhythm regular. RESPIRATORY: Clear to auscultation. GASTROINTESTINAL: Abdomen is soft. MUSCULOSKELETAL: No tenderness. No edema. DERMATOLOGIC: No skin rash. NEUROLOGIC: Alert and awake and oriented X3. No focal neurologic deficits. Moving all the extremities. PSYCHIATRIC: Mood and affect normal. LABORATORY DATA: None done today. ASSESSMENT AND PLAN: 1. End-stage renal disease. Continue on dialysis, Saturday, Saturday, and Saturday. 2. Edema, better. 3. Hyperkalemia, stable. 4. Hypertension. 5. Anemia of chronic disease. 6. Continue dialysis, Saturday, Saturday, Saturday as tolerated. Job ID: [id number]
--- NOTE | 2018-07-28 11:55 | PRG ---
DATE OF SERVICE: 07/28/2018 SUBJECTIVE: Mr. Geoff Reid is being dialyzed. Denies any difficulty breathing. OBJECTIVE: VITAL SIGNS: Sats are 94% on 2 L, blood pressure 140/63, pulse 73, temperature 97, and respiratory rate 18. CHEST: Decreased breath sounds. No wheezing. CARDIAC: Normal S1 and S2. No gallops. ABDOMEN: No masses. IMPRESSION: Acute on chronic renal failure, anasarca, pleural effusion, asymptomatic. PLAN: Continue dialysis, supportive care, PT. Job ID: [id number]
[2018-07-28 13:31] LABS: Vancomycin, Random 5.7 ug/mL (See Comment)
--- NOTE | 2018-07-28 14:03 | PDOC.PN ---
- Subjective Encounter Start Date: 07/28/18 Encounter Start Time: 07:20 Pt seen for followup re: acute hypoxic respiratory failure. Feels well, no complaints. - Objective Resuscitation Status - Order Detail: 07/24/18 21:29 Resuscitation Status Routine Resuscitation Status: FULL: Full Resuscitation MAR Reviewed: Yes Vital Signs & Weight: Vital Signs (12 hours) Temp Pulse Resp BP BP Pulse Ox 07/28/18 09:12 73 140/63 07/28/18 08:00 97.7 F 73 16 119/58 L 94 L 07/28/18 03:24 97.9 F 72 16 101/53 L Weight Admit Weight 158 lb 4 oz Weight 154 lb I&O: 07/27/18 07/28/18 07/29/18 06:59 06:59 06:59 Intake Total 910 980 240 Output Total 0 Balance 910 980 240 Result Diagrams: 07/26/18 04:11 07/26/18 04:11 Additional Labs: Accuchecks 07/28/18 07/28/18 07/27/18 11:31 05:23 20:22 POC Glucose 229 H 105 96 07/27/18 17:18 POC Glucose 103 EKG Reviewed by me: Yes (Tele; NSR) Phys Exam - Physical Examination Constitutional: NAD HEENT: moist MMs Neck: no JVD Respiratory: clear to auscultation bilateral Cardiovascular: RRR Gastrointestinal: soft s/p R BKA Neurological: moves all 4 limbs Psychiatric: normal affect Dx/Plan (1) Acute on chronic combined systolic and diastolic ACC/AHA stage C congestive heart failure Code(s): I50.43 - ACUTE ON CHRONIC COMBINED SYSTOLIC AND DIASTOLIC HRT FAIL Status: Acute Comment: Pt improving, for dialysis today. Pt continues to need supplemental oxygen. (2) Diabetes type 2, controlled Code(s): E11.9 - TYPE 2 DIABETES MELLITUS WITHOUT COMPLICATIONS Status: Chronic Comment: reasonable control (3) Dyslipidemia Code(s): E78.5 - HYPERLIPIDEMIA, UNSPECIFIED Status: Chronic Comment: on statin (4) ESRD on hemodialysis Code(s): N18.6 - END STAGE RENAL DISEASE; Z99.2 - DEPENDENCE ON RENAL DIALYSIS Status: Chronic Comment: nephrology following (5) Hypertension Code(s): I10 - ESSENTIAL (PRIMARY) HYPERTENSION Status: Chronic Comment: controlled - Plan * . Review of Systems - Review of Systems Respiratory: negative: Cough, Shortness of Breath, SOB with Excertion, Pleuritic Pain, Wheezing Cardiovascular: negative: chest pain, palpitations, orthopnea, paroxysmal nocturnal dyspnea, edema, light headedness, other - Medications/Allergies Allergies/Adverse Reactions: Allergies Allergy/AdvReac Type Severity Reaction Status Date / Time No Known Allergies Allergy Verified 07/08/18 21:59 Medications: Current Medications Acetaminophen (Tylenol) 650 mg PO Q4H PRN PRN Reason: Headache/Fever/Mild Pain (1-3) Last Admin: 07/26/18 08:33 Dose: 650 mg Acetaminophen (Tylenol) 650 mg NE Q4H PRN PRN Reason: Headache/Fever/Mild Pain (1-3) Amlodipine Besylate (Norvasc) 5 mg PO BID [facility] Last Admin: 07/28/18 09:12 Dose: 5 mg Aspirin (Ecotrin) 81 mg PO DAILY [facility] Last Admin: 07/28/18 09:12 Dose: 81 mg Atorvastatin Calcium (Lipitor) 10 mg PO [facility] Last Admin: 07/27/18 21:18 Dose: 10 mg Carvedilol (Coreg) 6.25 mg PO BID [facility] Last Admin: 07/28/18 09:12 Dose: 6.25 mg Clopidogrel Bisulfate (Plavix) 75 mg PO DAILY [facility] Last Admin: 07/28/18 09:12 Dose: 75 mg Dextrose/Water (Dextrose 50%) 25 gm SLOW IVP PRN PRN PRN Reason: Hypoglycemia Fenofibrate (Tricor) 145 mg PO [facility] Last Admin: 07/27/18 21:19 Dose: 145 mg Glucagon (Glucagon) 1 mg IM PRN PRN PRN Reason: Hypoglycemia Heparin Sodium (Porcine) (Heparin) 5,000 units SC BID [facility] Last Admin: 07/28/18 09:11 Dose: 5,000 units Dextrose/Water (D5w) 1,000 mls @ 0 mls/hr IV .Q0M PRN PRN Reason: Hypoglycemia Vancomycin HCl 1.25 gm/ Sodium (Chloride) 250 mls @ 166.667 mls/hr IVPB [facility] Vancomycin HCl 1 gm/ Device 200 mls @ 200 mls/hr IVPB [facility] Vancomycin HCl 750 mg/ Sodium (Chloride) 250 mls @ 250 mls/hr IVPB [facility] Vancomycin HCl 500 mg/ Sodium (Chloride) 100 mls @ 100 mls/hr IVPB [facility] Gentamicin Sulfate 100 mg/ (Device) 100 mls @ 100 mls/hr IVPB MWF@1800 [facility] Insulin Human Lispro (Humalog) 0 units SC .MILD SLIDING SCALE PRN PRN Reason: Mild Correctional Scale Last Admin: 07/26/18 12:04 Dose: 4 units Insulin Human Lispro (Humalog) 0 units SC .BEDTIME SLIDING SC PRN PRN Reason: Bedtime Correctional Scale Insulin Human NPH (Humulin N) 10 unit SC DAILY [facility] Last Admin: 07/28/18 09:11 Dose: 10 unit Insulin Human NPH (Humulin N) 10 unit SC QPM [facility] Last Admin: 07/27/18 21:25 Dose: Not Given Miscellaneous Medication (Pharmacy To Dose) 1 each IVPB PRN PRN PRN Reason: SSSI Hold Vancomycin For (Level >20) 0 each FS .AT DIALYSIS [facility] Ondansetron HCl (Zofran Odt) 4 mg PO Q6H PRN PRN Reason: Nausea/Vomiting Ondansetron HCl (Zofran) 4 mg IVP Q6H PRN PRN Reason: Nausea/Vomiting Pantoprazole Sodium (Protonix) 40 mg PO QAM-[facility] Last Admin: 07/28/18 09:12 Dose: 40 mg Ranolazine (Ranexa) 500 mg PO BID [facility] Last Admin: 07/28/18 09:12 Dose: 500 mg Saccharomyces Boulardii (Florastor) 250 mg PO DAILY [facility] Last Admin: 07/28/18 09:12 Dose: 250 mg Sevelamer Carbonate (Renvela) 1,600 mg PO TID-[facility] Last Admin: 07/28/18 11:32 Dose: Not Given Tramadol HCl (Ultram) 50 mg PO Q6H PRN PRN Reason: Pain>4 Last Admin: 07/28/18 09:22 Dose: 50 mg
[2018-07-28] MEDS: Vancomycin HCl 1 GM in Premix Bag 1 BAG IVPB SCH (14:29)
[2018-07-28] MEDS ORDERED: Vancomycin HCl 1 GM in Premix Bag 1 BAG IVPB SCH (14:30)
[2018-07-28] MEDS: Gentamicin Sulfate 100 MG in Premix Bag 1 BAG IVPB SCH (17:43)
[2018-07-28] MEDS: HumaLOG 300 UNITS/3 ML VIAL SC PRN (17:50)
[2018-07-28] MEDS: Fenofibrate Nanocrystallized 145 MG TAB PO SCH (20:10)
[2018-07-28] MEDS: Atorvastatin Calcium 10 MG TAB PO SCH (20:10)
[2018-07-29] MEDS ORDERED: Sodium Chloride 0.9% 10 ML ONE (08:37)
[2018-07-29] MEDS: Aspirin 81 mg Enteric Coated Tablet PO SCH (08:51)
[2018-07-29] MEDS: Sevelamer Carbonate 800 MG TAB PO SCH ×3 (08:52→17:58)
[2018-07-29] MEDS: Saccharomyces boulardii 250 MG CAP PO SCH (08:53)
[2018-07-29] MEDS: Carvedilol 6.25 MG TAB PO SCH ×2 (08:53→20:47)
[2018-07-29] MEDS: Clopidogrel Bisulfate 75 MG TAB PO SCH (08:54)
[2018-07-29] MEDS: Amlodipine 5 MG TAB PO SCH ×2 (08:54→20:48)
[2018-07-29] MEDS: traMADol HCl 50 MG TAB PO PRN (08:57)
[2018-07-29] MEDS: Heparin 5,000 UNITS/ML VIAL SC SCH ×2 (09:01→22:20)
--- NOTE | 2018-07-29 09:45 | PRG ---
DATE OF SERVICE: 07/29/2018 SUBJECTIVE: Patient was seen and examined at bedside and overnight events noted. Patient denies any shortness of breath or chest pain or palpitation. No history of nausea or vomiting or diarrhea or fever or chills or cramps. OBJECTIVE: GENERAL: This is a well built male, in no acute distress. VITAL SIGNS: Temperature 98.7, pulse 60, respiratory rate 18, and blood pressure 119/56. HEENT: Atraumatic, normocephalic. Oral mucosa is moist NECK: Supple. CARDIOVASCULAR: S1, S2 heard. Rate and rhythm regular. RESPIRATORY: Clear to auscultation. GASTROINTESTINAL: Abdomen is soft. MUSCULOSKELETAL: No tenderness. No edema. DERMATOLOGIC: No skin rash. NEUROLOGIC: Alert and awake and oriented X3. No focal neurologic deficits. Moving all the extremities. PSYCHIATRIC: Mood and affect normal. LABORATORY DATA: None done today. ASSESSMENT AND PLAN: 1. End-stage renal disease. Continue dialysis Saturday, Saturday, and Saturday. 2. Edema. We will remove fluid. 3. Hyperkalemia, better. 4. Hypertension. 5. Anemia of chronic disease. 6. Continue dialysis Saturday, Saturday, and Saturday as tolerated. Continue PT/OT. Job ID: [id number]
[2018-07-29] MEDS ORDERED: HYDROcodone/Acetaminophen 5/325 mg Tablet PO PRN (10:54)
[2018-07-29] MEDS ORDERED: Morphine 2 MG/ML SYRINGE SLOW IVP PRN (10:56)
[2018-07-29] MEDS: HumaLOG 300 UNITS/3 ML VIAL SC PRN ×2 (11:23→17:35)
--- NOTE | 2018-07-29 16:40 | PDOC.PN ---
- Subjective Encounter Start Date: 07/29/18 Encounter Start Time: 15:30 Patient seen and examined for Resp failure. SOB improving. No new complaints. No overnight events - Objective Resuscitation Status - Order Detail: 07/24/18 21:29 Resuscitation Status Routine Resuscitation Status: FULL: Full Resuscitation MAR Reviewed: Yes Vital Signs & Weight: Vital Signs (12 hours) Temp Pulse Resp BP BP Pulse Ox 07/29/18 12:00 98.0 F 72 18 119/59 L 95 07/29/18 08:54 78 115/58 L 07/29/18 08:53 115/58 L 07/29/18 08:00 97.0 F L 74 18 115/58 L 95 Weight Admit Weight 158 lb 4 oz Weight 154 lb I&O: 07/28/18 07/29/18 07/30/18 06:59 06:59 06:59 Intake Total 980 1030 Output Total 1700 Balance 980 -670 Result Diagrams: 07/26/18 04:11 07/26/18 04:11 Additional Labs: Accuchecks 07/29/18 07/29/18 07/28/18 10:24 05:58 20:17 POC Glucose 209 H 53 L* 146 H 07/28/18 17:35 POC Glucose 191 H EKG Reviewed by me: Yes (Tele SR) Phys Exam - Physical Examination Constitutional: NAD Respiratory: no wheezing, no rhonchi Cardiovascular: RRR, no rub Gastrointestinal: soft, non-tender, positive bowel sounds Musculoskeletal: no edema RLE wound vac+ Neurological: moves all 4 limbs Dx/Plan - Plan DVT proph w/heparin IMPRESSION: 1. Acute hypoxic respiratory failure secondary to large right-sided pleural effusion/Volume overload. improving 2. Bleeding from the right below-knee amputation site -on Vancomycin and gentamicin for [address] Ojeda. 3. End-stage renal disease, on hemodialysis Saturday, Saturday, and Saturday. 4. Diabetes mellitus, type 2 with hypoglycemia 5. Severe peripheral vascular disease. 6. Chronic systolic HF EF 20-25% due to ischemic CM. 7. Hyperkalemia. 8. Hyponatremia. 9. CAD with type 2 myocardial infarction/demand ischemia from volume overload. 10. Hyperlipidemia. 11. Secondary hyperparathyroidism. 12. Hypertension. 13. Anemia secondary to chronic kidney disease. 14. GERD. PLAN: CXR in AM Not on ACEI/ARB/Aldactone due to renal insufficiency. Cont wound care Await home wound vac setup Cont Atbx per Dr Ojeda Dec NPH to 10 units daily Cont other meds as below Review of Systems - Review of Systems Respiratory: negative: Cough, Dry, Shortness of Breath, Hemoptysis, SOB with Excertion, Pleuritic Pain, Sputum, Wheezing Cardiovascular: negative: chest pain, palpitations, orthopnea, paroxysmal nocturnal dyspnea, edema, light headedness, other - Medications/Allergies Allergies/Adverse Reactions: Allergies Allergy/AdvReac Type Severity Reaction Status Date / Time No Known Allergies Allergy Verified 07/08/18 21:59 Medications: Current Medications Acetaminophen (Tylenol) 650 mg PO Q4H PRN PRN Reason: Headache/Fever/Mild Pain (1-3) Last Admin: 07/26/18 08:33 Dose: 650 mg Acetaminophen (Tylenol) 650 mg RI Q4H PRN PRN Reason: Headache/Fever/Mild Pain (1-3) Hydrocodone Bitart/Acetaminophen ([place] 5/325) 1 tab PO Q6H PRN PRN Reason: Moderate Pain (4-6) Amlodipine Besylate (Norvasc) 5 mg PO BID [facility] Last Admin: 07/29/18 08:54 Dose: Not Given Aspirin (Ecotrin) 81 mg PO DAILY [facility] Last Admin: 07/29/18 08:51 Dose: 81 mg Atorvastatin Calcium (Lipitor) 10 mg PO [facility] Last Admin: 07/28/18 20:10 Dose: 10 mg Carvedilol (Coreg) 6.25 mg PO BID [facility] Last Admin: 07/29/18 08:53 Dose: 6.25 mg Clopidogrel Bisulfate (Plavix) 75 mg PO DAILY [facility] Last Admin: 07/29/18 08:54 Dose: 75 mg Dextrose/Water (Dextrose 50%) 25 gm SLOW IVP PRN PRN PRN Reason: Hypoglycemia Fenofibrate (Tricor) 145 mg PO [facility] Last Admin: 07/28/18 20:10 Dose: 145 mg Glucagon (Glucagon) 1 mg IM PRN PRN PRN Reason: Hypoglycemia Heparin Sodium (Porcine) (Heparin) 5,000 units SC BID [facility] Last Admin: 07/29/18 09:01 Dose: 5,000 units Dextrose/Water (D5w) 1,000 mls @ 0 mls/hr IV .Q0M PRN PRN Reason: Hypoglycemia Vancomycin HCl 1.25 gm/ Sodium (Chloride) 250 mls @ 166.667 mls/hr IVPB [facility] Vancomycin HCl 1 gm/ Device 200 mls @ 200 mls/hr IVPB [facility] Last Admin: 07/28/18 14:29 Dose: 200 mls Vancomycin HCl 750 mg/ Sodium (Chloride) 250 mls @ 250 mls/hr IVPB [facility] Vancomycin HCl 500 mg/ Sodium (Chloride) 100 mls @ 100 mls/hr IVPB [facility] Gentamicin Sulfate 100 mg/ (Device) 100 mls @ 100 mls/hr IVPB MWF@1800 [facility] Last Admin: 07/28/18 17:43 Dose: 100 mls Insulin Human Lispro (Humalog) 0 units SC .MILD SLIDING SCALE PRN PRN Reason: Mild Correctional Scale Last Admin: 07/28/18 17:50 Dose: 2 units Insulin Human Lispro (Humalog) 0 units SC .BEDTIME SLIDING SC PRN PRN Reason: Bedtime Correctional Scale Last Admin: 07/29/18 11:23 Dose: 2 unit Insulin Human NPH (Humulin N) 10 unit SC DAILY [facility] Last Admin: 07/28/18 09:11 Dose: 10 unit Miscellaneous Medication (Pharmacy To Dose) 1 each IVPB PRN PRN PRN Reason: SSSI Morphine Sulfate (Morphine) 2 mg SLOW IVP Q6H PRN PRN Reason: Severe Pain (7-10) Stop: 07/30/18 10:57 Last Admin: 07/29/18 11:13 Dose: 2 mg Hold Vancomycin For (Level >20) 0 each FS .AT DIALYSIS [facility] Ondansetron HCl (Zofran Odt) 4 mg PO Q6H PRN PRN Reason: Nausea/Vomiting Ondansetron HCl (Zofran) 4 mg IVP Q6H PRN PRN Reason: Nausea/Vomiting Pantoprazole Sodium (Protonix) 40 mg PO QAM-[facility] Last Admin: 07/29/18 08:52 Dose: 40 mg Ranolazine (Ranexa) 500 mg PO BID [facility] Last Admin: 07/29/18 09:05 Dose: 500 mg Saccharomyces Boulardii (Florastor) 250 mg PO DAILY [facility] Last Admin: 07/29/18 08:53 Dose: 250 mg Sevelamer Carbonate (Renvela) 1,600 mg PO TID-[facility] Last Admin: 07/29/18 11:13 Dose: 1,600 mg Sodium Chloride (Flush - Normal Saline) 10 ml IVF Q12HR [facility] Sodium Chloride (Flush - Normal Saline) 10 ml IVF PRN PRN PRN Reason: Saline Flush Last Admin: 07/29/18 11:13 Dose: 10 ml Tramadol HCl (Ultram) 50 mg PO Q6H PRN PRN Reason: Pain>4 Last Admin: 07/29/18 08:57 Dose: 50 mg
[2018-07-29] MEDS: Atorvastatin Calcium 10 MG TAB PO SCH (20:48)
[2018-07-29] MEDS: Fenofibrate Nanocrystallized 145 MG TAB PO SCH (20:48)
[2018-07-30 05:57] LABS: ALT (SGPT) 25 U/L (8-55); AST (SGOT) 29 U/L (5-34); Albumin 3.4 g/dL (3.5-5.0); Alkaline Phosphatase 77 U/L (40-150); Anion Gap 16 mmol/L (10-20); BUN (Urea Nitrogen) 38 mg/dL (8.4-25.7); Bilirubin, Total 1.6 mg/dL (0.2-1.2); Calc. Creatinine Clearance 16 mL/min (70-130); Calcium 9.1 mg/dL (7.8-10.44); Carbon Dioxide 27 mmol/L (22-29); Chloride 95 mmol/L (98-107); Estimated GFR-MDRD 12; Globulin 2.7 g/dL (2.4-3.5); Glucose 138 mg/dL (70-105); Protein, Total 6.1 g/dL (6.0-8.3); Sodium 133 mmol/L (136-145)
[2018-07-30 06:47] LABS: #Basophils 0.1 thou/uL (0.0-0.2); #Eosinphils 0.2 thou/uL (0.0-0.7); #Lymphocytes 1.8 thou/uL (1.20-3.40); #Monocytes 0.9 thou/uL (0.11-0.59); %Basophils 0.7 % (0.0-1.0); %Eosinophils 2.2 % (0.0-10.0); %Lymphocytes 22.5 % (21.0-51.0); %Monocytes 10.8 % (0.0-10.0); %Neutrophils 63.8 % (42.0-75.0); Hemoglobin 8.9 g/dL (14.0-18.0); Mean Corpuscular HGB CONC 30.5 g/dL (32.0-36.0); Mean Corpuscular Hemoglobin 29.7 pg (27.0-31.0); Mean Corpuscular Volume 97.7 fL (78.0-98.0); Mean Platelet Volume 8.3 fL (7.4-10.4); Platelet Count 329 thou/uL (130-400); RBC Distribution Width 19.2 % (11.5-14.5); Red Blood Cell (RBC) Count 2.98 mill/uL (4.70-6.10); White Blood Cell (WBC) Count 7.8 thou/uL (4.8-10.8)
[2018-07-30] MEDS: Amlodipine 5 MG TAB PO SCH ×2 (09:00→21:06)
[2018-07-30] MEDS: NPH, Human Insulin Isophane 300 UNIT/3 ML VIAL SC SCH (09:00)
[2018-07-30] MEDS: Sevelamer Carbonate 800 MG TAB PO SCH ×3 (09:00→18:19)
[2018-07-30] MEDS: Carvedilol 6.25 MG TAB PO SCH ×2 (09:00→21:06)
--- NOTE | 2018-07-30 10:34 | PRG ---
DATE OF SERVICE: 07/30/2018 SUBJECTIVE: Patient was seen and examined at bedside and overnight events noted. Patient denies any shortness of breath or chest pain or palpitation. No history of nausea or vomiting or diarrhea or fever or chills or cramps. OBJECTIVE: GENERAL: This is a well-built male, in no apparent distress. VITAL SIGNS: Temperature 98.3. Heart rate 80. Respiratory rate 17. Blood pressure 119/58. HEENT: Atraumatic, normocephalic. Oral mucosa is moist NECK: Supple. CARDIOVASCULAR: S1, S2 heard. Rate and rhythm regular. RESPIRATORY: Clear to auscultation. GASTROINTESTINAL: Abdomen is soft. MUSCULOSKELETAL: No tenderness. No edema. DERMATOLOGIC: No skin rash. NEUROLOGIC: Alert and awake and oriented X3. No focal neurologic deficits. Moving all the extremities. PSYCHIATRIC: Mood and affect normal. LABORATORY DATA: Potassium is 5.0, BUN is 38, and creatinine is 5.09. ASSESSMENT AND PLAN: 1. End-stage renal disease. Continue dialysis on Saturday, Saturday, and Saturday. 2. Edema. We will remove fluid. 3. Hyperkalemia. 4. Hypertension. 5. Anemia. Plan to continue on dialysis as tolerated. Job ID: [id number]
[2018-07-30] MEDS: Vancomycin HCl 1 GM in Premix Bag 1 BAG IVPB SCH (11:03)
[2018-07-30] MEDS: Gentamicin Sulfate 100 MG in Premix Bag 1 BAG IVPB SCH (11:06)
--- NOTE | 2018-07-30 11:33 | PRG ---
DATE OF SERVICE: 07/30/2018 SERVICE: Pulmonary Medicine. INTERVAL HISTORY: The patient is doing well on dialysis currently. He does not have any complaints of shortness of breath, nausea, vomiting, fevers, or chills. Otherwise, there has been no interval change to his condition. We will repeat a chest x-ray at some point today after dialysis is done. There were no significant overnight events. PHYSICAL EXAMINATION: VITAL SIGNS: Afebrile, pulse 80, blood pressure 119/58, respirations 17, and saturation 95% on room air. GENERAL: The patient is awake and alert, in no apparent distress. LUNGS: Decent air entry anteriorly without any prolonged expiratory phase or crackles today. HEART: Normal rate and regular. ABDOMEN: Soft, nontender, and nondistended. Bowel sounds are positive. MUSCULOSKELETAL: No cyanosis or clubbing. No pitting in the bilateral lower extremities. NEUROLOGIC: Grossly nonfocal. LABORATORY DATA: WBC 7.8, hemoglobin 8.9, platelets 329,000. Creatinine 5.09. Basic metabolic profile and liver function studies are otherwise unremarkable except for a downtrending bilirubin of 1.6. Blood sugars are ranging from 94 to 138. ASSESSMENT: 1. Acute hypoxic respiratory failure, resolved. 2. End-stage renal disease. 3. Anasarca, resolving. 4. Abnormal CT including bilateral pleural effusions (right greater than left) and interstitial edema with subtle ground-glass changes. 5. Acute on chronic diastolic and systolic heart failure, returning to baseline. DISCUSSION AND PLAN: We will repeat a chest x-ray. If the fluid is getting smaller, or staying the same, surveillance will be continued into the outpatient setting. If it is getting larger, thoracentesis will be considered here in the hospital. The fluid collection is most likely associated with the volume overload event. If the fluid is getting smaller, it would be reasonable to transition the patient home today. Job ID: [id number]
[2018-07-30 12:14] VITALS: BMI 25.0
[2018-07-30 13:31] LABS: Vancomycin, Random 34.6 ug/mL (See Comment)
--- NOTE | 2018-07-30 13:50 | RAD ---
TWO VIEWS CHEST: Comparison: 07-23-18 History: Pleural effusion. FINDINGS: Two views of the chest shows an enlarged but stable cardiomediastinal silhouette. Small bilateral ple ural effusions are seen. The right pleural effusion may have slightly decreased in size. Degenerative changes are seen in the spine. IMPRESSION: Small bilateral pleural effusions. POS: [facility]
[2018-07-30] MEDS ORDERED: Nitroglycerin 0.4 MG TAB (25 Tab Bottle) PO PRN (14:20)
[2018-07-30] MEDS ORDERED: Morphine 2 MG/ML SYRINGE SLOW IVP SCH (14:30)
[2018-07-30] MEDS: Nitroglycerin 0.4 MG TAB (25 Tab Bottle) ONE ×3 (14:34→14:51)
[2018-07-30 15:33] LABS: CKMB 0.1 ng/mL (0-6.6)
[2018-07-30] MEDS: Saccharomyces boulardii 250 MG CAP PO SCH (16:15)
[2018-07-30] MEDS: Clopidogrel Bisulfate 75 MG TAB PO SCH (16:15)
[2018-07-30] MEDS: Aspirin 81 mg Enteric Coated Tablet PO SCH (16:16)
[2018-07-30] MEDS: Heparin 5,000 UNITS/ML VIAL SC SCH ×2 (16:20→21:05)
[2018-07-30] MEDS: HumaLOG 300 UNITS/3 ML VIAL SC PRN ×2 (17:47→21:06)
[2018-07-30] MEDS ORDERED: Gentamicin Sulfate 100 MG in Premix Bag 1 BAG IVPB SCH (18:00)
[2018-07-30 18:58] LABS: CKMB 0.5 ng/mL (0-6.6)
--- NOTE | 2018-07-30 19:17 | PDOC.PN ---
- Subjective Encounter Start Date: 07/30/18 Encounter Start Time: 14:00 Patient seen and examined for Resp failure. Underwent dialysis today. Developed CP - substernal constant - mod to severe - no diaphoresis. No other complaints. No overnight events - Objective Resuscitation Status - Order Detail: 07/24/18 21:29 Resuscitation Status Routine Resuscitation Status: FULL: Full Resuscitation MAR Reviewed: Yes Vital Signs & Weight: Vital Signs (12 hours) Temp Pulse Resp BP BP Pulse Ox 07/30/18 16:29 99.3 F 97 16 126/60 07/30/18 13:00 97.4 F L 84 18 134/66 97 07/30/18 09:00 74 112/57 L 07/30/18 08:00 96.9 F L 74 18 112/57 L 96 Weight Admit Weight 158 lb 4 oz Weight 154 lb 12.232 oz I&O: 07/29/18 07/30/18 07/31/18 06:59 06:59 06:59 Intake Total 1030 490 210 Output Total 1700 0 1300 Balance -670 490 -1090 Result Diagrams: 07/30/18 04:45 07/30/18 04:45 Additional Labs: Accuchecks 07/30/18 07/30/18 07/30/18 16:36 10:43 05:17 POC Glucose 268 H 94 133 H 07/29/18 20:20 POC Glucose 193 H Radiology Reviewed by me: Yes (CXR - Small bilateral pleural effusion) EKG Reviewed by me: Yes (SR) Phys Exam - Physical Examination Constitutional: NAD Sitting on chair Respiratory: no wheezing, no rhonchi Dec AE at bases, Symmetrical, No accessory muscle use Cardiovascular: RRR, no rub no heaves/pulsations. CP not reproducible Gastrointestinal: soft, non-tender, no distention, positive bowel sounds Musculoskeletal: no edema Wound vac + Neurological: non-focal, moves all 4 limbs Dx/Plan - Plan DVT proph w/heparin IMPRESSION: Acute hypoxic respiratory failure secondary to large right-sided pleural effusion/Volume overload. improving with dialysis Chest pain post dialysis Bleeding from the right below-knee amputation site -on Vancomycin and gentamicin for [address] Ojeda. End-stage renal disease, on hemodialysis Saturday, Saturday, and Saturday. Diabetes mellitus, type 2 with hypoglycemia Severe peripheral vascular disease.Chronic systolic HF EF 20-25% due to ischemic CM. Hyperkalemia. Hyponatremia. CAD with type 2 myocardial infarction/demand ischemia from volume overload. Hyperlipidemia. Secondary hyperparathyroidism. Hypertension. Anemia secondary to chronic kidney disease. GERD. PLAN: CXR and EKG reviewed Medical mngt recommended on recent Cath Cont SL NTG PRN Serial troponins due to h/o CAD Home wound vac arranged DC in 24 hr if troponins downtrending Not on ACEI/ARB/Aldactone due to renal insufficiency. Cont wound care Cont Atbx per Dr Ojeda Cont current dose of Insulin/sliding scale Cont other meds as below Review of Systems - Review of Systems Respiratory: negative: Cough, Dry, Shortness of Breath, Hemoptysis, SOB with Excertion, Pleuritic Pain, Sputum, Wheezing Cardiovascular: chest pain. negative: palpitations, orthopnea, paroxysmal nocturnal dyspnea, edema, light headedness, other Gastrointestinal: negative: Nausea, Vomiting, Abdominal Pain, Diarrhea, Constipation, Melena, Hematochezia, Other Genitourinary: negative: Dysuria, Frequency, Incontinence, Hematuria, Retention , Other - Medications/Allergies Allergies/Adverse Reactions: Allergies Allergy/AdvReac Type Severity Reaction Status Date / Time No Known Allergies Allergy Verified 07/08/18 21:59 Medications: Current Medications Acetaminophen (Tylenol) 650 mg PO Q4H PRN PRN Reason: Headache/Fever/Mild Pain (1-3) Last Admin: 07/26/18 08:33 Dose: 650 mg Acetaminophen (Tylenol) 650 mg MD Q4H PRN PRN Reason: Headache/Fever/Mild Pain (1-3) Hydrocodone Bitart/Acetaminophen ([place] 5/325) 1 tab PO Q6H PRN PRN Reason: Moderate Pain (4-6) Amlodipine Besylate (Norvasc) 5 mg PO BID [facility] Last Admin: 07/30/18 09:00 Dose: Not Given Aspirin (Ecotrin) 81 mg PO DAILY [facility] Last Admin: 07/30/18 16:16 Dose: 81 mg Atorvastatin Calcium (Lipitor) 10 mg PO HS [facility] Last Admin: 07/29/18 20:48 Dose: 10 mg Carvedilol (Coreg) 6.25 mg PO BID [facility] Last Admin: 07/30/18 09:00 Dose: Not Given Clopidogrel Bisulfate (Plavix) 75 mg PO DAILY [facility] Last Admin: 07/30/18 16:15 Dose: 75 mg Dextrose/Water (Dextrose 50%) 25 gm SLOW IVP PRN PRN PRN Reason: Hypoglycemia Fenofibrate (Tricor) 145 mg PO HS [facility] Last Admin: 07/29/18 20:48 Dose: 145 mg Glucagon (Glucagon) 1 mg IM PRN PRN PRN Reason: Hypoglycemia Heparin Sodium (Porcine) (Heparin) 5,000 units SC BID [facility] Last Admin: 07/30/18 16:20 Dose: 5,000 units Dextrose/Water (D5w) 1,000 mls @ 0 mls/hr IV .Q0M PRN PRN Reason: Hypoglycemia Vancomycin HCl 1.25 gm/ Sodium (Chloride) 250 mls @ 166.667 mls/hr IVPB [facility] Vancomycin HCl 1 gm/ Device 200 mls @ 200 mls/hr IVPB [facility] Last Admin: 07/30/18 11:03 Dose: 200 mls Vancomycin HCl 750 mg/ Sodium (Chloride) 250 mls @ 250 mls/hr IVPB [facility] Vancomycin HCl 500 mg/ Sodium (Chloride) 100 mls @ 100 mls/hr IVPB [facility] Gentamicin Sulfate 100 mg/ (Device) 100 mls @ 100 mls/hr IVPB MWF@1800 [facility] Insulin Human Lispro (Humalog) 0 units SC .MILD SLIDING SCALE PRN PRN Reason: Mild Correctional Scale Last Admin: 07/30/18 17:47 Dose: 4 units Insulin Human Lispro (Humalog) 0 units SC .BEDTIME SLIDING SC PRN PRN Reason: Bedtime Correctional Scale Last Admin: 07/29/18 11:23 Dose: 2 unit Insulin Human NPH (Humulin N) 10 unit SC DAILY [facility] Last Admin: 07/30/18 09:00 Dose: Not Given Miscellaneous Medication (Pharmacy To Dose) 1 each IVPB PRN PRN PRN Reason: SSSI Nitroglycerin (Nitrostat) 0.4 mg PO Q5MIN PRN PRN Reason: Chest Pain Hold Vanc For Level> (20) 0 each FS .AT DIALYSIS [facility] Ondansetron HCl (Zofran Odt) 4 mg PO Q6H PRN PRN Reason: Nausea/Vomiting Ondansetron HCl (Zofran) 4 mg IVP Q6H PRN PRN Reason: Nausea/Vomiting Pantoprazole Sodium (Protonix) 40 mg PO QAM-WM [facility] Last Admin: 07/30/18 16:16 Dose: 40 mg Ranolazine (Ranexa) 500 mg PO BID [facility] Last Admin: 07/30/18 09:00 Dose: Not Given Saccharomyces Boulardii (Florastor) 250 mg PO DAILY [facility] Last Admin: 07/30/18 16:15 Dose: 250 mg Sevelamer Carbonate (Renvela) 1,600 mg PO TID-[facility] Last Admin: 07/30/18 18:19 Dose: 1,600 mg Sodium Chloride (Flush - Normal Saline) 10 ml IVF Q12HR [facility] Last Admin: 07/30/18 09:00 Dose: Not Given Sodium Chloride (Flush - Normal Saline) 10 ml IVF PRN PRN PRN Reason: Saline Flush Last Admin: 07/29/18 11:13 Dose: 10 ml Tramadol HCl (Ultram) 50 mg PO Q6H PRN PRN Reason: Pain>4 Last Admin: 07/29/18 08:57 Dose: 50 mg
[2018-07-30] MEDS: traMADol HCl 50 MG TAB PO PRN (21:04)
[2018-07-30] MEDS: Atorvastatin Calcium 10 MG TAB PO SCH (21:06)
[2018-07-30] MEDS: Fenofibrate Nanocrystallized 145 MG TAB PO SCH (21:06)
[2018-07-30] MEDS ORDERED: guaiFENesin 100 MG/5 ML UDCUP PO PRN (22:55)
[2018-07-30] MEDS ORDERED: Diabetic Tussin 200 MG/10 ML UDCUP PO PRN (23:11)
[2018-07-31 07:05] LABS: CKMB 0.4 ng/mL (0-6.6)
[2018-07-31] MEDS: Saccharomyces boulardii 250 MG CAP PO SCH (08:13)
[2018-07-31] MEDS: Aspirin 81 mg Enteric Coated Tablet PO SCH (08:13)
[2018-07-31] MEDS: Clopidogrel Bisulfate 75 MG TAB PO SCH (08:14)
[2018-07-31] MEDS: Amlodipine 5 MG TAB PO SCH (09:33)
[2018-07-31] MEDS: NPH, Human Insulin Isophane 300 UNIT/3 ML VIAL SC SCH (09:33)
[2018-07-31] MEDS: Sevelamer Carbonate 800 MG TAB PO SCH ×3 (09:33→17:42)
[2018-07-31] MEDS: Carvedilol 6.25 MG TAB PO SCH ×2 (09:34→21:26)
--- NOTE | 2018-07-31 09:53 | PRG ---
DATE OF SERVICE: 07/31/2018 SERVICE: Pulmonary Medicine. INTERVAL HISTORY: The patient had an episode of substernal chest discomfort yesterday. He got some nitroglycerin and it resolved. Denies any current fevers, cough, sputum production, nausea, or vomiting. He is not having any shortness of breath at this moment. I got to put back on a little bit of oxygen, but I do not see anything that recorded hypoxemic failure. PHYSICAL EXAMINATION: VITAL SIGNS: Afebrile, pulse 71, blood pressure 95/50, respirations 16, and saturation 94% once again on room air. GENERAL: The patient is awake and alert, in no apparent distress. LUNGS: Decent air entry. No dependent crackles are present. There is improving air entry in the bibasilar regions. HEART: Normal rate, regular. ABDOMEN: Soft, nontender, and nondistended. Bowel sounds are positive. MUSCULOSKELETAL: No cyanosis or clubbing. No pitting in bilateral lower extremities. NEUROLOGIC: Grossly nonfocal. LABORATORY DATA: Troponin is gently up-trending to 0.136. IMAGING: Chest x-ray shows an interval improvement to the bibasilar effusions. ASSESSMENT: 1. Acute hypoxic respiratory failure, resolved. 2. Pleural effusion, in the setting of anasarca. 3. End-stage renal disease. 4. Acute on chronic diastolic and systolic heart failure, close to euvolemic. 5. Abnormal CT including bilateral pleural effusions (right greater than left), interstitial edema, and subtle ground-glass opacifications. DISCUSSION AND PLAN: At this point, the patient's effusions are getting smaller. We can repeat a chest x-ray in 3 to 4 weeks in the outpatient setting while we continue to pursue volume optimization. If at that time, if the effusion persists, a thoracentesis may be indicated. He has no further requirements for inpatient Pulmonary or Critical Care opinion, and I will sign off. Please call with additional questions or concerns through time. Job ID: [id number] [facility]
--- NOTE | 2018-07-31 11:53 | PRG ---
DATE OF SERVICE: 07/31/2018 SUBJECTIVE: Patient was seen and examined at bedside and overnight events noted. Patient denies any shortness of breath or chest pain or palpitation. No history of nausea or vomiting or diarrhea or fever or chills or cramps. OBJECTIVE: GENERAL: This is a well-built male, in no apparent distress. VITAL SIGNS: Temperature 98.2. Heart rate 71. Respiratory rate 16. Blood pressure 95/50. HEENT: Atraumatic, normocephalic. Oral mucosa is moist NECK: Supple. CARDIOVASCULAR: S1, S2 heard. Rate and rhythm regular. RESPIRATORY: Clear to auscultation. GASTROINTESTINAL: Abdomen is soft. MUSCULOSKELETAL: No tenderness. No edema. DERMATOLOGIC: No skin rash. NEUROLOGIC: Alert and awake and oriented X3. No focal neurologic deficits. Moving all the extremities. PSYCHIATRIC: Mood and affect normal. LABORATORY DATA: None done today. ASSESSMENT AND PLAN: 1. End-stage renal disease. Continue on dialysis on Saturday, Saturday, and Saturday. 2. Edema. Controlled. 3. Hyperkalemia. 4. Hypertension. 5. Anemia. Plan to continue on dialysis as tolerated. Job ID: [id number]
[2018-07-31] MEDS: HumaLOG 300 UNITS/3 ML VIAL SC PRN ×2 (12:11→17:43)
--- NOTE | 2018-07-31 12:58 | PDOC.PN ---
- Subjective Encounter Start Date: 07/31/18 Encounter Start Time: 12:55 Patient seen and examined for Resp failure. CP resolved. No N/V. No new complaints. No overnight events - Objective Resuscitation Status - Order Detail: 07/24/18 21:29 Resuscitation Status Routine Resuscitation Status: FULL: Full Resuscitation MAR Reviewed: Yes Vital Signs & Weight: Vital Signs (12 hours) Temp Pulse Resp BP BP BP Pulse Ox 07/31/18 12:00 97.8 F 74 16 97/51 L 100 07/31/18 09:34 111/53 L 07/31/18 08:15 95 07/31/18 08:00 98.2 F 71 16 95/50 L 94 L 07/31/18 03:25 98.1 F 75 24 H 96/51 L 99 Weight Admit Weight 158 lb 4 oz Weight 153 lb 3.54 oz I&O: 07/30/18 07/31/18 08/01/18 06:59 06:59 06:59 Intake Total 490 450 Output Total 0 1300 Balance 490 -850 Result Diagrams: 07/30/18 04:45 07/30/18 04:45 Additional Labs: Accuchecks 07/31/18 07/31/18 07/30/18 10:51 05:26 20:51 POC Glucose 195 H 197 H 282 H 07/30/18 16:36 POC Glucose 268 H EKG Reviewed by me: Yes (Tele SR) Phys Exam - Physical Examination Constitutional: NAD Respiratory: no wheezing, no rhonchi dec AE at bases Cardiovascular: RRR, no rub Gastrointestinal: soft, non-tender, positive bowel sounds Musculoskeletal: no edema RLE stump dressing with wound vac + Neurological: moves all 4 limbs Dx/Plan - Plan DVT proph w/lovenox IMPRESSION: Acute hypoxic respiratory failure secondary to large right-sided pleural effusion/Volume overload. improving with dialysis Chest pain post dialysis started 07/30 - improved. Troponins uptrending Bleeding from the right below-knee amputation site -on Vancomycin and gentamicin for [address] Ojeda. End-stage renal disease, on hemodialysis Saturday, Saturday, and Saturday. Diabetes mellitus, type 2 with hypoglycemia Severe peripheral vascular disease.Chronic systolic HF EF 20-25% due to ischemic CM. Hyperkalemia. Hyponatremia. CAD with type 2 myocardial infarction/demand ischemia from volume overload. Hyperlipidemia. Secondary hyperparathyroidism. Hypertension. Anemia secondary to chronic kidney disease. GERD. PLAN: Consult Cardiology due to h/o CAD and elevated troponins Cont SL NTG PRN DC Amlodipine Not on ACEI/ARB/Aldactone due to renal insufficiency. Cont wound care Cont IV Vancomycin/Gentamicin until 08/[address] Ojeda Cont other meds as below DC Planning Review of Systems - Review of Systems Respiratory: negative: Cough, Dry, Shortness of Breath, Hemoptysis, SOB with Excertion, Pleuritic Pain, Sputum, Wheezing Cardiovascular: negative: chest pain, palpitations, orthopnea, paroxysmal nocturnal dyspnea, edema, light headedness, other Gastrointestinal: negative: Nausea, Vomiting, Abdominal Pain, Diarrhea, Constipation, Melena, Hematochezia, Other - Medications/Allergies Allergies/Adverse Reactions: Allergies Allergy/AdvReac Type Severity Reaction Status Date / Time No Known Allergies Allergy Verified 07/08/18 21:59 Medications: Current Medications Acetaminophen (Tylenol) 650 mg PO Q4H PRN PRN Reason: Headache/Fever/Mild Pain (1-3) Last Admin: 07/26/18 08:33 Dose: 650 mg Acetaminophen (Tylenol) 650 mg [place] Q4H PRN PRN Reason: Headache/Fever/Mild Pain (1-3) Hydrocodone Bitart/Acetaminophen ([place] 5/325) 1 tab PO Q6H PRN PRN Reason: Moderate Pain (4-6) Amlodipine Besylate (Norvasc) 5 mg PO BID [facility] Last Admin: 07/31/18 09:33 Dose: Not Given Aspirin (Ecotrin) 81 mg PO DAILY [facility] Last Admin: 07/31/18 08:13 Dose: 81 mg Atorvastatin Calcium (Lipitor) 10 mg PO [facility] Last Admin: 07/30/18 21:06 Dose: 10 mg Carvedilol (Coreg) 6.25 mg PO BID [facility] Last Admin: 07/31/18 09:34 Dose: 6.25 mg Clopidogrel Bisulfate (Plavix) 75 mg PO DAILY [facility] Last Admin: 07/31/18 08:14 Dose: 75 mg Dextrose/Water (Dextrose 50%) 25 gm SLOW IVP PRN PRN PRN Reason: Hypoglycemia Fenofibrate (Tricor) 145 mg PO [facility] Last Admin: 07/30/18 21:06 Dose: 145 mg Glucagon (Glucagon) 1 mg IM PRN PRN PRN Reason: Hypoglycemia Guaifenesin (Robitussin Sf) 200 mg PO Q4H PRN PRN Reason: Cough Last Admin: 07/31/18 05:26 Dose: 200 mg Dextrose/Water (D5w) 1,000 mls @ 0 mls/hr IV .Q0M PRN PRN Reason: Hypoglycemia Vancomycin HCl 1.25 gm/ Sodium (Chloride) 250 mls @ 166.667 mls/hr IVPB [facility] Vancomycin HCl 1 gm/ Device 200 mls @ 200 mls/hr IVPB [facility] Last Admin: 07/30/18 11:03 Dose: 200 mls Vancomycin HCl 750 mg/ Sodium (Chloride) 250 mls @ 250 mls/hr IVPB [facility] Vancomycin HCl 500 mg/ Sodium (Chloride) 100 mls @ 100 mls/hr IVPB [facility] Gentamicin Sulfate 100 mg/ (Device) 100 mls @ 100 mls/hr IVPB MWF@1800 [facility] Insulin Human Lispro (Humalog) 0 units SC .MILD SLIDING SCALE PRN PRN Reason: Mild Correctional Scale Last Admin: 07/31/18 12:11 Dose: 2 units Insulin Human Lispro (Humalog) 0 units SC .BEDTIME SLIDING SC PRN PRN Reason: Bedtime Correctional Scale Last Admin: 07/30/18 21:06 Dose: 3 unit Insulin Human NPH (Humulin N) 10 unit SC DAILY [facility] Last Admin: 07/31/18 09:33 Dose: Not Given Miscellaneous Medication (Pharmacy To Dose) 1 each IVPB PRN PRN PRN Reason: SSSI Nitroglycerin (Nitrostat) 0.4 mg PO Q5MIN PRN PRN Reason: Chest Pain Last Admin: 07/30/18 22:58 Dose: 1 tab Hold Vanc For Level> (20) 0 each FS .AT [facility]IAL[facility] Ondansetron HCl (Zofran Odt) 4 mg PO Q6H PRN PRN Reason: Nausea/Vomiting Ondansetron HCl (Zofran) 4 mg IVP Q6H PRN PRN Reason: Nausea/Vomiting Pantoprazole Sodium (Protonix) 40 mg PO QAM[facility] Last Admin: 07/31/18 08:13 Dose: 40 mg Ranolazine (Ranexa) 1,000 mg PO BID [facility] Ranolazine (Ranexa) 1,000 mg PO NOW [facility] Stop: 07/31/18 14:00 Saccharomyces Boulardii (Florastor) 250 mg PO DAILY [facility] Last Admin: 07/31/18 08:13 Dose: 250 mg Sevelamer Carbonate (Renvela) 1,600 mg PO TID[facility] Last Admin: 07/31/18 12:10 Dose: 1,600 mg Sodium Chloride (Flush - Normal Saline) 10 ml IVF Q12HR [facility] Last Admin: 07/31/18 09:35 Dose: 10 ml Sodium Chloride (Flush - Normal Saline) 10 ml IVF PRN PRN PRN Reason: Saline Flush Last Admin: 07/29/18 11:13 Dose: 10 ml Tramadol HCl (Ultram) 50 mg PO Q6H PRN PRN Reason: Pain>4 Last Admin: 07/30/18 21:04 Dose: 50 mg
--- NOTE | 2018-07-31 13:13 | CON ---
DATE OF CONSULTATION: 07/31/2018 REASON FOR CONSULTATION: Chest pain. HISTORY OF PRESENT ILLNESS: Mr. Tellez is a very pleasant 53-year-old gentleman, very well known to myself, who comes to the hospital for bleeding around his [id number] amputation site. He was put on a wound VAC and given antibiotics prophylactically to make sure this did not get infected. He has a known ischemic cardiomyopathy with an EF of 20% to 25%. He recently had a heart catheterization about 2 weeks ago and was found to have severe distal disease not amenable to any revascularization, so he was treated medically at that time. He is on dialysis and he is fluid overload. He had dialysis yesterday and during hemodialysis he had chest pain, so Cardiology has been consulted for this. PAST MEDICAL HISTORY: 1. Type 2 diabetes. 2. Hypertension. 3. End-stage renal disease. 4. Ischemic cardiomyopathy with EF of 20% to 25%. 5. Status post CABG. PAST SURGICAL HISTORY: 1. Right [id number] amputation. 2. Dialysis fistula, left lower arm. 3. Abdominal surgery. 4. CABG in the past. 5. Stenting in the past. SOCIAL HISTORY: No alcohol, tobacco, or drugs. FAMILY HISTORY: Noncontributory. REVIEW OF SYSTEMS: A 12-point review of systems was done and was all negative unless stated in the history of present illness. OUTPATIENT MEDICATIONS: Include: 1. Renvela. 2. Norvasc 10 mg a day. 3. Ultram. 4. Pravachol. 5. NovoLog 70/30. 6. Insulin sliding scale. 7. Tricor 145 mg nightly. 8. Tylenol p.r.n. 9. Florastor. 10. Ranexa 500 mg b.i.d. 11. Nexium 40 mg every morning. 12. Plavix 75 mg a day. 13. Aspirin 81 a day. 14. Vancomycin. 15. Coreg 6.25 b.i.d. 16. Gentamicin. ALLERGIES: NO KNOWN DRUG ALLERGIES. PHYSICAL EXAMINATION: VITAL SIGNS: Temperature 98.2, pulse 71, respiratory rate 16, saturating 94% on room air, and blood pressure 111/53. GENERAL: Awake, alert, and oriented x3, in no distress. HEENT: Normocephalic and atraumatic. NECK: Supple. LUNGS: Clear on the left base. Right base is dull with no breath sounds. CARDIOVASCULAR: S1 and S2. No S3 or S4. There is a grade 3/6 systolic murmur at the right upper sternal border. ABDOMEN: Soft. EXTREMITIES: Right BKA. Left trace edema, improved from his baseline. SKIN: Warm and dry. LABORATORY WORK: Reviewed. CBC, CMP, and toxicology were reviewed. Troponin was in indeterminate range. ASSESSMENT/PLAN: 1. Chronic stable angina. Chest pain during dialysis, most likely related to his severe distal coronary artery disease, not amenable to any revascularization. We will increase his Ranexa to a 1000 mg b.i.d. His blood pressure is too low to change any of his antianginals that would affect blood pressure. 2. No plan for catheterization given his recent catheterization showing multivessel disease, distal vessels affected, non-revascularizable disease. Thank you for letting us to participate in the care of your patient. We will follow. Job ID: [id number]
[2018-07-31] MEDS: traMADol HCl 50 MG TAB PO PRN (13:41)
--- NOTE | 2018-07-31 14:49 | PRG ---
DATE OF SERVICE: 07/31/2018 Fazal Reid is seen today at wound care request. The patient is admitted for BKA wound problem. He underwent on 06/10/2018, right BKA. He fell on it resulting in some wound dehiscence. He has been treated with a wound VAC and intravenous antibiotics administered during dialysis. Today, the wound was inspected. He has slough on the skin and the subcutaneous tissue, debrided sharply at the bedside. Dressing was applied. Wound Care was contacted and they will place the wound VAC today or tomorrow. The patient is ready to be discharged home. He should continue vancomycin and gentamicin with dialysis for another 3 weeks. I will see him as an outpatient. Job ID: [id number]
[2018-07-31] MEDS: Atorvastatin Calcium 10 MG TAB PO SCH (21:25)
[2018-07-31] MEDS: Fenofibrate Nanocrystallized 145 MG TAB PO SCH (21:26)
[2018-08-01] MEDS: NPH, Human Insulin Isophane 300 UNIT/3 ML VIAL SC SCH (07:55)
[2018-08-01] MEDS: HumaLOG 300 UNITS/3 ML VIAL SC PRN ×2 (07:56→17:04)
[2018-08-01 08:54] LABS: #Eosinphils 0.3 thou/uL (0.0-0.7); #Lymphocytes 1.7 thou/uL (1.20-3.40); %Basophils 0.3 % (0.0-1.0); %Eosinophils 3.2 % (0.0-10.0); %Lymphocytes 19.3 % (21.0-51.0); %Monocytes 10.6 % (0.0-10.0); %Neutrophils 66.6 % (42.0-75.0); Hemoglobin 7.8 g/dL (14.0-18.0); Mean Corpuscular HGB CONC 31.7 g/dL (32.0-36.0); Mean Corpuscular Hemoglobin 30.4 pg (27.0-31.0); Mean Corpuscular Volume 95.9 fL (78.0-98.0); Mean Platelet Volume 8.7 fL (7.4-10.4); Platelet Count 399 thou/uL (130-400); RBC Distribution Width 19.8 % (11.5-14.5); Red Blood Cell (RBC) Count 2.56 mill/uL (4.70-6.10); White Blood Cell (WBC) Count 8.9 thou/uL (4.8-10.8)
[2018-08-01] MEDS: Sevelamer Carbonate 800 MG TAB PO SCH ×3 (09:08→17:03)
[2018-08-01 09:09] LABS: Vancomycin, Random 22.3 ug/mL (See Comment)
[2018-08-01 09:10] LABS: Albumin 3.2 g/dL (3.5-5.0); Anion Gap 20 mmol/L (10-20); BUN (Urea Nitrogen) 68 mg/dL (8.4-25.7); Calc. Creatinine Clearance 15 mL/min (70-130); Carbon Dioxide 24 mmol/L (22-29); Chloride 91 mmol/L (98-107); Estimated GFR-MDRD 11; Glucose 255 mg/dL (70-105); Potassium 5.5 mmol/L (3.5-5.1); Sodium 129 mmol/L (136-145)
--- NOTE | 2018-08-01 09:54 | OP ---
DATE OF PROCEDURE: 07/31/2018 PREOPERATIVE DIAGNOSIS: Dehisced right below knee amputation stump, undergoing VAC treatment and antibiotic administration during dialysis. POSTOPERATIVE DIAGNOSIS: Dehisced right below knee amputation stump, undergoing VAC treatment and antibiotic administration during dialysis. PROCEDURES PERFORMED: Debridement of skin, subcutaneous tissue, and slough at bedside. ANESTHESIA: None. DESCRIPTION OF PROCEDURE: The patient at bedside in his room telemetry, the wound was prepared with alcohol and necrotic skin and subcutaneous tissues debrided sharply. A sterile dressing applied. Wound care will reapply the wound VAC. Job ID: [id number]
[2018-08-01] MEDS: Clopidogrel Bisulfate 75 MG TAB PO SCH (13:01)
[2018-08-01] MEDS: Saccharomyces boulardii 250 MG CAP PO SCH (13:01)
[2018-08-01] MEDS: Aspirin 81 mg Enteric Coated Tablet PO SCH (13:01)
[2018-08-01] MEDS: Carvedilol 6.25 MG TAB PO SCH ×2 (13:03→20:42)
--- NOTE | 2018-08-01 15:30 | PRG ---
DATE OF SERVICE: 08/01/2018 SUBJECTIVE: Patient was seen and examined at bedside and overnight events noted. Patient denies any shortness of breath or chest pain or palpitation. No history of nausea or vomiting or diarrhea or fever or chills or cramps. OBJECTIVE: GENERAL: This is a well-built male, in no apparent distress. VITAL SIGNS: Temperature 98.2. Heart rate 73. Respiratory rate 18. Blood pressure 101/55. HEENT: Atraumatic, normocephalic. Oral mucosa is moist NECK: Supple. CARDIOVASCULAR: S1, S2 heard. Rate and rhythm regular. RESPIRATORY: Clear to auscultation. GASTROINTESTINAL: Abdomen is soft. MUSCULOSKELETAL: No tenderness. No edema. DERMATOLOGIC: No skin rash. NEUROLOGIC: Alert and awake and oriented X3. No focal neurologic deficits. Moving all the extremities. PSYCHIATRIC: Mood and affect normal. LABORATORY DATA: Potassium is 5.5, BUN is 68, and creatinine is 5.3. ASSESSMENT AND PLAN: 1. End-stage renal disease. Continue on dialysis. 2. Hyperkalemia. We will have dialysis. 3. Edema. 4. Hypertension. 5. Anemia. Continue dialysis on Saturday, Saturday, and Saturday as tolerated. Job ID: [id number]
--- NOTE | 2018-08-01 17:31 | PDOC.CTH ---
Cardiology Progress Note - Subjective No new issues. No more chest pain. Had dialysis today without issues. - Objective Vital Signs Temp Pulse Pulse Resp BP BP BP 08/01/18 16:58 98.6 F 64 17 94/51 L 08/01/18 13:24 71 101/55 L 08/01/18 13:03 97/51 L 08/01/18 12:46 70 17 97/51 L 08/01/18 07:02 98.2 F 76 18 BP Pulse Ox 08/01/18 16:58 100 08/01/18 13:24 08/01/18 13:03 08/01/18 12:46 100 08/01/18 07:02 106/56 L 100 Admit Weight 158 lb 4 oz Weight 153 lb 3 oz 07/31/18 08/01/18 08/02/18 06:59 06:59 06:59 Intake Total 450 1200 Output Total 1300 0 Balance -850 1200 - Physical Examination General/Neuro: alert & oriented x3, NAD Neck: no JVD present Lungs: unlabored respirations Heart: RRR Abdomen: NT/ND Extremities: other: (right BKA) - Telemetry Telemetry Rhythm: NSR - Labs Result Diagrams: 08/01/18 08:10 08/01/18 08:10 Troponin/CKMB CK-MB (CK-2) 0.4 ng/mL (0-6.6) 07/31/18 06:14 Troponin I 0.136 ng/mL (< 0.028) H 07/31/18 06:14 - Assessment/Plan 1. CAD 2. Chronic stable angina 3. Non revascularizable CAD 4. ESRD on HD 5. Ischemic CM EF at 20-25% 6. Wound dehiscence PLAN; - Referral to EP already done as an outpatient for AICD placement. - Needs his wound healed before AICD placement. - May discharge on current regimen from cardiac perspective.
--- NOTE | 2018-08-01 17:35 | PDOC.PN ---
- Subjective Encounter Start Date: 08/01/18 Encounter Start Time: 17:34 Pt seen foir followup re: acute hypoxic respiratory failure. Feels well, no complaints. - Objective Resuscitation Status - Order Detail: 07/24/18 21:29 Resuscitation Status Routine Resuscitation Status: FULL: Full Resuscitation MAR Reviewed: Yes Vital Signs & Weight: Vital Signs (12 hours) Temp Pulse Pulse Resp BP BP BP 08/01/18 16:58 98.6 F 64 17 94/51 L 08/01/18 13:24 71 101/55 L 08/01/18 13:03 97/51 L 08/01/18 12:46 70 17 97/51 L 08/01/18 07:02 98.2 F 76 18 BP Pulse Ox 08/01/18 16:58 100 08/01/18 13:24 08/01/18 13:03 08/01/18 12:46 100 08/01/18 07:02 106/56 L 100 Weight Admit Weight 158 lb 4 oz Weight 153 lb 3 oz I&O: 07/31/18 08/01/18 08/02/18 06:59 06:59 06:59 Intake Total 450 1200 Output Total 1300 0 Balance -850 1200 Result Diagrams: 08/01/18 08:10 08/01/18 08:10 Additional Labs: Accuchecks 08/01/18 08/01/18 08/01/18 16:58 10:58 05:31 POC Glucose 190 H 107 243 H 07/31/18 20:12 POC Glucose 245 H EKG Reviewed by me: Yes (Tele: NSR) Phys Exam - Physical Examination Constitutional: NAD HEENT: moist MMs Neck: supple Respiratory: clear to auscultation bilateral Cardiovascular: RRR Gastrointestinal: soft R BKA, wound vac Neurological: moves all 4 limbs Psychiatric: normal affect Dx/Plan (1) Acute respiratory failure with hypoxia Code(s): J96.01 - ACUTE RESPIRATORY FAILURE WITH HYPOXIA Status: Acute Comment: Pt improved, had dialysis today. (2) Diabetes type 2, controlled Code(s): E11.9 - TYPE 2 DIABETES MELLITUS WITHOUT COMPLICATIONS Status: Chronic Comment: continue accuchecks, insulin sliding scale (3) Dyslipidemia Code(s): E78.5 - HYPERLIPIDEMIA, UNSPECIFIED Status: Chronic Comment: on statin (4) ESRD on hemodialysis Code(s): N18.6 - END STAGE RENAL DISEASE; Z99.2 - DEPENDENCE ON RENAL DIALYSIS Status: Chronic Comment: nephrology following for maintenance dialysis (5) Hypertension Code(s): I10 - ESSENTIAL (PRIMARY) HYPERTENSION Status: Chronic Comment: controlled (6) Chest pain Code(s): R07.9 - CHEST PAIN, UNSPECIFIED Status: Resolved Comment: continue Ranexa - Plan * . Review of Systems - Review of Systems Respiratory: negative: Cough, Shortness of Breath, SOB with Excertion, Pleuritic Pain, Wheezing Cardiovascular: negative: chest pain, palpitations, orthopnea, paroxysmal nocturnal dyspnea, edema, light headedness - Medications/Allergies Allergies/Adverse Reactions: Allergies Allergy/AdvReac Type Severity Reaction Status Date / Time No Known Allergies Allergy Verified 07/08/18 21:59 Medications: Current Medications Acetaminophen (Tylenol) 650 mg PO Q4H PRN PRN Reason: Headache/Fever/Mild Pain (1-3) Last Admin: 07/26/18 08:33 Dose: 650 mg Acetaminophen (Tylenol) 650 mg [place] Q4H PRN PRN Reason: Headache/Fever/Mild Pain (1-3) Hydrocodone Bitart/Acetaminophen ([place] 5/325) 1 tab PO Q6H PRN PRN Reason: Moderate Pain (4-6) Aspirin (Ecotrin) 81 mg PO DAILY [facility] Last Admin: 08/01/18 13:01 Dose: 81 mg Atorvastatin Calcium (Lipitor) 10 mg PO HS [facility] Last Admin: 07/31/18 21:25 Dose: 10 mg Carvedilol (Coreg) 6.25 mg PO BID [facility] Last Admin: 08/01/18 13:03 Dose: Not Given Clopidogrel Bisulfate (Plavix) 75 mg PO DAILY [facility] Last Admin: 08/01/18 13:01 Dose: 75 mg Dextrose/Water (Dextrose 50%) 25 gm SLOW IVP PRN PRN PRN Reason: Hypoglycemia Fenofibrate (Tricor) 145 mg PO HS [facility] Last Admin: 07/31/18 21:26 Dose: 145 mg Glucagon (Glucagon) 1 mg IM PRN PRN PRN Reason: Hypoglycemia Guaifenesin (Robitussin Sf) 200 mg PO Q4H PRN PRN Reason: Cough Last Admin: 07/31/18 05:26 Dose: 200 mg Dextrose/Water (D5w) 1,000 mls @ 0 mls/hr IV .Q0M PRN PRN Reason: Hypoglycemia Vancomycin HCl 1.25 gm/ Sodium (Chloride) 250 mls @ 166.667 mls/hr IVPB [facility] Vancomycin HCl 1 gm/ Device 200 mls @ 200 mls/hr IVPB [facility] Last Admin: 07/30/18 11:03 Dose: 200 mls Vancomycin HCl 750 mg/ Sodium (Chloride) 250 mls @ 250 mls/hr IVPB [facility] Vancomycin HCl 500 mg/ Sodium (Chloride) 100 mls @ 100 mls/hr IVPB [facility] Gentamicin Sulfate 100 mg/ (Device) 100 mls @ 100 mls/hr IVPB MWF@1800 [facility] Insulin Human Lispro (Humalog) 0 units SC .MILD SLIDING SCALE PRN PRN Reason: Mild Correctional Scale Last Admin: 08/01/18 07:56 Dose: 3 units Insulin Human Lispro (Humalog) 0 units SC .BEDTIME SLIDING SC PRN PRN Reason: Bedtime Correctional Scale Last Admin: 07/30/18 21:06 Dose: 3 unit Insulin Human NPH (Humulin N) 10 unit SC DAILY [facility] Last Admin: 08/01/18 07:55 Dose: 10 unit Miscellaneous Medication (Pharmacy To Dose) 1 each IVPB PRN PRN PRN Reason: SSSI Nitroglycerin (Nitrostat) 0.4 mg PO Q5MIN PRN PRN Reason: Chest Pain Last Admin: 07/30/18 22:58 Dose: 1 tab Hold Vanc For Level> (20) 0 each FS .AT DIALYSIS [facility] Last Admin: 08/01/18 09:15 Dose: Not Given Ondansetron HCl (Zofran Odt) 4 mg PO Q6H PRN PRN Reason: Nausea/Vomiting Ondansetron HCl (Zofran) 4 mg IVP Q6H PRN PRN Reason: Nausea/Vomiting Pantoprazole Sodium (Protonix) 40 mg PO QAM-[facility] Last Admin: 08/01/18 13:01 Dose: 40 mg Ranolazine (Ranexa) 1,000 mg PO BID [facility] Last Admin: 08/01/18 13:02 Dose: 1,000 mg Saccharomyces Boulardii (Florastor) 250 mg PO DAILY [facility] Last Admin: 08/01/18 13:01 Dose: 250 mg Sevelamer Carbonate (Renvela) 1,600 mg PO TID-[facility] Last Admin: 08/01/18 13:01 Dose: 1,600 mg Sodium Chloride (Flush - Normal Saline) 10 ml IVF Q12HR [facility] Last Admin: 08/01/18 13:03 Dose: 10 ml Sodium Chloride (Flush - Normal Saline) 10 ml IVF PRN PRN PRN Reason: Saline Flush Last Admin: 07/29/18 11:13 Dose: 10 ml Tramadol HCl (Ultram) 50 mg PO Q6H PRN PRN Reason: Pain>4 Last Admin: 07/31/18 13:41 Dose: 50 mg
[2018-08-01] MEDS: Fenofibrate Nanocrystallized 145 MG TAB PO SCH (21:01)
[2018-08-01] MEDS: Atorvastatin Calcium 10 MG TAB PO SCH (21:01)
[2018-08-02] MEDS: Carvedilol 6.25 MG TAB PO SCH ×2 (08:39→20:53)
[2018-08-02] MEDS: Aspirin 81 mg Enteric Coated Tablet PO SCH (08:39)
[2018-08-02] MEDS: Sevelamer Carbonate 800 MG TAB PO SCH ×3 (08:39→16:50)
[2018-08-02] MEDS: Saccharomyces boulardii 250 MG CAP PO SCH (08:40)
[2018-08-02] MEDS: Clopidogrel Bisulfate 75 MG TAB PO SCH (08:40)
[2018-08-02] MEDS: NPH, Human Insulin Isophane 300 UNIT/3 ML VIAL SC SCH (08:52)
[2018-08-02] MEDS: HumaLOG 300 UNITS/3 ML VIAL SC PRN ×2 (08:52→12:01)
[2018-08-02] MEDS ORDERED: Bisacodyl 5 MG TAB PO PRN (09:40)
[2018-08-02] MEDS: Docusate 100 MG CAP PO SCH ×2 (09:57→20:53)
--- NOTE | 2018-08-02 12:15 | PDOC.PN ---
- Subjective Encounter Start Date: 08/02/18 Encounter Start Time: 07:00 Pt seen for followup re: acute hypoxic respiratory failure. No complaints today. - Objective Resuscitation Status - Order Detail: 07/24/18 21:29 Resuscitation Status Routine Resuscitation Status: FULL: Full Resuscitation Vital Signs & Weight: Vital Signs (12 hours) Temp Pulse Resp BP BP Pulse Ox 08/02/18 08:39 115/57 L 08/02/18 08:10 98.1 F 69 18 115/57 L 94 L 08/02/18 08:00 94 L 08/02/18 04:00 98.2 F 67 16 98/51 L 96 Weight Admit Weight 158 lb 4 oz Weight 154 lb I&O: 08/01/18 08/02/18 08/03/18 06:59 06:59 06:59 Intake Total 1200 240 Output Total 0 Balance 1200 240 Result Diagrams: 08/01/18 08:10 08/01/18 08:10 Additional Labs: Accuchecks 08/02/18 08/02/18 08/01/18 11:21 04:57 20:42 POC Glucose 157 H 154 H 147 H 08/01/18 16:58 POC Glucose 190 H Phys Exam - Physical Examination Constitutional: NAD HEENT: oral pharynx no lesions Neck: no JVD Respiratory: clear to auscultation bilateral Cardiovascular: RRR Gastrointestinal: non-tender s/p R BKA Neurological: moves all 4 limbs Psychiatric: normal affect Dx/Plan (1) Acute respiratory failure with hypoxia Code(s): J96.01 - ACUTE RESPIRATORY FAILURE WITH HYPOXIA Status: Acute Comment: Pt improved, awaiting Rehab bed. (2) Diabetes type 2, controlled Code(s): E11.9 - TYPE 2 DIABETES MELLITUS WITHOUT COMPLICATIONS Status: Chronic Comment: reasonable control (3) Dyslipidemia Code(s): E78.5 - HYPERLIPIDEMIA, UNSPECIFIED Status: Chronic Comment: on statin (4) ESRD on hemodialysis Code(s): N18.6 - END STAGE RENAL DISEASE; Z99.2 - DEPENDENCE ON RENAL DIALYSIS Status: Chronic Comment: nephrology following (5) Hypertension Code(s): I10 - ESSENTIAL (PRIMARY) HYPERTENSION Status: Chronic Comment: controlled (6) Chest pain Code(s): R07.9 - CHEST PAIN, UNSPECIFIED Status: Resolved Comment: on Ranexa - Plan * . Review of Systems - Review of Systems Constitutional: negative: fever, chills, sweats, weakness, malaise Cardiovascular: negative: chest pain, palpitations, orthopnea, paroxysmal nocturnal dyspnea, edema, light headedness - Medications/Allergies Allergies/Adverse Reactions: Allergies Allergy/AdvReac Type Severity Reaction Status Date / Time No Known Allergies Allergy Verified 07/08/18 21:59 Medications: Current Medications Acetaminophen (Tylenol) 650 mg PO Q4H PRN PRN Reason: Headache/Fever/Mild Pain (1-3) Last Admin: 07/26/18 08:33 Dose: 650 mg Acetaminophen (Tylenol) 650 mg [place] Q4H PRN PRN Reason: Headache/Fever/Mild Pain (1-3) Hydrocodone Bitart/Acetaminophen ([place] 5/325) 1 tab PO Q6H PRN PRN Reason: Moderate Pain (4-6) Last Admin: 08/01/18 23:42 Dose: 1 tab Aspirin (Ecotrin) 81 mg PO [facility]ILY [facility] Last Admin: 08/02/18 08:39 Dose: 81 mg Atorvastatin Calcium (Lipitor) 10 mg PO [facility] Last Admin: 08/01/18 21:01 Dose: 10 mg Bisacodyl (Dulcolax) 10 mg PO DAILYPRN PRN PRN Reason: Constipation Carvedilol (Coreg) 6.25 mg PO BID [facility] Last Admin: 08/02/18 08:39 Dose: 6.25 mg Clopidogrel Bisulfate (Plavix) 75 mg PO DAILY [facility] Last Admin: 08/02/18 08:40 Dose: 75 mg Dextrose/Water (Dextrose 50%) 25 gm SLOW IVP PRN PRN PRN Reason: Hypoglycemia Docusate Sodium (Colace) 100 mg PO BID [facility] Last Admin: 08/02/18 09:57 Dose: 100 mg Fenofibrate (Tricor) 145 mg PO [facility] Last Admin: 08/01/18 21:01 Dose: 145 mg Glucagon (Glucagon) 1 mg IM PRN PRN PRN Reason: Hypoglycemia Guaifenesin (Robitussin Sf) 200 mg PO Q4H PRN PRN Reason: Cough Last Admin: 07/31/18 05:26 Dose: 200 mg Dextrose/Water (D5w) 1,000 mls @ 0 mls/hr IV .Q0M PRN PRN Reason: Hypoglycemia Vancomycin HCl 1.25 gm/ Sodium (Chloride) 250 mls @ 166.667 mls/hr IVPB [facility] Vancomycin HCl 1 gm/ Device 200 mls @ 200 mls/hr IVPB [facility] Last Admin: 07/30/18 11:03 Dose: 200 mls Vancomycin HCl 750 mg/ Sodium (Chloride) 250 mls @ 250 mls/hr IVPB [facility] Vancomycin HCl 500 mg/ Sodium (Chloride) 100 mls @ 100 mls/hr IVPB [facility] Gentamicin Sulfate 100 mg/ (Device) 100 mls @ 100 mls/hr IVPB MWF@1800 [facility] Insulin Human Lispro (Humalog) 0 units SC .MILD SLIDING SCALE PRN PRN Reason: Mild Correctional Scale Last Admin: 08/02/18 08:52 Dose: 2 units Insulin Human Lispro (Humalog) 0 units SC .BEDTIME SLIDING SC PRN PRN Reason: Bedtime Correctional Scale Last Admin: 07/30/18 21:06 Dose: 3 unit Insulin Human NPH (Humulin N) 10 unit SC DAILY [facility] Last Admin: 08/02/18 08:52 Dose: 10 unit Miscellaneous Medication (Pharmacy To Dose) 1 each IVPB PRN PRN PRN Reason: SSSI Nitroglycerin (Nitrostat) 0.4 mg PO Q5MIN PRN PRN Reason: Chest Pain Last Admin: 07/30/18 22:58 Dose: 1 tab Hold Vanc For Level> (20) 0 each FS .AT [facility] Last Admin: 08/01/18 09:15 Dose: Not Given Ondansetron HCl (Zofran Odt) 4 mg PO Q6H PRN PRN Reason: Nausea/Vomiting Ondansetron HCl (Zofran) 4 mg IVP Q6H PRN PRN Reason: Nausea/Vomiting Pantoprazole Sodium (Protonix) 40 mg PO QAM-[facility] Last Admin: 08/02/18 08:39 Dose: 40 mg Ranolazine (Ranexa) 1,000 mg PO BID [facility] Last Admin: 08/02/18 08:42 Dose: 1,000 mg Saccharomyces Boulardii (Florastor) 250 mg PO DAILY [facility] Last Admin: 08/02/18 08:40 Dose: 250 mg Sevelamer Carbonate (Renvela) 1,600 mg PO TID-[facility] Last Admin: 08/02/18 08:39 Dose: 1,600 mg Sodium Chloride (Flush - Normal Saline) 10 ml IVF Q12HR [facility] Last Admin: 08/02/18 08:53 Dose: 10 ml Sodium Chloride (Flush - Normal Saline) 10 ml IVF PRN PRN PRN Reason: Saline Flush Last Admin: 07/29/18 11:13 Dose: 10 ml Tramadol HCl (Ultram) 50 mg PO Q6H PRN PRN Reason: Pain>4 Last Admin: 07/31/18 13:41 Dose: 50 mg
--- NOTE | 2018-08-02 13:15 | PRG ---
DATE OF SERVICE: 08/02/2018 SUBJECTIVE: Patient was seen and examined at bedside and overnight events noted. Patient denies any shortness of breath or chest pain or palpitation. No history of nausea or vomiting or diarrhea or fever or chills or cramps. OBJECTIVE: GENERAL: This is a well-built male, in no apparent distress. VITAL SIGNS: Temperature . Heart rate 67. Respiratory rate 18. Blood pressure 103/51. HEENT: Atraumatic, normocephalic. Oral mucosa is moist. NECK: Supple. CARDIOVASCULAR: S1, S2 heard. Rate and rhythm regular. RESPIRATORY: Clear to auscultation. GASTROINTESTINAL: Abdomen is soft. MUSCULOSKELETAL: No tenderness. No edema. DERMATOLOGIC: No skin rash. NEUROLOGIC: Alert and awake and oriented X3. No focal neurologic deficits. Moving all the extremities. PSYCHIATRIC: Mood and affect normal. LABORATORY DATA: No labs done today. ASSESSMENT AND PLAN: 1. End-stage renal disease. Continue on dialysis on Saturday, Saturday, and Saturday. 2. Hyperkalemia, better. 3. Edema. 4. Hypertension. 5. Anemia. We will monitor. Plan to continue dialysis on Saturday, Saturday, and Saturday. Job ID: [id number]
[2018-08-02] MEDS ORDERED: Sodium Chloride 0.9% 250 ML 250 ML IVPB SCH (18:00)
--- NOTE | 2018-08-02 18:06 | RAD ---
EXAM: Single view of the chest HISTORY: Shortness of breath COMPARISON: 07/24/2018 FINDINGS: Single view of the chest shows an enlarged but stable cardiomediastinal silhouette. There is obscurity of the left hemidiaphragm which may represent a small pleural effusion and adjacent atelectasis versus infiltrate. IMPRESSION: Small left pleural effusion with adjacent atelectasis versus infiltrate
[2018-08-02 19:11] LABS: Troponin I 0.063 ng/mL (< 0.028)
--- NOTE | 2018-08-02 20:34 | PDOC.EVN ---
Event Note - Event Note Event Note: Pt was to be discharged to Rehab today. He became light-headed and dizzy. Was found to be hypotensive. Administered IV fluid bolus. I assessed pt. Blood pressure improved, he reports feeling better. S1, S2, reg Lungs CTA. Troponin indeterminate (pt has known CAD). Discharge on hold.
[2018-08-02] MEDS: Fenofibrate Nanocrystallized 145 MG TAB PO SCH (20:53)
[2018-08-02] MEDS: Atorvastatin Calcium 10 MG TAB PO SCH (20:53)
--- NOTE | 2018-08-02 22:36 | DIS ---
DATE OF ADMISSION: 07/24/2018 DATE OF DISCHARGE: 08/02/2018 PRIMARY CARE PROVIDER: Dr. Joe Pacheco. DISCHARGE DIAGNOSES: 1. Bleeding from right below-knee surgical wound. 2. Non-ST elevation myocardial infarction type 2. 3. Acute hypoxic respiratory failure. 4. End-stage renal disease, on maintenance hemodialysis. CONDITION OF PATIENT ON THE DAY OF DISCHARGE: Stable. I assessed Mr. Geoff Reid on the day of discharge. Please refer to my daily progress note dated 08/02/2018, for further details. CONSULTATIONS DURING THIS HOSPITALIZATION: Nephrology, Dr. Schaefer. General surgery, Dr. Ojeda. Pulmonology, Dr. Nguyen. DISCHARGE MEDICATIONS: 1. Amlodipine 10 mg daily. 2. Esomeprazole 40 mg daily. 3. Fenofibrate 145 mg at bedtime. 4. Aspart insulin 5 units at bedtime. 5. Insulin aspart protamine 10 units in the morning. 6. Pravachol 40 mg at bedtime. 7. Renvela 1600 mg 3 times a day. 8. Acetaminophen 1000 mg every 6 hours as needed. 9. Aspirin 81 mg daily. 10. Coreg 6.25 mg 2 times a day. 11. Plavix 75 mg daily. 12. Gentamicin 100 mg IV with dialysis. 13. Ranexa 1000 mg 2 times a day. 14. Florastor 250 mg daily. 15. Tramadol p.r.n. 16. Vancomycin with dialysis. CONDITION OF PATIENT ON THE DAY OF DISCHARGE: Stable. I assessed Mr. Geoff Reid on the day of discharge. He denies any chest pain or shortness of breath. Vital signs are stable. S1 and S2 are heard, regular. Lungs are clear to auscultation bilaterally. HOSPITAL COURSE: Mr. Geoff Reid is a pleasant 53-year-old gentleman, who was admitted to [facility] on 07/24/2018, for bleeding from right below-knee amputation wound following a fall. He was started on antibiotics. He was seen by Nephrology, General Surgery, Pulmonary Critical Care Medicine, and Cardiology Services during this hospitalization. He had wound VAC placed over the wound. He was also found to be in acute hypoxic respiratory failure. His pleural effusions improved with dialysis. Pulmonology Service recommends repeat chest x-ray in 3-4 weeks in the outpatient setting. At that time, if the effusion persists, thoracenteses may be indicated. He also complained of chest pain. He was seen by Cardiology Service. His Ranexa dose was increased. He was evaluated by Therapy Services. He has been accepted for inpatient rehab at [facility]. He is being discharged to [facility] in a stable condition. Many thanks for allowing me to participate in your patient's care. Please feel free to contact me with any questions or concerns. DISCHARGE DESTINATION: [facility]. TOTAL AMOUNT OF TIME SPENT COORDINATING THIS DISCHARGE: 32 minutes. Job ID: [id number]
[2018-08-03] MEDS: Carvedilol 6.25 MG TAB PO SCH (08:14)
[2018-08-03] MEDS: Aspirin 81 mg Enteric Coated Tablet PO SCH (08:14)
[2018-08-03] MEDS: Sevelamer Carbonate 800 MG TAB PO SCH ×2 (08:14→11:38)
[2018-08-03] MEDS: Docusate 100 MG CAP PO SCH (08:14)
[2018-08-03] MEDS: Saccharomyces boulardii 250 MG CAP PO SCH (08:14)
[2018-08-03] MEDS: Clopidogrel Bisulfate 75 MG TAB PO SCH (08:15)
[2018-08-03] MEDS: NPH, Human Insulin Isophane 300 UNIT/3 ML VIAL SC SCH (08:16)
[2018-08-03] MEDS: HumaLOG 300 UNITS/3 ML VIAL SC PRN (11:35)
[2018-08-03 12:17] VITALS: BP 112/53; TEMP 97.6
--- NOTE | 2018-08-03 12:55 | PRG ---
DATE OF SERVICE: 08/03/2018 SUBJECTIVE: Patient was seen and examined at bedside and overnight events noted. Patient denies any shortness of breath or chest pain or palpitation. No history of nausea or vomiting or diarrhea or fever or chills or cramps. OBJECTIVE: GENERAL: This is a well-built male, in no acute distress. VITAL SIGNS: Temperature 98.4. Pulse 75. Respiratory rate 18. Blood pressure 117/58. HEENT: Atraumatic, normocephalic. Oral mucosa is moist. NECK: Supple. CARDIOVASCULAR: S1, S2 heard. Rate and rhythm regular. RESPIRATORY: Clear to auscultation. GASTROINTESTINAL: Abdomen is soft. MUSCULOSKELETAL: No tenderness. No edema. DERMATOLOGIC: No skin rash. NEUROLOGIC: Alert and awake and oriented x3. No focal neurologic deficits. Moving all the extremities. PSYCHIATRIC: Mood and affect normal. LABORATORY DATA: Not done today. ASSESSMENT AND PLAN: 1. End-stage renal disease. Continue dialysis on Saturday, Saturday, and Saturday. 2. Hyperkalemia, better. 3. Edema, controlled. 4. Hypertension. 5. Anemia. Plan to continue dialysis on Saturday, Saturday, and Saturday. Job ID: [id number]
--- NOTE | 2018-08-03 14:09 | PDOC.PN ---
- Subjective Encounter Start Date: 08/03/18 Encounter Start Time: 09:45 Subjective: pt up in bed no complains - Objective Resuscitation Status - Order Detail: 07/24/18 21:29 Resuscitation Status Routine Resuscitation Status: FULL: Full Resuscitation Vital Signs & Weight: Vital Signs (12 hours) Temp Pulse Resp BP Pulse Ox 08/03/18 11:50 97.6 F 71 18 112/53 L 95 08/03/18 08:00 98.4 F 73 18 117/58 L 96 08/03/18 05:58 98.6 F 71 16 117/56 L 95 Weight Admit Weight 158 lb 4 oz Weight 153 lb 14.122 oz I&O: 08/02/18 08/03/18 08/04/18 06:59 06:59 06:59 Intake Total 240 1230 Balance 240 1230 Result Diagrams: 08/01/18 08:10 08/01/18 08:10 Additional Labs: Accuchecks 08/03/18 08/03/18 08/02/18 11:01 05:43 20:53 POC Glucose 294 H 198 H 236 H 08/02/18 15:59 POC Glucose 132 H Phys Exam - Physical Examination Neck: no nodes, no JVD, supple, full ROM Respiratory: no wheezing, no rales, no rhonchi, wheezing present, clear to auscultation bilateral Cardiovascular: RRR, no significant murmur, no rub, gallop, irregular Gastrointestinal: soft, non-tender, no distention, positive bowel sounds Dx/Plan (1) Acute respiratory failure with hypoxia Code(s): J96.01 - ACUTE RESPIRATORY FAILURE WITH HYPOXIA Status: Acute Comment: Pt improved, awaiting Rehab bed. 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 -: pt had a cath 2-3 weeks ago with small vessel disease -: bp is stable. will discharge to rehab * . Review of Systems - Review of Systems Respiratory: negative: Cough, Dry, Shortness of Breath, Hemoptysis, SOB with Excertion, Pleuritic Pain, Sputum, Wheezing Cardiovascular: negative: chest pain, palpitations, orthopnea, paroxysmal nocturnal dyspnea, edema, light headedness, other - Medications/Allergies Allergies/Adverse Reactions: Allergies Allergy/AdvReac Type Severity Reaction Status Date / Time No Known Allergies Allergy Verified 07/08/18 21:59 Medications: Current Medications Acetaminophen (Tylenol) 650 mg PO Q4H PRN PRN Reason: Headache/Fever/Mild Pain (1-3) Last Admin: 07/26/18 08:33 Dose: 650 mg Acetaminophen (Tylenol) 650 mg [place] Q4H PRN PRN Reason: Headache/Fever/Mild Pain (1-3) Hydrocodone Bitart/Acetaminophen ([place] 5/325) 1 tab PO Q6H PRN PRN Reason: Moderate Pain (4-6) Last Admin: 08/01/18 23:42 Dose: 1 tab Aspirin (Ecotrin) 81 mg PO DAILY [facility] Last Admin: 08/03/18 08:14 Dose: 81 mg Atorvastatin Calcium (Lipitor) 10 mg PO [facility] Last Admin: 08/02/18 20:53 Dose: 10 mg Bisacodyl (Dulcolax) 10 mg PO DAILYPRN PRN PRN Reason: Constipation Carvedilol (Coreg) 6.25 mg PO BID [facility] Last Admin: 08/03/18 08:14 Dose: 6.25 mg Clopidogrel Bisulfate (Plavix) 75 mg PO DAILY [facility] Last Admin: 08/03/18 08:15 Dose: 75 mg Dextrose/Water (Dextrose 50%) 25 gm SLOW IVP PRN PRN PRN Reason: Hypoglycemia Docusate Sodium (Colace) 100 mg PO BID [facility] Last Admin: 08/03/18 08:14 Dose: 100 mg Fenofibrate (Tricor) 145 mg PO [facility] Last Admin: 08/02/18 20:53 Dose: 145 mg Glucagon (Glucagon) 1 mg IM PRN PRN PRN Reason: Hypoglycemia Guaifenesin (Robitussin Sf) 200 mg PO Q4H PRN PRN Reason: Cough Last Admin: 07/31/18 05:26 Dose: 200 mg Dextrose/Water (D5w) 1,000 mls @ 0 mls/hr IV .Q0M PRN PRN Reason: Hypoglycemia Vancomycin HCl 1.25 gm/ Sodium (Chloride) 250 mls @ 166.667 mls/hr IVPB [facility] Vancomycin HCl 1 gm/ Device 200 mls @ 200 mls/hr IVPB [facility] Last Admin: 07/30/18 11:03 Dose: 200 mls Vancomycin HCl 750 mg/ Sodium (Chloride) 250 mls @ 250 mls/hr IVPB [facility] Vancomycin HCl 500 mg/ Sodium (Chloride) 100 mls @ 100 mls/hr IVPB [facility] Gentamicin Sulfate 100 mg/ (Device) 100 mls @ 100 mls/hr IVPB MWF@1800 [facility] Insulin Human Lispro (Humalog) 0 units SC .MILD SLIDING SCALE PRN PRN Reason: Mild Correctional Scale Last Admin: 08/03/18 11:35 Dose: 4 units Insulin Human Lispro (Humalog) 0 units SC .BEDTIME SLIDING SC PRN PRN Reason: Bedtime Correctional Scale Last Admin: 07/30/18 21:06 Dose: 3 unit Insulin Human NPH (Humulin N) 10 unit SC DAILY [facility] Last Admin: 08/03/18 08:16 Dose: 10 unit Miscellaneous Medication (Pharmacy To Dose) 1 each IVPB PRN PRN PRN Reason: SSSI Nitroglycerin (Nitrostat) 0.4 mg PO Q5MIN PRN PRN Reason: Chest Pain Last Admin: 07/30/18 22:58 Dose: 1 tab Hold Vanc For Level> (20) 0 each FS .AT DIALYSIS [facility] Last Admin: 08/01/18 09:15 Dose: Not Given Ondansetron HCl (Zofran Odt) 4 mg PO Q6H PRN PRN Reason: Nausea/Vomiting Ondansetron HCl (Zofran) 4 mg IVP Q6H PRN PRN Reason: Nausea/Vomiting Pantoprazole Sodium (Protonix) 40 mg PO QAM-[facility] Last Admin: 08/03/18 08:15 Dose: 40 mg Ranolazine (Ranexa) 1,000 mg PO BID [facility] Last Admin: 08/03/18 08:14 Dose: 1,000 mg Saccharomyces Boulardii (Florastor) 250 mg PO DAILY [facility] Last Admin: 08/03/18 08:14 Dose: 250 mg Sevelamer Carbonate (Renvela) 1,600 mg PO TID-[facility] Last Admin: 08/03/18 11:38 Dose: 1,600 mg Sodium Chloride (Flush - Normal Saline) 10 ml IVF Q12HR [facility] Last Admin: 08/03/18 08:17 Dose: 10 ml Sodium Chloride (Flush - Normal Saline) 10 ml IVF PRN PRN PRN Reason: Saline Flush Last Admin: 07/29/18 11:13 Dose: 10 ml Tramadol HCl (Ultram) 50 mg PO Q6H PRN PRN Reason: Pain>4 Last Admin: 07/31/18 13:41 Dose: 50 mg
--- NOTE | 2018-08-05 18:23 | EKG ---
Test Reason : C/O CHEST PAIN Blood Pressure : / mmHG Vent. Rate : 098 BPM Atrial Rate : 098 BPM P-R Int : 220 ms QRS Dur : 104 ms QT Int : 360 ms P-R-T Axes : 035 107 093 degrees QTc Int : 459 ms Sinus rhythm with 1st degree A-V block Rightward axis Incomplete right bundle branch block Cannot rule out Inferior infarct (cited on or before 09-JUN-2018) Abnormal ECG When compared with ECG of 24-JUL-2018 18:19, (Unconfirmed) Serial changes of Inferior infarct Present Confirmed by DANIEL AL (2) on 08/05/2018 6:23:15 PM Referred By: NICOLAS Confirmed By:DANIEL AL
--- NOTE | 2018-08-06 07:50 | PQF ---
[employer] Winform Viewer GAYLE PARK RICHARD D MD [id number] CLINICAL DOCUMENTATION CLARIFICATION FORM: POST DISCHARGE Addendum to original discharge summary date: ____ Late entry note date: __ DATE:08/06/18 ATTN:Indio Esposito Please exercise your independent, professional judgment in responding to the clarification form. Clinical indicators are provided on the bottom of this form for your review Can you please specify the type of debridement to subcutaneous and fascia. Please check appropriate box(s): [yes ] Excisional Debridement: [ yes ] Excised [ yes ] Cut away [ ] Other: [ ] Non-excisional Debridement: (Removal by flushing, brushing, chemical, or washing) [ ] Incision and Drainage only (No Debridement): [ ] Other procedure diagnosis please specify: [ ] Unable to determine For continuity of documentation, please document condition throughout progress notes and discharge summary. Thank You. CLINICAL INDICATORS: H&P 07/[address] Swanson Chief complain: Bleeding from the wound H&P 07/[address] Swanson He said he looks like he has a fall a couple of days ago and then damaged his wound Op Note 07/[address] Ojeda Post Operative Diagnosis: dehiscence right below the knee amputation stump, undergoing VAC Op Note 07/[address] Ojeda The wound was prepared with alcohol and necrotic skin and subcutaneous tissue debrided sharply. A sterile dressing applied RISK FACTORS: H&P 07/24-Recent Below the knee amputation H&P 07/24-ESRD H&P 07/24- Diabetes Mellitus H&P 07/24- He has a fall and damaged the wound TREATMENTS: Op Note 07/31- Debridement of the skin subcutaneous tissue Op Note 07/31- Wound VAC MAR 07/24- Vancomycin Hcl 1.5 gm IV (This form is maintained as a part of the permanent medical record) 2014 [employer], [employer] All Rights Reserved Marcy [email or web address] [not provided] [email or web address]
== END 2018-08-03 14:11 | DRG 463 ==
LOC: ERS 15:28 → 2NO 21:11 → ONC 08-01 20:29
PROVIDERS: ADMIT Hospitalist; ATTEND Hospitalist
PROC: 5A1D70Z Performance of Urinary Filtration, Intermittent, Less than 6 Hours Per Day (ICD-10-PCS; 2018-07-24)
PROC: 0JBN0ZZ Excision of Right Lower Leg Subcutaneous Tissue and Fascia, Open Approach (ICD-10-PCS; principal; 2018-07-31)
DX: T87.81 Dehiscence of amputation stump (principal); I21.A1 Myocardial infarction type 2; J96.01 Acute respiratory failure with hypoxia; N18.6 End stage renal disease; I50.43 Acute on chronic combined systolic (congestive) and diastolic (congestive) heart failure; J91.8 Pleural effusion in other conditions classified elsewhere; E87.1 Hypo-osmolality and hyponatremia; E87.2 Acidosis; I13.0 Hypertensive heart and chronic kidney disease with heart failure and stage 1 through stage 4 chronic kidney disease, or unspecified chronic kidney disease; N25.81 Secondary hyperparathyroidism of renal origin; N17.9 Acute kidney failure, unspecified; E11.22 Type 2 diabetes mellitus with diabetic chronic kidney disease; E87.5 Hyperkalemia; D63.1 Anemia in chronic kidney disease; E87.70 Fluid overload, unspecified; E11.51 Type 2 diabetes mellitus with diabetic peripheral angiopathy without gangrene; K21.9 Gastro-esophageal reflux disease without esophagitis; E78.5 Hyperlipidemia, unspecified; E11.649 Type 2 diabetes mellitus with hypoglycemia without coma; I25.5 Ischemic cardiomyopathy; I25.118 Atherosclerotic heart disease of native coronary artery with other forms of angina pectoris; Z79.82 Long term (current) use of aspirin; Z99.2 Dependence on renal dialysis; Z89.511 Acquired absence of right leg below knee; Z79.899 Other long term (current) drug therapy; Z95.1 Presence of aortocoronary bypass graft; Z79.4 Long term (current) use of insulin; Y79.3 Surgical instruments, materials and orthopedic devices (including sutures) associated with adverse incidents; R07.89 Other chest pain
CPT/HCPCS: 36415; 36416; 71045; 71046; 71275; 80048; 80053; 80069; 80170; 80202; 82553; 83880; 84484; 85025; 90935; 93005; 93010; 94760; 96365; 99211; G0257; G0463; J1580; J1644; J1650; J1815; J2270; J3370; J7050; Q9966

== ENCOUNTER 2018-08-03 20:38 | Emergency (ER) | payer MEDICARE ==
[2018-08-03] MEDS ORDERED: EPINEPHrine 1 MG, Admixture Fee 1 EACH in Dextrose 5% in Water 250 ML IVPB SCH (21:15)
[2018-08-03] MEDS ORDERED: Atropine Sulfate 1 mg/10 ml Syringe ONE (22:15)
[2018-08-03] MEDS ORDERED: Sodium Bicarb 50 MEQ/50 ML Abboject 8.4% SYRINGE ONE (22:15)
[2018-08-03] MEDS ORDERED: EPINEPHrine 1 MG/10 ML Abboject SYRINGE ONE ×2 (22:15→22:17)
[2018-08-03] MEDS ORDERED: Calcium Chloride 1 GM/10 ML Abboject SYRINGE ONE ×2 (22:15→22:17)
== END 2018-08-03 21:12 | disposition expired ==
LOC: ERS 20:38
DX: I46.9 Cardiac arrest, cause unspecified (principal); I12.0 Hypertensive chronic kidney disease with stage 5 chronic kidney disease or end stage renal disease; N18.6 End stage renal disease; E11.22 Type 2 diabetes mellitus with diabetic chronic kidney disease
CPT/HCPCS: 31500; 36416; 96374; 96375; 96376; J0171; J0461; J7070